=== PATIENT | male | born 1940 | race Caucasian/White ===

== ENCOUNTER 2016-10-19 11:19 | Emergency (ER) | payer MEDICARE ==
--- NOTE | 2016-10-19 12:42 | ED ---
General Adult HPI - General Chief complaint: ENT Stated complaint: NOSEBLEED X 1 DAY, ON BLOOD THINNERS Time Seen by Provider: 10/19/16 12:12 Source: patient, family, RN notes reviewed, old records reviewed Mode of arrival: wheelchair Limitations: no limitations - History of Present Illness Initial comments: This is a 76-year-old male here for evaluation today. Patient's a presents for evaluation of nosebleed. Patient currently on blood thinners and Plavix. Patient states he has a history of nosebleeds usually is a little bit of Afrin and pressure and it is able to resolve. Patient's having bleeding from both nares about a half hour and unable to give bleeding is stopped. No trauma, denies any complaints - Related Data Home Medications Medication Instructions Recorded Confirmed Allopurinol [Zyloprim] 100 mg PO BID 05/19/14 10/19/16 Metoprolol Succinate 25 mg PO QAM 05/19/14 10/19/16 Simvastatin [Zocor] 20 mg PO HS 05/19/14 10/19/16 Folic Acid 1 mg PO DAILY 11/07/14 10/19/16 Furosemide [Lasix] 20 mg PO DAILY 11/07/14 10/19/16 HYDROcodone/APAP 10-325MG [[place] 1 tab PO BID 11/07/14 10/19/16 10-325] Isosorbide Mononitrate ER [Imdur] 60 mg PO DAILY 11/07/14 10/19/16 Lisinopril [Prinivil] 20 mg PO BID 11/07/14 10/19/16 Manning-3 Fatty Acids/Fish Oil [Fish 1 cap PO TID 11/07/14 10/19/16 Oil 1,000 mg Softgel] Vit A/Vit C/Vit E/Zinc/Copper 2 cap PO BID 11/27/14 10/19/16 [ICAPS SOFTGEL] Sertraline [Zoloft] 100 mg PO HS 01/03/16 10/19/16 Psyllium Husk 100% [Metamucil 12 gm PO HS PRN 01/21/16 10/19/16 Packet] Tamsulosin HCl 0.8 mg PO HS 01/21/16 10/19/16 ALPRAZolam [Xanax] 0.5 mg PO TID PRN 03/02/16 10/19/16 Alfuzosin HCl [Uroxatral ER] 10 mg PO DAILY 10/19/16 10/19/16 Cranberry Extract [Cranberry] 500 mg PO DAILY 10/19/16 10/19/16 Dabigatran [Pradaxa] 75 mg PO BID 10/19/16 10/19/16 Fesoterodine Fumarate [Toviaz] 4 mg PO DAILY 10/19/16 10/19/16 Magnesium Oxide [Mag-Ox] 250 mg PO DAILY 10/19/16 10/19/16 Previous Rx's Medication Instructions Recorded Clopidogrel [Plavix] 75 mg PO DAILY #30 tab 02/21/16 Allergies Allergy/AdvReac Type Severity Reaction Status Date / Time No Known Allergies Allergy Verified 10/19/16 12:20 Review of Systems ROS Statement: Those systems with pertinent positive or pertinent negative responses have been documented in the HPI. ROS Other: All systems not noted in ROS Statement are negative. Past Medical History Past Medical History: Atrial Fibrillation, Coronary Artery Disease (CAD), Chest Pain / Angina, Heart Failure, Hearing Disorder / Deafness, Hyperlipidemia, Hypertension, Myocardial Infarction ([place]), Osteoarthritis (OA), Prostate Disorder , Pulmonary Embolus (PE) Additional Past Medical History / Comment(s): Frequent small epistaxis and a couple (3) large epistaxis episodes Gout, MAC DEGENERATION bilaterally-LEGALLY BLIND (BRIGHT LIGHTS BOTHER PT). CONSTIPATION, BPH, OA multiple joints, PE 23 yrs ago post op, stenosis cervical and lumbar Last Myocardial Infarction Date:: 01/2016 History of Any Multi-Drug Resistant Organisms: None Reported Past Surgical History: Coronary Bypass/CABG, Heart Catheterization With Stent, Orthopedic Surgery, Tonsillectomy Additional Past Surgical History / Comment(s): HAD A RECENT HEART CATH AND STENT AT [facility] EARLY JANUARY 2016 AND HAD AN EXTENSIVE NOSE BLEED AFTERWARDS HAD TO BE PACKED. PT STATED STILL EVERY AM HAS SOME NASAL BLEEDING- USES SALINE SOLUTION AND AFRIN. TOTAL RIGHT HIP REPLACEMENT Past Anesthesia/Blood Transfusion Reactions: No Reported Reaction Date of Last Stent Placement:: 01/2016 Past Psychological History: Anxiety, Depression Additional Psychological History / Comment(s): PT. STATES HE DOES SUFFER FROM ANXIETY AND DEPRESSION, PT. STATES DUE TO HIS FORMER JOB HE DOES SUFFER FROM DEPRESSION AND ANXIETY WHICH HE IS ON MEDS FOR and he states the meds work well for him, PT. Pt lives with his spouse. He uses a cane to ambulate moreso, due to blindness. Smoking Status: Former smoker Past Alcohol Use History: None Reported Additional Past Alcohol Use History / Comment(s): PT. STATES HE QUIT SMOKING 8 YEARS AGO AND SMOKED ON AND OFF FOR MANY YEARS Past Drug Use History: None Reported - Past Family History Mother Additional Family Medical History / Comment(s): MACULAR DEGENERATION, THYROID PROBLEMS. Mother at the age of 86 yrs. Father Family Medical History: Cancer Additional Family Medical History / Comment(s): Father from [place] at the age of 63 yrs. General Exam Limitations: no limitations General appearance: alert, in no apparent distress Head exam: Present: atraumatic, normocephalic, normal inspection Eye exam: Present: normal appearance, PERRL, EOMI. Absent: scleral icterus, conjunctival injection, periorbital swelling ENT exam: Present: normal exam, mucous membranes moist, other (Bilateral Logan bleeding anterior) Neck exam: Present: normal inspection. Absent: tenderness, meningismus, lymphadenopathy Respiratory exam: Present: normal lung sounds bilaterally. Absent: respiratory distress, wheezes, rales, rhonchi, stridor Cardiovascular Exam: Present: regular rate, normal rhythm, normal heart sounds. Absent: systolic murmur, diastolic murmur, rubs, gallop, clicks GI/Abdominal exam: Present: soft, normal bowel sounds. Absent: distended, tenderness, guarding, rebound, rigid Extremities exam: Present: normal inspection, full ROM, normal capillary refill. Absent: tenderness, pedal edema, joint swelling, calf tenderness Back exam: Present: normal inspection Neurological exam: Present: alert, oriented X3, CN II-XII intact Psychiatric exam: Present: normal affect, normal mood Skin exam: Present: warm, dry, intact, normal color. Absent: rash Course Vital Signs 10/19/16 10/19/16 12:03 13:32 Temperature 98.0 F 97.6 F Pulse Rate 52 L 56 L Respiratory 18 16 Rate Blood Pressure 122/70 156/73 O2 Sat by Pulse 98 97 Oximetry - Reevaluation(s) Reevaluation #1: 10/19/16 13:05 Bleeding is able to be stopped at this point. Patient be discharged home Procedures - Procedures Initial comment: Patient has double nasal packing placed, will discharge on antibiotics, bleeding has not stopped Medical Decision Making - Medical Decision Making 36 male the ER with bilateral Logan epistaxis, patient's bleeding is controlled at this time, patient will be discharged home Disposition Clinical Impression: Epistaxis, Anterior epistaxis Narrative: bilateral Epistaxis Disposition: HOME SELF-CARE Condition: Good Instructions: Nosebleed (ED) Referrals: Fuad Cornelius MD [Primary Care Provider] - 1-2 days
[2016-10-19] MEDS ORDERED: PENICILLIN V POTASSIUM 250 MG TAB PO STA (13:40)
[2016-10-19] MEDS ORDERED: PENICILLIN VK 500MG STARTER 4 TAB BTL PO STA (13:40)
[2016-10-19] MEDS ORDERED: SODIUM CHLORIDE 0.9% 1,000 ML IV STA (14:12)
[2016-10-19 14:54] LABS: Basophils % (A) 0 %; CH 27.8; CHCM 32.6; Eosinophils # (A) 0.3 k/uL (0-0.7); Eosinophils % (A) 4 %; HCT 36.7 % (39.0-53.0); HDW 2.55; HGB 11.8 gm/dL (13.0-17.5); Luc # (Auto) 0.23; Luc % (Auto) 3; Lymphocytes # (A) 1.3 k/uL (1.0-4.8); Lymphocytes % (A) 19 %; MCH 27.7 pg (25.0-35.0); MCHC 32.3 g/dL (31.0-37.0); MCV 85.9 fL (80.0-100.0); Mean Platelet Volume 8.7; Monocytes # (A) 0.5 k/uL (0-1.0); Monocytes % (A) 7 %; Neutrophils # (A) 4.5 k/uL (1.3-7.7); Neutrophils % (A) 66 %; RBC 4.27 m/uL (4.30-5.90); RDW 14.8 % (11.5-15.5); WBC 6.8 k/uL (3.8-10.6)
[2016-10-19 15:05] LABS: ALT 23 U/L (21-72); AST 18 U/L (17-59); Alkaline Phosphatase 75 U/L (38-126); Anion Gap 10 mmol/L; Blood Urea Nitrogen 19 mg/dL (9-20); Calcium 9.6 mg/dL (8.4-10.2); Carbon Dioxide 26 mmol/L (22-30); Chloride 104 mmol/L (98-107); Glucose 88 mg/dL (74-99); Magnesium 1.9 mg/dL (1.6-2.3); Non-African American GFR(MDRD) >60 (>60 ml/min/1.73 sqM); Phosphorous 2.6 mg/dL (2.5-4.5); Potassium 4.7 mmol/L (3.5-5.1); Sodium 140 mmol/L (137-145); Total Bilirubin 0.9 mg/dL (0.2-1.3); Total Protein 7.3 g/dL (6.3-8.2)
[2016-10-19 15:06] LABS: INR 1.2 (<1.1); Partial Thromboplastin Time 33.4 sec (22.0-30.0); Prothrombin Time 12.3 sec (9.0-12.0)
[2016-10-19] MEDS ORDERED: MORPHINE SULFATE 4 MG/ML SYRINGE IVP STA (15:17)
[2016-10-19] MEDS ORDERED: LORazepam 2 MG/ML SYRINGE IV STA (15:17)
[2016-10-19] MEDS: IDARUCIZUMAB 2.5 GM in EMPTY BAG 1 BAG IV SCH ×2 (15:26→15:38)
[2016-10-19 15:51] VITALS: RESP 18
[2016-10-19 17:58] VITALS: BP 149/81; PULSE 62; TEMP 97.8
== END 2016-10-19 17:59 | disposition home or self-care (01) ==
LOC: EC 11:19
DX: R04.0 Epistaxis (principal); I48.91 Unspecified atrial fibrillation; I25.10 Atherosclerotic heart disease of native coronary artery without angina pectoris; E78.5 Hyperlipidemia, unspecified; I11.0 Hypertensive heart disease with heart failure; I50.9 Heart failure, unspecified; I25.2 Old myocardial infarction; M10.9 Gout, unspecified; H54.0 Blindness, both eyes; F32.9 Major depressive disorder, single episode, unspecified; F41.9 Anxiety disorder, unspecified; N40.0 Benign prostatic hyperplasia without lower urinary tract symptoms; H91.90 Unspecified hearing loss, unspecified ear; M15.9 Polyosteoarthritis, unspecified; Z86.711 Personal history of pulmonary embolism; Z95.1 Presence of aortocoronary bypass graft; Z79.02 Long term (current) use of antithrombotics/antiplatelets; Z79.891 Long term (current) use of opiate analgesic; Z79.01 Long term (current) use of anticoagulants; Z79.899 Other long term (current) drug therapy; Z87.891 Personal history of nicotine dependence
CPT/HCPCS: 96361 ×5; 30901 ×2; 96374 ×2; 96375 ×2; 99284 ×2; 36415; 93005; 80053; 83735; 84100; 85025; 85610; 85730; J2060; J2270; C9399

== ENCOUNTER 2017-01-24 10:55 | Emergency (ER) | payer MEDICARE ==
[2017-01-24 12:25] LABS: INR 1.3 (<1.1); Partial Thromboplastin Time 26.6 sec (22.0-30.0); Prothrombin Time 13.1 sec (9.0-12.0)
--- NOTE | 2017-01-24 12:30 | CT ---
EXAMINATION TYPE: CT brain wo con DATE OF EXAM: 01/24/2017 COMPARISON: Previous study dated 08/20/2009 HISTORY: Patient fell today and hit forehead above right orbit, laceration at site. Patient has no c omplaints at time of study. Patient is currently taking blood thinners. CT DLP: 1034 mGycm Automated exposure control for dose reduction was used. FINDINGS: There are generalized changes of sulcal prominence and ventriculomegaly, compatible with atrophic rosalina nge. There is diffuse periventricular white matter lucency, compatible with chronic white matter isch emic change. There is no acute focal lesion, mass effect or midline shift identified. I do not see ev idence of intracranial blood. There is chronic ethmoidal sinus mucosal disease. The remainder the paranasal sinuses and mastoids ar e clear. No depressed skull fracture is seen. The zygomatic arches are intact. The pterygoid plates a re intact. IMPRESSION: 1. NO ACUTE INTRACRANIAL ABNORMALITY. 2. ATROPHIC CHANGE. 3. CHRONIC WHITE MATTER ISCHEMIC CHANGE. 4. CHRONIC ETHMOIDAL SINUS MUCOSAL DISEASE.
--- NOTE | 2017-01-24 12:55 | XR ---
EXAMINATION TYPE: XR knee complete RT DATE OF EXAM: 01/24/2017 CLINICAL HISTORY: pain TECHNIQUE: Three views of the right knee are obtained. COMPARISON: None. FINDINGS: There is no acute fracture/dislocation. The tri-compartment joint spaces appear at least moderately narrow. Spur formation is noted. Small suprapatellar joint effusion. The overlying soft ti ssue appears unremarkable. IMPRESSION: There is no acute fracture or dislocation. ICD 10 NO FRACTURE, INITIAL EVALUATION
--- NOTE | 2017-01-24 13:40 | ED ---
Fall HPI - General Chief Complaint: Fall Stated Complaint: fall (4 stairs) head laceration Time Seen by Provider: 01/24/17 11:30 Source: patient Mode of arrival: wheelchair - History of Present Illness Initial Comments: This 76-year-old white male presents with a complaint of a fall. This occurred last night. He states that he apparently fell down the last step and hit his head on the drywall. He did not lose any consciousness but did sustain an abrasion to his right scalp. He also complains of some slight pain to his right knee with an abrasion. He apparently has been doing well since the injury. There's been no nausea or vomiting. He has had normal mental status. He apparently does have problems with ambulation. He has macular degeneration and is legally blind. He relates that he just got out of the hospital yesterday at [facility]. He had a heart catheterization during the hospitalization due to an abnormal stress test. The heart catheterization. Apparently did not show any abnormalities. He denies any other complaints or modifying factors. He denies any neck or back pain. - Related Data Home Medications Medication Instructions Recorded Confirmed Allopurinol [Zyloprim] 100 mg PO BID 05/19/14 01/24/17 Metoprolol Succinate 25 mg PO QA 05/19/14 01/24/17 Simvastatin [Zocor] 20 mg PO 05/19/14 01/24/17 Folic Acid 1 mg PO DAILY 11/07/14 01/24/17 HYDROcodone/APAP 10-325MG [[place] 1 tab PO BID 11/07/14 01/24/17 10-325] Isosorbide Mononitrate ER [Imdur] 60 mg PO DAILY 11/07/14 01/24/17 Vit A/Vit C/Vit E/Zinc/Copper 2 cap PO BID 11/27/14 01/24/17 [ICAPS SOFTGEL] Sertraline [Zoloft] 100 mg PO BID 01/03/16 01/24/17 Tamsulosin HCl 0.4 mg PO HS 01/21/16 01/24/17 Cholecalciferol [Vitamin D3] 2,000 unit PO HS 01/24/17 01/24/17 Clopidogrel [Plavix] 75 mg PO HS 01/24/17 01/24/17 Ferrous Sulfate [Feosol] 325 mg PO BID 01/24/17 01/24/17 Finasteride [Proscar] 5 mg PO HS 01/24/17 01/24/17 Sacubitril/Valsartan [Entresto 24 1 tab PO DAILY 01/24/17 01/24/17 mg-26 mg Tablet] Warfarin [Coumadin] 5 mg PO DAILY 01/24/17 01/24/17 Allergies Allergy/AdvReac Type Severity Reaction Status Date / Time No Known Allergies Allergy Verified 01/24/17 11:39 Review of Systems ROS Statement: Those systems with pertinent positive or pertinent negative responses have been documented in the HPI. ROS Other: All systems not noted in ROS Statement are negative. Past Medical History Past Medical History: Atrial Fibrillation, Coronary Artery Disease (CAD), Chest Pain / Angina, Heart Failure, Hearing Disorder / Deafness, Hyperlipidemia, Hypertension, Myocardial Infarction ([place]), Osteoarthritis (OA), Prostate Disorder , Pulmonary Embolus ([place]) Additional Past Medical History / Comment(s): Frequent small epistaxis and a couple (3) large epistaxis episodes Gout, MAC DEGENERATION bilaterally-LEGALLY BLIND (BRIGHT LIGHTS BOTHER PT). CONSTIPATION, BPH, OA multiple joints, PE 23 yrs ago post op, stenosis cervical and lumbar Last Myocardial Infarction Date:: 01/2016 History of Any Multi-Drug Resistant Organisms: None Reported Past Surgical History: Coronary Bypass/CABG, Heart Catheterization With Stent, Orthopedic Surgery, Tonsillectomy Additional Past Surgical History / Comment(s): HAD A RECENT HEART CATH AND STENT AT [facility] EARLY JANUARY 2016 AND HAD AN EXTENSIVE NOSE BLEED AFTERWARDS HAD TO BE PACKED. PT STATED STILL EVERY AM HAS SOME NASAL BLEEDING- USES SALINE SOLUTION AND AFRIN. TOTAL RIGHT HIP REPLACEMENT Past Anesthesia/Blood Transfusion Reactions: No Reported Reaction Date of Last Stent Placement:: 01/2016 Past Psychological History: Anxiety, Depression Smoking Status: Former smoker Past Alcohol Use History: None Reported Past Drug Use History: None Reported - Past Family History Mother Additional Family Medical History / Comment(s): MACULAR DEGENERATION, THYROID PROBLEMS. Mother at the age of 86 yrs. Father Family Medical History: Cancer Additional Family Medical History / Comment(s): Father from [place] at the age of 63 yrs. General Exam - General Exam Comments Initial Comments: GENERAL: The patient is well nourished and well hydrated. VITAL SIGNS: Heart rate, blood pressure, respiratory rate reviewed as recorded in nurse's notes. EYES: Pupils are round and reactive. Extraocular movements are intact. No conjunctival / lid redness or swelling. ENT: There is an abrasion present to the right forehead/scalp. Airway is patent. Throat is clear. NECK: Nontender. No swelling or evidence of injury. No subcutaneous emphysema. Trachea is midline. No thyroid mass. HEART: Regular rate and rhythm. Good peripheral pulses. LUNGS/CHEST: Breath sounds clear and equal bilaterally. No rales, rhonchi, or wheezes. No ecchymosis, subcutaneous emphysema, or tenderness. ABDOMEN: Abdomen soft without tenderness. No palpable masses or organomegaly. No peritoneal signs. No abdominal wall swelling or ecchymosis. EXTREMITIES: There is mild tenderness over the right knee. Normal muscle tone and function. No thoracolumbar tenderness. NEUROLOGIC: Sensation is grossly intact. Cranial nerve exam reveals face is symmetrical, tongue is midline, speech is clear. SKIN: Abrasion is noted to the right scalp/forehead as well as the right knee. No induration or masses noted. PSYCHIATRIC: Alert and oriented. Appropriate behavior and judgment. Limitations: no limitations Course Vital Signs 01/24/17 11:01 Temperature 98.9 F Pulse Rate 53 L Respiratory 18 Rate Blood Pressure 136/69 O2 Sat by Pulse 96 Oximetry Medical Decision Making - Medical Decision Making The patient was seen and examined. The case was discussed with the surgeon, Dr. Arias, just after evaluating the patient as he apparently does qualify for a priority 2 trauma. The computed tomography scan of the brain does not show any acute process. The patient also had an x-ray of the right knee which does not show any acute process. He apparently was on Lovenox shots while in the hospital just started back on Coumadin yesterday. His INR is still slightly subtherapeutic at 1.3. Overall, he appears quite well clinically and it is felt as though he is stable for discharge. His diagnosis was discussed with him in detail. Falls in the elderly were discussed in detail. He leaves in no severe distress. - Lab Data Lab Results 01/24/17 Range/Units 11:55 PT 13.1 H (9.0-12.0) sec INR 1.3 (<1.1) APTT 26.6 (22.0-30.0) sec Disposition Clinical Impression: Fall, Head injury, Knee contusion, Abrasions of multiple sites Disposition: HOME SELF-CARE Condition: Good Instructions: Fall Prevention for Older Adults (ED), Head Injury (ED), Contusion in Adults (ED), Abrasion (ED) Referrals: Fuad Cornelius MD [Primary Care Provider] - 1-2 days Time of Disposition: 13:44
[2017-01-24 14:01] VITALS: BP 126/56; PULSE 45; RESP 14; TEMP 97.7
== END 2017-01-24 13:55 | disposition home or self-care (01) ==
LOC: EC 10:55
DX: S80.01XA Contusion of right knee, initial encounter (principal); S00.01XA Abrasion of scalp, initial encounter; R79.1 Abnormal coagulation profile; E78.5 Hyperlipidemia, unspecified; I11.0 Hypertensive heart disease with heart failure; I25.10 Atherosclerotic heart disease of native coronary artery without angina pectoris; N40.0 Benign prostatic hyperplasia without lower urinary tract symptoms; M10.9 Gout, unspecified; F32.9 Major depressive disorder, single episode, unspecified; F41.9 Anxiety disorder, unspecified; H35.30 Unspecified macular degeneration; H54.8 Legal blindness, as defined in USA; I25.2 Old myocardial infarction; Z87.891 Personal history of nicotine dependence; Z79.01 Long term (current) use of anticoagulants; Z79.02 Long term (current) use of antithrombotics/antiplatelets; Z79.899 Other long term (current) drug therapy; Z86.711 Personal history of pulmonary embolism; Z86.79 Personal history of other diseases of the circulatory system; Z95.5 Presence of coronary angioplasty implant and graft; W10.9XXA Fall (on) (from) unspecified stairs and steps, initial encounter; Y93.89 Activity, other specified
CPT/HCPCS: 36415; 70450; 85610; 85730; 99284

== ENCOUNTER 2017-04-04 16:47 | Emergency (ER) | payer MEDICARE ==
[2017-04-04 16:53] VITALS: TEMP 98.1
--- NOTE | 2017-04-04 17:18 | ED ---
General Adult HPI - General Chief complaint: ENT Stated complaint: Nose Bleed Time Seen by Provider: 04/04/17 16:49 Source: patient, family, EMS, RN notes reviewed, old records reviewed Mode of arrival: EMS - History of Present Illness Initial comments: Chief complaint history of present illness 76-year-old male here with his family. He states he started bleeding around 10 this morning from his left nares. He reports 3 times per year he has bad nosebleeds on of occasions more minor nosebleeds. The patient does have on-again off-again A. fib for which he takes Coumadin. His last INR was 2.3. The patient presents emergency room today with his left and right nares staffed with tissue. Reports he is not having posterior bleeding. A nasal clip was placed and he'll be observed for short while. - Related Data Home Medications Medication Instructions Recorded Confirmed Allopurinol [Zyloprim] 100 mg PO BID 05/19/14 04/04/17 Metoprolol Succinate 25 mg PO DAILY 05/19/14 04/04/17 Simvastatin [Zocor] 20 mg PO HS 05/19/14 04/04/17 Folic Acid 1 mg PO DAILY 11/07/14 04/04/17 HYDROcodone/APAP 10-325MG [[place] 1 tab PO BID 11/07/14 04/04/17 10-325] Isosorbide Mononitrate ER [Imdur] 60 mg PO DAILY 11/07/14 04/04/17 Vit A/Vit C/Vit E/Zinc/Copper 2 cap PO BID 11/27/14 04/04/17 [ICAPS SOFTGEL] Sertraline [Zoloft] 100 mg PO BID 01/03/16 04/04/17 Tamsulosin HCl 0.4 mg PO HS 01/21/16 04/04/17 Cholecalciferol [Vitamin D3] 2,000 unit PO HS 01/24/17 04/04/17 Ferrous Sulfate [Feosol] 325 mg PO BID 01/24/17 04/04/17 Finasteride [Proscar] 5 mg PO HS 01/24/17 04/04/17 Sacubitril/Valsartan [Entresto 24 1 tab PO DAILY 01/24/17 04/04/17 mg-26 mg Tablet] Warfarin [Coumadin] 5 mg PO DAILY 01/24/17 04/04/17 Allergies Allergy/AdvReac Type Severity Reaction Status Date / Time No Known Allergies Allergy Verified 04/04/17 17:21 Review of Systems ROS Statement: Those systems with pertinent positive or pertinent negative responses have been documented in the HPI. Review of systems no headache or visual acuity changes at this time denies any chest pain shortness breath GI/ problems. All systems reviewed. Past medical problems significant for A. fib, angina, [place], heart appearing, hyperlipidemia, hypertension, osteoarthritis, prostate disorder, previous pulmonary embolism and occasional episodes of epistaxis. Surgeries include coronary bypass, heart catheterization, tonsillectomy. Currently nonsmoker nondrinker ALLERGIES none. Family history noncontributory ROS Other: All systems not noted in ROS Statement are negative. Past Medical History Past Medical History: Atrial Fibrillation, Coronary Artery Disease (CAD), Chest Pain / Angina, Heart Failure, Hearing Disorder / Deafness, Hyperlipidemia, Hypertension, Myocardial Infarction ([place]), Osteoarthritis (OA), Prostate Disorder , Pulmonary Embolus ([place]) Additional Past Medical History / Comment(s): Frequent small epistaxis and a couple (3) large epistaxis episodes Gout, MAC DEGENERATION bilaterally-LEGALLY BLIND (BRIGHT LIGHTS BOTHER PT). CONSTIPATION, BPH, OA multiple joints, PE 23 yrs ago post op, stenosis cervical and lumbar Last Myocardial Infarction Date:: 01/2016 History of Any Multi-Drug Resistant Organisms: None Reported Past Surgical History: Coronary Bypass/CABG, Heart Catheterization With Stent, Orthopedic Surgery, Tonsillectomy Additional Past Surgical History / Comment(s): HAD A RECENT HEART CATH AND STENT AT [facility] EARLY JANUARY 2016 AND HAD AN EXTENSIVE NOSE BLEED AFTERWARDS HAD TO BE PACKED. PT STATED STILL EVERY AM HAS SOME NASAL BLEEDING- USES SALINE SOLUTION AND AFRIN. TOTAL RIGHT HIP REPLACEMENT Past Anesthesia/Blood Transfusion Reactions: No Reported Reaction Date of Last Stent Placement:: 01/2016 Past Psychological History: Anxiety, Depression Smoking Status: Former smoker Past Alcohol Use History: None Reported Past Drug Use History: None Reported - Past Family History Mother Additional Family Medical History / Comment(s): MACULAR DEGENERATION, THYROID PROBLEMS. Mother at the age of 86 yrs. Father Family Medical History: Cancer Additional Family Medical History / Comment(s): Father from [place] at the age of 63 yrs. General Exam - General Exam Comments Initial Comments: General: The patient is awake and alert, appears a history of epistaxis for several hours. Currently controlled because he stuffed both nares with paper. Patient states is not bleeding posteriorly. Vital signs temp 98.1 pulse 50 , respiratory rate 20 pulse, ox 96% room air blood pressure 170/70 Eye: Patient wears sunglasses inside because of photophobia. Macular degeneration. Ears, nose, mouth and throat: There are moist mucous membranes and no oral lesions. Currently no bleeding posteriorly. Neck: The neck is supple, Cardiovascular: A regular rate and rhythm Respiratory: No respiratory distress at this time. Gastrointestinal: Soft, non-distended, non-tender abdomen Back: There is no tenderness to palpation in the midline. T Musculoskeletal: Normal ROM, no tenderness, Neurological: CN II-XII intact, no neuro deficits Skin: Multiple areas of ecchymosis around the body. Course Vital Signs 04/04/17 16:49 Temperature 98.1 F Pulse Rate 50 L Respiratory 20 Rate Blood Pressure 170/70 O2 Sat by Pulse 96 Oximetry Medical Decision Making - Medical Decision Making Radical decision making; patient's white count 7.5 hemoglobin 11.7 hematocrit 35. INR 3.3. Rusher's applied to the nares. Hemostasis obtained. A small amount of blood noted on the left nares. A 2 inch Merocel curved and cut to fit coded with bacitracin and then saturated with Afrin was placed. This stayed without problems. No bleeding anteriorly or posteriorly. was told to apply several drops every several hours. In 2 days she was told to saturated well with the Afrin and then gently remove it if the nose starts to bleed again at any time that are repacked the nose return emergency room. Otherwise follow-up with family physician. - Lab Data Result diagrams: 04/04/17 17:32 Lab Results 04/04/17 04/04/17 Range/Units 17:32 17:32 WBC 7.0 (3.8-10.6) k/uL RBC 4.01 L (4.30-5.90) m/uL Hgb 11.7 L (13.0-17.5) gm/dL Hct 35.3 L (39.0-53.0) % MCV 88.1 (80.0-100.0) fL MCH 29.1 (25.0-35.0) pg MCHC 33.0 (31.0-37.0) g/dL RDW 15.1 (11.5-15.5) % Plt Count 188 (150-450) k/uL Neutrophils % 72 % Lymphocytes % 15 % Monocytes % 7 % Eosinophils % 5 % Basophils % 0 % Neutrophils # 5.0 (1.3-7.7) k/uL Lymphocytes # 1.1 (1.0-4.8) k/uL Monocytes # 0.5 (0-1.0) k/uL Eosinophils # 0.3 (0-0.7) k/uL Basophils # 0.0 (0-0.2) k/uL PT 31.7 H (9.0-12.0) sec INR 3.3 H (<1.2) Disposition Clinical Impression: Anterior epistaxis Disposition: HOME SELF-CARE Condition: Fair Instructions: Nosebleed (ED) Additional Instructions: Place several drops on the nasal sponge every 4-6 hours. In 2 days such rate the sponge with Afrin nasal spray provided. Then gently remove the sponge. If bleeding starts pack the nose and return to emergency room. Referrals: Fuad Cornelius MD [Primary Care Provider] - 1-2 days Time of Disposition: 19:06
[2017-04-04 17:41] LABS: Basophils % (A) 0 %; CH 28.9; CHCM 32.9; Eosinophils # (A) 0.3 k/uL (0-0.7); Eosinophils % (A) 5 %; HCT 35.3 % (39.0-53.0); HDW 2.39; HGB 11.7 gm/dL (13.0-17.5); Luc # (Auto) 0.14; Luc % (Auto) 2; Lymphocytes # (A) 1.1 k/uL (1.0-4.8); Lymphocytes % (A) 15 %; MCH 29.1 pg (25.0-35.0); MCV 88.1 fL (80.0-100.0); Mean Platelet Volume 8.3; Monocytes # (A) 0.5 k/uL (0-1.0); Monocytes % (A) 7 %; Neutrophils % (A) 72 %; RBC 4.01 m/uL (4.30-5.90); RDW 15.1 % (11.5-15.5); WBC (Perox) 7.04
[2017-04-04 17:52] LABS: INR 3.3 (<1.2); Prothrombin Time 31.7 sec (9.0-12.0)
[2017-04-04] MEDS ORDERED: OXYMETAZOLINE 0.05% NASL SPRAY 1 SPRAY BOTTLE NASAL STA (18:23)
[2017-04-04 19:32] VITALS: BP 184/83; PULSE 52; RESP 16
== END 2017-04-04 19:32 | disposition home or self-care (01) ==
LOC: EC 16:47
DX: R04.0 Epistaxis (principal); I48.91 Unspecified atrial fibrillation; I25.10 Atherosclerotic heart disease of native coronary artery without angina pectoris; I11.0 Hypertensive heart disease with heart failure; I50.9 Heart failure, unspecified; E78.5 Hyperlipidemia, unspecified; I25.2 Old myocardial infarction; N42.9 Disorder of prostate, unspecified; F41.9 Anxiety disorder, unspecified; F32.9 Major depressive disorder, single episode, unspecified; Z86.711 Personal history of pulmonary embolism; Z95.5 Presence of coronary angioplasty implant and graft; Z95.1 Presence of aortocoronary bypass graft; Z87.891 Personal history of nicotine dependence; Z79.01 Long term (current) use of anticoagulants; Z79.891 Long term (current) use of opiate analgesic; Z79.899 Other long term (current) drug therapy
CPT/HCPCS: 36415; 85025; 85610; 99284

== ENCOUNTER 2017-04-05 08:12 | Emergency (ER) | payer MEDICARE ==
[2017-04-05] MEDS ORDERED: HYDROcodone/APAP 5-325MG 1 EACH TAB PO STA (08:32)
--- NOTE | 2017-04-05 08:34 | ED ---
General Adult HPI - General Chief complaint: Fall Stated complaint: FALL, RT HAND, BACK INJURY Time Seen by Provider: 04/05/17 08:18 Source: patient, EMS, RN notes reviewed Mode of arrival: EMS - History of Present Illness Initial comments: Patient 76-year-old male who presents emergency room today by EMS, the chief complaint of a fall occurred last approximately 10 PM. He does admit that he tripped over a laundry basket in the bathroom. He states he fell backwards onto a right wrist and right hip and lower back area. He does admit to pain locally to these areas. He denies any specific head injury. He did not lose consciousness. Does admit that he is on a blood thinner. Patient was seen here yesterday for epistaxis. Does have nasal packing on the left side. Patient does admit that he did take his Coumadin last night. His INR was 3.3 here in the ER. Patient admits that pain is worse with certain movements of the right wrist. He admits to some [place] sensation down to the fingertips. He denies any other complaints or symptoms at this time. Patient denies any recent fever, chills, shortness of breath, chest pain, back pain, abdominal pain , nausea or vomiting, dysuria or hematuria, constipation or diarrhea, headaches or visual changes, or any other complaints. - Related Data Home Medications Medication Instructions Recorded Confirmed Allopurinol [Zyloprim] 100 mg PO BID 05/19/14 04/05/17 Metoprolol Succinate 25 mg PO DAILY 05/19/14 04/05/17 Simvastatin [Zocor] 20 mg PO HS 05/19/14 04/05/17 Folic Acid 1 mg PO DAILY 11/07/14 04/05/17 HYDROcodone/APAP 10-325MG [[place] 1 tab PO BID 11/07/14 04/05/17 10-325] Isosorbide Mononitrate ER [Imdur] 60 mg PO DAILY 11/07/14 04/05/17 Vit A/Vit C/Vit E/Zinc/Copper 2 cap PO BID 11/27/14 04/05/17 [ICAPS SOFTGEL] Sertraline [Zoloft] 100 mg PO BID 01/03/16 04/05/17 Tamsulosin HCl 0.4 mg PO HS 01/21/16 04/05/17 Cholecalciferol [Vitamin D3] 2,000 unit PO HS 01/24/17 04/05/17 Ferrous Sulfate [Feosol] 325 mg PO BID 01/24/17 04/05/17 Finasteride [Proscar] 5 mg PO HS 01/24/17 04/05/17 Sacubitril/Valsartan [Entresto 24 1 tab PO DAILY 01/24/17 04/05/17 mg-26 mg Tablet] Warfarin [Coumadin] 5 mg PO DAILY 01/24/17 04/05/17 Previous Rx's Medication Instructions Recorded Cephalexin [Keflex] 500 mg PO Q12HR 7 Days 04/05/17 Allergies Allergy/AdvReac Type Severity Reaction Status Date / Time No Known Allergies Allergy Verified 04/05/17 08:31 Review of Systems ROS Statement: Those systems with pertinent positive or pertinent negative responses have been documented in the HPI. ROS Other: All systems not noted in ROS Statement are negative. Past Medical History Past Medical History: Atrial Fibrillation, Coronary Artery Disease (CAD), Chest Pain / Angina, Heart Failure, Hearing Disorder / Deafness, Hyperlipidemia, Hypertension, Myocardial Infarction (ID), Osteoarthritis (OA), Prostate Disorder , Pulmonary Embolus (PE) Additional Past Medical History / Comment(s): Frequent small epistaxis and a couple (3) large epistaxis episodes Gout, MAC DEGENERATION bilaterally-LEGALLY BLIND (BRIGHT LIGHTS BOTHER PT). CONSTIPATION, BPH, OA multiple joints, PE 23 yrs ago post op, stenosis cervical and lumbar Last Myocardial Infarction Date:: 01/2016 History of Any Multi-Drug Resistant Organisms: None Reported Past Surgical History: Coronary Bypass/CABG, Heart Catheterization With Stent, Orthopedic Surgery, Tonsillectomy Additional Past Surgical History / Comment(s): HAD A RECENT HEART CATH AND STENT AT [facility]LY JANUARY 2016 AND HAD AN EXTENSIVE NOSE BLEED AFTERWARDS HAD TO BE PACKED. PT STATED STILL EVERY AM HAS SOME NASAL BLEEDING- USES SALINE SOLUTION AND AFRIN. TOTAL RIGHT HIP REPLACEMENT Past Anesthesia/Blood Transfusion Reactions: No Reported Reaction Date of Last Stent Placement:: 01/2016 Past Psychological History: Anxiety, Depression Smoking Status: Former smoker Past Alcohol Use History: None Reported Past Drug Use History: None Reported - Past Family History Mother Additional Family Medical History / Comment(s): MACULAR DEGENERATION, THYROID PROBLEMS. Mother at the age of 86 yrs. Father Family Medical History: Cancer Additional Family Medical History / Comment(s): Father from [place] at the age of 63 yrs. General Exam - General Exam Comments Initial Comments: General: The patient is awake and alert, in no distress, and does not appear acutely ill. Eye: Pupils are equal, round and reactive to light, extra-ocular movements are intact. No nystagmus. There is normal conjunctiva bilaterally. No signs of icterus. Ears, nose, mouth and throat: There are moist mucous membranes and no oral lesions. Left sided nasal packing. No bleeding. Posterior pharynx clear. Neck: The neck is supple, there is no tenderness or JVD. Cardiovascular: There is a regular rate and rhythm. No murmur, rub or gallop is appreciated. Respiratory: Lungs are clear to auscultation, respirations are non-labored, breath sounds are equal. No wheezes, stridor, rales, or rhonchi. Gastrointestinal: Soft, non-distended, non-tender abdomen without masses or organomegaly noted. There is no rebound or guarding present. No CVA tenderness. Bowel sounds are unremarkable. Musculoskeletal: Patient does have some swelling to the right wrist area. He is locally tender over the distal radius and ulna. No tenderness onto the digits. Sensation intact to light touch. Normal appearance the right hip no shortening or rotation. Mild tenderness laterally. Mild tightness to lower lumbar. No step-offs deformities appreciated in these areas. No tenderness to cervical or thoracic spine. Strength 5/5. Sensation intact. Pulses equal bilaterally 2+. Neurological: A&O x 3. CN II-XII intact, There are no obvious motor or sensory deficits. Coordination appears grossly intact. Speech is normal. Skin: Skin is warm and dry and no rashes or lesions are noted. Psychiatric: Cooperative, appropriate mood & affect, normal judgment. Course Vital Signs 04/05/17 08:15 Temperature 99.2 F Pulse Rate 66 Respiratory 18 Rate Blood Pressure 169/79 O2 Sat by Pulse 100 Oximetry Procedures - Procedures Initial comment: Patient has been splinted in a short arm OCL thumb spica splint. Neurovascular rechecked and intact. Medical Decision Making - Medical Decision Making Patient reexamined at this time shows no signs of distress. His CT of the right wrist does show possible ligamentous tear. No fracture dislocation. CT of the head is negative for any acute abnormality. Patient does have nasal packing on the left side. Patient will be placed on antibiotics cover for infection due to nasal packing. Advised to follow-up with the ENT doctor. Also advised follow-up with orthopedics for the right wrist. There is no some of that he spent [facility] in the past. He has been splinted in a thumb spica short arm splint here the emergency room. Patient's INR 3.7. Advised to hold Coumadin tonight and have INR rechecked tomorrow. Advised to return to emergency room for any other concerns. Case was discussed with attending physician Dr. Acosta. - Lab Data Result diagrams: 04/05/17 08:49 04/05/17 08:49 Lab Results 04/05/17 04/05/17 04/05/17 Range/Units 08:49 08:49 08:49 WBC 12.0 H (3.8-10.6) k/uL RBC 4.43 (4.30-5.90) m/uL Hgb 12.7 L (13.0-17.5) gm/dL Hct 38.9 L (39.0-53.0) % MCV 87.8 (80.0-100.0) fL MCH 28.7 (25.0-35.0) pg MCHC 32.7 (31.0-37.0) g/dL RDW 16.2 H (11.5-15.5) % Plt Count 179 (150-450) k/uL Neutrophils % 85 % Lymphocytes % 7 % Monocytes % 6 % Eosinophils % 1 % Basophils % 0 % Neutrophils # 10.2 H (1.3-7.7) k/uL Lymphocytes # 0.9 L (1.0-4.8) k/uL Monocytes # 0.7 (0-1.0) k/uL Eosinophils # 0.1 (0-0.7) k/uL Basophils # 0.0 (0-0.2) k/uL Anisocytosis Slight PT 35.9 H (9.0-12.0) sec INR 3.7 H (<1.2) Sodium 142 (137-145) mmol/L Potassium 5.2 H (3.5-5.1) mmol/L Chloride 103 (98-107) mmol/L Carbon Dioxide 28 (22-30) mmol/L Anion Gap 11 mmol/L BUN 25 H (9-20) mg/dL Creatinine 0.90 (0.66-1.25) mg/dL Est GFR (MDRD) Af Amer >60 (>60 ml/min/1.73 sqM) Est GFR (MDRD) Non-Af >60 (>60 ml/min/1.73 sqM) Glucose 95 (74-99) mg/dL Calcium 10.1 (8.4-10.2) mg/dL Disposition Clinical Impression: Fall, Disorder of ligament of wrist Disposition: HOME SELF-CARE Condition: Stable Instructions: Wrist Injury (ED) Additional Instructions: Please leave splinted in place until follow-up with orthopedics over the next 2 days. Please have nasal packing removed by the family doctor or ENT. If bleeding recurs please return here to the emergency room. Please continue to ice elevate the wrist as discussed. Please hold Coumadin dose tonight and have INR rechecked as discussed. Prescriptions: Cephalexin [Keflex] 500 mg PO Q12HR 7 Days Referrals: Fuad Cornelius MD [Primary Care Provider] - 1-2 days Tahir Barrera MD [STAFF PHYSICIAN] - 1-2 days Iam Guzman DO [Doctor of Osteopathic Medicine] - 1-2 days Time of Disposition: 11:33
[2017-04-05 09:11] LABS: Anisocytosis Slight; Basophils % (A) 0 %; CH 29.9; CHCM 34.2; Eosinophils # (A) 0.1 k/uL (0-0.7); Eosinophils % (A) 1 %; HCT 38.9 % (39.0-53.0); HDW 2.43; HGB 12.7 gm/dL (13.0-17.5); Luc # (Auto) 0.17; Luc % (Auto) 1; Lymphocytes # (A) 0.9 k/uL (1.0-4.8); Lymphocytes % (A) 7 %; MCH 28.7 pg (25.0-35.0); MCHC 32.7 g/dL (31.0-37.0); MCV 87.8 fL (80.0-100.0); Monocytes # (A) 0.7 k/uL (0-1.0); Monocytes % (A) 6 %; Neutrophils # (A) 10.2 k/uL (1.3-7.7); Neutrophils % (A) 85 %; RBC 4.43 m/uL (4.30-5.90); RDW 16.2 % (11.5-15.5); WBC (Perox) 13.02
[2017-04-05 09:25] LABS: Anion Gap 11 mmol/L; Blood Urea Nitrogen 25 mg/dL (9-20); Calcium 10.1 mg/dL (8.4-10.2); Carbon Dioxide 28 mmol/L (22-30); Chloride 103 mmol/L (98-107); Glucose 95 mg/dL (74-99); Non-African American GFR(MDRD) >60 (>60 ml/min/1.73 sqM); Potassium 5.2 mmol/L (3.5-5.1); Sodium 142 mmol/L (137-145)
[2017-04-05 09:28] LABS: INR 3.7 (<1.2); Prothrombin Time 35.9 sec (9.0-12.0)
--- NOTE | 2017-04-05 09:46 | XR ---
EXAMINATION TYPE: XR lumbar spine 2 or 3V DATE OF EXAM: 04/05/2017 COMPARISON: NONE HISTORY: Pain fall TECHNIQUE: Three-view lumbar spine FINDINGS: There 5 lumbar-type vertebral bodies. Pedicles are intact. There is loss of disc height L4- 5 L5-S1. Posterior disc space narrowing is present L2-3 L3-4. Spondylosis is present. IMPRESSION: 1. Degenerative disc changes mid to lower lumbar spine
--- NOTE | 2017-04-05 09:47 | XR ---
EXAMINATION TYPE: XR Hip RT and AP Pelvis DATE OF EXAM: 04/05/2017 COMPARISON: Pain HISTORY: Fall TECHNIQUE: AP pelvis and two-view right hip FINDINGS: There is a right hip prosthesis present. No acute fractures are evident. Normal bowel gas is present. Sacroiliac joints and symphysis pubis are within normal limits. Some deg enerative changes at the left hip. Cam deformity may be present. IMPRESSION: 1. No acute osseous abnormality.
--- NOTE | 2017-04-05 09:49 | XR ---
EXAMINATION TYPE: XR wrist complete RT DATE OF EXAM: 04/05/2017 COMPARISON: NONE HISTORY: Fall, pain TECHNIQUE: 4 view right wrist FINDINGS: There is mild prominence of the scapholunate space. Correlate for scapholunate disassociati on. Degenerative joint changes are present at the first carpal metacarpal junction. No displaced fractures are evident. Mild soft tissue swelling is over the wrist. IMPRESSION: 1. Mild soft tissue swelling diffusely at the right wrist. 2. Clinical consideration for scapholunate disassociation is recommended.
--- NOTE | 2017-04-05 09:52 | CT ---
EXAMINATION TYPE: CT brain wo con DATE OF EXAM: 04/05/2017 COMPARISON: 01/24/2017 INDICATION: fall today DLP: 1029.90 mGycm, Automated exposure control for dose reduction was used. CONTRAST: None CT of the brain is performed utilizing 3 mm thick sections through the posterior fossa and 3 mm thick sections through the remaining calvarium. Study is performed within 24 hours of arrival to the hosp [facility]. No abnormal hyperdensity is present to suggest an acute intracranial hemorrhage. No mass lesion is evident. No acute infarcts are evident. Ventricles and sulci are mildly prominent for the patient age. There is mucosal thickening within maxillary sinuses. Debris filling of the left nasal passage and po sterior nasopharynx is evident. There is left septal deviation. There is mucosal thickening within fr ontal sinuses. Displaced fracture is not identified. Mastoid air cells are clear. This exam is compared to 01/24/2017. Nasal passages changes are likely posttraumatic in nature. IMPRESSIONS: 1. Mild age-related atrophy. 2. Suspected posttraumatic filling of the nasal passage. Acute fractures are not identified. 3. Mild mucosal thickening within paranasal sinuses.
--- NOTE | 2017-04-05 11:17 | CT ---
EXAMINATION TYPE: CT wrist RT wo con DATE OF EXAM: 04/05/2017 COMPARISON: NONE HISTORY: Fall, Rt wrist pain CT DLP: 81 mGycm Automated exposure control for dose reduction was used. FINDINGS: Although the patient's hand is slightly flexed making measurement for dorsal intercalated segment ins tability there is a capitolunate angle of greater than 30 (38 degrees) that in combination with minim al widening of the scapholunate interval (4 mm) suggests scapholunate tear and dorsal intercalated se gment instability. No evidence of acute fracture is seen. Distal radius and ulnar styloid are intact without erosion of the ulnar styloid. Numerous osseous, likely degenerative, cysts are seen within th e carpal bones. Mild hypertrophic marginal osteophytes and joint space narrowing as well as sclerosis are seen at the first carpometacarpal joint. Metatarsal erosions as well as scaphoid erosion may rel ate to erosive osteoarthritis or degenerative change. Soft tissue swelling is seen of the wrist, obliterating dorsal and ventral fat planes. Evaluation of the flexor and extensor tendons is limited on CT. No radiopaque foreign body is present. IMPRESSION: 1. FINDINGS SUGGESTIVE OF SCAPHOLUNATE TEAR AND DORSAL INTERCALATED SEGMENT INSTABILITY. NO EVIDENCE OF ACUTE FRACTURE. FOR DEFINITIVE VISUALIZATION AND CLASSIFICATION OF THE TEAR MRI COULD BE PERFORMED . 2. MILD TO MODERATE ARTHROPATHY OF THE RIGHT WRIST.
[2017-04-05] MEDS ORDERED: MORPHINE SULFATE 4 MG/ML SYRINGE IV STA (11:40)
[2017-04-05 11:50] VITALS: BP 168/90; PULSE 89; RESP 20; TEMP 98.6
== END 2017-04-05 12:02 | disposition home or self-care (01) ==
LOC: EC 08:12
DX: M24.231 Disorder of ligament, right wrist (principal); M54.5 Low back pain; M25.551 Pain in right hip; I48.91 Unspecified atrial fibrillation; I25.10 Atherosclerotic heart disease of native coronary artery without angina pectoris; I11.0 Hypertensive heart disease with heart failure; I50.9 Heart failure, unspecified; E78.5 Hyperlipidemia, unspecified; I25.2 Old myocardial infarction; F32.9 Major depressive disorder, single episode, unspecified; F41.9 Anxiety disorder, unspecified; H54.8 Legal blindness, as defined in USA; Z86.711 Personal history of pulmonary embolism; Z95.1 Presence of aortocoronary bypass graft; Z87.891 Personal history of nicotine dependence; W01.0XXA Fall on same level from slipping, tripping and stumbling without subsequent striking against object, initial encounter; Y92.002 Bathroom of unspecified non-institutional (private) residence as the place of occurrence of the external cause
CPT/HCPCS: 99284; 29125; 96374; 36415; 80048; 85025; 85610; 72100; 73502; 73110; 73200; 70450; J2270

== ENCOUNTER 2017-04-06 09:13 | Emergency (ER) | payer MEDICARE ==
[2017-04-06 09:35] LABS: CH 28.7; HCT 31.2 % (39.0-53.0); HDW 2.39; HGB 10.7 gm/dL (13.0-17.5); MCH 29.8 pg (25.0-35.0); MCHC 34.2 g/dL (31.0-37.0); MCV 87.2 fL (80.0-100.0); Mean Platelet Volume 8.3; RBC 3.57 m/uL (4.30-5.90); RDW 15.3 % (11.5-15.5); WBC 13.4 k/uL (3.8-10.6)
[2017-04-06 09:40] LABS: INR 4.5 (<1.2); Partial Thromboplastin Time 42.1 sec (22.0-30.0); Prothrombin Time 44.4 sec (9.0-12.0)
[2017-04-06 09:54] LABS: ALT 25 U/L (21-72); AST 33 U/L (17-59); Alcohol <10 mg/dL; Alkaline Phosphatase 65 U/L (38-126); Amylase 81 U/L (30-110); Anion Gap 9 mmol/L; Blood Urea Nitrogen 29 mg/dL (9-20); Carbon Dioxide 26 mmol/L (22-30); Chloride 105 mmol/L (98-107); Creatine Kinase 369 U/L (55-170); Glucose 113 mg/dL (74-99); Non-African American GFR(MDRD) >60 (>60 ml/min/1.73 sqM); Potassium 4.3 mmol/L (3.5-5.1); Sodium 140 mmol/L (137-145); Total Bilirubin 1.1 mg/dL (0.2-1.3); Total Protein 6.8 g/dL (6.3-8.2)
[2017-04-06 10:06] LABS: Troponin I <0.012 ng/mL (0.000-0.034)
[2017-04-06 10:08] LABS: Creatine Kinase MB 4.2 ng/mL (0.0-2.4)
--- NOTE | 2017-04-06 10:43 | XR ---
EXAMINATION TYPE: XR pelvis AP view , ONE VIEW DATE OF EXAM ORDERED: 04/06/2017 HISTORY: Trauma. COMPARISON: None. FINDINGS: There is a right hip prosthesis in place. This is incompletely visualized. There is a nons pherical left femoral head with a "bump" on the femoral neck consistent with femoroacetabular impinge ment syndrome. Osseous structures about the pelvis are otherwise normal. There are phleboliths in the right hemipelvis. IMPRESSION: 1. NO ACUTE OSSEOUS LESION. 2. POSTSURGICAL CHANGE. 3. 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 PLEASE CO RRELATE CLINICALLY.
--- NOTE | 2017-04-06 11:04 | XR ---
EXAMINATION TYPE: XR chest 1V portable DATE OF EXAM: 04/06/2017 HISTORY: trauma. REFERENCE: Previous study dated 03/02/2016. FINDINGS: There has been a midline sternotomy. Lung volumes are prominent. Heart size is upper limits of normal. The lungs appear clear. There is bl unting of the left CP angle. IMPRESSION: 1. COPD. 2. BORDERLINE CARDIOMEGALY. 3. I CANNOT EXCLUDE A SMALL, LEFT PLEURAL EFFUSION.
--- NOTE | 2017-04-06 11:05 | XR ---
EXAMINATION TYPE: XR tibia fibula LT , 4 VIEWS DATE OF EXAM ORDERED: 04/06/2017 HISTORY: trauma. COMPARISON: None. FINDINGS: There has been previous vascular surgery. No fracture or dislocation is seen. There are changes of osteoarthritis in the left knee. IMPRESSION: 1. NO ACUTE OSSEOUS LESION. 2. DEGENERATIVE CHANGE, LEFT KNEE.
[2017-04-06 11:49] VITALS: BP 146/67; PULSE 62; RESP 22; TEMP 97
--- NOTE | 2017-04-06 11:51 | CT ---
EXAMINATION TYPE: CT brain sony lr con DATE OF EXAM: 04/06/2017 COMPARISON: Previous CT scan of the brain dated 04/05/2017. HISTORY: Trauma; fall [address] DLP: 1471.50 mGycm Automated exposure control for dose reduction was used. TECHNIQUE: CT scan of the head and cervical spine are performed without contrast. FINDINGS: BRAIN: There are generalized changes of sulcal prominence and ventriculomegaly compatible with atroph ic change. There is diffuse periventricular white matter lucency compatible with chronic white matter ischemic change. There is no acute focal lesion, mass effect or midline shift. I do not see evidence of intracranial blood. There is a huge bifrontal hematoma, greater on the left than the right. No displaced skull fracture i s seen. There is chronic mucoperiosteal thickening involving the ethmoid, maxillary and sphenoid sinu ses. The zygomatic arches are intact. The pterygoid plates are intact. The smith of the maxillary sinuses and orbits are intact. IMPRESSION: 1. NO ACUTE INTRACRANIAL ABNORMALITY. 2. ATROPHIC CHANGE. 3. CHRONIC WHITE MATTER ISCHEMIC CHANGE. 4. LARGE BIFRONTAL SCALP HEMATOMA. 5. CHRONIC SINUS MUCOSAL DISEASE. CERVICAL SPINE: There are mild emphysematous changes involving the visualized portions of the lungs. Prevertebral soft tissues are normal. There is straightening of the normal cervical lordosis. There is a fusion of C5-6 and C6-7. The remai maryana disc levels show degenerative change and hypertrophic spondylosis as well as facet arthropathy. There is a grade 1 degenerative listhesis of C4 on C5. Alignment is otherwise normal. Atlantoaxial re lationships are normal. There is facet arthropathy at C3-4 and 45. No definite discal protrusion is s een. No fracture is identified. IMPRESSION: 1. NO ACUTE OSSEOUS LESION. 2. SIGNIFICANT DEGENERATIVE CHANGE. 3. MILD EMPHYSEMATOUS CHANGE.
[2017-04-06 11:57] LABS: Appearance,Urine Clear (Clear); Bilirubin,Urine Negative (Negative); Glucose,Urine (UA) Negative (Negative); Ketones,Urine Negative (Negative); Leukocyte Esterase,Urine Negative (Negative); Mucus,Urine Rare /hpf; Nitrite,Urine Negative (Negative); PH, Urine 5.5 (5.0-8.0); Particle Count 2586; Protein,Urine 1+ (Negative); Specific Gravity,Urine 1.017 (1.001-1.035); Squamous Epithelial Cell,Urine <1 /hpf (0-4); UA Billing (MACRO vs. MICRO) MICRO; Urobilinogen,Urine <2.0 mg/dL (<2.0); WBC,Urine 1 /hpf (0-5)
--- NOTE | 2017-04-06 12:29 | ED ---
Trauma HPI - General Chief Complaint: Trauma Stated Complaint: Fall Time Seen by Provider: 04/06/17 09:13 Source: patient, EMS, RN notes reviewed Mode of arrival: EMS Limitations: no limitations - History of Present Illness Initial Comments: This is a 76-year-old male with a history of A. fib who is on Coumadin who is had multiple falls recently. He fell about 11:30 last evening was brought in today because of swelling to the left side of his forehead left orbit bruising to left shoulder and also some left ayala pain with some bleeding. He states he over the past 10 days has had decreased vision he does have macular degeneration. He was seen apparently yesterday in the emergency department and diagnosed with a right thumb tendon injury also 3 days earlier had a nasal bleed with packing still in place a. He denies any loss of consciousness any loss of function to his upper or lower extremities no overt neck pain no other complaints at this time. He was brought in priority 2. MD Complaint: fall, injury - Related Data Home Medications Medication Instructions Recorded Confirmed Allopurinol [Zyloprim] 100 mg PO BID 05/19/14 04/05/17 Metoprolol Succinate 25 mg PO DAILY 05/19/14 04/05/17 Simvastatin [Zocor] 20 mg PO HS 05/19/14 04/05/17 Folic Acid 1 mg PO DAILY 11/07/14 04/05/17 HYDROcodone/APAP 10-325MG [[place] 1 tab PO BID 11/07/14 04/05/17 10-325] Isosorbide Mononitrate ER [Imdur] 60 mg PO DAILY 11/07/14 04/05/17 Vit A/Vit C/Vit E/Zinc/Copper 2 cap PO BID 11/27/14 04/05/17 [ICAPS SOFTGEL] Sertraline [Zoloft] 100 mg PO BID 01/03/16 04/05/17 Tamsulosin HCl 0.4 mg PO HS 01/21/16 04/05/17 Cholecalciferol [Vitamin D3] 2,000 unit PO HS 01/24/17 04/05/17 Ferrous Sulfate [Feosol] 325 mg PO BID 01/24/17 04/05/17 Finasteride [Proscar] 5 mg PO HS 01/24/17 04/05/17 Sacubitril/Valsartan [[place] 24 1 tab PO DAILY 01/24/17 04/05/17 mg-26 mg Tablet] Warfarin [Coumadin] 5 mg PO DAILY 01/24/17 04/05/17 Previous Rx's Medication Instructions Recorded Cephalexin [Keflex] 500 mg PO Q12HR 7 Days 04/05/17 Allergies Allergy/AdvReac Type Severity Reaction Status Date / Time No Known Allergies Allergy Verified 04/06/17 09:23 Review of Systems ROS Statement: Those systems with pertinent positive or pertinent negative responses have been documented in the HPI. ROS Other: All systems not noted in ROS Statement are negative. Past Medical History Past Medical History: Atrial Fibrillation, Coronary Artery Disease (CAD), Chest Pain / Angina, Heart Failure, Hearing Disorder / Deafness, Hyperlipidemia, Hypertension, Myocardial Infarction ([place]), Osteoarthritis (OA), Prostate Disorder , Pulmonary Embolus (PE) Additional Past Medical History / Comment(s): Frequent small epistaxis and a couple (3) large epistaxis episodes Gout, MAC DEGENERATION bilaterally-LEGALLY BLIND (BRIGHT LIGHTS BOTHER PT). CONSTIPATION, BPH, OA multiple joints, PE 23 yrs ago post op, stenosis cervical and lumbar Last Myocardial Infarction Date:: 01/2016 History of Any Multi-Drug Resistant Organisms: None Reported Past Surgical History: Coronary Bypass/CABG, Heart Catheterization With Stent, Orthopedic Surgery, Tonsillectomy Additional Past Surgical History / Comment(s): HAD A RECENT HEART CATH AND STENT AT [facility] EARLY JANUARY 2016 AND HAD AN EXTENSIVE NOSE BLEED AFTERWARDS HAD TO BE PACKED. PT STATED STILL EVERY AM HAS SOME NASAL BLEEDING- USES SALINE SOLUTION AND AFRIN. TOTAL RIGHT HIP REPLACEMENT Past Anesthesia/Blood Transfusion Reactions: No Reported Reaction Date of Last Stent Placement:: 01/2016 Past Psychological History: Anxiety, Depression Smoking Status: Former smoker Past Alcohol Use History: None Reported Past Drug Use History: None Reported - Past Family History Mother Additional Family Medical History / Comment(s): MACULAR DEGENERATION, THYROID PROBLEMS. Mother at the age of 86 yrs. Father Family Medical History: Cancer Additional Family Medical History / Comment(s): Father from [place] at the age of 63 yrs. General Exam - General Exam Comments Initial Comments: This is a well-developed well-nourished awake alert oriented times female he does have a [place]fr[place] Coma Scale of 15 Limitations: no limitations General appearance: alert, anxious Head exam: Present: normocephalic, other (Hematoma seen over the left forehead extending to the left temporal scalp also left orbital hematoma and ecchymosis noted.) Eye exam: Present: PERRL, EOMI ENT exam: Present: mucous membranes dry, other (As above) Neck exam: Present: normal inspection. Absent: tenderness, meningismus, lymphadenopathy Respiratory exam: Present: normal lung sounds bilaterally. Absent: respiratory distress, wheezes, rales, rhonchi, stridor Cardiovascular Exam: Present: irregular rhythm. Absent: systolic murmur, diastolic murmur, rubs, gallop, clicks GI/Abdominal exam: Present: soft, normal bowel sounds. Absent: distended, tenderness, guarding, rebound, rigid Extremities exam: Present: full ROM, other (Ecchymosis seen over the left anterior shoulder approximately 3 cm old laceration seen over the anterior mid left leg. No active bleeding at this time.) Back exam: Present: normal inspection Neurological exam: Present: alert, oriented X3, CN II-XII intact Psychiatric exam: Present: normal affect, normal mood Skin exam: Present: warm, dry, other (Ecchymosis from old injury seen over the anterior right and left lower ribs additionally there is old hematoma seen over the left dorsal wrist additionally there is a thumb spica OCL on the right upper extremity and the.) Course Vital Signs 04/06/17 04/06/17 09:13 11:47 Temperature 97.9 F 97.0 F L Pulse Rate 65 62 Respiratory 18 22 Rate Blood Pressure 164/72 146/67 O2 Sat by Pulse 100 98 Oximetry - Reevaluation(s) Reevaluation #1: 04/06/17 12:[address] was finally completed I did clear the cervical spine and remove the c- collar. Reevaluation #2: 04/06/17 12:37 Patient was a alliance party to I did discuss the case with Dr. Zamora who did come to the emergency department. The patient remains awake and alert oriented 3. Reevaluation #3: 04/06/17 12:43 Laceration repair is indicated in the left lower extremity at this time the wound is from last evening. Medical Decision Making - Medical Decision Making I did discuss findings with patient and multiple family members or present. Patient remains awake alert oriented. He does require observation already a high Coumadin level of the head trauma. I did discuss case alert trauma surgery who did suggest transfer. [facility]. He will be transferred by ALS. - Lab Data Result diagrams: 04/06/17 09:16 04/06/17 09:16 Lab Results 04/06/17 04/06/17 04/06/17 Range/Units 09:16 09:16 09:16 WBC 13.4 H (3.8-10.6) k/uL RBC 3.57 L (4.30-5.90) m/uL Hgb 10.7 L (13.0-17.5) gm/dL Hct 31.2 L (39.0-53.0) % MCV 87.2 (80.0-100.0) fL MCH 29.8 (25.0-35.0) pg MCHC 34.2 (31.0-37.0) g/dL RDW 15.3 (11.5-15.5) % Plt Count 170 (150-450) k/uL PT (9.0-12.0) sec INR (<1.2) APTT (22.0-30.0) sec Sodium 140 (137-145) mmol/L Potassium 4.3 (3.5-5.1) mmol/L Chloride 105 (98-107) mmol/L Carbon Dioxide 26 (22-30) mmol/L Anion Gap 9 mmol/L BUN 29 H (9-20) mg/dL Creatinine 0.90 (0.66-1.25) mg/dL Est GFR (MDRD) Af Amer >60 (>60 ml/min/1.73 sqM) Est GFR (MDRD) Non-Af >60 (>60 ml/min/1.73 sqM) Glucose 113 H (74-99) mg/dL Calcium 9.0 (8.4-10.2) mg/dL Total Bilirubin 1.1 (0.2-1.3) mg/dL AST 33 (17-59) U/L ALT 25 (21-72) U/L Alkaline Phosphatase 65 (38-126) U/L Total Creatine Kinase 369 H (55-170) U/L CK-MB (CK-2) 4.2 H* (0.0-2.4) ng/mL CK-MB (CK-2) Rel Index 1.1 Troponin I <0.012 (0.000-0.034) ng/mL Total Protein 6.8 (6.3-8.2) g/dL Albumin 3.6 (3.5-5.0) g/dL Amylase 81 (30-110) U/L Lipase 55 (23-300) U/L Urine Color Urine Appearance (Clear) Urine pH (5.0-8.0) Ur Specific [place] (1.001-1.035) Urine Protein (Negative) Urine Glucose (UA) (Negative) Urine Ketones (Negative) Urine Blood (Negative) Urine Nitrite (Negative) Urine Bilirubin (Negative) Urine Urobilinogen (<2.0) mg/dL Ur Leukocyte Esterase (Negative) Urine WBC (0-5) /hpf Ur Squamous Epith Cells (0-4) /hpf Hyaline Casts (0-2) /lpf Urine Mucus (None) /hpf Urine Opiates Screen (NotDetected) Ur Oxycodone Screen (NotDetected) Urine Methadone Screen (NotDetected) Ur Propoxyphene Screen (NotDetected) Ur Barbiturates Screen (NotDetected) U Tricyclic Antidepress (NotDetected) Ur Phencyclidine Scrn (NotDetected) Ur Amphetamines Screen (NotDetected) U Methamphetamines Scrn (NotDetected) U Benzodiazepines Scrn (NotDetected) Urine Cocaine Screen (NotDetected) U Marijuana (THC) Screen (NotDetected) Serum Alcohol <10 mg/dL Blood Type Blood Type Recheck Antibody Screen Spec Expiration Date 04/06/17 04/06/17 04/06/17 Range/Units 09:16 09:21 11:45 WBC (3.8-10.6) k/uL RBC (4.30-5.90) m/uL Hgb (13.0-17.5) gm/dL Hct (39.0-53.0) % MCV (80.0-100.0) fL MCH (25.0-35.0) pg MCHC (31.0-37.0) g/dL RDW (11.5-15.5) % Plt Count (150-450) k/uL PT 44.4 H (9.0-12.0) sec INR 4.5 H (<1.2) APTT 42.1 H (22.0-30.0) sec Sodium (137-145) mmol/L Potassium (3.5-5.1) mmol/L Chloride (98-107) mmol/L Carbon Dioxide (22-30) mmol/L Anion Gap mmol/L BUN (9-20) mg/dL Creatinine (0.66-1.25) mg/dL Est GFR (MDRD) Af Amer (>60 ml/min/1.73 sqM) Est GFR (MDRD) Non-Af (>60 ml/min/1.73 sqM) Glucose (74-99) mg/dL Calcium (8.4-10.2) mg/dL Total Bilirubin (0.2-1.3) mg/dL AST (17-59) U/L ALT (21-72) U/L Alkaline Phosphatase (38-126) U/L Total Creatine Kinase (55-170) U/L CK-MB (CK-2) (0.0-2.4) ng/mL CK-MB (CK-2) Rel Index Troponin I (0.000-0.034) ng/mL Total Protein (6.3-8.2) g/dL Albumin (3.5-5.0) g/dL Amylase (30-110) U/L Lipase (23-300) U/L Urine Color Urine Appearance (Clear) Urine pH (5.0-8.0) Ur Specific [place] (1.001-1.035) Urine Protein (Negative) Urine Glucose (UA) (Negative) Urine Ketones (Negative) Urine Blood (Negative) Urine Nitrite (Negative) Urine Bilirubin (Negative) Urine Urobilinogen (<2.0) mg/dL Ur Leukocyte Esterase (Negative) Urine WBC (0-5) /hpf Ur Squamous Epith Cells (0-4) /hpf Hyaline Casts (0-2) /lpf Urine Mucus (None) /hpf Urine Opiates Screen Detected H (NotDetected) Ur Oxycodone Screen Not Detected (NotDetected) Urine Methadone Screen Not Detected (NotDetected) Ur Propoxyphene Screen Not Detected (NotDetected) Ur Barbiturates Screen Not Detected (NotDetected) U Tricyclic Antidepress Not Detected (NotDetected) Ur Phencyclidine Scrn Not Detected (NotDetected) Ur Amphetamines Screen Not Detected (NotDetected) U Methamphetamines Scrn Not Detected (NotDetected) U Benzodiazepines Scrn Not Detected (NotDetected) Urine Cocaine Screen Not Detected (NotDetected) U Marijuana (THC) Screen Not Detected (NotDetected) Serum Alcohol mg/dL Blood Type O Positive Blood Type Recheck No Antibody Screen NEGATIVE Spec Expiration Date 04/09/2017232004/06/17 Range/Units 11:45 WBC (3.8-10.6) k/uL RBC (4.30-5.90) m/uL Hgb (13.0-17.5) gm/dL Hct (39.0-53.0) % MCV (80.0-100.0) fL MCH (25.0-35.0) pg MCHC (31.0-37.0) g/dL RDW (11.5-15.5) % Plt Count (150-450) k/uL PT (9.0-12.0) sec INR (<1.2) APTT (22.0-30.0) sec Sodium (137-145) mmol/L Potassium (3.5-5.1) mmol/L Chloride (98-107) mmol/L Carbon Dioxide (22-30) mmol/L Anion Gap mmol/L BUN (9-20) mg/dL Creatinine (0.66-1.25) mg/dL Est GFR (MDRD) Af Amer (>60 ml/min/1.73 sqM) Est GFR (MDRD) Non-Af (>60 ml/min/1.73 sqM) Glucose (74-99) mg/dL Calcium (8.4-10.2) mg/dL Total Bilirubin (0.2-1.3) mg/dL AST (17-59) U/L ALT (21-72) U/L Alkaline Phosphatase (38-126) U/L Total Creatine Kinase (55-170) U/L CK-MB (CK-2) (0.0-2.4) ng/mL CK-MB (CK-2) Rel Index Troponin I (0.000-0.034) ng/mL Total Protein (6.3-8.2) g/dL Albumin (3.5-5.0) g/dL Amylase (30-110) U/L Lipase (23-300) U/L Urine Color Yellow Urine Appearance Clear (Clear) Urine pH 5.5 (5.0-8.0) Ur Specific [place] 1.017 (1.001-1.035) Urine Protein 1+ H (Negative) Urine Glucose (UA) Negative (Negative) Urine Ketones Negative (Negative) Urine Blood Negative (Negative) Urine Nitrite Negative (Negative) Urine Bilirubin Negative (Negative) Urine Urobilinogen <2.0 (<2.0) mg/dL Ur Leukocyte Esterase Negative (Negative) Urine WBC 1 (0-5) /hpf Ur Squamous Epith Cells <1 (0-4) /hpf Hyaline Casts 4 H (0-2) /lpf Urine Mucus Rare H (None) /hpf Urine Opiates Screen (NotDetected) Ur Oxycodone Screen (NotDetected) Urine Methadone Screen (NotDetected) Ur Propoxyphene Screen (NotDetected) Ur Barbiturates Screen (NotDetected) U Tricyclic Antidepress (NotDetected) Ur Phencyclidine Scrn (NotDetected) Ur Amphetamines Screen (NotDetected) U Methamphetamines Scrn (NotDetected) U Benzodiazepines Scrn (NotDetected) Urine Cocaine Screen (NotDetected) U Marijuana (THC) Screen (NotDetected) Serum Alcohol mg/dL Blood Type Blood Type Recheck Antibody Screen Spec Expiration Date - EKG Data -: EKG Interpreted by [place] EKG shows normal: sinus rhythm (Sinus rhythm rate 60. 172 QRS 104 daily since QTC of 422/448 right axis deviation) - Radiology Data Radiology results: report reviewed, image reviewed Critical Care Time Critical Care Time: Yes Critical Care Time: 37 minutes of critical care time which includes initial presentation with monitoring of the EMS call discussed with paramedics history physical labs x- rays reevaluation patient several occasions discussion with patient family members discussion with the receiving facility documentation of the above. Disposition Clinical Impression: Scalp hematoma, Multiple contusions, Coumadin toxicity, Frequent falls, Macular degeneration syndrome, Leg laceration Disposition: OTHER INSTITUTION NOT DEFINED Condition: Stable Referrals: Fuad Cornelius MD [Primary Care Provider] - 1-2 days Decision Time: 11:00 - Out of Hospital Transfer - Req. Specs Out of Hospital Transfer - Requested Specifics: Other Emergency Center
[2017-04-06] MEDS ORDERED: PHYTONADIONE ORAL 5 MG/5 ML ORAL.SYRG PO STA (12:42)
== END 2017-04-06 13:12 | disposition other institution (70) ==
LOC: EC 09:13
DX: S81.812A Laceration without foreign body, left lower leg, initial encounter (principal); S00.03XA Contusion of scalp, initial encounter; S05.12XA Contusion of eyeball and orbital tissues, left eye, initial encounter; S00.83XA Contusion of other part of head, initial encounter; S40.012A Contusion of left shoulder, initial encounter; S20.211A Contusion of right front wall of thorax, initial encounter; S20.212A Contusion of left front wall of thorax, initial encounter; T45.511A Poisoning by anticoagulants, accidental (unintentional), initial encounter; H35.30 Unspecified macular degeneration; R29.6 Repeated falls; R40.2412 Glasgow coma scale score 13-15, at arrival to emergency department; I48.91 Unspecified atrial fibrillation; I25.10 Atherosclerotic heart disease of native coronary artery without angina pectoris; I11.0 Hypertensive heart disease with heart failure; I50.9 Heart failure, unspecified; E78.5 Hyperlipidemia, unspecified; I25.2 Old myocardial infarction; M19.90 Unspecified osteoarthritis, unspecified site; M10.9 Gout, unspecified; H54.8 Legal blindness, as defined in USA; F41.9 Anxiety disorder, unspecified; F32.9 Major depressive disorder, single episode, unspecified; N40.0 Benign prostatic hyperplasia without lower urinary tract symptoms; Z86.711 Personal history of pulmonary embolism; Z95.1 Presence of aortocoronary bypass graft; Z79.01 Long term (current) use of anticoagulants; Z79.891 Long term (current) use of opiate analgesic; Z79.899 Other long term (current) drug therapy; Z87.891 Personal history of nicotine dependence; W19.XXXA Unspecified fall, initial encounter
CPT/HCPCS: 36415; 70450; 71010; 72125; 72170; 80053; 80306; 80320; 81001; 82150; 82550; 82553; 83690; 84484; 85027; 85610; 85730; 86850; 86900; 86901; 93005; 99291

== ENCOUNTER 2017-06-11 20:48 | Emergency (ER) | payer MEDICARE ==
[2017-06-11] MEDS ORDERED: OXYMETAZOLINE 0.05% NASL SPRAY 1 SPRAY BOTTLE NASAL STA (21:03)
[2017-06-11 21:55] LABS: Anisocytosis Slight; Basophils % (A) 0 %; CH 28.6; CHCM 31.5; Eosinophils # (A) 0.3 k/uL (0-0.7); Eosinophils % (A) 4 %; HCT 37.2 % (39.0-53.0); HDW 2.16; HGB 11.6 gm/dL (13.0-17.5); Luc # (Auto) 0.11; Luc % (Auto) 2; Lymphocytes # (A) 1.2 k/uL (1.0-4.8); Lymphocytes % (A) 16 %; MCH 28.5 pg (25.0-35.0); MCHC 31.2 g/dL (31.0-37.0); MCV 91.1 fL (80.0-100.0); Mean Platelet Volume 8.1; Monocytes # (A) 0.7 k/uL (0-1.0); Monocytes % (A) 9 %; Neutrophils # (A) 5.1 k/uL (1.3-7.7); Neutrophils % (A) 69 %; RBC 4.08 m/uL (4.30-5.90); RDW 16.3 % (11.5-15.5); WBC 7.4 k/uL (3.8-10.6); WBC (Perox) 7.51
[2017-06-11 22:00] LABS: INR 1.1 (<1.2); Partial Thromboplastin Time 26.5 sec (22.0-30.0)
--- NOTE | 2017-06-11 22:22 | ED ---
General Adult HPI - General Chief complaint: Recheck/Abnormal Lab/Rx Stated complaint: ENT Time Seen by Provider: 06/11/17 20:53 Source: patient Mode of arrival: EMS Limitations: no limitations - History of Present Illness Initial comments: 76-year-old male patient presents to the emergency department today for evaluation of epistaxis. Patient states that he has had a nosebleed for the last 4 hours. States that it seems to be coming more from the left side than the right. States that it does drain down the back of his throat. He denies any trauma or injury to the nose. Patient states that he does often get nosebleeds. He has seen an ears, nose, and throat specialist for this who stated that he does have dry nasal passages and instructed him to use nasal saline and humidifiers at home. Patient states that he did attempt to use Afrin and pressure at home to relieve symptoms however it did not work. Patient does report that he takes Xarelto and does have issues with bleeding related to this. He denies any weakness, dizziness, chest pain, shortness of breath, cough, congestion, fever, chills, sore throat, headache, nausea, vomiting, difficulties with urination, difficulties with bowel movements, hematochezia, melena, hematuria, dysuria, urinary frequency, urinary urgency or any other concerning symptoms. - Related Data Home Medications Medication Instructions Recorded Confirmed Allopurinol [Zyloprim] 100 mg PO BID 05/19/14 06/11/17 Metoprolol Succinate 25 mg PO DAILY 05/19/14 06/11/17 Simvastatin [Zocor] 20 mg PO HS 05/19/14 06/11/17 Folic Acid 1 mg PO DAILY 11/07/14 06/11/17 HYDROcodone/APAP 10-325MG [[place] 1 tab PO BID 11/07/14 06/11/17 10-325] Isosorbide Mononitrate ER [Imdur] 60 mg PO DAILY 11/07/14 06/11/17 Vit A/Vit C/Vit E/Zinc/Copper 2 cap PO BID 11/27/14 06/11/17 [ICAPS SOFTGEL] Sertraline [Zoloft] 100 mg PO BID 01/03/16 06/11/17 Tamsulosin HCl 0.4 mg PO HS 01/21/16 06/11/17 Cholecalciferol [Vitamin D3] 2,000 unit PO HS 01/24/17 06/11/17 Ferrous Sulfate [Feosol] 325 mg PO BID 01/24/17 06/11/17 Finasteride [Proscar] 5 mg PO HS 01/24/17 06/11/17 Aspirin [Adult Low Dose Aspirin EC] 81 mg PO HS 06/11/17 06/11/17 Rivaroxaban [Xarelto] 20 mg PO HS 06/11/17 06/11/17 Allergies Allergy/AdvReac Type Severity Reaction Status Date / Time No Known Allergies Allergy Verified 06/11/17 22:08 Review of Systems ROS Statement: Those systems with pertinent positive or pertinent negative responses have been documented in the HPI. ROS Other: All systems not noted in ROS Statement are negative. Past Medical History Past Medical History: Atrial Fibrillation, Coronary Artery Disease (CAD), Chest Pain / Angina, Heart Failure, Hearing Disorder / Deafness, Hyperlipidemia, Hypertension, Myocardial Infarction ([place]), Osteoarthritis (OA), Prostate Disorder , Pulmonary Embolus (PE) Additional Past Medical History / Comment(s): Frequent small epistaxis and a couple (3) large epistaxis episodes Gout, MAC DEGENERATION bilaterally-LEGALLY BLIND (BRIGHT LIGHTS BOTHER PT). CONSTIPATION, BPH, OA multiple joints, PE 23 yrs ago post op, stenosis cervical and lumbar Last Myocardial Infarction Date:: 01/2016 History of Any Multi-Drug Resistant Organisms: None Reported Past Surgical History: Coronary Bypass/CABG, Heart Catheterization With Stent, Orthopedic Surgery, Tonsillectomy Additional Past Surgical History / Comment(s): HAD A RECENT HEART CATH AND STENT AT [facility] EARLY JANUARY 2016 AND HAD AN EXTENSIVE NOSE BLEED AFTERWARDS HAD TO BE PACKED. PT STATED STILL EVERY AM HAS SOME NASAL BLEEDING- USES SALINE SOLUTION AND AFRIN. TOTAL RIGHT HIP REPLACEMENT Past Anesthesia/Blood Transfusion Reactions: No Reported Reaction Date of Last Stent Placement:: 01/2016 Past Psychological History: Anxiety, Depression Smoking Status: Former smoker Past Alcohol Use History: None Reported Past Drug Use History: None Reported - Past Family History Mother Additional Family Medical History / Comment(s): MACULAR DEGENERATION, THYROID PROBLEMS. Mother at the age of 86 yrs. Father Family Medical History: Cancer Additional Family Medical History / Comment(s): Father from [place] at the age of 63 yrs. General Exam Limitations: physical limitation (Hearing impaired, visually impaired) General appearance: alert, in no apparent distress, other (This is a well- developed, well-nourished adult male patient in no acute distress. Vital signs upon presentation are temperature 98.5F, pulse 63, respirations 18, blood pressure 175/79, pulse ox 98% on room air.) Head exam: Present: atraumatic, normocephalic, normal inspection Eye exam: Present: normal appearance, PERRL, EOMI. Absent: scleral icterus, conjunctival injection, periorbital swelling ENT exam: Present: normal exam, normal oropharynx, mucous membranes moist, TM's normal bilaterally, other (Patient does have a bloody drainage from bilateral nares, more on the left than the right, bloody drainage on the back of his throat. Large clots to bilateral nares. Once removed, did see small area of bleeding anteriorly on the left nasal septum.) Neck exam: Present: normal inspection. Absent: tenderness, meningismus, lymphadenopathy Respiratory exam: Present: normal lung sounds bilaterally. Absent: respiratory distress, wheezes, rales, rhonchi, stridor Cardiovascular Exam: Present: regular rate, normal rhythm, normal heart sounds. Absent: systolic murmur, diastolic murmur, rubs, gallop, clicks GI/Abdominal exam: Present: soft, normal bowel sounds. Absent: distended, tenderness, guarding, rebound, rigid Back exam: Present: normal inspection Neurological exam: Present: alert, oriented X3, CN II-XII intact Psychiatric exam: Present: normal affect, normal mood Skin exam: Present: warm, dry, intact, normal color. Absent: rash Course Vital Signs 06/11/17 06/11/17 20:58 22:55 Temperature 98.5 F 98.7 F Pulse Rate 63 89 Respiratory 18 20 Rate Blood Pressure 175/79 140/86 O2 Sat by Pulse 98 98 Oximetry Medical Decision Making - Medical Decision Making 76 year-old male patient presented to the emergency department today for evaluation of epistaxis. Physical examination did reveal bloody drainage from the bilateral nares, more from the left than the right. Labs were performed and were unremarkable. Patient does have mild anemia however his hemoglobin is improved from previous results. We were able to evacuate clots from both nares. I did see a source of anterior bleeding. We did instill Afrin nasal spray and hold pressure, and were able to get the bleeding under control. Patient was monitored for a period of approximately 30 minutes without any return of bleeding. Patient will be discharged home with instructions to use Afrin and hold pressure should the bleeding recur. He is instructed to perform this twice, and he is unable to get the bleeding under control he is instructed to return here immediately. Patient does feel comfortable being discharged home at this time. He is instructed to follow-up with his ears nose and throat specialist for further evaluation. He is instructed to follow up with his primary care physician for recheck. He is instructed to return here immediately for any new, worsening, or concerning symptoms. He verbalizes understanding and agrees with this plan. - Lab Data Result diagrams: 06/11/17 21:10 Lab Results 06/11/17 06/11/17 Range/Units 21:10 21:10 WBC 7.4 (3.8-10.6) k/uL RBC 4.08 L (4.30-5.90) m/uL Hgb 11.6 L (13.0-17.5) gm/dL Hct 37.2 L (39.0-53.0) % MCV 91.1 (80.0-100.0) fL MCH 28.5 (25.0-35.0) pg MCHC 31.2 (31.0-37.0) g/dL RDW 16.3 H (11.5-15.5) % Plt Count 230 (150-450) k/uL Neutrophils % 69 % Lymphocytes % 16 % Monocytes % 9 % Eosinophils % 4 % Basophils % 0 % Neutrophils # 5.1 (1.3-7.7) k/uL Lymphocytes # 1.2 (1.0-4.8) k/uL Monocytes # 0.7 (0-1.0) k/uL Eosinophils # 0.3 (0-0.7) k/uL Basophils # 0.0 (0-0.2) k/uL Anisocytosis Slight PT 11.0 (9.0-12.0) sec INR 1.1 (<1.2) APTT 26.5 (22.0-30.0) sec Disposition Clinical Impression: Epistaxis Disposition: HOME SELF-CARE Condition: Good Instructions: Nosebleed (ED) Additional Instructions: Do not blow nose or place anything in the nose. If bleeding recurs, blow nose, use Afrin, and hold firm pressure for 20 minutes minimum. Do this a total of twice. If bleeding continues return to emergency department for further evaluation. Follow-up with ears nose and throat specialist as soon as possible. Return here immediately for any new, worsening, or concerning symptoms. Referrals: Fuad Cornelius MD [Primary Care Provider] - 1-2 days Time of Disposition: 22:22
[2017-06-11 22:56] VITALS: BP 140/86; PULSE 89; RESP 20; TEMP 98.7
== END 2017-06-11 22:55 | disposition home or self-care (01) ==
LOC: EC 20:48
DX: R04.0 Epistaxis (principal); I48.91 Unspecified atrial fibrillation; I25.10 Atherosclerotic heart disease of native coronary artery without angina pectoris; I11.0 Hypertensive heart disease with heart failure; I50.9 Heart failure, unspecified; I25.2 Old myocardial infarction; E78.5 Hyperlipidemia, unspecified; M19.90 Unspecified osteoarthritis, unspecified site; Z86.711 Personal history of pulmonary embolism; Z87.438 Personal history of other diseases of male genital organs; Z95.5 Presence of coronary angioplasty implant and graft; Z95.1 Presence of aortocoronary bypass graft; F41.9 Anxiety disorder, unspecified; F32.9 Major depressive disorder, single episode, unspecified; Z87.891 Personal history of nicotine dependence; Z79.891 Long term (current) use of opiate analgesic; Z79.01 Long term (current) use of anticoagulants; Z79.82 Long term (current) use of aspirin; Z79.899 Other long term (current) drug therapy
CPT/HCPCS: 36415; 85025; 85610; 85730; 99283

== ENCOUNTER 2018-10-19 22:38 | Emergency (ER) | payer MEDICARE ==
--- NOTE | 2018-10-19 23:28 | ED ---
General Adult HPI - General Chief complaint: Fall Stated complaint: dementia Time Seen by Provider: 10/19/18 22:54 Source: patient, EMS Mode of arrival: EMS Limitations: altered mental status - History of Present Illness Initial comments: This patient is 78-year-old man brought by ambulance with to medical complaints. When the patient, he states that he is having some low and mid back pain related to a fall. The patient states that he had tripped over something and fallen backward at home, landing on his buttock and low back. He complains of pain in the low and mid back that is mild however if he attempts to get up and stand the pain becomes moderate area he describes it as an aching, constant pain. He has not noted any relieving factors other than lying down. He denies any weakness or numbness of the extremities. There is no radiation of the pain. The patient's family members then wanted to describe that over the past 2 weeks he is becoming more disoriented. The patient has been complaining of hearing people in the house when no one else is there. They're concerned the patient is developing some dementia but they deny history of this. Onset/Timin -: week(s) Location: back Radiation: non-radiation Severity scale (1-10): 3 Quality: aching Consistency: constant Improves with: immobilization Worsens with: movement Associated Symptoms: denies other symptoms Treatments Prior to Arrival: none - Related Data Home Medications Medication Instructions Recorded Confirmed Allopurinol [Zyloprim] 100 mg PO BID 05/19/14 10/19/18 Metoprolol Succinate 25 mg PO DAILY 05/19/14 10/19/18 Folic Acid 1 mg PO DAILY 11/07/14 10/19/18 HYDROcodone/APAP 10-325MG [[place] 1 tab PO BID 11/07/14 10/19/18 10-325] Isosorbide Mononitrate ER [Imdur] 60 mg PO DAILY 11/07/14 10/19/18 Vit A/Vit C/Vit E/Zinc/Copper 2 cap PO BID 11/27/14 10/19/18 [ICAPS SOFTGEL] Sertraline [Zoloft] 100 mg PO BID 01/03/16 10/19/18 Tamsulosin HCl 0.4 mg PO HS 01/21/16 10/19/18 Cholecalciferol [Vitamin D3] 2,000 unit PO HS 01/24/17 10/19/18 Ferrous Sulfate [Feosol] 325 mg PO BID 01/24/17 10/19/18 Finasteride [Proscar] 5 mg PO HS 01/24/17 10/19/18 Aspirin [Adult Low Dose Aspirin EC] 81 mg PO HS 06/11/17 10/19/18 Atorvastatin [Lipitor] 40 mg PO HS 10/19/18 10/19/18 Furosemide [Lasix] 20 mg PO DAILY 10/19/18 10/19/18 Lisinopril 20 mg PO DAILY 10/19/18 10/19/18 Rivaroxaban [Xarelto] 2.5 mg PO HS 10/19/18 10/19/18 Vyaylar 3mg 3 mg PO DAILY 10/19/18 10/19/18 Allergies Allergy/AdvReac Type Severity Reaction Status Date / Time No Known Allergies Allergy Verified 10/19/18 23:03 Review of Systems ROS Statement: Those systems with pertinent positive or pertinent negative responses have been documented in the HPI. ROS Other: All systems not noted in ROS Statement are negative. Constitutional: Denies: fever, chills Eyes: Reports: other (Patient is legally blind) ENT: Denies: ear pain, hearing loss, epistaxis Respiratory: Denies: cough, dyspnea Cardiovascular: Denies: chest pain, palpitations, syncope Gastrointestinal: Denies: abdominal pain, vomiting, diarrhea Musculoskeletal: Reports: as per HPI, back pain Skin: Denies: rash Neurological: Reports: confusion. Denies: headache, weakness, numbness, paresthesias Past Medical History Past Medical History: Atrial Fibrillation, Coronary Artery Disease (CAD), Chest Pain / Angina, Heart Failure, Hearing Disorder / Deafness, Hyperlipidemia, Hypertension, Myocardial Infarction (IA), Osteoarthritis (OA), Prostate Disorder, Pulmonary Embolus (PE) Additional Past Medical History / Comment(s): Frequent small epistaxis and a couple (3) large epistaxis episodes Gout, MAC DEGENERATION bilaterally-LEGALLY BLIND (BRIGHT LIGHTS BOTHER PT). CONSTIPATION, BPH, OA multiple joints, PE 23 yrs ago post op, stenosis cervical and lumbar Last Myocardial Infarction Date:: 01/2016 History of Any Multi-Drug Resistant Organisms: None Reported Past Surgical History: Coronary Bypass/CABG, Heart Catheterization With Stent, Orthopedic Surgery, Tonsillectomy Additional Past Surgical History / Comment(s): HAD A RECENT HEART CATH AND STENT AT [facility] E[facility] JANUARY 2016 AND HAD AN EXTENSIVE NOSE BLEED AFTERWARDS HAD TO BE PACKED. PT STATED STILL EVERY AM HAS SOME NASAL BLEEDING-USES SALINE SOLUTION AND AFRIN. TOTAL RIGHT HIP REPLACEMENT Past Anesthesia/Blood Transfusion Reactions: No Reported Reaction Date of Last Stent Placement:: 01/2016 Past Psychological History: Anxiety, Depression Smoking Status: Former smoker Past Alcohol Use History: None Reported Past Drug Use History: None Reported - Past Family History Mother Additional Family Medical History / Comment(s): MACULAR DEGENERATION, THYROID PROBLEMS. Mother at the age of 86 yrs. Father Family Medical History: Cancer Additional Family Medical History / Comment(s): Father from [place] at the age of 63 yrs. General Exam Limitations: altered mental status General appearance: alert, in no apparent distress Head exam: Present: atraumatic, normocephalic Eye exam: Absent: scleral icterus, conjunctival injection Neck exam: Present: normal inspection, full ROM. Absent: tenderness Respiratory exam: Present: normal lung sounds bilaterally. Absent: respiratory distress, wheezes, rales, rhonchi, stridor, chest wall tenderness Cardiovascular Exam: Present: regular rate, normal rhythm, normal heart sounds. Absent: systolic murmur, diastolic murmur, rubs, gallop GI/Abdominal exam: Present: soft. Absent: distended, tenderness, guarding, rebound, rigid, mass Extremities exam: Present: normal inspection, normal capillary refill. Absent: pedal edema, calf tenderness Back exam: Present: other (Contusion to the low thoracic back). Absent: CVA tenderness (R), CVA tenderness (L) Neurological exam: Present: alert, CN II-XII intact. Absent: motor sensory deficit Skin exam: Present: warm, dry, intact, normal color. Absent: rash Course Vital Signs 10/19/18 10/20/18 10/20/18 22:42 00:05 02:29 Temperature 98.6 F Pulse Rate 71 71 62 Respiratory 16 20 14 Rate Blood Pressure 129/74 128/82 O2 Sat by Pulse 96 96 96 Oximetry 10/20/18 10/20/18 05:08 06:01 Temperature 97.9 F Pulse Rate 62 85 Respiratory 18 18 Rate Blood Pressure 154/97 157/97 O2 Sat by Pulse 96 95 Oximetry - Reevaluation(s) Reevaluation #1: 10/20/18 03:04 The patient family at bedside very upset that patient not initially seen by psychiatry. I did attempt to explain the patient does require medical clearance for psychiatry will see the patient on however family does not seem receptive with this. Reevaluation #2: 10/20/18 04:51 Patient has been seen by EPS who feel that patient requires neurology consultation as this is more likely to be dementia than primary psychiatric issue. Case discussed with Dr. Paul at [facility] who will accept transfer for the patient to go there for neurology consultation. EKG Findings - EKG Comments: EKG Findings:: The rhythm appears to be sinus with some reentrant beats. Rate approximately 100 bpm there is a possible old septal infarct. - EKG Results: EKG: interpreted by MACK, sinus rhythm - Blocks, [place], Hypertrophy, ST Abn: QRS axis and voltage: right axis deviation (+90 to +180) Medical Decision Making - Medical Decision Making Further history reveals that patient does have many months history of police being called to the scene for similar episodes so they maintain that this is a long-standing process and that he requires psychiatric evaluation. - Lab Data Result diagrams: 10/19/18 23:50 10/19/18 23:50 Lab Results 10/19/18 10/19/18 10/19/18 Range/Units 23:50 23:50 23:50 WBC 9.5 (3.8-10.6) k/uL RBC 4.20 L (4.30-5.90) m/uL Hgb 12.2 L (13.0-17.5) gm/dL Hct 37.2 L (39.0-53.0) % MCV 88.6 (80.0-100.0) fL MCH 29.1 (25.0-35.0) pg MCHC 32.8 (31.0-37.0) g/dL RDW 14.1 (11.5-15.5) % Plt Count 171 (150-450) k/uL Neutrophils % 79 % Lymphocytes % 8 % Monocytes % 8 % Eosinophils % 4 % Basophils % 0 % Neutrophils # 7.5 (1.3-7.7) k/uL Lymphocytes # 0.7 L (1.0-4.8) k/uL Monocytes # 0.8 (0-1.0) k/uL Eosinophils # 0.3 (0-0.7) k/uL Basophils # 0.0 (0-0.2) k/uL Sodium 141 (137-145) mmol/L Potassium 4.7 (3.5-5.1) mmol/L Chloride 109 H (98-107) mmol/L Carbon Dioxide 27 (22-30) mmol/L Anion Gap 5 mmol/L BUN 31 H (9-20) mg/dL Creatinine 1.08 (0.66-1.25) mg/dL Est GFR (CKD-EPI)AfAm 76 (>60 ml/min/1.73 sqM) Est GFR (CKD-EPI)NonAf 65 (>60 ml/min/1.73 sqM) Glucose 102 H (74-99) mg/dL Plasma Lactic Acid David 0.9 (0.7-2.0) mmol/L Calcium 9.4 (8.4-10.2) mg/dL Total Bilirubin 0.4 (0.2-1.3) mg/dL AST 31 (17-59) U/L ALT 29 (21-72) U/L Alkaline Phosphatase 72 (38-126) U/L Ammonia 23 (<30) umol/L Total Protein 6.6 (6.3-8.2) g/dL Albumin 3.6 (3.5-5.0) g/dL Urine Color Urine Appearance (Clear) Urine pH (5.0-8.0) Ur Specific [place] (1.001-1.035) Urine Protein (Negative) Urine Glucose (UA) (Negative) Urine Ketones (Negative) Urine Blood (Negative) Urine Nitrite (Negative) Urine Bilirubin (Negative) Urine Urobilinogen (<2.0) mg/dL Ur Leukocyte Esterase (Negative) Urine Opiates Screen (NotDetected) Ur Oxycodone Screen (NotDetected) Urine Methadone Screen (NotDetected) Ur Propoxyphene Screen (NotDetected) Ur Barbiturates Screen (NotDetected) U Tricyclic Antidepress (NotDetected) Ur Phencyclidine Scrn (NotDetected) Ur Amphetamines Screen (NotDetected) U Methamphetamines Scrn (NotDetected) U Benzodiazepines Scrn (NotDetected) Urine Cocaine Screen (NotDetected) U Marijuana (THC) Screen (NotDetected) Serum Alcohol mg/dL 10/20/18 10/20/18 Range/Units 02:15 03:13 WBC (3.8-10.6) k/uL RBC (4.30-5.90) m/uL Hgb (13.0-17.5) gm/dL Hct (39.0-53.0) % MCV (80.0-100.0) fL MCH (25.0-35.0) pg MCHC (31.0-37.0) g/dL RDW (11.5-15.5) % Plt Count (150-450) k/uL Neutrophils % % Lymphocytes % % Monocytes % % Eosinophils % % Basophils % % Neutrophils # (1.3-7.7) k/uL Lymphocytes # (1.0-4.8) k/uL Monocytes # (0-1.0) k/uL Eosinophils # (0-0.7) k/uL Basophils # (0-0.2) k/uL Sodium (137-145) mmol/L Potassium (3.5-5.1) mmol/L Chloride (98-107) mmol/L Carbon Dioxide (22-30) mmol/L Anion Gap mmol/L BUN (9-20) mg/dL Creatinine (0.66-1.25) mg/dL Est GFR (CKD-EPI)AfAm (>60 ml/min/1.73 sqM) Est GFR (CKD-EPI)NonAf (>60 ml/min/1.73 sqM) Glucose (74-99) mg/dL Plasma Lactic Acid David (0.7-2.0) mmol/L Calcium (8.4-10.2) mg/dL Total Bilirubin (0.2-1.3) mg/dL AST (17-59) U/L ALT (21-72) U/L Alkaline Phosphatase (38-126) U/L Ammonia (<30) umol/L Total Protein (6.3-8.2) g/dL Albumin (3.5-5.0) g/dL Urine Color Yellow Urine Appearance Clear (Clear) Urine pH 6.5 (5.0-8.0) Ur Specific [place] 1.016 (1.001-1.035) Urine Protein Trace H (Negative) Urine Glucose (UA) Negative (Negative) Urine Ketones Negative (Negative) Urine Blood Negative (Negative) Urine Nitrite Negative (Negative) Urine Bilirubin Negative (Negative) Urine Urobilinogen <2.0 (<2.0) mg/dL Ur Leukocyte Esterase Negative (Negative) Urine Opiates Screen Detected H (NotDetected) Ur Oxycodone Screen Not Detected (NotDetected) Urine Methadone Screen Not Detected (NotDetected) Ur Propoxyphene Screen Not Detected (NotDetected) Ur Barbiturates Screen Not Detected (NotDetected) U Tricyclic Antidepress Not Detected (NotDetected) Ur Phencyclidine Scrn Not Detected (NotDetected) Ur Amphetamines Screen Not Detected (NotDetected) U Methamphetamines Scrn Not Detected (NotDetected) U Benzodiazepines Scrn Not Detected (NotDetected) Urine Cocaine Screen Not Detected (NotDetected) U Marijuana (THC) Screen Not Detected (NotDetected) Serum Alcohol <10 mg/dL Disposition Clinical Impression: Fall, Back contusion, Altered mental status, unspecified Disposition: HOME SELF-CARE Condition: Fair Instructions (If sedation given, give patient instructions): Fall Prevention for Older Adults (ED), Contusion in Adults (ED) Is patient prescribed a controlled substance at d/c from ED?: No Referrals: Fuad Cornelius MD [Primary Care Provider] - 1-2 days
[2018-10-20 00:02] LABS: Basophils % (A) 0 %; Eosinophils # (A) 0.3 k/uL (0-0.7); Eosinophils % (A) 4 %; HCT 37.2 % (39.0-53.0); HGB 12.2 gm/dL (13.0-17.5); Lymphocytes # (A) 0.7 k/uL (1.0-4.8); Lymphocytes % (A) 8 %; MCH 29.1 pg (25.0-35.0); MCHC 32.8 g/dL (31.0-37.0); MCV 88.6 fL (80.0-100.0); Mean Platelet Volume 8.7; Monocytes # (A) 0.8 k/uL (0-1.0); Monocytes % (A) 8 %; Neutrophils # (A) 7.5 k/uL (1.3-7.7); Neutrophils % (A) 79 %; Platelet Count 171 k/uL (150-450); RDW 14.1 % (11.5-15.5); WBC 9.5 k/uL (3.8-10.6)
[2018-10-20 00:11] LABS: Albumin 3.6 g/dL (3.5-5.0); Calcium 9.4 mg/dL (8.4-10.2); Potassium 4.7 mmol/L (3.5-5.1); Total Bilirubin 0.4 mg/dL (0.2-1.3); Total Protein 6.6 g/dL (6.3-8.2)
[2018-10-20 00:12] LABS: Lactic Acid, Venous 0.9 mmol/L (0.7-2.0)
--- NOTE | 2018-10-20 00:29 | XR ---
EXAM: XR Chest, 2 Views CLINICAL HISTORY: Pain TECHNIQUE: Frontal and lateral views of the chest. COMPARISON: No relevant prior studies available. FINDINGS: Lungs: Chronic interstitial changes bilaterally. Mild blunting of the left costophrenic angle which may be due to scarring Pleural space: Unremarkable. No pneumothorax. Heart: Unremarkable. No cardiomegaly. Mediastinum: Unremarkable. Bones/joints: Unremarkable. IMPRESSION: Chronic interstitial changes blunting of left costophrenic angle
--- NOTE | 2018-10-20 00:33 | XR ---
EXAM: XR Lumbar Spine, 2 or 3 Views CLINICAL HISTORY: : Pain TECHNIQUE: Frontal and lateral views of the lumbar spine. COMPARISON: No relevant prior studies available. FINDINGS: Vertebrae: Unremarkable. No acute fracture. Chronic Degenerative changes. Disc spaces: No acute findings. No significant narrowing. Soft tissues: Unremarkable. IMPRESSION: Chronic degenerative changes lumbar spine. No evidence for acute fracture
--- NOTE | 2018-10-20 00:36 | XR ---
EXAM: XR Thoracic Spine, 2 Views CLINICAL HISTORY: : Pain TECHNIQUE: Frontal and lateral views of the thoracic spine. COMPARISON: No relevant prior studies available. FINDINGS: Vertebrae: Unremarkable. No acute fracture. Chronic degenerative changes. Disc spaces: No acute findings. Chronic degenerative changes Soft tissues: Unremarkable. IMPRESSION: Chronic degenerative changes thoracic spine no evidence for acute fracture
--- NOTE | 2018-10-20 00:46 | CT ---
EXAM: CT Head Without Intravenous Contrast CLINICAL HISTORY: Pain TECHNIQUE: Axial computed tomography images of the head/brain without intravenous contrast. CTDI is 45.2 mGy and DLP is 1033 mGy-cm. This CT exam was performed using one or more of the following dose reduction techniques: automated exposure control, adjustment of the mA and/or kV according to patient size, and/or use of iterative reconstruction technique. COMPARISON: No relevant prior studies available. FINDINGS: Brain: Unremarkable. No hemorrhage. Diffuse volume loss. Ventricles: Unremarkable. No ventriculomegaly. Bones/joints: Unremarkable. No acute fracture. Soft tissues: Unremarkable. Sinuses: Air fluid level in the right maxillary sinus with complete opacification left maxillary sinus ethmoid air cells mucosal thickening in the frontal sinuses consistent with paranasal sinus inflammatory disease. Mastoid air cells: Unremarkable as visualized. No mastoid effusion. IMPRESSION: Normal head/brain CT. Paranasal sinus inflammatory disease EXAM: CT Cervical Spine Without Intravenous Contrast CLINICAL HISTORY: Pain TECHNIQUE: Axial computed tomography images of the cervical spine without intravenous contrast. CTDI is 10.56 mGy and DLP is 85.2 mGy-cm. This CT exam was performed using one or more of the following dose reduction techniques: automated exposure control, adjustment of the mA and/or kV according to patient size, and/or use of iterative reconstruction technique. Coronal and sagittal reformatted images were created and reviewed. COMPARISON: No relevant prior studies available. FINDINGS: No fracture or subluxations are noted. Chronic degenerative changes with disc space narrowing. Osteophyte formation. There is facet joint hypertrophy. Hypertrophy. No prevertebral soft tissue swelling. Note is made of multilevel cervical spondylosis with varying degrees of central canal and foramina stenoses. IMPRESSION: 1. No cervical fractures. 2. Cervical spondylosis with varying degrees of central canal and foramina stenoses.
[2018-10-20 02:37] LABS: Appearance,Urine Clear (Clear); Bilirubin,Urine Negative (Negative); Blood,Urine Negative (Negative); Color,Urine Yellow; Glucose,Urine (UA) Negative (Negative); Ketones,Urine Negative (Negative); Leukocyte Esterase,Urine Negative (Negative); Nitrite,Urine Negative (Negative); PH, Urine 6.5 (5.0-8.0); Protein,Urine Trace (Negative); Specific Gravity,Urine 1.016 (1.001-1.035); Urobilinogen,Urine <2.0 mg/dL (<2.0)
[2018-10-20 02:48] LABS: Amphetamine Screen,Urine Not Detected (NotDetected); Barbiturate Screen,Urine Not Detected (NotDetected); Benzodiazepines Screen,Urine Not Detected (NotDetected); Cocaine Screen,Urine Not Detected (NotDetected); Methadone Screen, Urine Not Detected (NotDetected); Opiate Screen,Urine Detected (NotDetected); Oxycodone Screen, Urine Not Detected (NotDetected); Phencyclidine Screen,Urine Not Detected (NotDetected); Tricyclic Antidepressant,Urine Not Detected (NotDetected); Urn Cannabinoid Scrn Not Detected (NotDetected)
[2018-10-20] MEDS ORDERED: Acetaminophen-Codeine 300-30mg TAB PO STA (04:48)
[2018-10-20 05:23] VITALS: RESP 18; TEMP 97.9
[2018-10-20 06:02] VITALS: BP 157/97; PULSE 85
== END 2018-10-20 06:25 | disposition home or self-care (01) ==
LOC: EC 22:38
DX: S20.229A Contusion of unspecified back wall of thorax, initial encounter (principal); R41.82 Altered mental status, unspecified; F03.90 Unspecified dementia, unspecified severity, without behavioral disturbance, psychotic disturbance, mood disturbance, and anxiety; R44.0 Auditory hallucinations; I48.91 Unspecified atrial fibrillation; I25.10 Atherosclerotic heart disease of native coronary artery without angina pectoris; I11.0 Hypertensive heart disease with heart failure; I50.9 Heart failure, unspecified; E78.5 Hyperlipidemia, unspecified; I25.2 Old myocardial infarction; M19.90 Unspecified osteoarthritis, unspecified site; M10.9 Gout, unspecified; N40.0 Benign prostatic hyperplasia without lower urinary tract symptoms; F41.9 Anxiety disorder, unspecified; F32.9 Major depressive disorder, single episode, unspecified; Z86.711 Personal history of pulmonary embolism; Z87.891 Personal history of nicotine dependence; Z87.39 Personal history of other diseases of the musculoskeletal system and connective tissue; Z95.1 Presence of aortocoronary bypass graft; Z95.5 Presence of coronary angioplasty implant and graft; Z96.641 Presence of right artificial hip joint; Z79.891 Long term (current) use of opiate analgesic; Z79.82 Long term (current) use of aspirin; Z79.01 Long term (current) use of anticoagulants; Z79.899 Other long term (current) drug therapy; W18.09XA Striking against other object with subsequent fall, initial encounter; Y92.009 Unspecified place in unspecified non-institutional (private) residence as the place of occurrence of the external cause
CPT/HCPCS: 36415 ×2; 93005; 80053; 82140; 83605; 85025; 81003; 80306; 72072; 72100; 71046; 72125; 70450; 99285; G0480; 80320

== ENCOUNTER 2018-10-26 15:55 | Emergency (ER) | payer MEDICARE ==
--- NOTE | 2018-10-26 16:23 | ED ---
General Adult HPI - General Chief complaint: Altered Mental Status Stated complaint: Dementia Time Seen by Provider: 10/26/18 15:59 - History of Present Illness Initial comments: Dictation was produced using [employer] dictation software. please excuse any grammatical, word or spelling errors. Chief Complaint: 73-year-old male past medical history of atrial fibrillation, chest pain, COPD, dyslipidemia presents with back pain. History of Present Illness: Patient is 73-year-old male. He presents today with back pain. Patient was seen here in emergency department approximately one week ago for the same complaint. Patient reports that he fell approximately one week ago. He was seen here in emergency department. He was seen and evaluated by emergency physician and had basic labs with imaging studies off on the be negative. According to documentation patient family was upset that he was not evaluated by psychiatry initially. He was finally evaluated by EPS who recommended the patient be evaluated by a neurologist given that there was more concerned that patient's symptoms were related to dementia. Patient was transferred to [facility] for neurology evaluation. Patient is a poor historian at this time. He reports that he is here for back pain. According to EMS he was transferred here for placement due to difficulties of providing care by family members. He does report that he was seen by his primary care physician yesterday and received a pain shot. Patient states that he has some numbness and tingling to his groin area. States that his pain is so bad that he is unable to have a bowel movement. His report this pain is worse with Valsalva. Increased difficult is with ambulation. Patient is a poor historian. No family at bedside currently for collateral information regarding his visit today. The ROS documented in this emergency department record has been reviewed and confirmed by me. Those systems with pertinent positive or negative responses have been documented in the HPI. All other systems are other negative and/or noncontributory. PHYSICAL EXAM: General Impression: Alert and oriented x3, not in acute distress HEENT: Normocephalic atraumatic, extra-ocular movements intact, pupils equal and reactive to light bilaterally, mucous membranes moist. Cardiovascular: Heart regular rate and rhythm, S1&S2 audible, no murmurs, rubs or gallops Chest: Lungs clear to auscultation bilaterally, no rhonchi, no wheeze, no rales Abdomen: Bowel sounds present, abdomen soft, non-tender, non-distended, no organomegaly Musculoskeletal: Pulses present and equal in all extremities, no peripheral edema, mild tenderness to the low back with straight leg testing the right leg. Tetanus palpation of the mid L-spine. Motor: no focal deficits noted Neurological: CN II-XII grossly intact, no focal motor or sensory deficits noted Skin: Intact with no visualized rashes Psych: Normal affect and mood ED course: 78 yo male presents with chief complaint of back pain. Vital signs upon arrival are within acceptable limits. Patient's well-appearing at rest. Does have some localizing symptoms to his lower back. Chart review shows that patient is history of dementia. According to the nurse who received report from EMS he was transferred here for placement concerns. Chart from last week was reviewed on he was seen in the emergency department. Given the patient continues to have persistent low back symptoms that he reports started after fall CT of the lumbar spine ordered. Patient denies any symptoms when at rest. He reports worsening symptoms such or when trying to sit up from a supine position. Laboratory evaluation obtained.CT of the L-spine was obtained showing severe degenerative disease. There is no findings of paraspinal masses. Patient given a [place] with improvement of symptoms. More history was obtained from family. They report that they feel he is not safe at home given that he has history of macular degeneration and difficulties with saying. Patient states he feels well to go home. Family was apprehensive however patient made his decision of being discharged. Patient ambulated with assistance. was concerned that she would have difficulty taking care of him at home given that she is only one there. Patient was adamant about being discharged. Recommended that he did stay for acute on chronic debility however he requested to be discharged. At this point clinical presentation is consistent with sciatica and acute on chronic back pain. Patient given follow-up with optical instrument specialist. - Related Data Home Medications Medication Instructions Recorded Confirmed Allopurinol [Zyloprim] 100 mg PO DAILY 05/19/14 10/26/18 Metoprolol Succinate 25 mg PO DAILY 05/19/14 10/26/18 Folic Acid 1 mg PO DAILY 11/07/14 10/26/18 HYDROcodone/APAP 10-325MG [[place] 1 tab PO DAILY 11/07/14 10/26/18 10-325] Isosorbide Mononitrate ER [Imdur] 60 mg PO DAILY@1700 11/07/14 10/26/18 Vit A/Vit C/Vit E/Zinc/Copper 2 cap PO BID 11/27/14 10/26/18 [ICAPS SOFTGEL] Sertraline [Zoloft] 100 mg PO BID 01/03/16 10/26/18 Tamsulosin HCl 0.4 mg PO HS 01/21/16 10/26/18 Cholecalciferol [Vitamin D3] 2,000 unit PO HS 01/24/17 10/26/18 Ferrous Sulfate [Feosol] 650 mg PO DAILY@1700 01/24/17 10/26/18 Finasteride [Proscar] 5 mg PO HS 01/24/17 10/26/18 Aspirin [Adult Low Dose Aspirin EC] 81 mg PO HS 06/11/17 10/26/18 Atorvastatin [Lipitor] 40 mg PO HS 10/19/18 10/26/18 Furosemide [Lasix] 20 mg PO DAILY 10/19/18 10/26/18 Lisinopril 20 mg PO DAILY@1700 10/19/18 10/26/18 Rivaroxaban [Xarelto] 2.5 mg PO DAILY@1700 10/19/18 10/26/18 Allergies Allergy/AdvReac Type Severity Reaction Status Date / Time No Known Allergies Allergy Verified 10/26/18 17:04 Review of Systems ROS Statement: Those systems with pertinent positive or pertinent negative responses have been documented in the HPI. ROS Other: All systems not noted in ROS Statement are negative. Past Medical History Past Medical History: Atrial Fibrillation, Coronary Artery Disease (CAD), Chest Pain / Angina, Heart Failure, Hearing Disorder / Deafness, Hyperlipidemia, Hypertension, Myocardial Infarction ([place]), Osteoarthritis (OA), Prostate Disorder, Pulmonary Embolus ([place]) Additional Past Medical History / Comment(s): Frequent small epistaxis and a couple (3) large epistaxis episodes Gout, MAC DEGENERATION bilaterally-LEGALLY BLIND (BRIGHT LIGHTS BOTHER PT). CONSTIPATION, BPH, OA multiple joints, PE 23 yrs ago post op, stenosis cervical and lumbar Last Myocardial Infarction Date:: 01/2016 History of Any Multi-Drug Resistant Organisms: None Reported Past Surgical History: Coronary Bypass/CABG, Heart Catheterization With Stent, Orthopedic Surgery, Tonsillectomy Additional Past Surgical History / Comment(s): HAD A RECENT HEART CATH AND STENT AT [facility] EARLY JANUARY 2016 AND HAD AN EXTENSIVE NOSE BLEED AFTERWARDS HAD TO BE PACKED. PT STATED STILL EVERY AM HAS SOME NASAL BLEEDING-USES SALINE SOLUTION AND AFRIN. TOTAL RIGHT HIP REPLACEMENT Past Anesthesia/Blood Transfusion Reactions: No Reported Reaction Date of Last Stent Placement:: 01/2016 Past Psychological History: Anxiety, Depression Smoking Status: Former smoker Past Alcohol Use History: None Reported Past Drug Use History: None Reported - Past Family History Mother Additional Family Medical History / Comment(s): MACULAR DEGENERATION, THYROID PROBLEMS. Mother at the age of 86 yrs. Father Family Medical History: Cancer Additional Family Medical History / Comment(s): Father from [place] at the age of 63 yrs. Course Vital Signs 10/26/18 16:24 Temperature 98.1 F Pulse Rate 64 Respiratory 16 Rate Blood Pressure 135/76 O2 Sat by Pulse 98 Oximetry Medical Decision Making - Lab Data Result diagrams: 10/26/18 16:40 10/26/18 16:40 Lab Results 10/26/18 10/26/18 10/26/18 Range/Units 16:40 16:40 16:40 WBC 9.2 (3.8-10.6) k/uL RBC 4.03 L (4.30-5.90) m/uL Hgb 11.5 L (13.0-17.5) gm/dL Hct 34.5 L (39.0-53.0) % MCV 85.5 (80.0-100.0) fL MCH 28.6 (25.0-35.0) pg MCHC 33.5 (31.0-37.0) g/dL RDW 16.2 H (11.5-15.5) % Plt Count 184 (150-450) k/uL Neutrophils % 79 % Lymphocytes % 8 % Monocytes % 8 % Eosinophils % 4 % Basophils % 0 % Neutrophils # 7.3 (1.3-7.7) k/uL Lymphocytes # 0.7 L (1.0-4.8) k/uL Monocytes # 0.7 (0-1.0) k/uL Eosinophils # 0.3 (0-0.7) k/uL Basophils # 0.0 (0-0.2) k/uL Anisocytosis Slight PT 11.2 (9.0-12.0) sec INR 1.1 (<1.2) Sodium 142 (137-145) mmol/L Potassium 4.5 (3.5-5.1) mmol/L Chloride 109 H (98-107) mmol/L Carbon Dioxide 26 (22-30) mmol/L Anion Gap 7 mmol/L BUN 32 H (9-20) mg/dL Creatinine 1.04 (0.66-1.25) mg/dL Est GFR (CKD-EPI)AfAm 80 (>60 ml/min/1.73 sqM) Est GFR (CKD-EPI)NonAf 69 (>60 ml/min/1.73 sqM) Glucose 104 H (74-99) mg/dL Calcium 9.2 (8.4-10.2) mg/dL Disposition Clinical Impression: Sciatica Disposition: HOME SELF-CARE Condition: Fair Instructions (If sedation given, give patient instructions): Acute Low Back Pain (ED) Is patient prescribed a controlled substance at d/c from ED?: No Referrals: Fuad Cornelius MD [Primary Care Provider] - 1-2 days Yamilet Avila DO [Doctor of Osteopathic Medicine] - 1-2 days Time of Disposition: 19:15
[2018-10-26 16:33] VITALS: RESP 16; TEMP 98.1
[2018-10-26 16:54] LABS: Anisocytosis Slight; Basophils % (A) 0 %; Eosinophils # (A) 0.3 k/uL (0-0.7); Eosinophils % (A) 4 %; HCT 34.5 % (39.0-53.0); HGB 11.5 gm/dL (13.0-17.5); Lymphocytes # (A) 0.7 k/uL (1.0-4.8); Lymphocytes % (A) 8 %; MCH 28.6 pg (25.0-35.0); MCHC 33.5 g/dL (31.0-37.0); MCV 85.5 fL (80.0-100.0); Monocytes # (A) 0.7 k/uL (0-1.0); Monocytes % (A) 8 %; Neutrophils # (A) 7.3 k/uL (1.3-7.7); Neutrophils % (A) 79 %; Platelet Count 184 k/uL (150-450); RBC 4.03 m/uL (4.30-5.90); RDW 16.2 % (11.5-15.5); WBC 9.2 k/uL (3.8-10.6)
[2018-10-26 17:01] LABS: INR 1.1 (<1.2); Prothrombin Time 11.2 sec (9.0-12.0)
[2018-10-26 17:03] LABS: Calcium 9.2 mg/dL (8.4-10.2); Potassium 4.5 mmol/L (3.5-5.1)
[2018-10-26] MEDS ORDERED: HYDROcodone/APAP 10-325MG 1 EACH TAB PO ONE (17:58)
--- NOTE | 2018-10-26 18:05 | CT ---
EXAMINATION TYPE: CT lumbar spine wo con DATE OF EXAM: 10/26/2018 COMPARISON: Plain film 10/20/2018 HISTORY: Low back pain. CT DLP: 884.3 mGycm Automated exposure control for dose reduction was used. An unenhanced CT of the lumbar spine was performed. Bone and soft tissue window settings are submitt ed as well as coronal and sagittal reconstructions. FINDINGS: There is multilevel spondylosis. Minimal anterolisthesis grade 1 L4-5 and L5-S1, there is associated loss of disc height at these levels with associated vacuum phenomenon. There is a cortical cyst assoc iated with the left kidney measuring approximately 4 cm which is incompletely evaluated on this nonco ntrast exam. Lumbar vertebral bodies are intact. L1-L2: Mild loss of disc height is present. Circumferential disc bulge extends posteriorly causes mil d anterior mass effect on the thecal sac. No significant central stenosis or foraminal encroachment. L2-L3: There is mild central stenosis. Hypertrophic facet arthropathy changes are present. Circumfere ntial extension of disc bulge encroaches somewhat on the neural foramina. L3-L4: Posterior broad-based disc bulge causes anterior mass effect on the thecal sac, there is moder ate to severe central stenosis, hypertrophic changes are present at the ligamentum flavum causing pos terior lateral mass effect on the thecal sac. Circumferential disc bulge extension causes some forami nal encroachment. L4-L5: There is a trefoil appearance to the thecal sac. Listhesis contributes to encroach on the neur al foramina greater on the right likely due to the scoliotic curvature. Hypertrophic changes of the f acets causes posterior lateral mass effect on the thecal sac, there is moderate central canal stenosi s. L5-S1: Posterior extension of endplate disc complex may contact the proximal S1 nerve roots. There is extensive facet arthropathy. Circumferential extension of endplate disc complex encroaches somewhat on the neural foramina. No significant central stenosis. IMPRESSION: No paraspinal masses are identified. Lumbar segments are intact. Degenerative disc disease, facet ar thropathy, spinal stenosis, foraminal encroachment, scoliosis. Additional findings above.
[2018-10-26 19:55] VITALS: BP 159/89; PULSE 59
== END 2018-10-26 19:55 | disposition home or self-care (01) ==
LOC: EC 15:55
DX: M54.31 Sciatica, right side (principal); M51.36 Other intervertebral disc degeneration, lumbar region; R41.82 Altered mental status, unspecified; G89.29 Other chronic pain; F03.90 Unspecified dementia, unspecified severity, without behavioral disturbance, psychotic disturbance, mood disturbance, and anxiety; I48.91 Unspecified atrial fibrillation; I25.10 Atherosclerotic heart disease of native coronary artery without angina pectoris; I11.0 Hypertensive heart disease with heart failure; I50.9 Heart failure, unspecified; E78.5 Hyperlipidemia, unspecified; I25.2 Old myocardial infarction; M19.90 Unspecified osteoarthritis, unspecified site; M10.9 Gout, unspecified; N40.0 Benign prostatic hyperplasia without lower urinary tract symptoms; F41.9 Anxiety disorder, unspecified; F32.9 Major depressive disorder, single episode, unspecified; Z86.711 Personal history of pulmonary embolism; Z95.1 Presence of aortocoronary bypass graft; Z95.5 Presence of coronary angioplasty implant and graft; Z96.641 Presence of right artificial hip joint; Z87.891 Personal history of nicotine dependence; Z87.39 Personal history of other diseases of the musculoskeletal system and connective tissue; Z79.891 Long term (current) use of opiate analgesic; Z79.82 Long term (current) use of aspirin; Z79.01 Long term (current) use of anticoagulants; Z79.899 Other long term (current) drug therapy
CPT/HCPCS: 36415; 72131; 80048; 85025; 85610; 99285

== ENCOUNTER 2018-10-30 11:30 | Inpatient (IN) | payer MEDICARE ==
[2018-10-30] MEDS ORDERED: MORPHINE SULFATE 4 MG/ML SYRINGE IV STA (11:44)
[2018-10-30] MEDS ORDERED: SODIUM CHLORIDE 0.9% 1,000 ML IV STA (11:44)
--- NOTE | 2018-10-30 12:23 | ED ---
Back Pain HPI - General Chief Complaint: Back Pain/Injury Stated Complaint: Back pain Time Seen by Provider: 10/30/18 11:34 Source: patient, EMS, RN notes reviewed, old records reviewed - History of Present Illness Initial Comments: This is a 70-year-old male the ER for evaluation, presenting today for e valuation of back pain. Patient when being asked was back pain and then continues to complain about every other organ system in his body. She states that he has chest pain, bilateral leg pain, difficulty with urination and burning with urination. Occasional headaches cough and congestion. Patient denies any fevers. He does admit that the back pain likely stem from fall he had about 6-7 days ago he was seen by his family doctor who did not give him anything for pain. Patient does have history of heart disease did take nitro with his chest pain without help. He thinks the urinary issues may be related to the fall as well. MD Complaint: back pain, fall -: days(s) (6) Place: home Radiation: none Severity: moderate Severity scale (1-10): 5 Quality: aching Consistency: constant Improves With: immobilization Worsens With: movement Context: fall Associated Symptoms: chest pain, difficulty walking, difficulty urinating - Related Data Home Medications Medication Instructions Recorded Confirmed Allopurinol [Zyloprim] 100 mg PO DAILY 05/19/14 10/30/18 Metoprolol Succinate 25 mg PO DAILY 05/19/14 10/30/18 Folic Acid 1 mg PO DAILY 11/07/14 10/30/18 HYDROcodone/APAP 10-325MG [[place] 1 tab PO DAILY 11/07/14 10/30/18 10-325] Isosorbide Mononitrate ER [Imdur] 60 mg PO DAILY@1700 11/07/14 10/30/18 Vit A/Vit C/Vit E/Zinc/Copper 2 cap PO BID 11/27/14 10/30/18 [ICAPS SOFTGEL] Sertraline [Zoloft] 100 mg PO BID 01/03/16 10/30/18 Tamsulosin HCl 0.4 mg PO HS 01/21/16 10/30/18 Cholecalciferol [Vitamin D3] 2,000 unit PO HS 01/24/17 10/30/18 Ferrous Sulfate [Feosol] 650 mg PO DAILY@1700 01/24/17 10/30/18 Finasteride [Proscar] 5 mg PO HS 01/24/17 10/30/18 Aspirin [Adult Low Dose Aspirin EC] 81 mg PO HS 06/11/17 10/30/18 Atorvastatin [Lipitor] 40 mg PO HS 10/19/18 10/30/18 Furosemide [Lasix] 20 mg PO DAILY 10/19/18 10/30/18 Lisinopril 20 mg PO DAILY@1700 10/19/18 10/30/18 Rivaroxaban [Xarelto] 2.5 mg PO DAILY@1700 10/19/18 10/30/18 Allergies Allergy/AdvReac Type Severity Reaction Status Date / Time No Known Allergies Allergy Verified 10/30/18 11:47 Review of Systems ROS Statement: Those systems with pertinent positive or pertinent negative responses have been documented in the HPI. ROS Other: All systems not noted in ROS Statement are negative. Past Medical History Past Medical History: Atrial Fibrillation, Coronary Artery Disease (CAD), Chest Pain / Angina, Heart Failure, Hearing Disorder / Deafness, Hyperlipidemia, Hypertension, Myocardial Infarction ([place]), Osteoarthritis (OA), Prostate Disorder, Pulmonary Embolus ([place]) Additional Past Medical History / Comment(s): Frequent small epistaxis and a couple (3) large epistaxis episodes Gout, MAC DEGENERATION bilaterally-LEGALLY BLIND (BRIGHT LIGHTS BOTHER PT). CONSTIPATION, BPH, OA multiple joints, PE 23 yrs ago post op, stenosis cervical and lumbar Last Myocardial Infarction Date:: 01/2016 History of Any Multi-Drug Resistant Organisms: None Reported Past Surgical History: Coronary Bypass/CABG, Heart Catheterization With Stent, Orthopedic Surgery, Tonsillectomy Additional Past Surgical History / Comment(s): HAD A RECENT HEART CATH AND STENT AT [facility] EARLY JANUARY 2016 AND HAD AN EXTENSIVE NOSE BLEED AFTERWARDS HAD TO BE PACKED. PT STATED STILL EVERY AM HAS SOME NASAL BLEEDING-USES SALINE SOLUTION AND AFRIN. TOTAL RIGHT HIP REPLACEMENT Past Anesthesia/Blood Transfusion Reactions: No Reported Reaction Date of Last Stent Placement:: 01/2016 Past Psychological History: Anxiety, Depression Smoking Status: Former smoker Past Alcohol Use History: None Reported Past Drug Use History: None Reported - Past Family History Mother Additional Family Medical History / Comment(s): MACULAR DEGENERATION, THYROID PROBLEMS. Mother at the age of 86 yrs. Father Family Medical History: Cancer Additional Family Medical History / Comment(s): Father from [place] at the age of 63 yrs. General Exam General appearance: alert, in no apparent distress Head exam: Present: atraumatic, normocephalic, normal inspection Eye exam: Present: normal appearance, PERRL, EOMI. Absent: scleral icterus, conjunctival injection, periorbital swelling ENT exam: Present: normal exam, mucous membranes moist Neck exam: Present: normal inspection. Absent: tenderness, meningismus, lymphadenopathy Respiratory exam: Present: normal lung sounds bilaterally. Absent: respiratory distress, wheezes, rales, rhonchi, stridor Cardiovascular Exam: Present: regular rate, normal rhythm, normal heart sounds. Absent: systolic murmur, diastolic murmur, rubs, gallop, clicks GI/Abdominal exam: Present: soft, normal bowel sounds. Absent: distended, tenderness, guarding, rebound, rigid Extremities exam: Present: normal inspection, full ROM, normal capillary refill. Absent: tenderness, pedal edema, joint swelling, calf tenderness Back exam: Present: normal inspection Neurological exam: Present: alert, oriented X3, CN II-XII intact Psychiatric exam: Present: normal affect, normal mood Skin exam: Present: warm, dry, intact, normal color. Absent: rash Course Vital Signs 10/30/18 10/30/18 11:33 14:44 Temperature 98.1 F Pulse Rate 58 L 62 Respiratory 20 18 Rate Blood Pressure 145/74 156/85 O2 Sat by Pulse 99 99 Oximetry - Reevaluation(s) Reevaluation #1: 10/30/18 15:47 Medical record reviewed Reevaluation #2: 10/30/18 15:47 Patient does continue to chest pain does continue to back pain on the pain is improved Reevaluation #3: 10/30/18 15:47 Spoke with patient's family states patient is no longer able to take care of himself at home, they did pull me aside and had this conversation with me Medical Decision Making - Medical Decision Making 70 male the ER with chest pain back pain. Patient be admitted for pain control monitoring of cardiac troponin. Patient will also be seen by PTOT - Lab Data Result diagrams: 10/30/18 11:59 10/30/18 11:59 Lab Results 04/11/19 04/11/19 04/11/19 Range/Units 11:59 11:59 11:59 WBC 8.9 (3.8-10.6) k/uL RBC 4.15 L (4.30-5.90) m/uL Hgb 11.8 L (13.0-17.5) gm/dL Hct 36.8 L (39.0-53.0) % MCV 88.7 (80.0-100.0) fL MCH 28.6 (25.0-35.0) pg MCHC 32.2 (31.0-37.0) g/dL RDW 14.0 (11.5-15.5) % Plt Count 248 (150-450) k/uL Neutrophils % 83 % Lymphocytes % 7 % Monocytes % 6 % Eosinophils % 1 % Basophils % 0 % Neutrophils # 7.4 (1.3-7.7) k/uL Lymphocytes # 0.6 L (1.0-4.8) k/uL Monocytes # 0.6 (0-1.0) k/uL Eosinophils # 0.1 (0-0.7) k/uL Basophils # 0.0 (0-0.2) k/uL PT (9.0-12.0) sec INR (<1.2) APTT (22.0-30.0) sec Sodium 141 (137-145) mmol/L Potassium 4.6 (3.5-5.1) mmol/L Chloride 108 H (98-107) mmol/L Carbon Dioxide 27 (22-30) mmol/L Anion Gap 6 mmol/L BUN 25 H (9-20) mg/dL Creatinine 0.98 (0.66-1.25) mg/dL Est GFR (CKD-EPI)AfAm 86 (>60 ml/min/1.73 sqM) Est GFR (CKD-EPI)NonAf 74 (>60 ml/min/1.73 sqM) Glucose 88 (74-99) mg/dL Plasma Lactic Acid David 1.3 (0.7-2.0) mmol/L Calcium 9.3 (8.4-10.2) mg/dL Phosphorus 2.8 (2.5-4.5) mg/dL Total Bilirubin 0.8 (0.2-1.3) mg/dL AST 28 (17-59) U/L ALT 31 (21-72) U/L Alkaline Phosphatase 93 (38-126) U/L Troponin I (0.000-0.034) ng/mL Total Protein 6.8 (6.3-8.2) g/dL Albumin 3.7 (3.5-5.0) g/dL TSH 3.100 (0.465-4.680) mIU/L Urine Color Urine Appearance (Clear) Urine pH (5.0-8.0) Ur Specific [place] (1.001-1.035) Urine Protein (Negative) Urine Glucose (UA) (Negative) Urine Ketones (Negative) Urine Blood (Negative) Urine Nitrite (Negative) Urine Bilirubin (Negative) Urine Urobilinogen (<2.0) mg/dL Ur Leukocyte Esterase (Negative) 10/30/18 10/30/18 10/30/18 Range/Units 11:59 11:59 14:40 WBC (3.8-10.6) k/uL RBC (4.30-5.90) m/uL Hgb (13.0-17.5) gm/dL Hct (39.0-53.0) % MCV (80.0-100.0) fL MCH (25.0-35.0) pg MCHC (31.0-37.0) g/dL RDW (11.5-15.5) % Plt Count (150-450) k/uL Neutrophils % % Lymphocytes % % Monocytes % % Eosinophils % % Basophils % % Neutrophils # (1.3-7.7) k/uL Lymphocytes # (1.0-4.8) k/uL Monocytes # (0-1.0) k/uL Eosinophils # (0-0.7) k/uL Basophils # (0-0.2) k/uL PT 11.3 (9.0-12.0) sec INR 1.1 (<1.2) APTT 25.4 (22.0-30.0) sec Sodium (137-145) mmol/L Potassium (3.5-5.1) mmol/L Chloride (98-107) mmol/L Carbon Dioxide (22-30) mmol/L Anion Gap mmol/L BUN (9-20) mg/dL Creatinine (0.66-1.25) mg/dL Est GFR (CKD-EPI)AfAm (>60 ml/min/1.73 sqM) Est GFR (CKD-EPI)NonAf (>60 ml/min/1.73 sqM) Glucose (74-99) mg/dL Plasma Lactic Acid David (0.7-2.0) mmol/L Calcium (8.4-10.2) mg/dL Phosphorus (2.5-4.5) mg/dL Total Bilirubin (0.2-1.3) mg/dL AST (17-59) U/L ALT (21-72) U/L Alkaline Phosphatase (38-126) U/L Troponin I <0.012 (0.000-0.034) ng/mL Total Protein (6.3-8.2) g/dL Albumin (3.5-5.0) g/dL TSH (0.465-4.680) mIU/L Urine Color Yellow Urine Appearance Clear (Clear) Urine pH 6.0 (5.0-8.0) Ur Specific [place] 1.015 (1.001-1.035) Urine Protein Trace H (Negative) Urine Glucose (UA) Negative (Negative) Urine Ketones Trace H (Negative) Urine Blood Negative (Negative) Urine Nitrite Negative (Negative) Urine Bilirubin Negative (Negative) Urine Urobilinogen <2.0 (<2.0) mg/dL Ur Leukocyte Esterase Negative (Negative) - EKG Data -: EKG Interpreted by Me (EKG shows sinus tach rate of 107, MO 2:30, QRS 88, QTc 437) - Radiology Data Radiology results: report reviewed (Chest x-rays negative for acute disease CT lumbar sacral spine negative for acute disease CT abdomen and pelvis negative for acute disease), image reviewed Disposition Clinical Impression: Back contusion, Sciatica, Fall, Chest pain, Back pain Disposition: ADMITTED IP TO THIS HOSP Condition: Fair Is patient prescribed a controlled substance at d/c from ED?: No Referrals: Fuad Cornelius MD [Primary Care Provider] - 1-2 days
[2018-10-30 12:27] LABS: Basophils % (A) 0 %; Eosinophils # (A) 0.1 k/uL (0-0.7); Eosinophils % (A) 1 %; HCT 36.8 % (39.0-53.0); HGB 11.8 gm/dL (13.0-17.5); Lymphocytes # (A) 0.6 k/uL (1.0-4.8); Lymphocytes % (A) 7 %; MCH 28.6 pg (25.0-35.0); MCHC 32.2 g/dL (31.0-37.0); MCV 88.7 fL (80.0-100.0); Mean Platelet Volume 8.2; Monocytes # (A) 0.6 k/uL (0-1.0); Monocytes % (A) 6 %; Neutrophils # (A) 7.4 k/uL (1.3-7.7); Neutrophils % (A) 83 %; Platelet Count 248 k/uL (150-450); RBC 4.15 m/uL (4.30-5.90); WBC 8.9 k/uL (3.8-10.6)
[2018-10-30 12:33] LABS: INR 1.1 (<1.2); Partial Thromboplastin Time 25.4 sec (22.0-30.0); Prothrombin Time 11.3 sec (9.0-12.0)
[2018-10-30 12:34] LABS: Albumin 3.7 g/dL (3.5-5.0); Calcium 9.3 mg/dL (8.4-10.2); Phosphorus 2.8 mg/dL (2.5-4.5); Potassium 4.6 mmol/L (3.5-5.1); Total Bilirubin 0.8 mg/dL (0.2-1.3); Total Protein 6.8 g/dL (6.3-8.2)
--- NOTE | 2018-10-30 12:59 | CT ---
EXAMINATION TYPE: CT abdomen pelvis wo con DATE OF EXAM: 10/30/2018 COMPARISON: None INDICATION: Back pain DLP: 690.9 mGycm, Automated exposure control for dose reduction was used. CONTRAST: 0 mL of Isovue 300. Study performed without Oral Contrast TECHNIQUE: Axial images were obtained from above the diaphragm to the pubic rami in the axial plane a t 5 mm thick sections. Reconstructed images are reviewed on the computer in the coronal plane. FINDINGS: Limited CT sections are obtained the lung bases. Very minimal compressive atelectasis is within the dependent portions of the lung bases. Coronary artery calcification is present.. CT ABDOMEN: Liver: Normal Spleen: Normal Pancreas: Normal Adrenal glands: The adrenal glands are normal. Gallbladder: Gallstone is present. Kidneys: No masses are evident. No hydronephrosis is present. There is a 3.7 cm cyst measuring 2 Ho unsfield units on the superior medial left mid kidney. Delayed images were obtained through the kidn eys, which remain unremarkable. Aorta: Vascular calcification is within the aorta. Inferior vena cava: Normal. CT PELVIS: Beam hardening artifact from right hip prosthesis causes some limitation. Loops of bowel within the abdomen and pelvis are normal. Study is performed without oral contrast limiting bowel evaluation. Fecal bolus at the level the rectum. Appendix: Not identified. No suspicious inflammatory changes or dilated tubular structures are eviden t. Urinary bladder: Normal as visualized. Genitourinary structures: Prostate is somewhat prominent. Osseous structures: No suspicious lytic or sclerotic lesions. Right hip prosthesis is present. Phlebo liths within the right pelvis. Degenerative disc changes and facet changes are present. IMPRESSIONS: 1. Simple appearing cyst left kidney. 2. Cholelithiasis. 3. Prominent prostate. 4. Coronary artery calcification
--- NOTE | 2018-10-30 13:35 | XR ---
EXAMINATION TYPE: XR chest 1V DATE OF EXAM: 10/30/2018 COMPARISON: 10/20/2018 HISTORY: Pain TECHNIQUE: Single frontal view of the chest is obtained. FINDINGS: The heart is prominent there subsegmental retrocardiac density in the left. Postsurgical c hanges. Arthropathy of the shoulders. No pneumothorax. No pleural effusion. Coronary stent not as wel l-seen on today's exam which likely is technical. IMPRESSION: Left basilar atelectasis favored over pneumonia correlate clinically.
[2018-10-30 15:05] LABS: Appearance,Urine Clear (Clear); Bilirubin,Urine Negative (Negative); Blood,Urine Negative (Negative); Color,Urine Yellow; Glucose,Urine (UA) Negative (Negative); Ketones,Urine Trace (Negative); Leukocyte Esterase,Urine Negative (Negative); Nitrite,Urine Negative (Negative); Protein,Urine Trace (Negative); Specific Gravity,Urine 1.015 (1.001-1.035); Urobilinogen,Urine <2.0 mg/dL (<2.0)
[2018-10-30] MEDS ORDERED: ASPIRIN 81 MG PO STA (15:43)
[2018-10-30] MEDS ORDERED: NITROGLYCERIN SL TABS 0.4 MG TAB SUBLINGUAL PRN (15:43)
[2018-10-31] MEDS: MORPHINE SULFATE 4 MG/ML SYRINGE IV PRN ×3 (00:26→11:21)
[2018-10-31 03:36] VITALS: RESP 18
[2018-10-31 03:45] LABS: Cholesterol 99 mg/dL (<200); HDL Cholesterol 46 mg/dL (40-60); LDL Cholesterol,Calculated 39 mg/dL (0-99); Triglycerides 69 mg/dL (<150)
[2018-10-31] MEDS: SODIUM CHLORIDE 0.9% 1,000 ML IV SCH ×3 (04:58→12:34)
[2018-10-31] MEDS ORDERED: ASPIRIN 325 MG TAB PO SCH (09:00)
[2018-10-31] MEDS ORDERED: HYDROcodone/APAP 10-325MG 1 EACH TAB PO PRN (10:55)
[2018-10-31] MEDS ORDERED: ALLOPURINOL 100 MG TAB PO SCH (11:00)
[2018-10-31] MEDS ORDERED: VIT A,C & E-LUTEIN-MINERALS 1 EACH TAB PO SCH (11:00)
[2018-10-31] MEDS ORDERED: FUROSEMIDE 20 MG TAB PO SCH (11:00)
[2018-10-31] MEDS ORDERED: METOPROLOL SUCCINATE (ER) 25 MG TAB.ER.24H PO SCH (11:00)
[2018-10-31] MEDS ORDERED: POLYETHYLENE GLYCOL 3350 17 GM POWD.PACK PO SCH (11:30)
[2018-10-31] MEDS ORDERED: FOLIC ACID 1 MG TAB PO SCH (12:00)
--- NOTE | 2018-10-31 12:19 | P.CRDCN ---
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 He follows in the office with Dr. Villa. We have been asked to see him in consultation secondary to chest pain. He states one day last week he was taking his dog out and he states he tripped and fell on his sidewalk on some rocks. He landed on his back. He denies having any symptoms of chest discomfort, shortness of breath, dizziness or palpitations prior to falling. He states he simply slipped and fell. There was no loss of consciousness. He has been at home and managing his back pain for the previous week however these symptoms seem to have increased. He is unable to tolerate the pain at home. His chief complaint upon arriving to the emergency department is lower back discomfort. He states at times when he is having significant spasms of his lower back he noticed a tightness in his chest and some shortness of breath. He states he was able to breathe through the discomfort in the back and once that subsided the discomfort in his chest also subsided. This occurred at rest and was not associated with exertion. He underwent a stress test in the office May 2018 with a Lexiscan stress test which evidence of a very small inferior apical possible reversibility that also could be related to soft tissue attenuation. Echocardiogram echocardiogram obtained in the office May 2018 reveals preserved left ventricular systolic function with ejection fraction 50%. EKG reveals sinus mechanism with first-degree AV block with short bursts of supraventricular tachycardia noted. Chest x-ray reveals left basilar atelectasis. CT of his abdomen pelvis performed reveals a left kidney cyst, cholelithiasis and a prominent prostate. Laboratory data reviewed, WBC 8.9, hemoglobin 11.8, platelets 248, sodium 141, potassium 4.6, creatinine 0.98, cardiac enzymes negative 3, TSH 3.1, LDL 39 and HDL 46. At the time of my exam: CONSTITUTIONAL: Denies fever. Denies chills. EYES: Denies blurred vision. Denies vision changes. Denies eye pain. EARS, NOSE, MOUTH & THROAT: Denies headache. Denies sore throat. Denies ear pain. CARDIOVASCULAR: Denies chest pain. Denies shortness of breath. Denies orthopnea. Denies PND. Denies palpitations. RESPIRATORY: Denies cough. GASTROINTESTINAL: Denies abdominal pain. Denies diarrhea. Denies constipation. Denies nausea. Denies vomiting. MUSCULOSKELETAL: Denies myalgias. INTEGUMENTARY: Denies pruitis. Denies rash. NEUROLOGIC: Denies numbness. Denies tingling. Denies weakness. PSYCHIATRIC: Denies anxiety. Denies depression. ENDOCRINE: Denies fatigue. Denies weight change. Denies polydipsia. Denies polyurina. GENITOURINARY: Denies burning, hematuria or urgency with micturation. HEMATOLOGIC: Denies history of anemia. Denies bleeding. Blood pressure 138/70 heart rate 47 afebrile maintaining oxygen saturation on room air GENERAL: This is a 78-year-old male in no apparent distress at the time of my examination. HEENT: Head is atraumatic, normocephalic. Eyes remain closed. Sclerae anicteric. Conjunctivae are clear. Mucous membranes of the mouth are moist. Neck is supple. There is no jugular venous distention. No carotid bruit is heard. LUNGS: Clear to auscultation no wheezes, rales or rhonchi. No chest wall tenderness is noted on palpation or with deep breathing. HEART: Irregular rate and rhythm without murmurs, rubs or gallops. S1 and S2 heard. ABDOMEN: Soft, nontender. Bowel sounds are heard. No organomegaly noted. EXTREMITIES: No evidence of peripheral edema and no calf tenderness noted. VASCULAR: Radial and dorsalis pedis pulses palpated, no evidence of clubbing. NEUROLOGIC: Patient is awake, alert and oriented x3. ASSESSMENT Mechanical fall with lower back pain Chest pain, atypical for angina. An acute coronary event has been ruled out. Recent stress test unremarkable. 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 Check magnesium level. Follow up with Dr. Villa upon discharge for outpatient event monitoring. Thank you kindly for this consultation. Nurse Practitioner note has been reviewed, I agree with a documented findings and plan of care. Patient was seen and examined. Past Medical History Past Medical History: Atrial Fibrillation, Coronary Artery Disease (CAD), Chest Pain / Angina, Heart Failure, Hearing Disorder / Deafness, Hyperlipidemia, Hypertension, Myocardial Infarction (IA), Osteoarthritis (OA), Prostate Disorder, Pulmonary Embolus (PE) Additional Past Medical History / Comment(s): Frequent small epistaxis and a couple (3) large epistaxis episodes Gout, MAC DEGENERATION bilaterally-LEGALLY BLIND (BRIGHT LIGHTS BOTHER PT). CONSTIPATION, BPH, OA multiple joints, PE 23 yrs ago post op, stenosis cervical and lumbar Last Myocardial Infarction Date:: 01/2016 History of Any Multi-Drug Resistant Organisms: None Reported Past Surgical History: Coronary Bypass/CABG, Heart Catheterization With Stent, Orthopedic Surgery, Tonsillectomy Additional Past Surgical History / Comment(s): HAD A RECENT HEART CATH AND STENT AT [facility] EARLY JANUARY 2016 AND HAD AN EXTENSIVE NOSE BLEED AFTERWARDS HAD TO BE PACKED. PT STATED STILL EVERY AM HAS SOME NASAL BLEEDING-USES SALINE SOLUTION AND AFRIN. TOTAL RIGHT HIP REPLACEMENT Past Anesthesia/Blood Transfusion Reactions: No Reported Reaction Date of Last Stent Placement:: 01/2016 Past Psychological History: Anxiety, Depression Additional Psychological History / Comment(s): PT. STATES HE DOES SUFFER FROM A NXIETY AND DEPRESSION, PT. STATES DUE TO HIS FORMER JOB HE DOES SUFFER FROM DEPRESSION AND ANXIETY WHICH HE IS ON MEDS FOR and he states the meds work well for him, PT. Pt lives with his spouse. He uses a cane to ambulate moreso, due to blindness. Smoking Status: Former smoker Past Alcohol Use History: None Reported Additional Past Alcohol Use History / Comment(s): PT. STATES HE QUIT SMOKING 8 YEARS AGO AND SMOKED ON AND OFF FOR MANY YEARS Past Drug Use History: None Reported - Past Family History Mother Additional Family Medical History / Comment(s): MACULAR DEGENERATION, THYROID PROBLEMS. Mother at the age of 86 yrs. Father Family Medical History: Cancer Additional Family Medical History / Comment(s): Father from [place] at the age of 63 yrs. Medications and Allergies Home Medications Medication Instructions Recorded Confirmed Type Allopurinol [Zyloprim] 100 mg PO DAILY 05/19/14 10/30/18 History Metoprolol Succinate 25 mg PO DAILY 05/19/14 10/30/18 History Folic Acid 1 mg PO DAILY 11/07/14 10/30/18 History HYDROcodone/APAP 10-325MG [[place] 1 tab PO DAILY 11/07/14 10/30/18 History 10-325] Isosorbide Mononitrate ER [Imdur] 60 mg PO DAILY@1700 11/07/14 10/30/18 History Vit A/Vit C/Vit E/Zinc/Copper 2 cap PO BID 11/27/14 10/30/18 History [ICAPS SOFTGEL] Sertraline [Zoloft] 100 mg PO BID 01/03/16 10/30/18 History Tamsulosin HCl 0.4 mg PO HS 01/21/16 10/30/18 History Cholecalciferol [Vitamin D3] 2,000 unit PO HS 01/24/17 10/30/18 History Ferrous Sulfate [Feosol] 650 mg PO DAILY@1700 01/24/17 10/30/18 History Finasteride [Proscar] 5 mg PO HS 01/24/17 10/30/18 History Aspirin [Adult Low Dose Aspirin EC] 81 mg PO HS 06/11/17 10/30/18 History Atorvastatin [Lipitor] 40 mg PO HS 10/19/18 10/30/18 History Furosemide [Lasix] 20 mg PO DAILY 10/19/18 10/30/18 History Lisinopril 20 mg PO DAILY@1700 10/19/18 10/30/18 History Rivaroxaban [Xarelto] 2.5 mg PO DAILY@1700 10/19/18 10/30/18 History Allergies Allergy/AdvReac Type Severity Reaction Status Date / Time No Known Allergies Allergy Verified 10/30/18 11:47 Physical Exam Vitals: Vital Signs Temp Pulse Pulse Resp BP BP BP 10/31/18 08:00 98.2 F 47 L 18 138/70 10/31/18 03:35 98.4 F 58 L 18 155/77 10/31/18 01:33 98.3 F 57 L 16 165/89 10/31/18 00:17 97.9 F 70 18 137/88 10/30/18 21:30 74 18 151/82 10/30/18 18:00 96 18 123/91 10/30/18 16:00 72 18 137/81 10/30/18 14:44 62 18 156/85 10/30/18 11:33 98.1 F 58 L 20 145/74 Pulse Ox 10/31/18 08:00 96 10/31/18 03:35 96 10/31/18 01:33 98 10/31/18 00:17 99 10/30/18 21:30 97 10/30/18 18:00 99 10/30/18 16:00 100 10/30/18 14:44 99 10/30/18 11:33 99 Intake and Output 10/30/18 10/31/18 10/31/18 22:59 06:59 14:59 Intake Total 350 Balance 350 Intake: Intake, IV Titration 300 Amount Sodium Chloride 0.9% 1, 300 000 ml @ 100 mls/hr IV . Q10H [facility] Rx#:[id number] Oral 50 Results 10/30/18 11:59 10/30/18 11:59 Cardiac Enzymes 10/30/18 10/30/18 10/30/18 Range/Units 11:59 11:59 18:31 AST 28 (17-59) U/L Troponin I <0.012 <0.012 (0.000-0.034) ng/mL 10/30/18 Range/Units 23:51 AST (17-59) U/L Troponin I 0.015 (0.000-0.034) ng/mL Coagulation 10/30/18 Range/Units 11:59 PT 11.3 (9.0-12.0) sec APTT 25.4 (22.0-30.0) sec Lipids 10/30/18 Range/Units 11:59 Triglycerides 69 (<150) mg/dL Cholesterol 99 (<200) mg/dL HDL Cholesterol 46 (40-60) mg/dL CBC 10/30/18 Range/Units 11:59 WBC 8.9 (3.8-10.6) k/uL RBC 4.15 L (4.30-5.90) m/uL Hgb 11.8 L (13.0-17.5) gm/dL Hct 36.8 L (39.0-53.0) % Plt Count 248 (150-450) k/uL Comprehensive Metabolic Panel 10/30/18 Range/Units 11:59 Sodium 141 (137-145) mmol/L Potassium 4.6 (3.5-5.1) mmol/L Chloride 108 H (98-107) mmol/L Carbon Dioxide 27 (22-30) mmol/L BUN 25 H (9-20) mg/dL Creatinine 0.98 (0.66-1.25) mg/dL Glucose 88 (74-99) mg/dL Calcium 9.3 (8.4-10.2) mg/dL AST 28 (17-59) U/L ALT 31 (21-72) U/L Alkaline Phosphatase 93 (38-126) U/L Total Protein 6.8 (6.3-8.2) g/dL Albumin 3.7 (3.5-5.0) g/dL Current Medications Generic Name Dose Route Start Last Admin Trade Name Freq PRN Reason Stop Dose Admin Aspirin 325 mg 10/31/18 09:00 Aspirin PO DAILY [facility] Sodium Chloride 1,000 mls @ 100 mls/hr 10/30/18 15:45 10/31/18 07:50 Saline 0.9% IV Not Given .Q10H [facility] Morphine Sulfate 4 mg 10/30/18 15:43 10/31/18 04:57 Morphine Sulfate (Inj) IV 4 mg Q4HR PRN Administration Chest Pain Nitroglycerin 0.4 mg 10/30/18 15:43 Nitrostat SUBLINGUAL Q5M PRN Chest Pain Intake and Output 10/30/18 10/31/18 10/31/18 22:59 06:59 14:59 Intake Total 350 Balance 350 Intake: Intake, IV Titration 300 Amount Sodium Chloride 0.9% 1, 300 000 ml @ 100 mls/hr IV . Q10H [facility] Rx#:[id number] Oral 50 10/30/18 11:59 10/30/18 11:59
[2018-10-31] MEDS: SERTRALINE 100 MG TAB PO SCH ×2 (12:34→20:46)
[2018-10-31] MEDS ORDERED: NAPROXEN 250 MG TAB PO STA (15:36)
[2018-10-31] MEDS: ACETAMINOPHEN TAB 325 MG TAB PO SCH ×2 (15:57→17:22)
[2018-10-31] MEDS: BACLOFEN 10 MG TAB PO SCH ×2 (15:57→16:00)
[2018-10-31 16:25] VITALS: BP 146/81; PULSE 85; TEMP 98.4
[2018-10-31] MEDS ORDERED: FERROUS SULFATE 325 MG TAB PO SCH (17:00)
[2018-10-31] MEDS ORDERED: ISOSORBIDE MONONITRATE ER 60 MG TAB.ER.24H PO SCH (17:00)
[2018-10-31] MEDS ORDERED: LISINOPRIL 20 MG TAB PO SCH (17:00)
[2018-10-31] MEDS ORDERED: RIVAROXABAN 2.5 MG TABLET PO SCH (17:00)
--- NOTE | 2018-10-31 18:25 | HP ---
HISTORY AND PHYSICAL DATE OF ADMISSION: 10/30/2018 DATE OF SERVICE: 10/30/2018 PRESENTING COMPLAINT: Back pain. HISTORY OF PRESENTING COMPLAINT: This is a very pleasant 78-year-old patient of Dr. Cornelius. Chronic stable medical conditions include coronary artery disease with a history of bypass and surgery, legally blind from macular degeneration, paroxysmal atrial fibrillation, hypertension, hyperlipidemia, osteoarthritis, BPH, depression, congestive heart failure. The patient fell backwards about a week ago and developed increasing pain around the tailbone area, though he was able to get around, though slowly. The pain has been worsening. Hence he decided to present to the ER. No trouble with his bowels or making urine. Like stated, the patient is able to get around. Initial CT scan did not report any fracture. Orthopedic Spine, Dr. Avila, was consulted. Malachi came down from his team and did see the CT scan earlier today. The nurse informed me there was no fracture, confirming the same. Pain is localized to the tailbone area. It does not radiate down the legs. It is worse with movement and better with resting. REVIEW OF SYSTEMS: CONSTITUTIONAL: None. HEENT: Decreased vision. Decreased hearing. RESPIRATORY: None. CARDIOVASCULAR: None. GASTROINTESTINAL: None. GENITOURINARY: None. MUSCULOSKELETAL: As above, and arthritic pain in joints. DERMATOLOGICAL: None. HEMATOLOGICAL: None. LYMPHATICS: None. PSYCHIATRY: None. NEUROLOGICAL: None. PAST MEDICAL HISTORY: 1. Coronary artery disease with bypass and stent. 2. Legally blind from macular degeneration. 3. Paroxysmal atrial fibrillation. 4. Hypertension. 5. Hyperlipidemia. 6. Osteoarthritis. 7. BPH. 8. Depression not otherwise specified. 9. Congestive heart failure; EF not known. 10.Pulmonary embolism over 23 years ago. 11.Prostate disorder with BPH. 12.Cervical and lumbar spine stenosis. 13.Epistaxis occasionally. PAST SURGICAL HISTORY: 1. Coronary artery bypass. 2. Cardiac cath with stent. PSYCH HISTORY: Anxiety and depression. SOCIAL HISTORY: . Does use a cane. Patient smoked close to 50 years; stopped about 8 years ago. Alcohol none. FAMILY HISTORY: Father of leukemia at age of 63. HOME MEDICATIONS: 1. I-Caps soft gel 2 capsules p.o. b.i.d. 2. Flomax 0.4 mg p.o. at bedtime. 3. Zoloft 100 mg p.o. b.i.d. 4. Xarelto 2.5 p.o. at 5 p.m. 5. Metoprolol 25 mg p.o. daily. 6. Lisinopril 20 mg p.o. daily. 7. Imdur 60 mg p.o. at 5 p.m. 8. [place] 10 one tablet p.o. daily. 9. Lasix 20 mg p.o. daily. 10.Folic acid 1 mg p.o. daily. 11.Proscar 5 mg p.o. at bedtime. 12.Iron 650 mg p.o. daily. 13.Vitamin D3 2000 units p.o. at bedtime. 14.Lipitor 40 mg at bedtime. 15.Aspirin 81 mg p.o. at bedtime. 16.Allopurinol 100 mg p.o. daily. ALLERGIES: NONE. PHYSICAL EXAMINATION: Temperature 97.9, pulse 78, respiration 18, blood pressure 137/78, pulse ox 99% on 2 L. GENERAL APPEARANCE: Average build. Lying in bed, awake. EYES: Pupils equal. Conjunctivae normal. Decreased vision. HEENT: External appearance of nose and ears normal. Oral cavity normal. NECK: JVD not raised. Mass not palpable. RESPIRATORY: Effort normal. LUNGS: Decreased breath sounds. CARDIOVASCULAR: First and second sounds normal. No edema. ABDOMEN: Soft, non-tender. Liver and spleen not palpable. LYMPHATIC: No lymph node palpable in neck or axillae. PSYCHIATRY: Alert and oriented x3. Mood and affect normal. NEUROLOGICAL: Pupils equal. Cranial nerves grossly intact. Power and sensation grossly intact. EXTREMITIES: Patient is able to lift both legs off the bed. Tenderness on the lower spine just above the sacrum area. INVESTIGATIONS: White count 8.9, hemoglobin 11.8, potassium 4.6, BUN 25, creatinine 0.98. Troponin x3 negative. TSH is normal. EKG tracing, personally reviewed by me, shows sinus tachycardia, some variable heart rate. Chest x-ray film, personally reviewed by me, shows some cardiomegaly. Some atelectasis reported on the x-ray. CT scan shows cholelithiasis, coronary artery calcification. ASSESSMENT: 1. Acute lower back pain secondary to fall a week ago. Patient has no involvement of the bladder or the bowel. Able to walk. 2. Coronary artery disease with prior history of bypass and stent. 3. Legally blind due to macular degeneration. 4. Paroxysmal atrial fibrillation, chronically on Xarelto. 5. Hyperlipidemia. 6. Essential hypertension. 7. Primary osteoarthritis. 8. Benign prostatic hypertrophy. 9. Depression not otherwise specified. 10.Chronic congestive heart failure; ejection fraction not known. 11.Acute low back pain secondary to fall a week ago. Patient is able to get around. There is no radiculopathy. No involvement of bladder or bowel. PLAN: Dr. Nicholas Avila from Orthopedics was consulted. The patient was seen by Malachi Eubanks, who did look at the CT scan and reported to the nurse that no fracture is present. At this point we will start the patient on NSAIDs, baclofen, Tylenol, and also get a K- pad. Malachi Eubanks did consult the pain management team, not available today. Patient's management will be conservative. We will see how the patient does with this and proceed from here. Patient is having significant low back pain, finding it difficult to get to get about. MMODL / IJN: [id number] /
[2018-10-31] MEDS ORDERED: NAPROXEN 250 MG TAB PO SCH (20:00)
[2018-10-31] MEDS ORDERED: ASPIRIN 81 MG PO SCH (21:00)
[2018-10-31] MEDS ORDERED: FINASTERIDE 5 MG TAB PO SCH (21:00)
[2018-10-31] MEDS ORDERED: TAMSULOSIN 0.4 MG CAP.ER.24H PO SCH (21:00)
[2018-10-31] MEDS ORDERED: ATORVASTATIN 40 MG TAB PO SCH (21:00)
[2018-10-31] MEDS ORDERED: FAMOTIDINE 20 MG TAB PO SCH (21:00)
[2018-10-31] MEDS ORDERED: CHOLECALCIFEROL 1,000 UNIT TAB PO SCH (21:00)
--- NOTE | 2018-11-02 23:03 | DS ---
DISCHARGE SUMMARY DATE OF ADMISSION: 10/31/2018 DATE OF DISCHARGE: 10/31/2018. FINAL DIAGNOSES: 1. Acute low back pain with blunt injury secondary to fall. 2. Coronary artery disease prior history of coronary bypass and stent. 3. Legally blind due to macular degeneration. 4. Paroxysmal atrial fibrillation chronically on Xarelto. 5. Hyperlipidemia. 6. Essential hypertension. 7. Primary osteoarthritis. 8. Benign prostatic hypertrophy. 9. Depression not otherwise specified. 10.Chronic congestive heart failure, ejection fraction not known. HOSPITAL COURSE: This patient fell backwards about a week ago, was having increasing pain just above the tailbone. There was no bladder or bowel involvement. Pain was rather significant. Dr. Avila of orthopedics was consulted. Seen by SHREYAS Vines. There was no fracture on the CT scan. I did recommended a pain management consultation, but they were not available. I did adjust patient's pain medications. Was doing better. The patient is able to get out of bed. He will follow up with Dr. Avila as an outpatient. PHYSICAL EXAMINATION: Temperature 98.4, pulse 85, respiration 18, blood pressure 146/81. LUNGS: Fair air entry. CARDIOVASCULAR: 1st and 2nd sounds normal. LABORATORY DATA: White count 8.9, potassium 4.6, BUN and creatinine is normal. DISCHARGE MEDICATIONS: 1. Allopurinol 100 mg p.o. daily. 2. Metoprolol 25 mg p.o. daily. 3. Folic acid 1 mg p.o. daily. 4. [place] 10 1 tablet p.o. daily. 5. Imdur ER 60 mg p.o. daily. 6. I caps soft gel 2 capsules p.o. b.i.d. 7. Zoloft 100 mg p.o. b.i.d. 8. Flomax 0.4 mg p.o. q.h.s. 9. Vitamin D3 2000 units p.o. q.h.s. 10.Elemental iron 650 mg p.o. daily at 5:00 pm. 11.Proscar 5 mg p.o. q.h.s. 12.Aspirin 81 mg p.o. at bedtime. 13.Lipitor 40 mg at bedtime. 14.Lasix 20 mg p.o. daily. 15.Lisinopril 20 mg p.o. daily. 16.Xarelto 2.5 p.o. daily at 5:00 pm. 17.Tylenol 650 mg q.6. 18.Baclofen 5 mg p.o. t.i.d. 19.Pepcid 20 mg p.o. b.i.d. 20.Naproxen 250 mg t.i.d. 15 tablets. FOLLOWUP: Follow up with Malachi Vines in 1 week. Follow up with Dr. Denis Cornelius in [place] in 2 days, follow up with Dr. Gonzalez Villa in [address] Cornelius, [place]. MMODL / CYNDYN: [id number] /
== END 2018-10-31 22:04 | disposition home or self-care (01) | DRG 552 ==
LOC: EC 11:30 → 1SOBS 15:43 → OBSVTOIN 10-31 14:28
PROVIDERS: ADMIT Hospitalist; ATTEND Hospitalist
DX: M54.5 Low back pain (principal); I47.1 Supraventricular tachycardia; J98.11 Atelectasis; I11.0 Hypertensive heart disease with heart failure; I48.0 Paroxysmal atrial fibrillation; I50.9 Heart failure, unspecified; N28.1 Cyst of kidney, acquired; M48.02 Spinal stenosis, cervical region; E78.5 Hyperlipidemia, unspecified; M54.30 Sciatica, unspecified side; F32.9 Major depressive disorder, single episode, unspecified; H35.30 Unspecified macular degeneration; H54.8 Legal blindness, as defined in USA; H91.90 Unspecified hearing loss, unspecified ear; I25.10 Atherosclerotic heart disease of native coronary artery without angina pectoris; I25.2 Old myocardial infarction; I44.0 Atrioventricular block, first degree; K80.20 Calculus of gallbladder without cholecystitis without obstruction; M15.9 Polyosteoarthritis, unspecified; N40.0 Benign prostatic hyperplasia without lower urinary tract symptoms; F41.9 Anxiety disorder, unspecified; M10.9 Gout, unspecified; M48.061 Spinal stenosis, lumbar region without neurogenic claudication; R07.89 Other chest pain; Z79.01 Long term (current) use of anticoagulants; Z79.82 Long term (current) use of aspirin; Z79.899 Other long term (current) drug therapy; Z96.641 Presence of right artificial hip joint; Z95.1 Presence of aortocoronary bypass graft; Z87.891 Personal history of nicotine dependence; Z86.711 Personal history of pulmonary embolism; Z95.5 Presence of coronary angioplasty implant and graft; Z80.6 Family history of leukemia; Z83.49 Family history of other endocrine, nutritional and metabolic diseases; W01.0XXA Fall on same level from slipping, tripping and stumbling without subsequent striking against object, initial encounter
CPT/HCPCS: 36415; 71045; 74176; 80053; 80061; 81003; 83605; 83735; 84100; 84443; 84484; 85025; 85610; 85730; 87086; 93005; 96361; 96374; 96376; 99285

== ENCOUNTER 2018-11-09 11:36 | Observation (INO) | payer MEDICARE ==
[2018-11-09] MEDS ORDERED: HYDROcodone/APAP 10-325MG 1 EACH TAB PO ONE (11:51)
--- NOTE | 2018-11-09 12:25 | ED ---
Upper Extremity HPI - General Source: patient, EMS, RN notes reviewed Mode of arrival: EMS Limitations: no limitations <Iam Loo - Last Filed: 11/09/18 14:36> <Yong Carpenter - Last Filed: 11/09/18 14:42> - General Chief Complaint: Extremity Injury, Upper Stated Complaint: fall/arm & leg pain Time Seen by Provider: 11/09/18 11:39 - History of Present Illness Initial Comments: 78-year-old male presents to the emergency Department with chief complaint of trip and fall. Patient states he fell 2 days ago and landing on his left shoulder, left side of his ribs. Patient states he is pain from the fall and states that the pain is progressed. He denies any shortness of breath denies any head injury no loss conscious. Patient's primary complaint is left shoulder pain states he is unable to move it secondary to pain. Patient denies any blood thinners. Patient denies abdominal pain, hip pain. Patient has no difficulty walking. (Iam Loo) - Related Data Home Medications Medication Instructions Recorded Confirmed Allopurinol [Zyloprim] 100 mg PO DAILY 05/19/14 10/30/18 Metoprolol Succinate 25 mg PO DAILY 05/19/14 10/30/18 Folic Acid 1 mg PO DAILY 11/07/14 10/30/18 HYDROcodone/APAP 10-325MG [[place] 1 tab PO DAILY 11/07/14 10/30/18 10-325] Isosorbide Mononitrate ER [Imdur] 60 mg PO DAILY@1700 11/07/14 10/30/18 Vit A/Vit C/Vit E/Zinc/Copper 2 cap PO BID 11/27/14 10/30/18 [ICAPS SOFTGEL] Sertraline [Zoloft] 100 mg PO BID 01/03/16 10/30/18 Tamsulosin HCl 0.4 mg PO HS 01/21/16 10/30/18 Cholecalciferol [Vitamin D3] 2,000 unit PO HS 01/24/17 10/30/18 Ferrous Sulfate [Iron (65 MG 650 mg PO DAILY@1700 01/24/17 10/30/18 Elemental)] Finasteride [Proscar] 5 mg PO HS 01/24/17 10/30/18 Aspirin [Adult Low Dose Aspirin EC] 81 mg PO HS 06/11/17 10/30/18 Atorvastatin [Lipitor] 40 mg PO HS 10/19/18 10/30/18 Furosemide [Lasix] 20 mg PO DAILY 10/19/18 10/30/18 Lisinopril 20 mg PO DAILY@1700 10/19/18 10/30/18 Rivaroxaban [Xarelto] 2.5 mg PO DAILY@1700 10/19/18 10/30/18 Previous Rx's Medication Instructions Recorded Acetaminophen Tab [Tylenol] 650 mg PO Q6HR tab 10/31/18 Baclofen [Lioresal] 5 mg PO TID #15 tab 10/31/18 Famotidine [Pepcid] 20 mg PO BID #30 tab 10/31/18 Naproxen [Naprosyn] 250 mg PO TID-W/MEALS #15 tab 10/31/18 Allergies Allergy/AdvReac Type Severity Reaction Status Date / Time No Known Allergies Allergy Verified 11/09/18 11:41 Review of Systems ROS Other: All systems not noted in ROS Statement are negative. <Iam Loo - Last Filed: 11/09/18 14:36> ROS Other: All systems not noted in ROS Statement are negative. <Yong Carpenter - Last Filed: 11/09/18 14:42> ROS Statement: Those systems with pertinent positive or pertinent negative responses have been documented in the HPI. Past Medical History Past Medical History: Atrial Fibrillation, Coronary Artery Disease (CAD), Chest Pain / Angina, Heart Failure, Hearing Disorder / Deafness, Hyperlipidemia, Hypertension, Myocardial Infarction ([place]), Osteoarthritis (OA), Prostate Disorde r, Pulmonary Embolus (PE) Additional Past Medical History / Comment(s): Frequent small epistaxis and a couple (3) large epistaxis episodes Gout, MAC DEGENERATION bilaterally-LEGALLY BLIND (BRIGHT LIGHTS BOTHER PT). CONSTIPATION, BPH, OA multiple joints, PE 23 yrs ago post op, stenosis cervical and lumbar Last Myocardial Infarction Date:: 01/2016 History of Any Multi-Drug Resistant Organisms: None Reported Past Surgical History: Coronary Bypass/CABG, Heart Catheterization With Stent, Orthopedic Surgery, Tonsillectomy Additional Past Surgical History / Comment(s): HAD A RECENT HEART CATH AND STENT AT [facility] EARLY JANUARY 2016 AND HAD AN EXTENSIVE NOSE BLEED AFTERWARDS HAD TO BE PACKED. PT STATED STILL EVERY AM HAS SOME NASAL BLEEDING-USES SALINE SOLUTION AND AFRIN. TOTAL RIGHT HIP REPLACEMENT Past Anesthesia/Blood Transfusion Reactions: No Reported Reaction Date of Last Stent Placement:: 01/2016 Past Psychological History: Anxiety, Depression Smoking Status: Former smoker Past Alcohol Use History: None Reported Past Drug Use History: None Reported - Past Family History Mother Additional Family Medical History / Comment(s): MACULAR DEGENERATION, THYROID PROBLEMS. Mother at the age of 86 yrs. Father Family Medical History: Cancer Additional Family Medical History / Comment(s): Father from [place] at the age of 63 yrs. <Iam Loo - Last Filed: 11/09/18 14:36> General Exam Limitations: no limitations General appearance: alert, in no apparent distress Head exam: Present: atraumatic, normocephalic, normal inspection Eye exam: Present: normal appearance, PERRL, EOMI. Absent: scleral icterus, conjunctival injection, periorbital swelling ENT exam: Present: normal exam, normal oropharynx, mucous membranes moist Neck exam: Present: normal inspection, full ROM. Absent: tenderness, meni ngismus, lymphadenopathy Respiratory exam: Present: normal lung sounds bilaterally, chest wall tenderness (Left anterior lateral). Absent: respiratory distress, wheezes, rales, rhonchi, stridor Cardiovascular Exam: Present: regular rate, normal rhythm, normal heart sounds. Absent: systolic murmur, diastolic murmur, rubs, gallop, clicks GI/Abdominal exam: Present: soft, normal bowel sounds. Absent: distended, tenderness, guarding, rebound, rigid Extremities exam: Present: other (Tenderness to left proximal humerus, limited range of motion neurovascular intact radial pulses equal bilateral upper extremity, lower extremity exam within normal limits) Back exam: Present: full ROM. Absent: tenderness, paraspinal tenderness, vertebral tenderness <Iam Loo - Last Filed: 11/09/18 14:36> Course <Yong Carpenter - Last Filed: 11/09/18 14:42> Vital Signs 11/09/18 11/09/18 11/09/18 11:41 11:50 12:30 Temperature 98.5 F Pulse Rate 61 60 Respiratory 19 18 Rate Blood Pressure 144/82 144/82 130/77 O2 Sat by Pulse 99 Oximetry 11/09/18 11/09/18 13:00 13:30 Temperature Pulse Rate 65 55 L Respiratory 18 18 Rate Blood Pressure 137/70 120/70 O2 Sat by Pulse 97 Oximetry - Reevaluation(s) Reevaluation #1: 11/09/18 14:41 PA supervision: I personally evaluate this case included review of the imaging and report there is evidence of a glenoid fracture on the left. Patient was discharged with orthopedic follow-up with a sling. No other injuries. I do agree with the assessment and plan. (Yong Carpenter) Medical Decision Making <Iam Loo - Last Filed: 11/09/18 14:36> - Medical Decision Making 70-year-old male presented for a fall. Patient has possible glenoid humeral fracture. Patient was placed in a sling. Upon discharge and patient family had concerns and which she will not present on initial evaluation about placement for the patient. Patient is legally blind, has an underlying dementia, A. fib, failure to thrive and difficult and waiting. They're requesting inpatient stay for placement in a facility. I did discuss case with Dr. Finley recommended to discuss with manager social work and which I did contact Alfreda. She reviewed the case and states there does not appear to be any factors that would inhibit him from being placed in a facility. (Iam Loo) Disposition <Iam Loo - Last Filed: 11/09/18 14:36> <Yong Carpenter - Last Filed: 11/09/18 14:42> Clinical Impression: Frequent falls, Failure to thrive in adult, Glenoid fracture of shoulder, A- fib, Weakness Disposition: ADMITTED IP TO THIS HOSP Condition: Fair Referrals: Fuad Cornelius MD [Primary Care Provider] - 1-2 days
--- NOTE | 2018-11-09 12:30 | XR ---
EXAMINATION TYPE: PA chest and left rib series, XR shoulder complete 3 views LT DATE OF EXAM: 11/09/2018 Comparison: Chest 10/30/2018 Clinical History: 78-year-old male Pain after fall Findings: CHEST: Median sternotomy wires with post-CABG changes. Heart remains borderline enlarged with diffuse inters titial prominence which is unchanged. Old healed right-sided rib fracture deformities. Metallic wire along the left mid clavicular shaft is unchanged. No consolidation or pleural effusion. Left RIBS: No displaced left rib fracture is seen. Left shoulder: Bony irregularity at the greater tuberosity. Mild to moderate degenerative joint space narrowing at t he AC joint with marginal spurring and capsular hypertrophy. There is some bony irregularity and subt le lucency along the inferior glenoid on both the AP and Grashey views. Impression: 1. Chest: Borderline heart size and chronic changes. No acute process seen. 2. Left ribs: No displaced left rib fracture identified. 3. Left shoulder: Bony irregularity and some lucency along the inferior aspect of the glenoid. While findings may be on a degenerative basis, a subtle nondisplaced inferior glenoid fracture not excluded . Otherwise, there are changes of chronic rotator cuff tendinopathy and mild AC joint OA.
[2018-11-09] MEDS ORDERED: ACETAMINOPHEN TAB 325 MG TAB PO PRN ×2 (14:38→21:30)
[2018-11-09] MEDS ORDERED: NALOXONE 0.4 MG/ML 1 ML VIAL IV PRN (14:38)
[2018-11-09] MEDS: SODIUM CHLORIDE 0.9% 1,000 ML IV SCH (15:01)
[2018-11-09 15:08] LABS: Basophils % (A) 0 %; Eosinophils # (A) 0.1 k/uL (0-0.7); Eosinophils % (A) 2 %; HCT 39.4 % (39.0-53.0); HGB 12.8 gm/dL (13.0-17.5); Lymphocytes # (A) 1.1 k/uL (1.0-4.8); Lymphocytes % (A) 12 %; MCH 28.5 pg (25.0-35.0); MCHC 32.5 g/dL (31.0-37.0); MCV 87.8 fL (80.0-100.0); Mean Platelet Volume 8.1; Monocytes # (A) 0.5 k/uL (0-1.0); Monocytes % (A) 6 %; Neutrophils # (A) 6.9 k/uL (1.3-7.7); Neutrophils % (A) 78 %; Platelet Count 310 k/uL (150-450); RBC 4.49 m/uL (4.30-5.90); RDW 14.3 % (11.5-15.5); WBC 8.8 k/uL (3.8-10.6)
[2018-11-09 15:15] LABS: Prothrombin Time 10.9 sec (9.0-12.0)
[2018-11-09 15:16] LABS: Partial Thromboplastin Time 25.6 sec (22.0-30.0)
[2018-11-09 15:23] LABS: Albumin 3.7 g/dL (3.5-5.0); Appearance,Urine Clear (Clear); Bilirubin,Urine Negative (Negative); Blood,Urine Negative (Negative); Calcium 9.6 mg/dL (8.4-10.2); Color,Urine Yellow; Glucose,Urine (UA) Negative (Negative); Ketones,Urine Negative (Negative); Leukocyte Esterase,Urine Negative (Negative); Magnesium 2.1 mg/dL (1.6-2.3); Nitrite,Urine Negative (Negative); PH, Urine 5.5 (5.0-8.0); Potassium 4.5 mmol/L (3.5-5.1); Protein,Urine Negative (Negative); Specific Gravity,Urine 1.016 (1.001-1.035); Total Bilirubin 0.6 mg/dL (0.2-1.3); Total Protein 6.9 g/dL (6.3-8.2); Urobilinogen,Urine <2.0 mg/dL (<2.0)
[2018-11-09 16:25] VITALS: BMI 25.9
[2018-11-09] MEDS: BACLOFEN 10 MG TAB PO SCH ×2 (17:37→21:53)
[2018-11-09] MEDS: RIVAROXABAN 2.5 MG TABLET PO SCH (17:38)
[2018-11-09] MEDS: ISOSORBIDE MONONITRATE ER 60 MG TAB.ER.24H PO SCH (17:38)
[2018-11-09] MEDS: LISINOPRIL 20 MG TAB PO SCH (17:38)
[2018-11-09] MEDS: FERROUS SULFATE 325 MG TAB PO SCH (17:38)
[2018-11-09] MEDS: CHOLECALCIFEROL 1,000 UNIT TAB PO SCH (21:52)
[2018-11-09] MEDS: FINASTERIDE 5 MG TAB PO SCH (21:53)
[2018-11-09] MEDS: ATORVASTATIN 40 MG TAB PO SCH (21:53)
[2018-11-09] MEDS: TAMSULOSIN 0.4 MG CAP.ER.24H PO SCH (21:53)
[2018-11-09] MEDS: FAMOTIDINE 20 MG TAB PO SCH (21:53)
[2018-11-09] MEDS: ASPIRIN 81 MG PO SCH (21:53)
[2018-11-09] MEDS: SERTRALINE 100 MG TAB PO SCH (21:53)
[2018-11-10] MEDS: HYDROcodone/APAP 10-325MG 1 EACH TAB PO SCH (07:33)
[2018-11-10] MEDS: BACLOFEN 10 MG TAB PO SCH ×3 (07:33→20:18)
[2018-11-10] MEDS: ALLOPURINOL 100 MG TAB PO SCH (07:33)
[2018-11-10] MEDS: FUROSEMIDE 20 MG TAB PO SCH (07:33)
[2018-11-10] MEDS: FAMOTIDINE 20 MG TAB PO SCH ×2 (07:33→20:17)
[2018-11-10] MEDS: SERTRALINE 100 MG TAB PO SCH ×2 (07:34→20:17)
[2018-11-10] MEDS: METOPROLOL SUCCINATE (ER) 25 MG TAB.ER.24H PO SCH (07:34)
[2018-11-10] MEDS: FOLIC ACID 1 MG TAB PO SCH (07:34)
[2018-11-10] MEDS: VIT A,C & E-LUTEIN-MINERALS 1 EACH TAB PO SCH ×2 (07:34→21:10)
--- NOTE | 2018-11-10 08:58 | P.CNOR ---
History of Present Illness - [facility] Consult date: 11/10/18 Requesting physician: Iam Loo Consult reason: fracture (Left nondisplaced inferior glenoid fracture), other ( Status post fall) History of present illness: Patient is a very pleasant 78-year-old male who is seen and examined at the bedside after consultation was placed in regards to his left shoulder. He sustained a fall approximately 3 days ago in his home when he states he tripped over a small table in his living room falling to his left side. He has experienced significant left shoulder pain and some left-sided rib pain since that time. He presented to the emergency department for further evaluation. X- rays showed evidence of possible nondisplaced inferior glenoid fracture. He was placed in the left upper extremity sling. He states left-sided rib pain has improved but he continues to have significant pain at the left shoulder. Left shoulder pain is exacerbated with any movement of left shoulder. He denies any pain or difficulty with the left elbow, left wrist, or fingers the left hand. The sling continues to be intact over the left upper extremity. Patient was originally planned to be discharged home to the emergency department. After further discussion with the family, the patient has been admitted for further evaluation and for placement into a rehabilitation facility. Patient is known to be legallyblind and have significant difficulty with vision and states he has approximately 10% of his vision left. He also has other medical conditions including dementia, atrial fibrillation, and failure to thrive. He continues be seen and examined by medicine. Past Medical History Past Medical History: Atrial Fibrillation, Coronary Artery Disease (CAD), Chest Pain / Angina, Heart Failure, Hearing Disorder / Deafness, Hyperlipidemia, Hypertension, Myocardial Infarction ([place]), Osteoarthritis (OA), Prostate Disorder, Pulmonary Embolus (PE) Additional Past Medical History / Comment(s): Frequent small epistaxis and a couple (3) large epistaxis episodes Gout, MAC DEGENERATION bilaterally-LEGALLY BLIND (BRIGHT LIGHTS BOTHER PT). CONSTIPATION, BPH, OA multiple joints, PE 23 yrs ago post op, stenosis cervical and lumbar Last Myocardial Infarction Date:: 01/2016 History of Any Multi-Drug Resistant Organisms: None Reported Past Surgical History: Coronary Bypass/CABG, Heart Catheterization With Stent, Orthopedic Surgery, Tonsillectomy Additional Past Surgical History / Comment(s): HAD A RECENT HEART CATH AND STENT AT [facility] EARLY JANUARY 2016 AND HAD AN EXTENSIVE NOSE BLEED AFTERWARDS HAD TO BE PACKED. PT STATED STILL EVERY AM HAS SOME NASAL BLEEDING-USES SALINE SOLUTION AND AFRIN. TOTAL RIGHT HIP REPLACEMENT Past Anesthesia/Blood Transfusion Reactions: No Reported Reaction Date of Last Stent Placement:: 01/2016 Past Psychological History: Anxiety, Depression Additional Psychological History / Comment(s): PT. STATES HE DOES SUFFER FROM ANXIETY AND DEPRESSION, PT. STATES DUE TO HIS FORMER JOB HE DOES SUFFER FROM DEPRESSION AND ANXIETY WHICH HE IS ON MEDS FOR and he states the meds work well for him, PT. Pt lives with his spouse. He uses a cane to ambulate moreso, due to blindness. Smoking Status: Never smoker Past Alcohol Use History: None Reported Additional Past Alcohol Use History / Comment(s): PT. STATES HE QUIT SMOKING 8 YEARS AGO AND SMOKED ON AND OFF FOR MANY YEARS Past Drug Use History: None Reported - Past Family History Mother Additional Family Medical History / Comment(s): MACULAR DEGENERATION, THYROID PROBLEMS. Mother at the age of 86 yrs. Father Family Medical History: Cancer Additional Family Medical History / Comment(s): Father from [place] at the age of 63 yrs. Medications and Allergies Home Medications Medication Instructions Recorded Confirmed Type Allopurinol [Zyloprim] 100 mg PO DAILY 05/19/14 11/09/18 History Metoprolol Succinate 25 mg PO DAILY 05/19/14 11/09/18 History Folic Acid 1 mg PO DAILY 11/07/14 11/09/18 History HYDROcodone/APAP 10-325MG [[place] 1 tab PO DAILY 11/07/14 11/09/18 History 10-325] Isosorbide Mononitrate ER [Imdur] 60 mg PO DAILY@1700 11/07/14 11/09/18 History Vit A/Vit C/Vit E/Zinc/Copper 2 cap PO BID 11/27/14 11/09/18 History [ICAPS SOFTGEL] Sertraline [Zoloft] 100 mg PO BID 01/03/16 11/09/18 History Tamsulosin HCl 0.4 mg PO HS 01/21/16 11/09/18 History Cholecalciferol [Vitamin D3] 2,000 unit PO HS 01/24/17 11/09/18 History Ferrous Sulfate [Iron (65 MG 650 mg PO DAILY@1700 01/24/17 11/09/18 History Elemental)] Finasteride [Proscar] 5 mg PO HS 01/24/17 11/09/18 History Aspirin [Adult Low Dose Aspirin EC] 81 mg PO HS 06/11/17 11/09/18 History Atorvastatin [Lipitor] 40 mg PO HS 10/19/18 11/09/18 History Furosemide [Lasix] 20 mg PO DAILY 10/19/18 11/09/18 History Lisinopril 20 mg PO DAILY@1700 10/19/18 11/09/18 History Rivaroxaban [Xarelto] 2.5 mg PO DAILY@1700 10/19/18 11/09/18 History Baclofen [Lioresal] 5 mg PO TID #15 tab 10/31/18 11/09/18 Rx Famotidine [Pepcid] 20 mg PO BID #30 tab 10/31/18 11/09/18 Rx Naproxen [Naprosyn] 250 mg PO TID-W/MEALS #15 tab 10/31/18 11/09/18 Rx Acetaminophen Tab [Tylenol] 650 mg PO Q6HR PRN 11/09/18 11/09/18 History Allergies Allergy/AdvReac Type Severity Reaction Status Date / Time No Known Allergies Allergy Verified 11/09/18 15:56 Physical Examination Physical Exam: Patient is awake, alert, and oriented 3 Vital signs stable Good chest excursion with deep inspiration and expiration Pain with palpation over the left anterior and lateral left shoulder Increased pain at the left shoulder with any active or passive range of motion Active and passive range of motion of the left elbow without significant difficulty Active range of motion all fingers of left hand without difficulty Left upper extremity sling intact No evidence of significant erythema, bruising, or obvious sign of infection over the left shoulder Results Pertinent studies: X-rays of the left shoulder taken on 11/09/2018: Bony irregularity and some lucency along the inferior aspect of the glenoid which could represent a nondisplaced inferior glenoid fracture; chronic rotator cuff tendinopathy with mild acromioclavicular joint osteoarthritis - Labs Labs: Abnormal Lab Results - Last 24 Hours (Table) 11/09/18 11/09/18 Range/Units 14:55 15:08 Hgb 12.8 L (13.0-17.5) gm/dL BUN 27 H (9-20) mg/dL Alkaline Phosphatase 175 H (38-126) U/L H & H 11/09/18 Range/Units 14:55 Hgb 12.8 L (13.0-17.5) gm/dL Hct 39.4 (39.0-53.0) % Coagulation 11/09/18 Range/Units 15:08 INR 1.0 (<1.2) Result Diagrams: 11/09/18 14:55 11/09/18 15:08 Assessment and Plan Assessment: Assessment: Left shoulder pain Status post fall Left shoulder nondisplaced inferior glenoid fracture History of multiple falls Medical history of dementia, atrial fibrillation, legally blind, and failure to thrive (1) Status post fall Current Visit: Yes Status: Acute Code(s): Z91.81 - HISTORY OF FALLING SNOMED Code(s): 726330762 (2) Left shoulder pain Current Visit: Yes Status: Acute Code(s): M25.512 - PAIN IN LEFT SHOULDER SNOMED Code(s): 26813840 (3) History of dementia Current Visit: Yes Status: Acute Code(s): Z86.59 - PERSONAL HISTORY OF OTHER MENTAL AND BEHAVIORAL DISORDERS SNOMED Code(s): 739265585 (4) Legally blind Current Visit: Yes Status: Acute Code(s): H54.8 - LEGAL BLINDNESS, DEFINED IN [place] SNOMED Code(s): 45734356 (5) A-fib Current Visit: Yes Status: Acute Code(s): I48.91 - UNSPECIFIED ATRIAL FIBRILLATION SNOMED Code(s): 22204813 (6) Failure to thrive in adult Current Visit: Yes Status: Acute Code(s): R62.7 - ADULT FAILURE TO THRIVE SNOMED Code(s): 283401311 (7) Frequent falls Current Visit: Yes Status: Acute Code(s): R29.6 - REPEATED FALLS SNOMED Code(s): 220646277 (8) Glenoid fracture of shoulder Current Visit: Yes Status: Acute Code(s): S42.143A - DISP FX OF GLENOID CAVITY OF SCAPULA, UNSP SHOULDER, INIT; S42.153A - DISP FX OF NECK OF SCAPULA, UNSP SHOULDER, INIT FOR CLOS FX SNOMED Code(s): 71659815 Plan: Plan: 1. After reviewing of imaging, physical examination, and further discussion with the patient, we will currently planning continue with conservative treatment at this time in regards to his left shoulder inferior nondisplaced glenoid fracture. Patient does have some pain with palpation over the left anterior and lateral shoulder. He has increased pain with any range of motion of the left shoulder including active or passive. His pain is controlled while at rest. His sling is currently in place over the left upper extremity. His pain has been better controlled with a sling intact. We discussed he should continue to keep the sling intact at all times. He may remove his elbow to work on active range of motion of the left elbow. We discussed he should avoid weightbearing and other activities with the left upper extremity. He may perform light activities with the left hand. He does not have any significant pain with movement of the left elbow, left wrist, or fingers the left hand. We will plan to continue to treat the patient from a nonoperative standpoint. At this time, patient will be cleared for discharge from an orthopedic standpoint. We'll plan have him follow-up in the office in approximately 1-2 weeks for further evaluation. Prior to his appointment, he should remain nonweightbearing with the left upper extremity and should keep his sling intact at all times except while bathing. 2. Patient will continue be seen and examined by medicine for his other medical diagnoses 3. Patient will remain in the hospital for least 3 nights with anticipation of discharge to a rehabilitation facility Time with Patient: Greater than 30 (Including obtaining history, physical examination, reviewing of imaging, and dictation.)
[2018-11-10] MEDS: SODIUM CHLORIDE 0.9% 1,000 ML IV SCH (11:11)
[2018-11-10] MEDS: ISOSORBIDE MONONITRATE ER 60 MG TAB.ER.24H PO SCH (15:05)
[2018-11-10] MEDS: FERROUS SULFATE 325 MG TAB PO SCH (15:05)
[2018-11-10] MEDS: LISINOPRIL 20 MG TAB PO SCH (15:05)
[2018-11-10] MEDS: RIVAROXABAN 2.5 MG TABLET PO SCH (15:05)
--- NOTE | 2018-11-10 15:58 | HP ---
HISTORY AND PHYSICAL DATE OF ADMISSION: 11/09/2018 DATE OF SERVICE: 11/10/2018 PRESENTING COMPLAINT: Back pain, shoulder pain. HISTORY OF PRESENTING COMPLAINT: This is a pleasant 78-year-old patient who was here in the hospital on 10/30/2018. He follows with Dr. Cornelius. Chronic stable medical conditions include coronary artery disease, history of bypass, legally blind from macular degeneration, paroxysmal atrial fibrillation, hypertension, hyperlipidemia, osteoarthritis, BPH, depression, congestive heart failure. Prior to the last admission a week ago, patient had fallen on his back and was having increasing pain around his tailbone. Patient was seen by Malachi Eubanks and the patient's pain medications were adjusted. The patient was doing well and was discharged home. The patient states that he has at home been able to get to the bathroom and get about, but sitting up in a certain position he has increasing pain in the lower back. The patient also has pain in the left shoulder. He was found to have a fracture of the same, for which conservative management is advised by Orthopedics, including a sling. Family is looking at patient going to inpatient rehab, as the patient is finding it difficult to manage by himself. The patient has no trouble with bowel or urine. When he is resting, lying back, he says he is rather comfortable otherwise. REVIEW OF SYSTEMS: CONSTITUTIONAL: None. HEENT: Decreased vision. Decreased hearing. RESPIRATORY: None. CARDIOVASCULAR: None. GASTROINTESTINAL: None. GENITOURINARY: None. MUSCULOSKELETAL: Pain in the joints, lower back, shoulder. DERMATOLOGICAL: None. HEMATOLOGICAL: None. LYMPHATICS: None. PSYCHIATRY: None. NEUROLOGICAL: Poor vision. PAST MEDICAL HISTORY: 1. Coronary artery disease with stent and bypass. 2. Legally blind from macular degeneration. 3. Paroxysmal atrial fibrillation. 4. Hypertension. 5. Hyperlipidemia. 6. Osteoarthritis. 7. BPH. 8. Depression. 9. Congestive heart failure, EF not known. 10.Pulmonary embolism over 23 years ago. 11.Cervical and lumbar spine stenosis. 12.Epistaxis occasionally. PAST SURGICAL HISTORY: 1. Coronary artery bypass. 2. Cardiac cath with stent. PSYCH HISTORY: Anxiety, depression. SOCIAL HISTORY: Does use a cane. . The patient smoked for about 50 years, stopped about 8 years ago. Alcohol none. FAMILY HISTORY: Father of leukemia at age of 63. HOME MEDICATIONS: 1. I-Caps soft gel 2 capsules p.o. b.i.d. 2. Flomax 0.4 mg at bedtime. 3. Zoloft 100 mg b.i.d. 4. Xarelto 2.5 p.o. at bedtime. 5. Naproxen 250 mg p.o. t.i.d. 6. Metoprolol 25 mg p.o. daily. 7. Lisinopril 20 mg p.o. daily. 8. Imdur ER 60 mg p.o. daily. 9. [place] 10 one tablet p.o. daily. 10.Lasix 20 mg p.o. daily. 11.Folic acid 1 mg p.o. daily. 12.Proscar 5 mg at bedtime. 13.Iron 650 mg p.o. daily. 14.Pepcid 20 mg b.i.d. 15.Vitamin D3 2000 units p.o. at bedtime. 16.Baclofen 5 mg p.o. t.i.d. 17.Lipitor 40 mg at bedtime. 18.Aspirin 81 mg at bedtime. 19.Allopurinol 100 mg p.o. daily. 20.Tylenol 650 mg q.6 p.r.n. ALLERGIES: NONE. PHYSICAL EXAMINATION: Temperature 98.4, pulse 85, respirations 16, blood pressure 137/83, pulse ox 96% on room air. GENERAL APPEARANCE: Lying in bed. Awake. EYES: Pupils equal. Conjunctivae normal. Decreased vision. HEENT: External appearance of nose and ears normal. Oral cavity normal. NECK: JVD not raised. Mass not palpable. RESPIRATORY: Effort normal. LUNGS: Diminished breath sounds. CARDIOVASCULAR: First and second sounds normal. No edema. ABDOMEN: Soft, non-tender. Liver and spleen not palpable. LYMPHATIC: No lymph node palpable in neck or axillae. PSYCHIATRY: Alert and oriented x3. Mood and affect normal. NEUROLOGICAL: Poor vision. EXTREMITIES: Limited range of motion of the left shoulder. Able to lift his legs off the bed. INVESTIGATIONS: White count 8.8, hemoglobin 12.8, platelets 310, potassium 4.5, BUN 27, creatinine 1.04. UA negative. Shoulder x-ray shows possibly glenoid fracture and chronic rotator cuff tendinopathy. ASSESSMENT: Acute low back pain secondary to a fall a week ago, currently rather well controlled with current medications. It is worse in certain positions. Audible dictation ends. MMODL / IJN: [id number] /
--- NOTE | 2018-11-10 16:40 | DS ---
DISCHARGE SUMMARY HISTORY AND PHYSICAL AND DISCHARGE SUMMARY: DATE OF ADMISSION: 11/09/2018 DATE OF DISCHARGE: 11/10/2018 DATE OF SERVICE: 11/10/2018 PRESENTING COMPLAINT: Back pain. HISTORY OF PRESENTING COMPLAINT: I tried dictating history and physical earlier today. The phone system went down. I did call Carlo Arriaga in charge of hospital IT. Look in the same, hence this dictation could not be done earlier. The patient was here in the hospital on October 31, 2018 when patient had fallen on his back about a week before landing on his tailbone. The patient was seen by Malachi Bourgeois who did look at the CT scan, no fracture was reported. The patient's pain medications were adjusted and patient was doing well and he was discharged home. At home, patient is able to get to the bathroom and back. No trouble with his bowel or bladder, but when sitting up in some position patient gets significant lower back pain. The patient also had a fall with pain in the left shoulder. In the EC patient was found to have a left subglenoid fracture for which patient left arm is in a sling. 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 REVIEW OF SYSTEMS: CONSTITUTIONAL: None. HEENT: Decreased vision, decreased hearing. RESPIRATORY: None. GASTROINTESTINAL: None. GENITOURINARY: None. MUSCULOSKELETAL: Pain in multiple joints as above. DERMATOLOGICAL, HEMATOLOGIC, LYMPHATIC: None. PSYCHIATRY: None. NEUROLOGICAL: Poor vision. PAST MEDICAL HISTORY: 1. Coronary artery disease with bypass and stent. 2. Legally blind from macular degeneration. 3. Paroxysmal atrial fibrillation. 4. Hypertension. 5. Hyperlipidemia. 6. Primary osteoarthritis. 7. Benign prostatic hypertrophy. 8. Depression. 9. Congestive heart failure EF not known. 10.Pulmonary embolism 23 years ago. 11.Benign prostatic hypertrophy. 12.Cervical and lumbar spine stenosis. 13.Epistaxis occasionally. PAST SURGICAL HISTORY: Coronary artery bypass, cardiac cath with stent. PSYCH HISTORY: Anxiety and depression. SOCIAL HISTORY: does use a cane. The patient has smoked for close to 50 years. Stopped about 8 years ago. Alcohol none. FAMILY HISTORY: Father of leukemia at age of 63. HOME MEDICATIONS: 1. I caps 2 capsules p.o. b.i.d. 2. Flomax 0.4 mg at bedtime. 3. Zoloft 100 mg b.i.d. 4. Xarelto 2.5 mg p.o. daily 5:00 pm. 5. Naproxen 250 mg p.o. t.i.d. 6. Metoprolol 25 mg daily. 7. Lisinopril 20 mg p.o. daily. 8. Imdur ER 60 mg p.o. daily. 9. Lasix 20 mg p.o. daily. 10.Folic acid 1 mg p.o. daily. 11.Proscar 5 mg q.h.s. 12.Iron 650 mg p.o. daily. 13.Pepcid 20 mg b.i.d. 14.Vitamin D3 2000 units p.o. q.h.s. 15.Baclofen 5 mg t.i.d. 16.Lipitor 20 mg q.h.s. 17.Aspirin 81 mg at bedtime. 18.Allopurinol 100 mg p.o. daily. 19.Hanson 10 1 tablet p.o. daily. 20.Tylenol 650 mg q.6h p.r.n. ALLERGIES: None. PHYSICAL EXAMINATION: VITAL SIGNS: Temperature 98.4, pulse 85, respirations 16, blood pressure 130/83, pulse ox 96% on room air. GENERAL APPEARANCE: Average build, lying in bed, awake. EYES: Conjunctivae normal. Decreased vision. HEENT: External appearance of nose and ears normal. Oral cavity normal. NECK: JVD not raised. Mass not palpable. RESPIRATORY: Effort normal. LUNGS: Decreased breath sounds. CARDIOVASCULAR: S1, S2 sounds normal. No edema. ABDOMEN: Soft, nontender. Liver and spleen not palpable. LYMPHATICS: No lymph nodes palpable in the neck and axilla. PSYCHIATRY: Alert and oriented times three. Mood and affect normal. NEUROLOGICAL: Poor vision. EXTREMITIES: Patient is able to lift both the legs off the bed. Left arm in a sling. Limited range of motion. INVESTIGATIONS: White count 8.8, hemoglobin 12.8, platelets 310, potassium 4.5, BUN 27, creatinine 1.04. EKG tracing personally reviewed by me shows some sinus arrhythmia. Shoulder x- ray bony irregularity and some lucency along the inferior aspect of the glenoid. Chest x-ray film, personally reviewed by me shows some cardiomegaly, no infiltrates. The report was also reviewed. Denies any fracture. ASSESSMENT: 1. Acute low back pain, blunt injury secondary to fall with no evidence of fracture with some evidence of maybe radiculopathy in a particular positional. 2. Left shoulder subglenoid fracture for conservative management. Left arm in a sling. 3. Chronic congestive heart failure EF not known. 4. Depression, not otherwise specified. 5. Benign prostatic hypertrophy. 6. Primary osteoarthritis multiple joints. 7. Essential hypertension. 8. Hyperlipidemia. 9. Paroxysmal atrial fibrillation chronically on anticoagulation. 10.Legally blind due to macular degeneration. 11.Coronary artery disease, prior history of bypass and stent. PLAN: Patient is seen by seen by Dr. Bangura's team. The patient is not for any intervention, making go to the [facility]. I spoke to the social insurance specialist. The patient should be able to go to the ECF. Home medications to be continued. Left arm in a sling. DISPOSITION: [facility]. FOLLOWUP: Follow up with Dr. Velasquez there. Follow up with Dr. Cornelius from [place] after discharge from [facility]. Follow up with Malachi Bourgeois in 2 weeks. This is both a history, physical and discharge summary on this patient. Copy to Dr. Cornelius. MMPHYLLISL / IJN: [id number] /
[2018-11-10] MEDS: FINASTERIDE 5 MG TAB PO SCH (20:17)
[2018-11-10] MEDS: TAMSULOSIN 0.4 MG CAP.ER.24H PO SCH (20:17)
[2018-11-10] MEDS: CHOLECALCIFEROL 1,000 UNIT TAB PO SCH (20:17)
[2018-11-10] MEDS: ATORVASTATIN 40 MG TAB PO SCH (20:17)
[2018-11-10] MEDS: ASPIRIN 81 MG PO SCH (20:18)
[2018-11-10 22:43] VITALS: PULSE 59; RESP 16
[2018-11-11 06:02] VITALS: BP 130/69; TEMP 98.4
[2018-11-11] MEDS: FAMOTIDINE 20 MG TAB PO SCH (07:38)
[2018-11-11] MEDS: BACLOFEN 10 MG TAB PO SCH (07:38)
[2018-11-11] MEDS: HYDROcodone/APAP 10-325MG 1 EACH TAB PO SCH (07:38)
[2018-11-11] MEDS: FUROSEMIDE 20 MG TAB PO SCH (07:39)
[2018-11-11] MEDS: FOLIC ACID 1 MG TAB PO SCH (07:39)
[2018-11-11] MEDS: VIT A,C & E-LUTEIN-MINERALS 1 EACH TAB PO SCH (07:39)
[2018-11-11] MEDS: SERTRALINE 100 MG TAB PO SCH (07:39)
[2018-11-11] MEDS: METOPROLOL SUCCINATE (ER) 25 MG TAB.ER.24H PO SCH (07:39)
[2018-11-11] MEDS: ALLOPURINOL 100 MG TAB PO SCH (07:39)
== END 2018-11-11 11:48 ==
LOC: EC 11:36 → 4SSUR 14:44 → 4MS4W 11-10 17:19
PROVIDERS: ADMIT Hospitalist; ATTEND Hospitalist
DX: S42.142A Displaced fracture of glenoid cavity of scapula, left shoulder, initial encounter for closed fracture (principal); E78.5 Hyperlipidemia, unspecified; H54.8 Legal blindness, as defined in USA; I48.0 Paroxysmal atrial fibrillation; F03.90 Unspecified dementia, unspecified severity, without behavioral disturbance, psychotic disturbance, mood disturbance, and anxiety; I48.91 Unspecified atrial fibrillation; N40.0 Benign prostatic hyperplasia without lower urinary tract symptoms; K59.00 Constipation, unspecified; M10.9 Gout, unspecified; M15.9 Polyosteoarthritis, unspecified; I25.10 Atherosclerotic heart disease of native coronary artery without angina pectoris; R62.7 Adult failure to thrive; H35.30 Unspecified macular degeneration; I11.0 Hypertensive heart disease with heart failure; I50.9 Heart failure, unspecified; R29.6 Repeated falls; Z86.711 Personal history of pulmonary embolism; H91.90 Unspecified hearing loss, unspecified ear; Z95.5 Presence of coronary angioplasty implant and graft; W01.0XXA Fall on same level from slipping, tripping and stumbling without subsequent striking against object, initial encounter; Z91.81 History of falling; Z95.1 Presence of aortocoronary bypass graft; F32.9 Major depressive disorder, single episode, unspecified; F41.9 Anxiety disorder, unspecified; Z96.641 Presence of right artificial hip joint; Z87.891 Personal history of nicotine dependence; Y92.018 Other place in single-family (private) house as the place of occurrence of the external cause; Z79.82 Long term (current) use of aspirin; Z79.899 Other long term (current) drug therapy; Z79.01 Long term (current) use of anticoagulants; I25.2 Old myocardial infarction; Z80.6 Family history of leukemia; Z83.49 Family history of other endocrine, nutritional and metabolic diseases; Z84.89 Family history of other specified conditions
CPT/HCPCS: 96361 ×2; 96360; 99284; 93005; 97116; 97162; 97535; 97167; 80053; 83735; 84484; 85025; 85610; 85730; 81003; 71101; 73030; G0378 ×3; S0138 ×2

== ENCOUNTER 2019-02-06 16:35 | Inpatient (IN) | payer MEDICARE ==
[2019-02-06 22:01] LABS: Basophils % (A) 0 %; Eosinophils # (A) 0.5 k/uL (0-0.7); Eosinophils % (A) 7 %; HGB 11.3 gm/dL (13.0-17.5); Lymphocytes % (A) 14 %; MCH 27.1 pg (25.0-35.0); MCHC 31.5 g/dL (31.0-37.0); MCV 86.1 fL (80.0-100.0); Monocytes # (A) 0.6 k/uL (0-1.0); Monocytes % (A) 9 %; Neutrophils # (A) 4.5 k/uL (1.3-7.7); Neutrophils % (A) 67 %; Platelet Count 235 k/uL (150-450); RBC 4.19 m/uL (4.30-5.90); RDW 14.9 % (11.5-15.5); WBC 6.7 k/uL (3.8-10.6)
[2019-02-06 22:03] LABS: Appearance,Urine Clear (Clear); Bilirubin,Urine Negative (Negative); Blood,Urine Negative (Negative); Color,Urine Yellow; Glucose,Urine (UA) Negative (Negative); Hyaline Casts,Urine 4 /lpf (0-2); Ketones,Urine Negative (Negative); Leukocyte Esterase,Urine Trace (Negative); Mucus,Urine Rare /hpf; Nitrite,Urine Negative (Negative); Protein,Urine Trace (Negative); RBC,Urine <1 /hpf (0-5); Specific Gravity,Urine 1.016 (1.001-1.035); Urobilinogen,Urine <2.0 mg/dL (<2.0); WBC,Urine 5 /hpf (0-5)
[2019-02-06 22:10] LABS: Albumin 3.6 g/dL (3.5-5.0); Calcium 9.4 mg/dL (8.4-10.2); Potassium 4.2 mmol/L (3.5-5.1); Total Bilirubin 0.5 mg/dL (0.2-1.3); Total Protein 6.9 g/dL (6.3-8.2)
[2019-02-06 22:22] LABS: Partial Thromboplastin Time 26.4 sec (22.0-30.0); Prothrombin Time 10.8 sec (9.0-12.0)
--- NOTE | 2019-02-06 22:24 | CT ---
EXAM: CT Head Without Intravenous Contrast CLINICAL HISTORY: ITS.REASON CT Reason: weakness TECHNIQUE: Axial computed tomography images of the head/brain without intravenous contrast. CTDI is 49.1 mGy and DLP is 1083 mGy-cm. This CT exam was performed using one or more of the following dose reduction techniques: automated exposure control, adjustment of the mA and/or kV according to patient size, and/or use of iterative reconstruction technique. COMPARISON: CT head 10/19/2018. FINDINGS: Brain: Global parenchymal volume loss with chronic microvascular ischemic changes. No hemorrhage. Ventricles: Unremarkable. No ventriculomegaly. Bones/joints: Unremarkable. No acute fracture. Soft tissues: Unremarkable. Sinuses: Moderate mucosal thickening is seen throughout the paranasal sinuses. Mastoid air cells: Unremarkable as visualized. No mastoid effusion. Orbits: Right lens replacement. IMPRESSION: 1. No intracranial hemorrhage or other acute intracranial abnormality. 2. Global parenchymal volume loss with chronic microvascular ischemic changes.
--- NOTE | 2019-02-06 22:26 | XR ---
EXAM: XR Chest, 2 Views CLINICAL HISTORY: ITS.REASON XR Reason: Weakness TECHNIQUE: Frontal and lateral views of the chest. COMPARISON: None. FINDINGS: Lungs: Hazy opacities in the bases may represent atelectasis. Pleural space: Unremarkable. No pneumothorax. Heart: Questionable pericardial calcification. Mediastinum: Postsurgical change of the mediastinum. Bones/joints: Degenerative change in the acromioclavicular and glenohumeral joints. Degenerative change throughout the thoracic spine. Old left mid clavicle fracture. Vasculature: Atherosclerotic calcification thoracic aorta. IMPRESSION: Hazy opacities in the bases may represent atelectasis. Aspiration or infection are not excluded.
--- NOTE | 2019-02-06 22:28 | XR ---
EXAM: XR Pelvis, 1 or 2 Views CLINICAL HISTORY: ITS.REASON XR Reason: Pain TECHNIQUE: Frontal view of the pelvis. COMPARISON: Pelvis radiographs 04/06/2017. FINDINGS: Bones/joints: Right hip arthroplasty. Moderate arthrosis in the left femoral acetabular joint. Degenerative changes seen in the lower lumbar spine and sacroiliac joints. No acute fracture. No dislocation. Soft tissues: Unremarkable. IMPRESSION: No acute osseous abnormality.
[2019-02-06] MEDS ORDERED: NALOXONE 0.4 MG/ML 1 ML VIAL IV PRN (22:52)
--- NOTE | 2019-02-06 22:52 | ED ---
General Adult HPI - General Chief complaint: Recheck/Abnormal Lab/Rx Stated complaint: EPS eval Time Seen by Provider: 02/06/19 20:07 Source: patient Mode of arrival: wheelchair Limitations: physical limitation - History of Present Illness Initial comments: The patient is a 78-year-old male with past medical history of macular degeneration and A. fib who presents to the emergency department with reported fall history. The patient's son is at bedside and helps provide the history. The patient was residing with his up until yesterday when she abruptly left. The patient has been relying on her for medication administration as he is legally blind. She also has a history of dementia with . Son states that he has been having multiple falls, several of which she has hit his head. The patient did sustain a fall yesterday however denies any blunt head trauma. He landed on an outstretched left hand however denies any pain. He did suffer a small abrasion. The patient is on Xarelto for a.fib. The patient's son was concerned patient's safety and therefore brought him to the emergency room in for evaluation. Son states that he has gotten protective services involved. He is interested in finding placement for his father as he can no longer care for himself. Patient is denying any additional injuries from the fall. Denies any neck pain, headaches, unilateral numbness or weakness. He is denying any back pain, chest pain or shortness of breath. He denies any pelvic pain or pain in his lower extremities. He has been able to ambulate after his fall. No other alleviating, precipitating or modifying factors - Related Data Home Medications Medication Instructions Recorded Confirmed Allopurinol [Zyloprim] 100 mg PO DAILY 05/19/14 02/06/19 Metoprolol Succinate 25 mg PO DAILY 05/19/14 02/06/19 Folic Acid 1 mg PO DAILY 11/07/14 02/06/19 Isosorbide Mononitrate ER [Imdur] 60 mg PO DAILY@1700 11/07/14 02/06/19 Vit A/Vit C/Vit E/Zinc/Copper 2 cap PO BID 11/27/14 02/06/19 [ICAPS SOFTGEL] Tamsulosin HCl 0.4 mg PO HS 01/21/16 02/06/19 Cholecalciferol [Vitamin D3 (25 2,000 unit PO HS 01/24/17 02/06/19 Mcg = 1000 Iu)] Ferrous Sulfate [Iron (65 MG 650 mg PO DAILY@1700 01/24/17 02/06/19 Elemental)] Finasteride [Proscar] 5 mg PO HS 01/24/17 02/06/19 Aspirin [Adult Low Dose Aspirin EC] 81 mg PO HS 06/11/17 02/06/19 Atorvastatin [Lipitor] 40 mg PO HS 10/19/18 02/06/19 Furosemide [Lasix] 20 mg PO DAILY 10/19/18 02/06/19 Lisinopril 20 mg PO DAILY@1700 10/19/18 02/06/19 Rivaroxaban [Xarelto] 2.5 mg PO DAILY@1700 10/19/18 02/06/19 Polyethylene Glycol 3350 [Miralax] 1 packet PO DAILY 02/07/19 02/07/19 Previous Rx's Medication Instructions Recorded HYDROcodone/APAP 10-325MG [[place] 1 tab PO DAILY #3 tab 02/17/19 10-325] QUEtiapine [SEROquel] 100 mg PO 1900 #30 tab 02/17/19 Sertraline [Zoloft] 100 mg PO HS #0 02/17/19 Allergies Allergy/AdvReac Type Severity Reaction Status Date / Time No Known Allergies Allergy Verified 02/06/19 22:33 Review of Systems ROS Statement: Those systems with pertinent positive or pertinent negative responses have been documented in the HPI. ROS Other: All systems not noted in ROS Statement are negative. Past Medical History Past Medical History: Atrial Fibrillation, Coronary Artery Disease (CAD), Chest Pain / Angina, Heart Failure, Hearing Disorder / Deafness, Hyperlipidemia, Hypertension, Myocardial Infarction ([place]), Osteoarthritis (OA), Prostate Disorder, Pulmonary Embolus (PE) Additional Past Medical History / Comment(s): Frequent small epistaxis and a couple (3) large epistaxis episodes Gout, MAC DEGENERATION bilaterally-LEGALLY BLIND (BRIGHT LIGHTS BOTHER PT). CONSTIPATION, BPH, OA multiple joints, PE 23 yrs ago post op, stenosis cervical and lumbar Last Myocardial Infarction Date:: 01/2016 History of Any Multi-Drug Resistant Organisms: None Reported Past Surgical History: Coronary Bypass/CABG, Heart Catheterization With Stent, Orthopedic Surgery, Tonsillectomy Additional Past Surgical History / Comment(s): HAD A RECENT HEART CATH AND STENT AT [facility] EARLY JANUARY 2016 AND HAD AN EXTENSIVE NOSE BLEED AFTERWARDS HAD TO BE PACKED. PT STATED STILL EVERY AM HAS SOME NASAL BLEEDING-USES SALINE SOLUTION AND AFRIN. TOTAL RIGHT HIP REPLACEMENT Past Anesthesia/Blood Transfusion Reactions: No Reported Reaction Date of Last Stent Placement:: 01/2016 Past Psychological History: Anxiety, Depression Smoking Status: Never smoker Past Alcohol Use History: Occasional Past Drug Use History: None Reported - Past Family History Mother Additional Family Medical History / Comment(s): MACULAR DEGENERATION, THYROID PROBLEMS. Mother at the age of 86 yrs. Father Family Medical History: Cancer Additional Family Medical History / Comment(s): Father from [place] at the age of 63 yrs. General Exam Limitations: physical limitation General appearance: alert, in no apparent distress Head exam: Present: atraumatic, normocephalic, normal inspection Eye exam: Present: other (the patient remains with his eyes closed in the exam room). Absent: scleral icterus, conjunctival injection, periorbital swelling ENT exam: Present: normal exam, mucous membranes moist Neck exam: Present: normal inspection. Absent: tenderness, meningismus, lymphadenopathy Respiratory exam: Present: normal lung sounds bilaterally. Absent: respiratory distress, wheezes, rales, rhonchi, stridor Cardiovascular Exam: Present: regular rate, normal rhythm, normal heart sounds. Absent: systolic murmur, diastolic murmur, rubs, gallop, clicks GI/Abdominal exam: Present: soft, normal bowel sounds. Absent: distended, tenderness, guarding, rebound, rigid Extremities exam: Present: normal inspection, full ROM, normal capillary refill. Absent: tenderness, pedal edema, joint swelling, calf tenderness Back exam: Present: normal inspection Neurological exam: Present: alert, oriented X3, CN II-XII intact Psychiatric exam: Present: normal affect, normal mood Skin exam: Present: warm, dry, intact, normal color, abrasion, other (small abrasion left hand). Absent: rash Course Vital Signs 02/06/19 02/06/19 02/06/19 16:51 21:30 23:00 Temperature 98.5 F Pulse Rate 64 55 L 51 L Respiratory 18 16 18 Rate Blood Pressure 137/73 117/61 113/79 O2 Sat by Pulse 98 97 96 Oximetry EKG Findings - EKG Comments: EKG Findings:: EKG demonstrates a sinus bradycardia with PACs. Rate of 57. SD interval 188. QRS E4. QTC 399. There is an inverted T-wave in lead 3. No acute ST segment elevations concerning for ischemic changes. Medical Decision Making - Medical Decision Making Upon arrival the patient is placed into room 20. He is hooked up to continuous pulse ox and cardiac monitoring. Because the patient's generalized weakness with multiple falls, I did recommend laboratory studies and urinalysis. I did recommend a chest and pelvic x-ray as well as a CT of the patient's brain. The patient did agree to this. Upon return, the results are discussed with the patient. I did discuss diagnosis, differential and treatment options. As the patient is a fall risk and is on Xarelto for his A. fib I do feel that he does not have the ability to care for himself. I did recommend hospital admission for which the patient did agree. I did call discuss the case with Dr. Smith who did accept admission of the patient. Bridging orders are placed. All the patient's home medications are ordered. He did remain in stable condition and was transported to the floor - Differential Diagnosis multiple falls, blunt head trauma, dementia, afib, xarelto coagulopathy - Lab Data Result diagrams: 02/06/19 21:30 02/06/19 21:30 Lab Results 02/06/19 02/06/19 02/06/19 Range/Units 21:30 21:30 21:30 WBC 6.7 (3.8-10.6) k/uL RBC 4.19 L (4.30-5.90) m/uL Hgb 11.3 L (13.0-17.5) gm/dL Hct 36.0 L (39.0-53.0) % MCV 86.1 (80.0-100.0) fL MCH 27.1 (25.0-35.0) pg MCHC 31.5 (31.0-37.0) g/dL RDW 14.9 (11.5-15.5) % Plt Count 235 (150-450) k/uL Neutrophils % 67 % Lymphocytes % 14 % Monocytes % 9 % Eosinophils % 7 % Basophils % 0 % Neutrophils # 4.5 (1.3-7.7) k/uL Lymphocytes # 1.0 (1.0-4.8) k/uL Monocytes # 0.6 (0-1.0) k/uL Eosinophils # 0.5 (0-0.7) k/uL Basophils # 0.0 (0-0.2) k/uL PT (9.0-12.0) sec INR (<1.2) APTT (22.0-30.0) sec Sodium 143 (137-145) mmol/L Potassium 4.2 (3.5-5.1) mmol/L Chloride 108 H (98-107) mmol/L Carbon Dioxide 27 (22-30) mmol/L Anion Gap 8 mmol/L BUN 28 H (9-20) mg/dL Creatinine 0.95 (0.66-1.25) mg/dL Est GFR (CKD-EPI)AfAm 89 (>60 ml/min/1.73 sqM) Est GFR (CKD-EPI)NonAf 77 (>60 ml/min/1.73 sqM) Glucose 96 (74-99) mg/dL Plasma Lactic Acid David 0.9 (0.7-2.0) mmol/L Calcium 9.4 (8.4-10.2) mg/dL Total Bilirubin 0.5 (0.2-1.3) mg/dL AST 23 (17-59) U/L ALT 11 L (21-72) U/L Alkaline Phosphatase 87 (38-126) U/L Total Protein 6.9 (6.3-8.2) g/dL Albumin 3.6 (3.5-5.0) g/dL TSH 2.600 (0.465-4.680) mIU/L Urine Color Urine Appearance (Clear) Urine pH (5.0-8.0) Ur Specific Tensed (1.001-1.035) Urine Protein (Negative) Urine Glucose (UA) (Negative) Urine Ketones (Negative) Urine Blood (Negative) Urine Nitrite (Negative) Urine Bilirubin (Negative) Urine Urobilinogen (<2.0) mg/dL Ur Leukocyte Esterase (Negative) Urine RBC (0-5) /hpf Urine WBC (0-5) /hpf Hyaline Casts (0-2) /lpf Urine Mucus (None) /hpf 02/06/19 02/06/19 Range/Units 21:30 21:30 WBC (3.8-10.6) k/uL RBC (4.30-5.90) m/uL Hgb (13.0-17.5) gm/dL Hct (39.0-53.0) % MCV (80.0-100.0) fL MCH (25.0-35.0) pg MCHC (31.0-37.0) g/dL RDW (11.5-15.5) % Plt Count (150-450) k/uL Neutrophils % % Lymphocytes % % Monocytes % % Eosinophils % % Basophils % % Neutrophils # (1.3-7.7) k/uL Lymphocytes # (1.0-4.8) k/uL Monocytes # (0-1.0) k/uL Eosinophils # (0-0.7) k/uL Basophils # (0-0.2) k/uL PT 10.8 (9.0-12.0) sec INR 1.0 (<1.2) APTT 26.4 (22.0-30.0) sec Sodium (137-145) mmol/L Potassium (3.5-5.1) mmol/L Chloride (98-107) mmol/L Carbon Dioxide (22-30) mmol/L Anion Gap mmol/L BUN (9-20) mg/dL Creatinine (0.66-1.25) mg/dL Est GFR (CKD-EPI)AfAm (>60 ml/min/1.73 sqM) Est GFR (CKD-EPI)NonAf (>60 ml/min/1.73 sqM) Glucose (74-99) mg/dL Plasma Lactic Acid David (0.7-2.0) mmol/L Calcium (8.4-10.2) mg/dL Total Bilirubin (0.2-1.3) mg/dL AST (17-59) U/L ALT (21-72) U/L Alkaline Phosphatase (38-126) U/L Total Protein (6.3-8.2) g/dL Albumin (3.5-5.0) g/dL TSH (0.465-4.680) mIU/L Urine Color Yellow Urine Appearance Clear (Clear) Urine pH 5.0 (5.0-8.0) Ur Specific Tensed 1.016 (1.001-1.035) Urine Protein Trace H (Negative) Urine Glucose (UA) Negative (Negative) Urine Ketones Negative (Negative) Urine Blood Negative (Negative) Urine Nitrite Negative (Negative) Urine Bilirubin Negative (Negative) Urine Urobilinogen <2.0 (<2.0) mg/dL Ur Leukocyte Esterase Trace H (Negative) Urine RBC <1 (0-5) /hpf Urine WBC 5 (0-5) /hpf Hyaline Casts 4 H (0-2) /lpf Urine Mucus Rare H (None) /hpf Disposition Clinical Impression: Status post fall, History of dementia, Frequent falls, A-fib, Blunt head trauma, Legally blind Disposition: ADMITTED IP TO THIS [facility] Condition: Stable Is patient prescribed a controlled substance at d/c from ED?: No Decision to Admit Reason: Admit from EC Decision Date: 02/06/19 Decision Time: 22:52
[2019-02-06] MEDS ORDERED: ASPIRIN 81 MG PO SCH (23:00)
[2019-02-07] MEDS: Cariprazine Hcl [Vraylar] 1.5 MG PO SCH ×3 (01:10→20:43)
[2019-02-07] MEDS: ATORVASTATIN 40 MG TAB PO SCH ×2 (01:10→20:38)
[2019-02-07] MEDS: FINASTERIDE 5 MG TAB PO SCH ×2 (01:11→20:38)
[2019-02-07] MEDS: TAMSULOSIN 0.4 MG CAP.ER.24H PO SCH ×2 (01:11→20:38)
[2019-02-07] MEDS: FUROSEMIDE 20 MG TAB PO SCH (08:51)
[2019-02-07] MEDS: SERTRALINE 100 MG TAB PO SCH ×2 (08:51→20:38)
[2019-02-07] MEDS: METOPROLOL SUCCINATE (ER) 25 MG TAB.ER.24H PO SCH (08:51)
[2019-02-07] MEDS: ALLOPURINOL 100 MG TAB PO SCH (08:51)
[2019-02-07] MEDS: HYDROcodone/APAP 10-325MG 1 EACH TAB PO SCH (08:52)
--- NOTE | 2019-02-07 13:24 | P.HPIM ---
History of Present Illness H&P Date: 02/07/19 Chief Complaint: falls history of presenting complaint: This is a pleasant 72 patient who follows with Dr. mejia from [place]. 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 Patient is also got pain in several joints. Patient has been following because of being blind. And also trouble walking sometimes. Patient's , became too much for her to take care of [facility]. Patient couple of times fell down onthe stairs. Patient lives on the second floor [facility]. Patient's balance sometimes is not good. Also because of poor equilibrium, made worse by sport eyesight. Patient is not able to take care of himself. His appetite is otherwise okay. Bowels are okay. Does hurt in different joints. No chest pain. 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 but the no lives with her son. Patient smoked for 50 years stopped about 8 years ago. Alcohol none. Family history: Father of leukemia age of 63 Physical examination: VITAL SIGNS: [98.5, 64, 18, 137/73, 98% room air] GENERAL: [BMI 25, sitting up in bed, a bit uncomfortable]. EYES: [Pupils equal. Conjunctiva gio]l. HEENT: [External appearance of nose and ears normal, oral cavity grossly normal]. NECK: [JVD not raised; masses not palpable]. HEART: [First and second heart sounds are normal; no edema]. LUNGS:[ Respiratory rate normal; decreased breath sounds]. ABDOMEN: [Soft, nontender, liver spleen not palpable, no masses palpable]. PSYCH: [Alert and oriented x3; mood and affect gio]l. NEUROLOGICAL: [Cranial nerves grossly intact; no facial asymmetry, power and sensation grossly intact, patient reports poor balance]. LYMPHATICS: [No lymph nodes palpable in the axilla and neck] MUSCULOSKELETAL: Evidence of OA especially in the hands and knees, patient does use a cane to get about INVESTIGATIONS, reviewed in the clinical context: white count 6.7 hemoglobin 11.3 potassium 4.2 creatinine 0.95 EKG tracing personally reviewed by me shows normal sinus rhythm, poor R-wave progression X-ray of the pelvis shows arthritis no fracture Computed tomography scan of the brain-parenchymal volume loss, no acute event reported Chest x-ray film personally reviewed by me, suggest some chronic changes including some pericardial calcification Assessment: -Frequent falls that are multifactorial including poor equilibrium mult ifactorial from arthritis and could be neuropathy. Patient is also legally blind. All these at up to patient having frequent falls and being unsteady. -coronary artery disease with a history of stent and bypass -Legally blind from macular degeneration advanced -Paroxysmal atrial fibrillation currently in sinus rhythm -Essential hypertension -Hyperlipidemia -Primary osteoarthritis of multiple joint -BPH -chronic congestive heart failure, EF not known -Chronic osteoarthritis and spinal stenosis in multiple joints including cervical and lumbar -Chronic gait dysfunction does use a cane Plan: Patient is a very high risk to live by himself. Especially given his gait dysfunction legal blindness and living up on the second floor. Patient will need of to be central in a more supervised setting. spoke to the welfare case worker. laundromat worker will be involved. Also discussed this with the patient. Home medications are reviewed. Fall precautions in place.Lovenox for DVT prophylaxis. Past Medical History Past Medical History: Atrial Fibrillation, Coronary Artery Disease (CAD), Chest Pain / Angina, Heart Failure, Hearing Disorder / Deafness, Hyperlipidemia, Hypertension, Myocardial Infarction (HI), Osteoarthritis (OA), Prostate Disorder, Pulmonary Embolus (PE) Additional Past Medical History / Comment(s): Frequent small epistaxis and a couple (3) large epistaxis episodes Gout, MAC DEGENERATION bilaterally-LEGALLY BLIND (BRIGHT LIGHTS BOTHER PT). CONSTIPATION, BPH, OA multiple joints, PE 23 yrs ago post op, stenosis cervical and lumbar Last Myocardial Infarction Date:: 01/2016 History of Any Multi-Drug Resistant Organisms: None Reported Past Surgical History: Coronary Bypass/CABG, Heart Catheterization With Stent, Orthopedic Surgery, Tonsillectomy Additional Past Surgical History / Comment(s): HAD A RECENT HEART CATH AND STENT AT [facility] EARLY JANUARY 2016 AND HAD AN EXTENSIVE NOSE BLEED AFTERWARDS HAD TO BE PACKED. PT STATED STILL EVERY AM HAS SOME NASAL BLEEDING-USES SALINE SOLUTION AND AFRIN. TOTAL RIGHT HIP REPLACEMENT Past Anesthesia/Blood Transfusion Reactions: No Reported Reaction Date of Last Stent Placement:: 01/2016 Past Psychological History: Anxiety, Depression Smoking Status: Never smoker Past Alcohol Use History: Occasional Past Drug Use History: None Reported - Past Family History Mother Additional Family Medical History / Comment(s): MACULAR DEGENERATION, THYROID PROBLEMS. Mother at the age of 86 yrs. Father Family Medical History: Cancer Additional Family Medical History / Comment(s): Father from [place]EM[place] at the age of 63 yrs. Medications and Allergies Home Medications Medication Instructions Recorded Confirmed Type Allopurinol [Zyloprim] 100 mg PO DAILY 05/19/14 02/06/19 History Metoprolol Succinate 25 mg PO DAILY 05/19/14 02/06/19 History Folic Acid 1 mg PO DAILY 11/07/14 02/06/19 History Isosorbide Mononitrate ER [Imdur] 60 mg PO DAILY@1700 11/07/14 02/06/19 History Vit A/Vit C/Vit E/Zinc/Copper 2 cap PO BID 11/27/14 02/06/19 History [ICAPS SOFTGEL] Sertraline [Zoloft] 100 mg PO BID 01/03/16 02/06/19 History Tamsulosin HCl 0.4 mg PO HS 01/21/16 02/06/19 History Cholecalciferol [Vitamin D3 (25 2,000 unit PO HS 01/24/17 02/06/19 History Mcg = 1000 Iu)] Ferrous Sulfate [Iron (65 MG 650 mg PO DAILY@1700 01/24/17 02/06/19 History Elemental)] Finasteride [Proscar] 5 mg PO HS 01/24/17 02/06/19 History Aspirin [Adult Low Dose Aspirin EC] 81 mg PO HS 06/11/17 02/06/19 History Atorvastatin [Lipitor] 40 mg PO HS 10/19/18 02/06/19 History Furosemide [Lasix] 20 mg PO DAILY 10/19/18 02/06/19 History Lisinopril 20 mg PO DAILY@1700 10/19/18 02/06/19 History Rivaroxaban [Xarelto] 2.5 mg PO DAILY@1700 10/19/18 02/06/19 History HYDROcodone/APAP 10-325MG [[place] 1 tab PO DAILY #3 tab 11/10/18 02/06/19 Rx 10-325] Cariprazine HCl [Vraylar] 1.5 mg PO BID 02/06/19 02/06/19 History Polyethylene Glycol 3350 [Miralax] 1 packet PO DAILY 02/07/19 02/07/19 History Allergies Allergy/AdvReac Type Severity Reaction Status Date / Time No Known Allergies Allergy Verified 02/06/19 22:33 Physical Exam Vitals: Vital Signs Temp Pulse Pulse Resp BP BP Pulse Ox 02/07/19 11:54 97.4 F L 68 15 145/69 95 02/07/19 05:11 97.7 F 51 L 16 136/71 98 02/07/19 00:57 96.0 F L 55 L 16 140/67 96 02/06/19 23:00 51 L 18 113/79 96 02/06/19 21:30 55 L 16 117/61 97 02/06/19 16:51 98.5 F 64 18 137/73 98 Intake and Output 02/06/19 02/07/19 02/07/19 22:59 06:59 14:59 Intake Total 590 Output Total 600 Balance -10 Intake: Oral 590 Output: Urine 600 Other: Voiding Method Urinal Weight 81.193 kg Results CBC & Chem 7: 02/06/19 21:30 02/06/19 21:30 Labs: Abnormal Lab Results - Last 24 Hours (Table) 02/06/19 02/06/19 02/06/19 Range/Units 21:30 21:30 21:30 RBC 4.19 L (4.30-5.90) m/uL Hgb 11.3 L (13.0-17.5) gm/dL Hct 36.0 L (39.0-53.0) % Chloride 108 H (98-107) mmol/L BUN 28 H (9-20) mg/dL ALT 11 L (21-72) U/L Urine Protein Trace H (Negative) Ur Leukocyte Esterase Trace H (Negative) Hyaline Casts 4 H (0-2) /lpf Urine Mucus Rare H (None) /hpf Thrombosis Risk Factor Assmnt - Choose All That Apply Any of the Below Risk Factors Present?: No Other Risk Factors: Yes Each Risk Factor Represents 3 Points: Age 75 years or older, History of DVT/PE Other congenital or acquired thrombophilia - If yes, enter type in comment: No Thrombosis Risk Factor Assessment Total Risk Factor Score: 6 Thrombosis Risk Factor Assessment Level: High Risk
[2019-02-07] MEDS ORDERED: RIVAROXABAN 2.5 MG TABLET PO SCH (17:00)
[2019-02-07] MEDS: ISOSORBIDE MONONITRATE ER 60 MG TAB.ER.24H PO SCH (17:53)
[2019-02-07] MEDS: LISINOPRIL 20 MG TAB PO SCH (17:53)
[2019-02-08] MEDS: ALLOPURINOL 100 MG TAB PO SCH (08:27)
[2019-02-08] MEDS: HYDROcodone/APAP 10-325MG 1 EACH TAB PO SCH (08:27)
[2019-02-08] MEDS: METOPROLOL SUCCINATE (ER) 25 MG TAB.ER.24H PO SCH (08:27)
[2019-02-08] MEDS: FUROSEMIDE 20 MG TAB PO SCH (08:27)
[2019-02-08] MEDS: SERTRALINE 100 MG TAB PO SCH ×2 (08:29→21:03)
[2019-02-08] MEDS: Cariprazine Hcl [Vraylar] 1.5 MG PO SCH ×2 (10:32→21:02)
--- NOTE | 2019-02-08 14:34 | P.PN ---
Progress Note - Text Progress Note Date: 02/08/19 Chief Complaint: falls Interval history: This is a pleasant 72 patient who follows with Dr[address] mejia from [place]. 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 Patient is also got pain in several joints. Patient has been falling because of being blind. And also trouble walking sometimes. Patient's , became too much for her to take care of him decided to leave him and live a son. Patient couple of times fell down onthe stairs. Patient lives [facility] the [facility]. Patient's balance sometimes is not good. Also because of poor equilibrium, made worse by his eyesight. Patient is not able to take care of himself. His appetite is otherwise okay. Bowels are okay. Does hurt in different joints. No chest pain. Today-sitting up in a chair. Did tolerate her diet. No new issues. Review of systems: Was done for constitutional, cardiovascular, GI, pulmonary. relevant finding as above Active Medications Hydrocodone Bitart/Acetaminophen ([place] 10) 1 each PO DAILY [facility] Last Admin: 02/08/19 08:27 Dose: 1 each Documented by: Allopurinol (Zyloprim) 100 mg PO DAILY [facility] Last Admin: 02/08/19 08:27 Dose: 100 mg Documented by: Atorvastatin Calcium (Lipitor) [address] [facility] Last Admin: 02/07/19 20:38 Dose: 40 mg Documented by: Finasteride (Proscar) [address] [facility] Last Admin: 02/07/19 20:38 Dose: 5 mg Documented by: Furosemide (Lasix) 20 mg PO DAILY [facility] Last Admin: 02/08/19 08:27 Dose: 20 mg Documented by: Isosorbide Mononitrate (Imdur) 60 mg PO DAILY@1700 [facility] Last Admin: 02/07/19 17:53 Dose: 60 mg Documented by: Lisinopril (Zestril) 20 mg PO DAILY@1700 [facility] Last Admin: 02/07/19 17:53 Dose: 20 mg Documented by: Metoprolol Succinate (Toprol Xl) 25 mg PO DAILY [facility] Last Admin: 02/08/19 08:27 Dose: 25 mg Documented by: Naloxone HCl (Narcan) 0.2 mg IV Q2M PRN PRN Reason: Opioid Reversal Cariprazine Hcl [ (Vraylar] 1.5 Mg) 1.5 mg PO BID [facility] Last Admin: 02/08/19 10:32 Dose: Not Given Documented by: Sertraline HCl (Zoloft) 100 mg PO BID [facility] Last Admin: 02/08/19 08:29 Dose: 100 mg Documented by: Tamsulosin HCl (Flomax) 0.4 mg PO HS [facility] Last Admin: 02/07/19 20:38 Dose: 0.4 mg Documented by: Physical examination: VITAL SIGNS: [98.2, 54, 16, 128/68, 96% room air] GENERAL: [Sitting upon a chair, comfortable]. EYES: [Pupils equal. Conjunctiva gio]l. HEENT: [External appearance of nose and ears normal, oral cavity grossly normal]. NECK: [JVD not raised; masses not palpable]. HEART: [First and second heart sounds are normal; no edema]. LUNGS:[ Respiratory rate normal; decreased breath sounds]. ABDOMEN: [Soft, nontender, liver spleen not palpable, no masses palpable]. PSYCH: [Alert and oriented x3; mood and affect gio]l. NEUROLOGICAL: [Cranial nerves grossly intact; no facial asymmetry, power and sensation grossly intact, patient reports poor balance, poor vision]. INVESTIGATIONS, reviewed in the clinical context: No labs from today Previous: white count 6.7 hemoglobin 11.3 potassium 4.2 creatinine 0.95 EKG tracing personally reviewed by me shows normal sinus rhythm, poor R-wave progression X-ray of the pelvis shows arthritis no fracture Computed tomography scan of the brain-parenchymal volume loss, no acute event reported Chest x-ray film personally reviewed by me, suggest some chronic changes including some pericardial calcification Assessment: -Frequent falls that are multifactorial including poor equilibrium m ultifactorial from arthritis and could be neuropathy. Patient is also legally blind. All these at up to patient having frequent falls and being unsteady. -coronary artery disease with a history of stent and bypass -Legally blind from macular degeneration advanced -Paroxysmal atrial fibrillation currently in sinus rhythm -Essential hypertension -Hyperlipidemia -Primary osteoarthritis of multiple joint -BPH -chronic congestive heart failure, EF not known -Chronic osteoarthritis and spinal stenosis in multiple joints including cervical and lumbar -Chronic gait dysfunction does use a cane Plan: Continue current medication treatment plan. ticket manager and social service technician involved in his placement.
[2019-02-08] MEDS: LISINOPRIL 20 MG TAB PO SCH (16:13)
[2019-02-08] MEDS: ISOSORBIDE MONONITRATE ER 60 MG TAB.ER.24H PO SCH (16:13)
[2019-02-08] MEDS: TAMSULOSIN 0.4 MG CAP.ER.24H PO SCH (21:03)
[2019-02-08] MEDS: ATORVASTATIN 40 MG TAB PO SCH (21:03)
[2019-02-08] MEDS: FINASTERIDE 5 MG TAB PO SCH (21:03)
[2019-02-09] MEDS: SERTRALINE 100 MG TAB PO SCH ×2 (08:16→20:22)
[2019-02-09] MEDS: METOPROLOL SUCCINATE (ER) 25 MG TAB.ER.24H PO SCH (08:16)
[2019-02-09] MEDS: FUROSEMIDE 20 MG TAB PO SCH (08:17)
[2019-02-09] MEDS: HYDROcodone/APAP 10-325MG 1 EACH TAB PO SCH (08:17)
[2019-02-09] MEDS: ALLOPURINOL 100 MG TAB PO SCH (08:17)
[2019-02-09] MEDS: Cariprazine Hcl [Vraylar] 1.5 MG PO SCH ×2 (08:18→19:47)
[2019-02-09] MEDS: LISINOPRIL 20 MG TAB PO SCH (16:28)
[2019-02-09] MEDS: ISOSORBIDE MONONITRATE ER 60 MG TAB.ER.24H PO SCH (16:28)
[2019-02-09] MEDS: ATORVASTATIN 40 MG TAB PO SCH (20:21)
[2019-02-09] MEDS: FINASTERIDE 5 MG TAB PO SCH (20:22)
[2019-02-09] MEDS: TAMSULOSIN 0.4 MG CAP.ER.24H PO SCH (20:22)
--- NOTE | 2019-02-09 21:58 | P.PN ---
Subjective Progress Note Date: 02/09/19 Principal diagnosis: Recurrent falls This is a pleasant 72 patient who follows with Dr[address] mejia from [place]. 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 Patient is also got pain in several joints. Patient has been falling because of being blind. And also trouble walking sometimes. Patient's , became too much for her to take care of him decided to leave him and live a son. Patient couple of times fell down onthe stairs. Patient lives on the second floor [facility]. Patient's balance sometimes is not good. Also because of poor equilibrium, made worse by his eyesight. Patient is not able to take care of himself. His appetite is otherwise okay. Bowels are okay. Does hurt in different joints. No chest pain. Today-sitting up in a chair. Did tolerate her diet. No new issues. Patient's xarelto on aspirin has been held as he is a pending outpatient surgery on Saturday Review of systems: Was done for constitutional, cardiovascular, GI, pulmonary. relevant finding as above Objective - Vital Signs Vital signs: Vital Signs Temp 97.5 F L 02/09/19 13:14 Pulse 69 02/09/19 13:14 Resp 18 02/09/19 13:14 BP 129/75 02/09/19 13:14 Pulse Ox 99 02/09/19 13:14 Intake & Output 02/09/19 02/09/19 02/10/19 06:59 18:59 06:59 Intake Total 300 240 Output Total 38 Balance 300 202 Intake: Oral 300 240 Output: Post Void Residual 38 Other: Voiding Method Toilet Toilet Urinal # Voids 2 3 # Bowel Movements 1 - Exam GENERAL: [Sitting upon a chair, comfortable]. EYES: [Pupils equal. Conjunctiva gio]l. HEENT: [External appearance of nose and ears normal, oral cavity grossly n ormal]. NECK: [JVD not raised; masses not palpable]. HEART: [First and second heart sounds are normal; no edema]. LUNGS:[ Respiratory rate normal; decreased breath sounds]. ABDOMEN: [Soft, nontender, liver spleen not palpable, no masses palpable]. PSYCH: [Alert and oriented x3; mood and affect gio]l. NEUROLOGICAL: [Cranial nerves grossly intact; no facial asymmetry, power and sensation grossly intact, patient reports poor balance, poor vision]. - Labs CBC & Chem 7: 02/06/19 21:30 02/06/19 21:30 Assessment and Plan Assessment: Assessment: -Frequent falls that are multifactorial including poor equilibrium multifactorial from arthritis and could be neuropathy. Patient is also legally blind. All these at up to patient having frequent falls and being unsteady. -coronary artery disease with a history of stent and bypass -Legally blind from macular degeneration advanced -Paroxysmal atrial fibrillation currently in sinus rhythm -Essential hypertension -Hyperlipidemia -Primary osteoarthritis of multiple joint -BPH -chronic congestive heart failure, EF not known -Chronic osteoarthritis and spinal stenosis in multiple joints including cervical and lumbar -Chronic gait dysfunction does use a cane Plan: Continue current medication treatment plan. executive meeting manager and director social service involved in his placement. Time with Patient: Greater than 30
[2019-02-10] MEDS: Cariprazine Hcl [Vraylar] 1.5 MG PO SCH ×2 (09:32→20:39)
[2019-02-10] MEDS: ALLOPURINOL 100 MG TAB PO SCH (09:38)
[2019-02-10] MEDS: HYDROcodone/APAP 10-325MG 1 EACH TAB PO SCH (09:38)
[2019-02-10] MEDS: SERTRALINE 100 MG TAB PO SCH ×2 (09:38→20:39)
[2019-02-10] MEDS: METOPROLOL SUCCINATE (ER) 25 MG TAB.ER.24H PO SCH (09:38)
[2019-02-10] MEDS: FUROSEMIDE 20 MG TAB PO SCH (09:38)
[2019-02-10] MEDS: ISOSORBIDE MONONITRATE ER 60 MG TAB.ER.24H PO SCH (16:40)
[2019-02-10] MEDS: LISINOPRIL 20 MG TAB PO SCH (16:40)
[2019-02-10] MEDS: ATORVASTATIN 40 MG TAB PO SCH (20:39)
[2019-02-10] MEDS: TAMSULOSIN 0.4 MG CAP.ER.24H PO SCH (20:39)
[2019-02-10] MEDS: FINASTERIDE 5 MG TAB PO SCH (20:39)
[2019-02-10] MEDS: POLYETHYLENE GLYCOL 3350 17 GM POWD.PACK PO SCH (20:39)
[2019-02-11] MEDS: Cariprazine Hcl [Vraylar] 1.5 MG PO SCH (08:08)
[2019-02-11] MEDS: ALLOPURINOL 100 MG TAB PO SCH (08:09)
[2019-02-11] MEDS: METOPROLOL SUCCINATE (ER) 25 MG TAB.ER.24H PO SCH (08:09)
[2019-02-11] MEDS: SERTRALINE 100 MG TAB PO SCH ×2 (08:09→21:18)
[2019-02-11] MEDS: HYDROcodone/APAP 10-325MG 1 EACH TAB PO SCH (08:09)
[2019-02-11] MEDS: FUROSEMIDE 20 MG TAB PO SCH (08:09)
[2019-02-11] MEDS: LISINOPRIL 20 MG TAB PO SCH (15:34)
[2019-02-11] MEDS: ISOSORBIDE MONONITRATE ER 60 MG TAB.ER.24H PO SCH (15:34)
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
[2019-02-11] MEDS: QUEtiapine 50 MG TAB PO SCH (21:18)
[2019-02-11] MEDS: TAMSULOSIN 0.4 MG CAP.ER.24H PO SCH (21:18)
[2019-02-11] MEDS: FINASTERIDE 5 MG TAB PO SCH (21:18)
[2019-02-11] MEDS: ATORVASTATIN 40 MG TAB PO SCH (21:18)
[2019-02-11] MEDS: POLYETHYLENE GLYCOL 3350 17 GM POWD.PACK PO SCH (21:19)
--- NOTE | 2019-02-12 00:23 | P.PN ---
Subjective Progress Note Date: 02/10/19 Principal diagnosis: Recurrent falls This is a pleasant 72 patient who follows with Dr. mejia from [place]. 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 Patient is also got pain in several joints. Patient has been falling because of being blind. And also trouble walking sometimes. Patient's , became too much for her to take care of him decided to leave him and live a son. Patient couple of times fell down onthe stairs. Patient lives on the second floor [facility]. Patient's balance sometimes is not good. Also because of poor equilibrium, made worse by his eyesight. Patient is not able to take care of himself. His appetite is otherwise okay. Bowels are okay. Does hurt in different joints. No chest pain. Today-sitting up in a chair. Did tolerate her diet. No new issues. Patient's xarelto on aspirin has been held as he is a pending outpatient surgery on Saturday02/10/2018 Patient denied any new complaints today. Awake alert and oriented. Urological procedure has been postponed. Awaiting placement currently. Review of systems: Was done for constitutional, cardiovascular, GI, pulmonary. relevant finding as above Objective - Vital Signs Vital signs: Vital Signs Temp 98.2 F 02/10/19 13:00 Pulse 67 02/10/19 13:00 Resp 16 02/10/19 13:00 BP 128/79 02/10/19 13:00 Pulse Ox 96 02/10/19 13:00 Intake & Output 02/10/19 02/10/19 02/11/19 06:59 18:59 06:59 Intake Total 450 1080 Balance 450 1080 Intake: Oral 450 1080 Other: # Voids 3 6 # Bowel Movements 1 - Exam GENERAL: [Sitting upon a chair, comfortable]. EYES: [Pupils equal. Conjunctiva gio]l. HEENT: [External appearance of nose and ears normal, oral cavity grossly normal]. NECK: [JVD not raised; masses not palpable]. HEART: [First and second heart sounds are normal; no edema]. LUNGS:[ Respiratory rate normal; decreased breath sounds]. ABDOMEN: [Soft, nontender, liver spleen not palpable, no masses palpable]. PSYCH: [Alert and oriented x3; mood and affect gio]l. NEUROLOGICAL: [Cranial nerves grossly intact; no facial asymmetry, power and sensation grossly intact, patient reports poor balance, poor vision]. - Labs CBC & Chem 7: 02/06/19 21:30 02/06/19 21:30 Assessment and Plan Assessment: Assessment: -Frequent falls that are multifactorial including poor equilibrium multifactorial from arthritis and could be neuropathy. Patient is also legally blind. All these at up to patient having frequent falls and being unsteady. -coronary artery disease with a history of stent and bypass -Legally blind from macular degeneration advanced -Paroxysmal atrial fibrillation currently in sinus rhythm -Essential hypertension -Hyperlipidemia -Primary osteoarthritis of multiple joint -BPH -chronic congestive heart failure, EF not known -Chronic osteoarthritis and spinal stenosis in multiple joints including cervi bindu and lumbar -Chronic gait dysfunction does use a cane Plan: Continue current medication treatment plan. microfabrication engineer manager and high school social studies teacher involved in his placement.
--- NOTE | 2019-02-12 00:25 | P.PN ---
Subjective Progress Note Date: 02/11/19 Principal diagnosis: Recurrent falls This is a pleasant 72 patient who follows with Dr[address] mejia from [place]. 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 Patient is also got pain in several joints. Patient has been falling because of being blind. And also trouble walking sometimes. Patient's , became too much for her to take care of him decided to leave him and live a son. Patient couple of times fell down onthe stairs. Patient lives on the second floor [facility]. Patient's balance sometimes is not good. Also because of poor equilibrium, made worse by his eyesight. Patient is not able to take care of himself. His appetite is otherwise okay. Bowels are okay. Does hurt in different joints. No chest pain. Today-sitting up in a chair. Did tolerate her diet. No new issues. Patient's xarelto on aspirin has been held as he is a pending outpatient surgery on Saturday02/10/2018 Patient denied any new complaints today. Awake alert and oriented. Urological procedure has been postponed. Awaiting placement currently. 02 11 2019 Patient does have some delusional behavior on and off. Patient was seen by psychiatric and medication for a distended. Denied any complains of chest pain or shortness of breath. No nausea vomiting or abdominal pain. No other acute overnight issues otherwise. Review of systems: Was done for constitutional, cardiovascular, GI, pulmonary. relevant finding as above Objective - Vital Signs Vital signs: Vital Signs Temp 98.5 F 02/11/19 21:15 Pulse 54 L 02/11/19 21:15 Resp 20 02/11/19 21:15 BP 99/52 02/11/19 21:15 Pulse Ox 97 02/11/19 21:15 Intake & Output 02/11/19 02/11/19 02/12/19 06:59 18:59 06:59 Intake Total 300 200 Balance 300 200 Intake: Oral 300 200 Other: Voiding Method Incontinent Incontinent Toilet Incontinent # Voids 2 0 # Bowel Movements 1 - Exam GENERAL: [Sitting upon a chair, comfortable]. EYES: [Pupils equal. Conjunctiva gio]l. HEENT: [External appearance of nose and ears normal, oral cavity grossly normal]. NECK: [JVD not raised; masses not palpable]. HEART: [First and second heart sounds are normal; no edema]. LUNGS:[ Respiratory rate normal; decreased breath sounds]. ABDOMEN: [Soft, nontender, liver spleen not palpable, no masses palpable]. PSYCH: [Alert and oriented x3; mood and affect gio]l. NEUROLOGICAL: [Cranial nerves grossly intact; no facial asymmetry, power and sensation grossly intact, patient reports poor balance, poor vision]. - Labs CBC & Chem 7: 02/06/19 21:30 02/06/19 21:30 Assessment and Plan Assessment: Assessment: -Frequent falls that are multifactorial including poor equilibrium multifactorial from arthritis and could be neuropathy. Patient is also legally blind. All these at up to patient having frequent falls and being unsteady. - Delusional disorder with paranoid ideation. -coronary artery disease with a history of stent and bypass -Legally blind from macular degeneration advanced -Paroxysmal atrial fibrillation currently in sinus rhythm -Essential hypertension -Hyperlipidemia -Primary osteoarthritis of multiple joint -BPH -chronic congestive heart failure, EF not known -Chronic osteoarthritis and spinal stenosis in multiple joints including cervical and lumbar -Chronic gait dysfunction does use a cane Plan: Continue current medication treatment plan. Patient was seen by psychiatric. Currently on Zoloft and Seroquel. Dose adjusted. heavy equipment sales manager and rn social services involved in his placement. Time with Patient: Greater than 30
[2019-02-12] MEDS: FUROSEMIDE 20 MG TAB PO SCH (09:39)
[2019-02-12] MEDS: METOPROLOL SUCCINATE (ER) 25 MG TAB.ER.24H PO SCH (09:39)
[2019-02-12] MEDS: ALLOPURINOL 100 MG TAB PO SCH (09:39)
[2019-02-12] MEDS: HYDROcodone/APAP 10-325MG 1 EACH TAB PO SCH (09:39)
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
[2019-02-12] MEDS: ISOSORBIDE MONONITRATE ER 60 MG TAB.ER.24H PO SCH (17:30)
[2019-02-12] MEDS: LISINOPRIL 20 MG TAB PO SCH (17:30)
[2019-02-12] MEDS: ATORVASTATIN 40 MG TAB PO SCH (21:08)
[2019-02-12] MEDS: QUEtiapine 50 MG TAB PO SCH (21:08)
[2019-02-12] MEDS: FINASTERIDE 5 MG TAB PO SCH (21:08)
[2019-02-12] MEDS: TAMSULOSIN 0.4 MG CAP.ER.24H PO SCH (21:08)
[2019-02-12] MEDS: SERTRALINE 100 MG TAB PO SCH (21:08)
[2019-02-12] MEDS: POLYETHYLENE GLYCOL 3350 17 GM POWD.PACK PO SCH (21:08)
--- NOTE | 2019-02-13 | P.PN ---
Subjective Progress Note Date: 02/12/19 Principal diagnosis: Recurrent falls This is a pleasant 72 patient who follows with Dr. mejia from [place]. 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 Patient is also got pain in several joints. Patient has been falling because of being blind. And also trouble walking sometimes. Patient's , became too much for her to take care of him decided to leave him and live a son. Patient couple of times fell down onthe stairs. Patient lives on the second floor [facility]. Patient's balance sometimes is not good. Also because of poor equilibrium, made worse by his eyesight. Patient is not able to take care of himself. His appetite is otherwise okay. Bowels are okay. Does hurt in different joints. No chest pain. Today-sitting up in a chair. Did tolerate her diet. No new issues. Patient's xarelto on aspirin has been held as he is a pending outpatient surgery on Saturday02/10/2018 Patient denied any new complaints today. Awake alert and oriented. Urological procedure has been postponed. Awaiting placement currently. 02 11 2019 Patient does have some delusional behavior on and off. Patient was seen by psychiatric and medication for a distended. Denied any complains of chest pain or shortness of breath. No nausea vomiting or abdominal pain. No other acute overnight issues otherwise. 02/12/2019 Patient does not have any new complaints today. No complaints of chest pain or shortness of breath. No other acute overnight issues. Awaiting for placement. Review of systems: Was done for constitutional, cardiovascular, GI, pulmonary. relevant finding as above Objective - Vital Signs Vital signs: Vital Signs Temp 98.0 F 02/12/19 13:00 Pulse 65 02/12/19 13:00 Resp 17 02/12/19 13:00 BP 112/73 02/12/19 13:00 Pulse Ox 97 02/12/19 13:00 Intake & Output 02/11/19 02/12/19 02/12/19 18:59 06:59 18:59 Intake Total 500 Balance 500 Intake: Oral 500 Other: Voiding Method Incontinent Toilet Toilet Incontinent Incontinent # Voids 0 1 4 # Bowel Movements 1 0 - Exam GENERAL: [Sitting upon a chair, comfortable]. EYES: [Pupils equal. Conjunctiva gio]l. HEENT: [External appearance of nose and ears normal, oral cavity grossly normal]. NECK: [JVD not raised; masses not palpable]. HEART: [First and second heart sounds are normal; no edema]. LUNGS:[ Respiratory rate normal; decreased breath sounds]. ABDOMEN: [Soft, nontender, liver spleen not palpable, no masses palpable]. PSYCH: [Alert and oriented x3; mood and affect gio]l. NEUROLOGICAL: [Cranial nerves grossly intact; no facial asymmetry, power and sensation grossly intact, patient reports poor balance, poor vision]. - Labs CBC & Chem 7: 02/06/19 21:30 02/06/19 21:30 Assessment and Plan Assessment: Assessment: -Frequent falls that are multifactorial including poor equilibrium multifactorial from arthritis and could be neuropathy. Patient is also legally blind. All these at up to patient having frequent falls and being unsteady. - Delusional disorder with paranoid ideation. -coronary artery disease with a history of stent and bypass -Legally blind from macular degeneration advanced -Paroxysmal atrial fibrillation currently in sinus rhythm -Essential hypertension -Hyperlipidemia -Primary osteoarthritis of multiple joint -BPH -chronic congestive heart failure, EF not known -Chronic osteoarthritis and spinal stenosis in multiple joints including cervical and lumbar -Chronic gait dysfunction does use a cane Plan: Continue current medication treatment plan. Patient was seen by psychiatric. Currently on Zoloft and Seroquel. Dose adjusted. compensation manager and manager social work involved in his placement. Time with Patient: Greater than 30
[2019-02-13] MEDS: HYDROcodone/APAP 10-325MG 1 EACH TAB PO SCH (08:01)
[2019-02-13] MEDS: FUROSEMIDE 20 MG TAB PO SCH (08:01)
[2019-02-13] MEDS: METOPROLOL SUCCINATE (ER) 25 MG TAB.ER.24H PO SCH (08:01)
[2019-02-13] MEDS: ALLOPURINOL 100 MG TAB PO SCH (08:02)
[2019-02-13] MEDS: LISINOPRIL 20 MG TAB PO SCH (15:58)
[2019-02-13] MEDS: ISOSORBIDE MONONITRATE ER 60 MG TAB.ER.24H PO SCH (15:58)
--- NOTE | 2019-02-13 16:06 | P.PN ---
Progress Note - Text Progress Note Date: 02/13/19 Interval History: Patient is a 78-year-old male who was seen today in follow-up to a consultation. Patient states that he is not seeing things, and when we discussed the planes that he had been talking about with me previously and they're doing surveillance he said that some of that was happening but he doesn't think that's going on anymore. He states that he doesn't think there are any further break-ins at his home as a gentleman of bro in the other night is now in [facility]. Patient only discussed these issues because I brought them up he did not spontaneously bring these concerns up. Patient stated that he slept much better last night felt the medication had been helpful and that he wasn't up and down all night long. Mental Status: Appearance/Attitude: Patient is lying in a hospital bed, he is legally blind due to macular degeneration and he was cooperative. Behavior: Patient does not exhibit any psychomotor agitation or retardation Speech/Language: Patient's speech is spontaneous of normal volume and rhythm and he is coherent Thought Process: Patient is goal-directed he is not showing any evidence of loose association or flight of ideas Thought Content: Patient denies any auditory or visual hallucinations and he states that the plane surveillance is not continuing to go on, states that there've been no further break-ins at his house and he has a gentleman is now in snf. Patient did not express any other delusional ideation and this was only discussed as I questioned the patient about it. Patient states that he slept much better last night and was not up and down all night long. Suicidal/Homicidal Ideation: Patient denies any current suicidal or homicidal ideation Sensorium/Cognition: Patient is alert, he was oriented to person, place, situation and date Mood/Affect: Patient's mood was pleasant and his affect was appropriate Insight/Judgment: Patient's insight and judgment are limited. Assessment: Patient reports that the increase in the medication was beneficial as his sleep was better last night. Per staff there is no reported agitation during the evening. Patient continues to feel the planes were doing surveillance and that someone had broken into his house but there were no other paranoid ideation expressed today and these were only expressed when I asked. Patient states that he is not seeing any visual hallucinations like wine bottles or glasses as he had been when he was at home. Patient can still not tell me where his is currently living or whether she is returning to their home or not. Plan: Patient will continue on Seroquel 100 mg at 7 PM Zoloft 100 mg at bedtime. I spoke with social work and Adult Protective Services plans on petitioning for a guardian. Patient obviously cannot live on his own at home due to his medical problems, especially his being legally blind. I will continue to follow the patient while he is in the hospital for adjustment medication as needed.
[2019-02-13] MEDS: TAMSULOSIN 0.4 MG CAP.ER.24H PO SCH (20:40)
[2019-02-13] MEDS: FINASTERIDE 5 MG TAB PO SCH (20:40)
[2019-02-13] MEDS: ATORVASTATIN 40 MG TAB PO SCH (20:40)
[2019-02-13] MEDS: QUEtiapine 50 MG TAB PO SCH (20:40)
[2019-02-13] MEDS: SERTRALINE 100 MG TAB PO SCH (20:40)
[2019-02-13] MEDS: POLYETHYLENE GLYCOL 3350 17 GM POWD.PACK PO SCH (20:41)
[2019-02-14] MEDS: METOPROLOL SUCCINATE (ER) 25 MG TAB.ER.24H PO SCH (07:27)
[2019-02-14] MEDS: FUROSEMIDE 20 MG TAB PO SCH (07:27)
[2019-02-14] MEDS: ALLOPURINOL 100 MG TAB PO SCH (07:28)
[2019-02-14] MEDS: HYDROcodone/APAP 10-325MG 1 EACH TAB PO SCH (07:28)
--- NOTE | 2019-02-14 13:25 | P.PN ---
Subjective Progress Note Date: 02/13/19 Principal diagnosis: Recurrent falls This is a pleasant 72 patient who follows with Dr. mejia from [place]. 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 Patient is also got pain in several joints. Patient has been falling because of being blind. And also trouble walking sometimes. Patient's , became too much for her to take care of him decided to leave him and live a son. Patient couple of times fell down onthe stairs. Patient lives on the second floor [facility]. Patient's balance sometimes is not good. Also because of poor equilibrium, made worse by his eyesight. Patient is not able to take care of himself. His appetite is otherwise okay. Bowels are okay. Does hurt in different joints. No chest pain. Today-sitting up in a chair. Did tolerate her diet. No new issues. Patient's xarelto on aspirin has been held as he is a pending outpatient surgery on Saturday02/10/2018 Patient denied any new complaints today. Awake alert and oriented. Urological procedure has been postponed. Awaiting placement currently. 02 11 2019 Patient does have some delusional behavior on and off. Patient was seen by psychiatric and medication for a distended. Denied any complains of chest pain or shortness of breath. No nausea vomiting or abdominal pain. No other acute overnight issues otherwise. 02/12/2019 Patient does not have any new complaints today. No complaints of chest pain or shortness of breath. No other acute overnight issues. Awaiting for placement. 02/13/2018 Patient is still delirious and visual hallucinations. No complaints of chest pain or shortness of. No other acute overnight issues. Psychiatric is following. Otherwise requesting to rehab. Continued on Zoloft and Seroquel. Review of systems: Was done for constitutional, cardiovascular, GI, pulmonary. relevant finding as above Objective - Vital Signs Vital signs: Vital Signs Temp 97.9 F 02/13/19 13:00 Pulse 58 L 02/13/19 13:00 Resp 16 02/13/19 15:11 BP 112/62 02/13/19 13:00 Pulse Ox 99 02/13/19 13:00 Intake & Output 02/12/19 02/13/19 02/13/19 18:59 06:59 18:59 Other: Voiding Method Toilet Toilet Toilet Incontinent Incontinent Incontinent # Voids 4 2 2 # Bowel Movements 0 - Exam GENERAL: [Sitting upon a chair, comfortable]. EYES: [Pupils equal. Conjunctiva gio]l. HEENT: [External appearance of nose and ears normal, oral cavity grossly normal]. NECK: [JVD not raised; masses not palpable]. HEART: [First and second heart sounds are normal; no edema]. LUNGS:[ Respiratory rate normal; decreased breath sounds]. ABDOMEN: [Soft, nontender, liver spleen not palpable, no masses palpable]. PSYCH: [Alert and oriented x3; mood and affect goi]l. NEUROLOGICAL: [Cranial nerves grossly intact; no facial asymmetry, power and sensation grossly intact, patient reports poor balance, poor vision]. - Labs CBC & Chem 7: 02/06/19 21:30 02/06/19 21:30 Assessment and Plan Assessment: Assessment: -Frequent falls that are multifactorial including poor equilibrium multifactorial from arthritis and could be neuropathy. Patient is also legally blind. All these at up to patient having frequent falls and being unsteady. - Delusional disorder with paranoid ideation. -coronary artery disease with a history of stent and bypass -Legally blind from macular degeneration advanced -Paroxysmal atrial fibrillation currently in sinus rhythm -Essential hypertension -Hyperlipidemia -Primary osteoarthritis of multiple joint -BPH -chronic congestive heart failure, EF not known -Chronic osteoarthritis and spinal stenosis in multiple joints including cervical and lumbar -Chronic gait dysfunction does use a cane Plan: Continue current medication treatment plan. Patient was seen by psychiatric. Currently on Zoloft and Seroquel. Dose adjusted. funeral location manager and sexual assault social worker involved in his placement. Time with Patient: Greater than 30
[2019-02-14] MEDS: ISOSORBIDE MONONITRATE ER 60 MG TAB.ER.24H PO SCH (15:11)
[2019-02-14] MEDS: LISINOPRIL 20 MG TAB PO SCH (15:12)
[2019-02-14] MEDS: TAMSULOSIN 0.4 MG CAP.ER.24H PO SCH (20:13)
[2019-02-14] MEDS: FINASTERIDE 5 MG TAB PO SCH (20:13)
[2019-02-14] MEDS: ATORVASTATIN 40 MG TAB PO SCH (20:13)
[2019-02-14] MEDS: POLYETHYLENE GLYCOL 3350 17 GM POWD.PACK PO SCH (20:13)
[2019-02-14] MEDS: QUEtiapine 50 MG TAB PO SCH (20:13)
[2019-02-14] MEDS: SERTRALINE 100 MG TAB PO SCH (20:13)
[2019-02-15] MEDS: METOPROLOL SUCCINATE (ER) 25 MG TAB.ER.24H PO SCH (07:05)
[2019-02-15] MEDS: ALLOPURINOL 100 MG TAB PO SCH (07:06)
[2019-02-15] MEDS: FUROSEMIDE 20 MG TAB PO SCH (07:06)
[2019-02-15] MEDS: HYDROcodone/APAP 10-325MG 1 EACH TAB PO SCH (07:06)
--- NOTE | 2019-02-15 12:49 | P.PN ---
Progress Note - Text Progress Note Date: 02/15/19 Interval History: Patient is a 78-year-old male who was seeing in follow-up to a consultation, my walked in the room the patient was talking to someone that he thought was sitting in the recliner chair next to his bed there is no one there. Patient states that he was talking to someone about the incident that occurred at his house the other night and he again began discussing when young man stopped the gentleman from leaving his house in reentering it that he thought was going into the house to have an affair with his . Patient states that he slept fairly well last night. Mental Status: Appearance/Attitude: Patient is lying in his hospital bed, patient is legally blind, he was cooperative Behavior: Patient does not exhibit any psychomotor agitation or retardation Speech/Language: Patient's speech is spontaneous of normal volume and rhythm and he is coherent Thought Process: Patient is goal-directed there is no evidence of loose association or flight of ideas Thought Content: Patient denies any auditory hallucinations, patient was observed talking to an empty chair when I walked in stating that there was a young man sitting there and he went on again to discuss that the other night a man was caught trying to get back into his home, this is a man he saw a running out of his house that it entered the house to have an affair with his . Patient states his sleep was not as restful last evening and his appetite is good Suicidal/Homicidal Ideation: Patient denies any current suicidal or homicidal ideation Sensorium/Cognition: Patient is alert and oriented to person, situation, place and time Mood/Affect: Patient's mood is pleasant and his affect is appropriate Insight/Judgment: Patient's insight and judgment are limited Assessment: Patient continues to have visual hallucinations and today was seen talking to an empty chair stating that there was a young man sitting there. Patient continues to express the paranoid thoughts that he had about a man sneaking into the house to have an affair with his . Patient states that his sleep was not as restful last evening. patient does not appear to be oversedated today. Patient has been eating well. Plan: We'll increase Seroquel to 100 mg at bedtime, it is unclear if the visual hallucinations are part of his visual problems, patient is expressing paranoid ideation and so we will increase the Seroquel to 100 at bedtime. Patient continues on Zoloft 100 mg at bedtime as well. We'll continue to follow the patient and evaluate the response to the increase in the Seroquel.
[2019-02-15] MEDS: LISINOPRIL 20 MG TAB PO SCH (16:28)
[2019-02-15] MEDS: ISOSORBIDE MONONITRATE ER 60 MG TAB.ER.24H PO SCH (16:28)
[2019-02-15] MEDS: SERTRALINE 100 MG TAB PO SCH (20:02)
[2019-02-15] MEDS: POLYETHYLENE GLYCOL 3350 17 GM POWD.PACK PO SCH (20:02)
[2019-02-15] MEDS: QUEtiapine 50 MG TAB PO SCH (20:02)
[2019-02-15] MEDS: ATORVASTATIN 40 MG TAB PO SCH (20:02)
[2019-02-15] MEDS: TAMSULOSIN 0.4 MG CAP.ER.24H PO SCH (20:02)
[2019-02-15] MEDS: FINASTERIDE 5 MG TAB PO SCH (20:02)
--- NOTE | 2019-02-15 23:18 | P.PN ---
Subjective Progress Note Date: 02/14/19 Principal diagnosis: Recurrent falls This is a pleasant 72 patient who follows with Dr. mejia from [place]. 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 Patient is also got pain in several joints. Patient has been falling because of being blind. And also trouble walking sometimes. Patient's , became too much for her to take care of him decided to leave him and live a son. Patient couple of times fell down onthe stairs. Patient lives on the second floor [facility]. Patient's balance sometimes is not good. Also because of poor equilibrium, made worse by his eyesight. Patient is not able to take care of himself. His appetite is otherwise okay. Bowels are okay. Does hurt in different joints. No chest pain. Today-sitting up in a chair. Did tolerate her diet. No new issues. Patient's xarelto on aspirin has been held as he is a pending outpatient surgery on Saturday02/10/2018 Patient denied any new complaints today. Awake alert and oriented. Urological procedure has been postponed. Awaiting placement currently. 02 11 2019 Patient does have some delusional behavior on and off. Patient was seen by psychiatric and medication for a distended. Denied any complains of chest pain or shortness of breath. No nausea vomiting or abdominal pain. No other acute overnight issues otherwise. 02/12/2019 Patient does not have any new complaints today. No complaints of chest pain or shortness of breath. No other acute overnight issues. Awaiting for placement. 02/13/2018 Patient is still delirious and visual hallucinations. No complaints of chest pain or shortness of. No other acute overnight issues. Psychiatric is following. Otherwise requesting to rehab. Continued on Zoloft and Seroquel. 02/14/2019 Patient is having visual hallucinations. Otherwise denies any complaints of chest pain or shortness of breath. No other acute overnight issues. Psychiatric service is following. No fever no chills. Review of systems: Was done for constitutional, cardiovascular, GI, pulmonary. relevant finding as above Objective - Vital Signs Vital signs: Vital Signs Temp 97.8 F 02/14/19 12:35 Pulse 66 02/14/19 12:35 Resp 16 02/14/19 12:35 BP 120/74 02/14/19 12:35 Pulse Ox 97 02/14/19 12:35 Intake & Output 02/13/19 02/14/19 02/14/19 18:59 06:59 18:59 Other: Voiding Method Toilet Toilet Toilet Incontinent Incontinent Incontinent # Voids 2 1 2 # Bowel Movements 1 - Exam GENERAL: [Sitting upon a chair, comfortable]. EYES: [Pupils equal. Conjunctiva gio]l. HEENT: [External appearance of nose and ears normal, oral cavity grossly normal]. NECK: [JVD not raised; masses not palpable]. HEART: [First and second heart sounds are normal; no edema]. LUNGS:[ Respiratory rate normal; decreased breath sounds]. ABDOMEN: [Soft, nontender, liver spleen not palpable, no masses palpable]. PSYCH: [Alert and oriented.Visual hallucinations ]l. NEUROLOGICAL: [Cranial nerves grossly intact; no facial asymmetry, power and sensation grossly intact, patient reports poor balance, poor vision]. - Labs CBC & Chem 7: 02/06/19 21:30 02/06/19 21:30 Assessment and Plan Assessment: Assessment: -Frequent falls that are multifactorial including poor equilibrium multifactorial from arthritis and could be neuropathy. Patient is also legally blind. All these at up to patient having frequent falls and being unsteady. - Delusional disorder with paranoid ideation. -coronary artery disease with a history of stent and bypass -Legally blind from macular degeneration advanced -Paroxysmal atrial fibrillation currently in sinus rhythm -Essential hypertension -Hyperlipidemia -Primary osteoarthritis of multiple joint -BPH -chronic congestive heart failure, EF not known -Chronic osteoarthritis and spinal stenosis in multiple joints including cervical and lumbar -Chronic gait dysfunction does use a cane Plan: Continue current medication treatment plan. Patient was seen by psychiatric. Currently on Zoloft and Seroquel. Dose adjusted. purchasing manager/sales and psychologist social involved in his placement. Time with Patient: Greater than 30
--- NOTE | 2019-02-15 23:21 | P.PN ---
Subjective Progress Note Date: 02/15/19 Principal diagnosis: Recurrent falls This is a pleasant 72 patient who follows with Dr. mejia from [place]. 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 Patient is also got pain in several joints. Patient has been falling because of being blind. And also trouble walking sometimes. Patient's , became too much for her to take care of him decided to leave him and live a son. Patient couple of times fell down onthe stairs. Patient lives on the second floor [facility]. Patient's balance sometimes is not good. Also because of poor equilibrium, made worse by his eyesight. Patient is not able to take care of himself. His appetite is otherwise okay. Bowels are okay. Does hurt in different joints. No chest pain. Today-sitting up in a chair. Did tolerate her diet. No new issues. Patient's xarelto on aspirin has been held as he is a pending outpatient surgery on Saturday02/10/2018 Patient denied any new complaints today. Awake alert and oriented. Urological procedure has been postponed. Awaiting placement currently. 02 11 2019 Patient does have some delusional behavior on and off. Patient was seen by psychiatric and medication for a distended. Denied any complains of chest pain or shortness of breath. No nausea vomiting or abdominal pain. No other acute overnight issues otherwise. 02/12/2019 Patient does not have any new complaints today. No complaints of chest pain or shortness of breath. No other acute overnight issues. Awaiting for placement. 02/13/2018 Patient is still delirious and visual hallucinations. No complaints of chest pain or shortness of. No other acute overnight issues. Psychiatric is following. Otherwise requesting to rehab. Continued on Zoloft and Seroquel. 02/14/2019 Patient is having visual hallucinations. Otherwise denies any complaints of chest pain or shortness of breath. No other acute overnight issues. Psychiatric service is following. No fever no chills. 02/15/2019 Patient is still having paranoid ideation and hallucinations. Seroquel dose was increased 200 mg at bedtime as per psychiatry recommendations. Patient will be continued on Zoloft. Otherwise no other complaints of chest pain or shortness of breath. Case management is following for possible placement likely on Saturday . Review of systems: Was done for constitutional, cardiovascular, GI, pulmonary. relevant finding as above Objective - Vital Signs Vital signs: Vital Signs Temp 98.2 F 02/15/19 13:00 Pulse 65 02/15/19 13:00 Resp 16 02/15/19 13:00 BP 122/66 02/15/19 13:00 Pulse Ox 99 02/15/19 13:00 Intake & Output 02/14/19 02/15/19 02/15/19 18:59 06:59 18:59 Intake Total 1080 650 Balance 1080 650 Intake: Oral 1080 650 Other: Voiding Method Toilet Toilet Toilet Incontinent Incontinent Incontinent # Voids 1 3 1 # Bowel Movements 1 1 - Exam GENERAL: [Sitting upon a chair, comfortable]. EYES: [Pupils equal. Conjunctiva gio]l. HEENT: [External appearance of nose and ears normal, oral cavity grossly normal]. NECK: [JVD not raised; masses not palpable]. HEART: [First and second heart sounds are normal; no edema]. LUNGS:[ Respiratory rate normal; decreased breath sounds]. ABDOMEN: [Soft, nontender, liver spleen not palpable, no masses palpable]. PSYCH: [Alert and oriented.Visual hallucinations ]l. NEUROLOGICAL: [Cranial nerves grossly intact; no facial asymmetry, power and sensation grossly intact, patient reports poor balance, poor vision]. - Labs CBC & Chem 7: 02/06/19 21:30 02/06/19 21:30 Assessment and Plan Assessment: Assessment: -Frequent falls that are multifactorial including poor equilibrium multifact orial from arthritis and could be neuropathy. Patient is also legally blind. All these at up to patient having frequent falls and being unsteady. - Delusional disorder with paranoid ideation. -coronary artery disease with a history of stent and bypass -Legally blind from macular degeneration advanced -Paroxysmal atrial fibrillation currently in sinus rhythm -Essential hypertension -Hyperlipidemia -Primary osteoarthritis of multiple joint -BPH -chronic congestive heart failure, EF not known -Chronic osteoarthritis and spinal stenosis in multiple joints including cervical and lumbar -Chronic gait dysfunction does use a cane Plan: Continue current medication treatment plan. Patient was seen by psychiatric. Currently on Zoloft and Seroquel. Dose adjusted. transport company manager and social work nurse involved in his placement. Time with Patient: Greater than 30
[2019-02-16] MEDS: HYDROcodone/APAP 10-325MG 1 EACH TAB PO SCH (08:23)
[2019-02-16] MEDS: METOPROLOL SUCCINATE (ER) 25 MG TAB.ER.24H PO SCH (08:24)
[2019-02-16] MEDS: FUROSEMIDE 20 MG TAB PO SCH (08:24)
[2019-02-16] MEDS: ALLOPURINOL 100 MG TAB PO SCH (08:24)
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
[2019-02-16] MEDS: LISINOPRIL 20 MG TAB PO SCH (17:14)
[2019-02-16] MEDS: ISOSORBIDE MONONITRATE ER 60 MG TAB.ER.24H PO SCH (17:14)
[2019-02-16] MEDS: QUEtiapine 100 MG TAB PO SCH (20:40)
[2019-02-16] MEDS: ATORVASTATIN 40 MG TAB PO SCH (20:40)
[2019-02-16] MEDS: TAMSULOSIN 0.4 MG CAP.ER.24H PO SCH (20:40)
[2019-02-16] MEDS: FINASTERIDE 5 MG TAB PO SCH (20:40)
[2019-02-16] MEDS: POLYETHYLENE GLYCOL 3350 17 GM POWD.PACK PO SCH (20:41)
[2019-02-16] MEDS: SERTRALINE 100 MG TAB PO SCH (20:43)
--- NOTE | 2019-02-17 00:20 | P.PN ---
Progress Note - Text Progress Note Date: 02/16/19 Interval history: Patient admitted with frequent falls felt to be multifactorial. Also being tr eated for delusional disorder from paranoid ideation. Patient is legally blind. Today-sitting up in bed in bed. Did tolerate his breakfast. Able to answer questions appropriately. Doesn't seem to be hallucinating. Or having any psychotic features. Medications were adjusted by psychiatrist yesterday. This seems to be one episode yesterday evening. None since then. Review of systems: Was done for constitutional, cardiovascular, GI, pulmonary. Psychiatry relevant finding as above Active Medications Hydrocodone Bitart/Acetaminophen ([place] 10) 1 each PO DAILY [facility] Last Admin: 02/16/19 08:23 Dose: 1 each Documented by: Allopurinol (Zyloprim) 100 mg PO DAILY [facility] Last Admin: 02/16/19 08:24 Dose: 100 mg Documented by: Atorvastatin Calcium (Lipitor) 40 mg PO [facility] Last Admin: 02/16/19 20:40 Dose: 40 mg Documented by: Finasteride (Proscar) 5 mg PO [facility] Last Admin: 02/16/19 20:40 Dose: 5 mg Documented by: Furosemide (Lasix) 20 mg PO DAILY [facility] Last Admin: 02/16/19 08:24 Dose: 20 mg Documented by: Isosorbide Mononitrate (Imdur) 60 mg PO DAILY@1700 [facility] Last Admin: 02/16/19 17:14 Dose: 60 mg Documented by: Lisinopril (Zestril) 20 mg PO DAILY@1700 [facility] Last Admin: 02/16/19 17:14 Dose: 20 mg Documented by: Metoprolol Succinate (Toprol Xl) 25 mg PO DAILY [facility] Last Admin: 02/16/19 08:24 Dose: 25 mg Documented by: Naloxone HCl (Narcan) 0.2 mg IV Q2M PRN PRN Reason: Opioid Reversal Polyethylene Glycol (Miralax) 17 gm PO [facility] Last Admin: 02/16/19 20:41 Dose: 17 gm Documented by: Quetiapine Fumarate (Seroquel) 100 mg PO 1900 [facility] Last Admin: 02/16/19 20:40 Dose: 100 mg Documented by: Sertraline HCl (Zoloft) 100 mg PO [facility] Last Admin: 02/16/19 20:43 Dose: 100 mg Documented by: Tamsulosin HCl (Flomax) 0.4 mg PO HS [facility] Last Admin: 02/16/19 20:40 Dose: 0.4 mg Documented by: On examination: VITAL SIGNS: 98, 69, 18, 130/66, 95% room air GENERAL APPEARANCE: Average build. Propped up in bed comfortable HEENT: Normal external appearance of nose and ear. Oral cavity normal EYES: Poor vision. NECK: JVD not raised. Mass not palpable. RESPIRATORY: Respiratory effort normal. Lungs clear to auscultation. CARDIOVASCULAR: First and second sounds normal. No edema. ABDOMEN: Soft. Liver and spleen not palpable. No tenderness. No mass palpable. PSYCHIATRY: Alert and oriented x3. Mood and affect normal. Investigations EKG tracing personally reviewed by me shows normal sinus rhythm, poor R-wave progression X-ray of the pelvis shows arthritis no fracture Computed tomography scan of the brain-parenchymal volume loss, no acute event reported Chest x-ray film personally reviewed by me, suggest some chronic changes including some pericardial calcification Assessment: -Frequent falls that are multifactorial including poor equilibrium multifactorial from arthritis and could be neuropathy. Patient is also legally blind. All these at up to patient having frequent falls and being unsteady. 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 We'll watch for at least another 24 hours. He'll remain steady. Hopefully can be discharged. 2 ECF.
[2019-02-17] MEDS: METOPROLOL SUCCINATE (ER) 25 MG TAB.ER.24H PO SCH (08:20)
[2019-02-17] MEDS: HYDROcodone/APAP 10-325MG 1 EACH TAB PO SCH (08:21)
[2019-02-17] MEDS: FUROSEMIDE 20 MG TAB PO SCH (08:21)
[2019-02-17] MEDS: ALLOPURINOL 100 MG TAB PO SCH (08:23)
[2019-02-17] MEDS: LISINOPRIL 20 MG TAB PO SCH (16:40)
[2019-02-17] MEDS: ISOSORBIDE MONONITRATE ER 60 MG TAB.ER.24H PO SCH (16:40)
[2019-02-17] MEDS ORDERED: HALOPERIDOL LACTATE 5 MG/ML 1 ML VIAL IM ONE (19:36)
[2019-02-17] MEDS ORDERED: LORazepam 2 MG/ML INJ IM STA (19:37)
[2019-02-17] MEDS: ATORVASTATIN 40 MG TAB PO SCH (19:37)
[2019-02-17] MEDS: QUEtiapine 100 MG TAB PO SCH (19:37)
[2019-02-17] MEDS: TAMSULOSIN 0.4 MG CAP.ER.24H PO SCH (19:38)
[2019-02-17] MEDS: POLYETHYLENE GLYCOL 3350 17 GM POWD.PACK PO SCH (19:38)
[2019-02-17] MEDS: SERTRALINE 100 MG TAB PO SCH (19:38)
[2019-02-17] MEDS: FINASTERIDE 5 MG TAB PO SCH (19:38)
--- NOTE | 2019-02-17 20:02 | P.PN ---
Progress Note - Text Progress Note Date: 02/17/19 Interval history: Patient admitted with frequent falls felt to be multifactorial. Also being tr eated for delusional disorder from paranoid ideation. Patient is legally blind. Today-saw him this morning. Sitting up. Comfortable. Did tolerate his diet. Answering questions appropriately. No new issues. Review of systems: Was done for constitutional, cardiovascular, GI, pulmonary. Psychiatry relevant finding as above Active Medications Hydrocodone Bitart/Acetaminophen ([place] 10) 1 each PO DAILY [facility] Last Admin: 02/17/19 08:21 Dose: 1 each Documented by: Allopurinol (Zyloprim) 100 mg PO DAILY [facility] Last Admin: 02/17/19 08:23 Dose: 100 mg Documented by: Atorvastatin Calcium (Lipitor) 40 mg PO [facility] Last Admin: 02/17/19 19:37 Dose: Not Given Documented by: Finasteride (Proscar) 5 mg PO [facility] Last Admin: 02/17/19 19:38 Dose: Not Given Documented by: Furosemide (Lasix) 20 mg PO DAILY [facility] Last Admin: 02/17/19 08:21 Dose: 20 mg Documented by: Isosorbide Mononitrate (Imdur) 60 mg PO DAILY@1700 [facility] Last Admin: 02/17/19 16:40 Dose: 60 mg Documented by: Lisinopril (Zestril) 20 mg PO DAILY@1700 [facility] Last Admin: 02/17/19 16:40 Dose: 20 mg Documented by: Metoprolol Succinate (Toprol Xl) 25 mg PO DAILY [facility] Last Admin: 02/17/19 08:20 Dose: 25 mg Documented by: Naloxone HCl (Narcan) 0.2 mg IV Q2M PRN PRN Reason: Opioid Reversal Polyethylene Glycol (Miralax) 17 gm PO [facility] Last Admin: 02/17/19 19:38 Dose: Not Given Documented by: Quetiapine Fumarate (Seroquel) 100 mg PO 1900 [facility] Last Admin: 02/17/19 19:37 Dose: Not Given Documented by: Sertraline HCl (Zoloft) 100 mg PO [facility] Last Admin: 02/17/19 19:38 Dose: Not Given Documented by: Tamsulosin HCl (Flomax) 0.4 mg PO [facility] Last Admin: 02/17/19 19:38 Dose: Not Given Documented by: On examination: VITAL SIGNS: 97.6, 51, 16, 107/64, 98% room air GENERAL APPEARANCE: Sitting up in bed, comfortable HEENT: Normal external appearance of nose and ear. Oral cavity normal EYES: Poor vision. NECK: JVD not raised. Mass not palpable. RESPIRATORY: Respiratory effort normal. Lungs clear to auscultation. CARDIOVASCULAR: First and second sounds normal. No edema. ABDOMEN: Soft. Liver and spleen not palpable. No tenderness. No mass palpable. PSYCHIATRY: Answering questions appropriately. New that he was in the hospital at [facility]. New the season. The month.. Investigations EKG tracing personally reviewed by me shows normal sinus rhythm, poor R-wave progression X-ray of the pelvis shows arthritis no fracture Computed tomography scan of the brain-parenchymal volume loss, no acute event reported Chest x-ray film personally reviewed by me, suggest some chronic changes including some pericardial calcification Assessment: -Frequent falls that are multifactorial including poor equilibrium multifactorial from arthritis and could be neuropathy. Patient is also legally blind. All these at up to patient having frequent falls and being unsteady. 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 They'll be going to court tomorrow to get legal guardianship's. Subsequently looking for a place for the patient ago. Continue current medication treatment plan.
[2019-02-18] MEDS: FUROSEMIDE 20 MG TAB PO SCH (07:57)
[2019-02-18] MEDS: ALLOPURINOL 100 MG TAB PO SCH (07:57)
[2019-02-18] MEDS: METOPROLOL SUCCINATE (ER) 25 MG TAB.ER.24H PO SCH (07:57)
[2019-02-18] MEDS: HYDROcodone/APAP 10-325MG 1 EACH TAB PO SCH (07:57)
[2019-02-18] MEDS ORDERED: risperiDONE ORAL SOLN 5 MG/5 ML CUP PO STA (13:20)
--- NOTE | 2019-02-18 14:14 | P.PN ---
Progress Note - Text Progress Note Date: 02/18/19 Interval History: Patient is a 78-year-old male who was seen today in follow-up to a consultation. Patient became agitated last night, was yelling and screaming and I was contacted patient was given Haldol 1 mg and Ativan 0.5 mg IM with good results. 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 Patient then told me that he saw men standing at the edge of his bed, reported that his linens were dirty. Mental Status: Appearance/Attitude: Patient is lying in a hospital bed, patient is legally blind and also hard of hearing, he was cooperative with me Behavior: Patient did not display any psychomotor retardation but was agitated last evening and shortly before I arrived this afternoon, responding to visual hallucinations and was paranoid Speech/Language: Patient's speech is spontaneous of normal volume and rhythm and he is coherent Thought Process: Patient is goal-directed Thought Content: Patient does not of any auditory hallucinations but is responding to visual hallucinations of seeing people in the room who he views his threatening, patient also reports to me that 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 Patient states that he was also left outside last night around a swimming pool with his food and that's why he became agitated yesterday evening. Patient states that he did sleep last evening and continued to report visual hallucinations while I was in the room of a group of men standing at the end of his bed. Suicidal/Homicidal Ideation: Patient does not have any current suicidal or homicidal ideation Sensorium/Cognition: Patient is alert and oriented to person, situation, place and date Mood/Affect: Patient's mood was cooperative while I was with him earlier this afternoon he was agitated, argumentative with staff and last evening was yelling and screaming Insight/Judgment: Patient's insight and judgment are limited Assessment: Patient's paranoia and visual hallucinations are increasing the longer he is in the hospital, I we'll change his antipsychotic from Seroquel to Risperdal which will be more effective in controlling his paranoid ideation. Patient is seeing people in the room, thinks he is in another location in the hospital and is responding to this becoming increasingly agitated. Guardianship has been applied for for the patient and we are awaiting the hearing tomorrow. Plan: We will discontinue the patient's Seroquel and decrease the Zoloft to 50 mg daily, we will begin Risperdal 1 mg oral solution in the morning and 2 mg oral solution at 6 PM at night, patient was given Risperdal 2 mg oral solution when I saw him due to his agitation, paranoia and visual hallucinations. It is unclear to me whether his visual hallucinations are causing him to be paranoid secondary to his macular degeneration and lack of vision, there is a history of a dementia is unclear to me which type of dementia, Lewy body dementia does cause visual hallucinations. is unclear if this gentleman has that diagnosis or not. More than likely his visual hallucinations are secondary to his macular degeneration, and this and his decreased hearing have caused him to become paranoid. I will decrease the Zoloft as I do not see any evidence of depression in this patient. I will continue to follow the patient and adjust his medications as needed.
[2019-02-18] MEDS: ISOSORBIDE MONONITRATE ER 60 MG TAB.ER.24H PO SCH (15:42)
[2019-02-18] MEDS: LISINOPRIL 20 MG TAB PO SCH (15:42)
--- NOTE | 2019-02-18 17:25 | P.PN ---
Progress Note - Text Progress Note Date: 02/18/19 Interval history: Patient admitted with frequent falls felt to be multifactorial. Also being tr eated for delusional disorder from paranoid ideation. Patient is legally blind. Today-had an episode of agitation yesterday evening. Slept well through the night. Stable this morning. Case management is going down to the courthouse to get legal guardianship. No other new issues Review of systems: Was done for constitutional, cardiovascular, GI, pulmonary. Psychiatry relevant finding as above Active Medications Hydrocodone Bitart/Acetaminophen ([place] 10) 1 each PO DAILY [facility] Last Admin: 02/18/19 07:57 Dose: 1 each Documented by: Allopurinol (Zyloprim) 100 mg PO DAILY [facility] Last Admin: 02/18/19 07:57 Dose: 100 mg Documented by: Atorvastatin Calcium (Lipitor) 40 mg PO [facility] Last Admin: 02/17/19 19:37 Dose: Not Given Documented by: Finasteride (Proscar) 5 mg PO [facility] Last Admin: 02/17/19 19:38 Dose: Not Given Documented by: Furosemide (Lasix) 20 mg PO DAILY [facility] Last Admin: 02/18/19 07:57 Dose: 20 mg Documented by: Isosorbide Mononitrate (Imdur) 60 mg PO DAILY@1700 [facility] Last Admin: 02/18/19 15:42 Dose: 60 mg Documented by: Lisinopril (Zestril) 20 mg PO DAILY@1700 [facility] Last Admin: 02/18/19 15:42 Dose: 20 mg Documented by: Metoprolol Succinate (Toprol Xl) 25 mg PO DAILY [facility] Last Admin: 02/18/19 07:57 Dose: 25 mg Documented by: Naloxone HCl (Narcan) 0.2 mg IV Q2M PRN PRN Reason: Opioid Reversal Polyethylene Glycol (Miralax) 17 gm PO [facility] Last Admin: 02/17/19 19:38 Dose: Not Given Documented by: Risperidone (Risperdal Oral Soln) 1 mg PO DAILY [facility] Risperidone (Risperdal Oral Soln) 2 mg PO 1800 [facility] Sertraline HCl (Zoloft) 50 mg PO HS [facility] Tamsulosin HCl (Flomax) 0.4 mg PO [facility] Last Admin: 02/17/19 19:38 Dose: Not Given Documented by: On examination: VITAL SIGNS: 98.4, 74, 16, 111/64, 95% room air GENERAL APPEARANCE: Laying in bed, comfortable HEENT: Normal external appearance of nose and ear. Oral cavity normal EYES: Poor vision. NECK: JVD not raised. Mass not palpable. RESPIRATORY: Respiratory effort normal. Lungs clear to auscultation. CARDIOVASCULAR: First and second sounds normal. No edema. ABDOMEN: Soft. Liver and spleen not palpable. No tenderness. No mass palpable. PSYCHIATRY: Answering questions appropriately. Investigations EKG tracing personally reviewed by me shows normal sinus rhythm, poor R-wave progression X-ray of the pelvis shows arthritis no fracture Computed tomography scan of the brain-parenchymal volume loss, no acute event reported Chest x-ray film personally reviewed by me, suggest some chronic changes including some pericardial calcification Assessment: -Frequent falls that are multifactorial including poor equilibrium multifactorial from arthritis and could be neuropathy. Patient is also legally blind. All these at up to patient having frequent falls and being unsteady. 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 Continue current medication treatment plan. Patient was switched from Seroquel to Risperdal by psychiatry. Follow along
[2019-02-18] MEDS ORDERED: risperiDONE ORAL SOLN 5 MG/5 ML CUP PO SCH (18:00)
[2019-02-18] MEDS: POLYETHYLENE GLYCOL 3350 17 GM POWD.PACK PO SCH (20:15)
[2019-02-18] MEDS: ATORVASTATIN 40 MG TAB PO SCH (20:16)
[2019-02-18] MEDS: TAMSULOSIN 0.4 MG CAP.ER.24H PO SCH (20:16)
[2019-02-18] MEDS: SERTRALINE 50 MG TAB PO SCH (20:16)
[2019-02-18] MEDS: FINASTERIDE 5 MG TAB PO SCH (20:16)
[2019-02-19] MEDS: ALLOPURINOL 100 MG TAB PO SCH (08:32)
[2019-02-19] MEDS: METOPROLOL SUCCINATE (ER) 25 MG TAB.ER.24H PO SCH (08:32)
[2019-02-19] MEDS: HYDROcodone/APAP 10-325MG 1 EACH TAB PO SCH (08:32)
[2019-02-19] MEDS: FUROSEMIDE 20 MG TAB PO SCH (08:32)
[2019-02-19] MEDS ORDERED: risperiDONE ORAL SOLN 5 MG/5 ML CUP PO SCH (09:00)
--- NOTE | 2019-02-19 15:35 | P.PN ---
Progress Note - Text Progress Note Date: 02/19/19 Interval History: Patient is a 78-year-old male who was seen today, I had spoken with nursing staff earlier today about whether the patient needed to be continued on pain medication and this is been discontinued. Patient stated he was doing much better stated that he was no longer seeing things and no longer had thoughts that people were trying to hurt him or that the room was dirty, that he needed to take a bath and he states that he felt much better and slept much better last night than he did prior to this. Patient reported no complaints at this time and had no side effects from the medication. Mental Status: Appearance/Attitude: Patient is lying in a hospital bed, he is legally blind and also somewhat hard of hearing, he was cooperative Behavior: Patient did not display any psychomotor agitation or retardation Speech/Language: Patient's speech was spontaneous of normal volume and rhythm and he was coherent Thought Process: Patient was goal-directed there is no evidence of loose association or flight of ideas Thought Content: And denied any auditory or visual hallucinations he did not verbalize any paranoid ideation and none was elicited. Patient stated that he is not seeing things in the room anymore and also states that he doesn't think the room is dirty or that he is being held against his will. Patient was oriented to where we were at this time. Patient states that he slept well last night and feels much better today. Patient states that he is eating well Suicidal/Homicidal Ideation: Patient denied any current suicidal or homicidal ideation Sensorium/Cognition: Patient was alert and oriented to person, location, situation, and time Mood/Affect: Patient's mood was less irritable and his affect is appropriate to his mood Insight/Judgment: Patient's insight and judgment are limited Assessment: Speaking with nursing staff they report no incidents last evening and at the patient has been sleeping and the patient was sleeping this morning but was not overly sedated. Patient reports that he is no longer having visual hallucinations he is no longer as suspicious or guarded and there've been no episodes of agitation. Patient states that he doesn't think he is in a dirty room or being held somewhere against his will. Patient reports that he slept w ell and feels rested today. Patient did have a guardian appointed today as well. Plan: Patient's pain medications have been discontinued I had decreased his Zoloft to 50 mg a day and I will continue that as patient was started on this to target his PTSD symptoms in the past. Patient will continue on Risperdal but I will change it from the oral solution to pill form as 1 mg in the morning and 2 mg at 6 PM. I will follow the patient and evaluate his response to the current dose of Risperdal.
--- NOTE | 2019-02-19 16:25 | P.PN ---
Progress Note - Text Progress Note Date: 02/19/19 Interval history: Patient admitted with frequent falls felt to be multifactorial. Also being tr eated for delusional disorder from paranoid ideation. Patient is legally blind. Today-did well overnight.; Seroquel Was discontinued. Started on Risperdal. Had his breakfast this morning. community mental health social worker went to the Court and a court appointed guardian was done. Did tolerate his meals. Review of systems: Was done for constitutional, cardiovascular, GI, pulmonary. Psychiatry relevant finding as above Active Medications Allopurinol (Zyloprim) 100 mg PO DAILY [facility] Last Admin: 02/19/19 08:32 Dose: 100 mg Documented by: Atorvastatin Calcium (Lipitor) 40 mg PO [facility] Last Admin: 02/18/19 20:16 Dose: 40 mg Documented by: Finasteride (Proscar) 5 mg PO [facility] Last Admin: 02/18/19 20:16 Dose: 5 mg Documented by: Furosemide (Lasix) 20 mg PO DAILY [facility] Last Admin: 02/19/19 08:32 Dose: 20 mg Documented by: Isosorbide Mononitrate (Imdur) 60 mg PO DAILY@1700 [facility] Last Admin: 02/18/19 15:42 Dose: 60 mg Documented by: Lisinopril (Zestril) 20 mg PO DAILY@1700 [facility] Last Admin: 02/18/19 15:42 Dose: 20 mg Documented by: Metoprolol Succinate (Toprol Xl) 25 mg PO DAILY [facility] Last Admin: 02/19/19 08:32 Dose: 25 mg Documented by: Naloxone HCl (Narcan) 0.2 mg IV Q2M PRN PRN Reason: Opioid Reversal Polyethylene Glycol (Miralax) 17 gm PO [facility] Last Admin: 02/18/19 20:15 Dose: 17 gm Documented by: Risperidone (Risperdal) 1 mg PO DAILY [facility] Risperidone (Risperdal) 2 mg PO 1800 [facility] Sertraline HCl (Zoloft) 50 mg PO [facility] Last Admin: 02/18/19 20:16 Dose: 50 mg Documented by: Tamsulosin HCl (Flomax) 0.4 mg PO [facility] Last Admin: 02/18/19 20:16 Dose: 0.4 mg Documented by: On examination: VITAL SIGNS: r 97.5, 55, 14, 180/61, 98% room air GENERAL APPEARANCE: Laying in bed, comfortable HEENT: Normal external appearance of nose and ear. Oral cavity normal EYES: Poor vision. NECK: JVD not raised. Mass not palpable. RESPIRATORY: Respiratory effort normal. Lungs clear to auscultation. CARDIOVASCULAR: First and second sounds normal. No edema. ABDOMEN: Soft. Liver and spleen not palpable. No tenderness. No mass palpable. PSYCHIATRY: Answering questions appropriately. No hallucinations reported overnight or agitation Previous Investigations EKG tracing personally reviewed by me shows normal sinus rhythm, poor R-wave progression X-ray of the pelvis shows arthritis no fracture Computed tomography scan of the brain-parenchymal volume loss, no acute event reported Chest x-ray film personally reviewed by me, suggest some chronic changes including some pericardial calcification Assessment: -Frequent falls that are multifactorial including poor equilibrium multifactorial from arthritis and could be neuropathy. Patient is also legally blind. All these at up to patient having frequent falls and being unsteady. 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 Seen by Dr. Bear from psychiatry. Doing better with Jackidaaren lWhit Spoke to social social and political studies professor. Awaiting placement to [facility] place.
[2019-02-19] MEDS: LISINOPRIL 20 MG TAB PO SCH (16:42)
[2019-02-19] MEDS: ISOSORBIDE MONONITRATE ER 60 MG TAB.ER.24H PO SCH (16:42)
[2019-02-19] MEDS: risperiDONE 2 MG TAB PO SCH (17:51)
[2019-02-19] MEDS: TAMSULOSIN 0.4 MG CAP.ER.24H PO SCH (20:32)
[2019-02-19] MEDS: SERTRALINE 50 MG TAB PO SCH (20:32)
[2019-02-19] MEDS: FINASTERIDE 5 MG TAB PO SCH (20:32)
[2019-02-19] MEDS: ATORVASTATIN 40 MG TAB PO SCH (20:32)
[2019-02-19] MEDS: POLYETHYLENE GLYCOL 3350 17 GM POWD.PACK PO SCH (20:33)
[2019-02-20] MEDS: ALLOPURINOL 100 MG TAB PO SCH (08:22)
[2019-02-20] MEDS: FUROSEMIDE 20 MG TAB PO SCH (08:22)
[2019-02-20] MEDS: risperiDONE 1 MG TAB PO SCH (08:22)
[2019-02-20] MEDS: METOPROLOL SUCCINATE (ER) 25 MG TAB.ER.24H PO SCH (08:23)
--- NOTE | 2019-02-20 13:38 | P.PN ---
Progress Note - Text Progress Note Date: 02/20/19 Interval History: Patient is a 78-year-old male who was seen today in follow-up to a consultation. Patient states that he is doing well, he states he saw 2 men in his room yesterday but knew that it was a visual hallucination because he didn't answer when he tried to speak to them. He states that he sleeping well, and hasn't had any further visual hallucinations. Patient is not reporting any paranoid ideation and stated that he hasn't had any of the thoughts that he had been expressing to me earlier. Patient has had no episodes of agitation at night and has been compliant with his medication. Mental Status: Appearance/Attitude: Patient is sitting in bed eating, he has difficulty hearing, is legally blind and is cooperative Behavior: Patient does not display any psychomotor agitation or retardation Speech/Language: Patient's speech is spontaneous of normal volume and rhythm and he is coherent Thought Process: Patient is goal-directed there is no evidence of loose associations or flight of ideas Thought Content: Patient denies any auditory hallucinations and states he is not having any current visual hallucinations only had one episode of it yesterday afternoon shortly after I saw him. He is not expressing any paranoid or other delusional ideation. Patient states that he is feeling much more comfortable, sleeping well and his appetite is good. Suicidal/Homicidal Ideation: Patient denies any current suicidal or homicidal ideation Sensorium/Cognition: Patient is alert and oriented to person, place and time Mood/Affect: Patient's mood is pleasant and his affect is appropriate Insight/Judgment: Patient's insight and judgment are limited Assessment: Patient has not had any further episodes of agitation, he has not reported any visual hallucinations recently other than he states shortly after he saw me yesterday but he was able to see that they were hallucinations and not real. He is not expressing any paranoid ideation, is not complaining that the room was dirty that he is dirty or the people are trying to hurt him. Patient is sleeping well his appetite is good and he has no side effects from the medication noted on exam. Patient has been compliant with nursing staff and his medications. Plan: Would continue the patient on his Risperdal 1 mg in the morning and 2 mg at bedtime and should be continued once he is discharged as well. I will sign off the case if there are any further questions or concerns please contact psychiatry.
[2019-02-20] MEDS: ISOSORBIDE MONONITRATE ER 60 MG TAB.ER.24H PO SCH (17:23)
[2019-02-20] MEDS: LISINOPRIL 20 MG TAB PO SCH (17:23)
[2019-02-20] MEDS: risperiDONE 2 MG TAB PO SCH (19:20)
[2019-02-20] MEDS: SERTRALINE 50 MG TAB PO SCH (21:19)
[2019-02-20] MEDS: ATORVASTATIN 40 MG TAB PO SCH (21:19)
[2019-02-20] MEDS: TAMSULOSIN 0.4 MG CAP.ER.24H PO SCH (21:19)
[2019-02-20] MEDS: FINASTERIDE 5 MG TAB PO SCH (21:20)
[2019-02-20] MEDS: POLYETHYLENE GLYCOL 3350 17 GM POWD.PACK PO SCH (21:20)
--- NOTE | 2019-02-20 23:15 | P.PN ---
Progress Note - Text Progress Note Date: 02/20/19 Interval history: Patient admitted with frequent falls felt to be multifactorial. Also being tr eated for delusional disorder from paranoid ideation. Patient is legally blind. Today-remains stable. No further episodes of delusion. Tolerating a diet. Comfortable Review of systems: Was done for constitutional, cardiovascular, GI, pulmonary. Psychiatry relevant finding as above Active Medications Allopurinol (Zyloprim) 100 mg PO DAILY [facility] Last Admin: 02/20/19 08:22 Dose: 100 mg Documented by: Atorvastatin Calcium (Lipitor) 40 mg PO [facility] Last Admin: 02/20/19 21:19 Dose: 40 mg Documented by: Finasteride (Proscar) 5 mg PO [facility] Last Admin: 02/20/19 21:20 Dose: 5 mg Documented by: Furosemide (Lasix) 20 mg PO DAILY [facility] Last Admin: 02/20/19 08:22 Dose: 20 mg Documented by: Isosorbide Mononitrate (Imdur) 60 mg PO DAILY@1700 [facility] Last Admin: 02/20/19 17:23 Dose: 60 mg Documented by: Lisinopril (Zestril) 20 mg PO DAILY@1700 [facility] Last Admin: 02/20/19 17:23 Dose: 20 mg Documented by: Metoprolol Succinate (Toprol Xl) 25 mg PO DAILY [facility] Last Admin: 02/20/19 08:23 Dose: 25 mg Documented by: Naloxone HCl (Narcan) 0.2 mg IV Q2M PRN PRN Reason: Opioid Reversal Polyethylene Glycol (Miralax) 17 gm PO [facility] Last Admin: 02/20/19 21:20 Dose: 17 gm Documented by: Risperidone (Risperdal) 1 mg PO DAILY [facility] Last Admin: 02/20/19 08:22 Dose: 1 mg Documented by: Risperidone (Risperdal) 2 mg PO 1800 [facility] Last Admin: 02/20/19 19:20 Dose: 2 mg Documented by: Sertraline HCl (Zoloft) 50 mg PO [facility] Last Admin: 02/20/19 21:19 Dose: 50 mg Documented by: Tamsulosin HCl (Flomax) 0.4 mg PO [facility] Last Admin: 02/20/19 21:19 Dose: 0.4 mg Documented by: On examination: VITAL SIGNS: 98.3, 60, 16, 1 33 x 76, 99% GENERAL APPEARANCE: Laying in bed, comfortable HEENT: Normal external appearance of nose and ear. Oral cavity normal EYES: Poor vision. NECK: JVD not raised. Mass not palpable. RESPIRATORY: Respiratory effort normal. Lungs clear to auscultation. CARDIOVASCULAR: First and second sounds normal. No edema. ABDOMEN: Soft. Liver and spleen not palpable. No tenderness. No mass palpable. PSYCHIATRY: Answering questions appropriately. No hallucinations reported overnight or agitation Previous Investigations EKG tracing personally reviewed by me shows normal sinus rhythm, poor R-wave progression X-ray of the pelvis shows arthritis no fracture Computed tomography scan of the brain-parenchymal volume loss, no acute event reported Chest x-ray film personally reviewed by me, suggest some chronic changes including some pericardial calcification Assessment: -Frequent falls that are multifactorial including poor equilibrium multifactorial from arthritis and could be neuropathy. Patient is also legally blind. All these at up to patient having frequent falls and being unsteady. 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 Patient also has a son who is helping ordered with discharge process Plan: Continue current medications for plan. Awaiting placement.
[2019-02-21] MEDS: FUROSEMIDE 20 MG TAB PO SCH (08:58)
[2019-02-21] MEDS: METOPROLOL SUCCINATE (ER) 25 MG TAB.ER.24H PO SCH (08:58)
[2019-02-21] MEDS: ALLOPURINOL 100 MG TAB PO SCH (08:58)
[2019-02-21] MEDS: risperiDONE 1 MG TAB PO SCH (09:00)
--- NOTE | 2019-02-21 14:55 | P.PN ---
Progress Note - Text Progress Note Date: 02/21/19 Interval history: Patient admitted with frequent falls felt to be multifactorial. Also being tr eated for delusional disorder from paranoid ideation. Patient is legally blind. Resting. Tolerating a diet. No further delusions. Comfortable. Review of systems: Was done for constitutional, cardiovascular, GI, pulmonary. Psychiatry relevant finding as above Active Medications Allopurinol (Zyloprim) 100 mg PO DAILY [facility] Last Admin: 02/21/19 08:58 Dose: 100 mg Documented by: Atorvastatin Calcium (Lipitor) 40 mg PO [facility] Last Admin: 02/20/19 21:19 Dose: 40 mg Documented by: Finasteride (Proscar) 5 mg PO [facility] Last Admin: 02/20/19 21:20 Dose: 5 mg Documented by: Furosemide (Lasix) 20 mg PO DAILY [facility] Last Admin: 02/21/19 08:58 Dose: 20 mg Documented by: Isosorbide Mononitrate (Imdur) 60 mg PO DAILY@1700 [facility] Last Admin: 02/20/19 17:23 Dose: 60 mg Documented by: Lisinopril (Zestril) 20 mg PO DAILY@1700 [facility] Last Admin: 02/20/19 17:23 Dose: 20 mg Documented by: Metoprolol Succinate (Toprol Xl) 25 mg PO DAILY [facility] Last Admin: 02/21/19 08:58 Dose: 25 mg Documented by: Naloxone HCl (Narcan) 0.2 mg IV Q2M PRN PRN Reason: Opioid Reversal Polyethylene Glycol (Miralax) 17 gm PO [facility] Last Admin: 02/20/19 21:20 Dose: 17 gm Documented by: Risperidone (Risperdal) 1 mg PO DAILY [facility] Last Admin: 02/21/19 09:00 Dose: 1 mg Documented by: Risperidone (Risperdal) 2 mg PO 1800 [facility] Last Admin: 02/20/19 19:20 Dose: 2 mg Documented by: Sertraline HCl (Zoloft) 50 mg PO [facility] Last Admin: 02/20/19 21:19 Dose: 50 mg Documented by: Tamsulosin HCl (Flomax) 0.4 mg PO [facility] Last Admin: 02/20/19 21:19 Dose: 0.4 mg Documented by: On examination: VITAL SIGNS: 97.8, 58, 16, 150/63, 97% room air GENERAL APPEARANCE: Laying in bed, comfortable HEENT: Normal external appearance of nose and ear. Oral cavity normal EYES: Poor vision. NECK: JVD not raised. Mass not palpable. RESPIRATORY: Respiratory effort normal. Lungs clear to auscultation. CARDIOVASCULAR: First and second sounds normal. No edema. ABDOMEN: Soft. Liver and spleen not palpable. No tenderness. No mass palpable. PSYCHIATRY: Answering questions appropriately. No hallucinations reported Previous Investigations EKG tracing personally reviewed by me shows normal sinus rhythm, poor R-wave progression X-ray of the pelvis shows arthritis no fracture Computed tomography scan of the brain-parenchymal volume loss, no acute event reported Chest x-ray film personally reviewed by me, suggest some chronic changes including some pericardial calcification Assessment: -Frequent falls that are multifactorial including poor equilibrium multifacto rial from arthritis and could be neuropathy. Patient is also legally blind. All these at up to patient having frequent falls and being unsteady. 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 Patient also has a son who is helping ordered with discharge process Plan: Stable. Continue current meds. Pending placement
[2019-02-21] MEDS: ISOSORBIDE MONONITRATE ER 60 MG TAB.ER.24H PO SCH (17:07)
[2019-02-21] MEDS: LISINOPRIL 20 MG TAB PO SCH (17:07)
[2019-02-21] MEDS: risperiDONE 2 MG TAB PO SCH (17:07)
[2019-02-21] MEDS: POLYETHYLENE GLYCOL 3350 17 GM POWD.PACK PO SCH (21:55)
[2019-02-21] MEDS: SERTRALINE 50 MG TAB PO SCH (21:55)
[2019-02-21] MEDS: TAMSULOSIN 0.4 MG CAP.ER.24H PO SCH (21:55)
[2019-02-21] MEDS: FINASTERIDE 5 MG TAB PO SCH (21:55)
[2019-02-21] MEDS: ATORVASTATIN 40 MG TAB PO SCH (21:55)
[2019-02-22] MEDS: ALLOPURINOL 100 MG TAB PO SCH (08:53)
[2019-02-22] MEDS: METOPROLOL SUCCINATE (ER) 25 MG TAB.ER.24H PO SCH (08:53)
[2019-02-22] MEDS: risperiDONE 1 MG TAB PO SCH (08:54)
[2019-02-22] MEDS: FUROSEMIDE 20 MG TAB PO SCH (08:54)
--- NOTE | 2019-02-22 14:23 | P.PN ---
Progress Note - Text Progress Note Date: 02/22/19 Interval history: Patient admitted with frequent falls felt to be multifactorial. Also being tr eated for delusional disorder from paranoid ideation. Patient is legally blind. Today-laying in bed. Comfortable. Tolerating diet. No delusions. Review of systems: Was done for constitutional, cardiovascular, GI, pulmonary. Psychiatry relevant finding as above Active Medications Allopurinol (Zyloprim) 100 mg PO DAILY [facility] Last Admin: 02/22/19 08:53 Dose: 100 mg Documented by: Atorvastatin Calcium (Lipitor) 40 mg PO [facility] Last Admin: 02/21/19 21:55 Dose: 40 mg Documented by: Finasteride (Proscar) 5 mg PO [facility] Last Admin: 02/21/19 21:55 Dose: 5 mg Documented by: Furosemide (Lasix) 20 mg PO DAILY [facility] Last Admin: 02/22/19 08:54 Dose: 20 mg Documented by: Isosorbide Mononitrate (Imdur) 60 mg PO DAILY@1700 [facility] Last Admin: 02/21/19 17:07 Dose: 60 mg Documented by: Lisinopril (Zestril) 20 mg PO DAILY@1700 [facility] Last Admin: 02/21/19 17:07 Dose: 20 mg Documented by: Metoprolol Succinate (Toprol Xl) 25 mg PO DAILY [facility] Last Admin: 02/22/19 08:53 Dose: 25 mg Documented by: Naloxone HCl (Narcan) 0.2 mg IV Q2M PRN PRN Reason: Opioid Reversal Polyethylene Glycol (Miralax) 17 gm PO [facility] Last Admin: 02/21/19 21:55 Dose: 17 gm Documented by: Risperidone (Risperdal) 1 mg PO DAILY [facility] Last Admin: 02/22/19 08:54 Dose: 1 mg Documented by: Risperidone (Risperdal) 2 mg PO 1800 [facility] Last Admin: 02/21/19 17:07 Dose: 2 mg Documented by: Sertraline HCl (Zoloft) 50 mg PO [facility] Last Admin: 02/21/19 21:55 Dose: 50 mg Documented by: Tamsulosin HCl (Flomax) 0.4 mg PO [facility] Last Admin: 02/21/19 21:55 Dose: 0.4 mg Documented by: On examination: VITAL SIGNS: 97.5, 68, 16, 126.73, 95% room air GENERAL APPEARANCE: Laying in bed, comfortable HEENT: Normal external appearance of nose and ear. Oral cavity normal EYES: Poor vision. NECK: JVD not raised. Mass not palpable. RESPIRATORY: Respiratory effort normal. Lungs clear to auscultation. CARDIOVASCULAR: First and second sounds normal. No edema. ABDOMEN: Soft. Liver and spleen not palpable. No tenderness. No mass palpable. PSYCHIATRY: Answering questions appropriately. No hallucinations reported Previous Investigations EKG tracing personally reviewed by me shows normal sinus rhythm, poor R-wave progression X-ray of the pelvis shows arthritis no fracture Computed tomography scan of the brain-parenchymal volume loss, no acute event reported Chest x-ray film personally reviewed by me, suggest some chronic changes including some pericardial calcification Assessment: -Frequent falls that are multifactorial including poor equilibrium multif actorial from arthritis and could be neuropathy. Patient is also legally blind. All these at up to patient having frequent falls and being unsteady. 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 Patient also has a son who is helping ordered with discharge process Plan: Pending placement. Continue current medications.
[2019-02-22] MEDS: ISOSORBIDE MONONITRATE ER 60 MG TAB.ER.24H PO SCH (17:52)
[2019-02-22] MEDS: risperiDONE 2 MG TAB PO SCH (17:52)
[2019-02-22] MEDS: LISINOPRIL 20 MG TAB PO SCH (17:52)
[2019-02-22] MEDS: ATORVASTATIN 40 MG TAB PO SCH (20:38)
[2019-02-22] MEDS: TAMSULOSIN 0.4 MG CAP.ER.24H PO SCH (20:38)
[2019-02-22] MEDS: FINASTERIDE 5 MG TAB PO SCH (20:38)
[2019-02-22] MEDS: SERTRALINE 50 MG TAB PO SCH (20:38)
[2019-02-22] MEDS: POLYETHYLENE GLYCOL 3350 17 GM POWD.PACK PO SCH (20:39)
[2019-02-23] MEDS: ALLOPURINOL 100 MG TAB PO SCH (07:38)
[2019-02-23] MEDS: METOPROLOL SUCCINATE (ER) 25 MG TAB.ER.24H PO SCH (07:38)
[2019-02-23] MEDS: risperiDONE 1 MG TAB PO SCH (07:38)
[2019-02-23] MEDS: FUROSEMIDE 20 MG TAB PO SCH (07:38)
[2019-02-23] MEDS: ISOSORBIDE MONONITRATE ER 60 MG TAB.ER.24H PO SCH (17:29)
[2019-02-23] MEDS: risperiDONE 2 MG TAB PO SCH (17:29)
[2019-02-23] MEDS: LISINOPRIL 20 MG TAB PO SCH (17:29)
[2019-02-23] MEDS: TAMSULOSIN 0.4 MG CAP.ER.24H PO SCH (20:11)
[2019-02-23] MEDS: FINASTERIDE 5 MG TAB PO SCH (20:11)
[2019-02-23] MEDS: SERTRALINE 50 MG TAB PO SCH (20:11)
[2019-02-23] MEDS: POLYETHYLENE GLYCOL 3350 17 GM POWD.PACK PO SCH (20:11)
[2019-02-23] MEDS: ATORVASTATIN 40 MG TAB PO SCH (20:11)
--- NOTE | 2019-02-23 23:22 | P.PN ---
Progress Note - Text Progress Note Date: 02/23/19 Interval history: Patient admitted with frequent falls felt to be multifactorial. Also being tr eated for delusional disorder from paranoid ideation. Patient is legally blind. No new issues. Tolerating a diet. Comfortable.. Review of systems: Was done for constitutional, cardiovascular, GI, pulmonary. Psychiatry relevant finding as above Active Medications Allopurinol (Zyloprim) 100 mg PO DAILY [facility] Last Admin: 02/23/19 07:38 Dose: 100 mg Documented by: Atorvastatin Calcium (Lipitor) 40 mg PO [facility] Last Admin: 02/23/19 20:11 Dose: 40 mg Documented by: Finasteride (Proscar) 5 mg PO [facility] Last Admin: 02/23/19 20:11 Dose: 5 mg Documented by: Furosemide (Lasix) 20 mg PO DAILY [facility] Last Admin: 02/23/19 07:38 Dose: 20 mg Documented by: Isosorbide Mononitrate (Imdur) 60 mg PO DAILY@1700 [facility] Last Admin: 02/23/19 17:29 Dose: 60 mg Documented by: Lisinopril (Zestril) 20 mg PO DAILY@1700 [facility] Last Admin: 02/23/19 17:29 Dose: 20 mg Documented by: Metoprolol Succinate (Toprol Xl) 25 mg PO DAILY [facility] Last Admin: 02/23/19 07:38 Dose: 25 mg Documented by: Naloxone HCl (Narcan) 0.2 mg IV Q2M PRN PRN Reason: Opioid Reversal Polyethylene Glycol (Miralax) 17 gm PO [facility] Last Admin: 02/23/19 20:11 Dose: 17 gm Documented by: Risperidone (Risperdal) 1 mg PO DAILY [facility] Last Admin: 02/23/19 07:38 Dose: 1 mg Documented by: Risperidone (Risperdal) 2 mg PO 1800 [facility] Last Admin: 02/23/19 17:29 Dose: 2 mg Documented by: Sertraline HCl (Zoloft) 50 mg PO [facility] Last Admin: 02/23/19 20:11 Dose: 50 mg Documented by: Tamsulosin HCl (Flomax) 0.4 mg PO [facility] Last Admin: 02/23/19 20:11 Dose: 0.4 mg Documented by: On examination: VITAL SIGNS: 97.9, 74, 16, 126 [place] 7, 98% room air GENERAL APPEARANCE: Laying in bed, comfortable HEENT: Normal external appearance of nose and ear. Oral cavity normal EYES: Poor vision. NECK: JVD not raised. Mass not palpable. RESPIRATORY: Respiratory effort normal. Lungs clear to auscultation. CARDIOVASCULAR: First and second sounds normal. No edema. ABDOMEN: Soft. Liver and spleen not palpable. No tenderness. No mass palpable. PSYCHIATRY: Answering questions appropriately. No hallucinations reported Previous Investigations EKG tracing personally reviewed by me shows normal sinus rhythm, poor R-wave progression X-ray of the pelvis shows arthritis no fracture Computed tomography scan of the brain-parenchymal volume loss, no acute event reported Chest x-ray film personally reviewed by me, suggest some chronic changes including some pericardial calcification Assessment: -Frequent falls that are multifactorial including poor equilibrium multifactorial from arthritis and could be neuropathy. Patient is also legally blind. All these at up to patient having frequent falls and being unsteady. 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 Patient also has a son who is helping ordered with discharge process Plan: Stable. Awaiting placement. Medications to continue.
[2019-02-24] MEDS: METOPROLOL SUCCINATE (ER) 25 MG TAB.ER.24H PO SCH (08:28)
[2019-02-24] MEDS: risperiDONE 1 MG TAB PO SCH (08:28)
[2019-02-24] MEDS: ALLOPURINOL 100 MG TAB PO SCH (08:29)
[2019-02-24] MEDS: FUROSEMIDE 20 MG TAB PO SCH (08:29)
[2019-02-24] MEDS: ISOSORBIDE MONONITRATE ER 60 MG TAB.ER.24H PO SCH (17:18)
[2019-02-24] MEDS: risperiDONE 2 MG TAB PO SCH (17:18)
[2019-02-24] MEDS: LISINOPRIL 20 MG TAB PO SCH (17:18)
[2019-02-24] MEDS: ATORVASTATIN 40 MG TAB PO SCH (20:18)
[2019-02-24] MEDS: SERTRALINE 50 MG TAB PO SCH (20:18)
[2019-02-24] MEDS: TAMSULOSIN 0.4 MG CAP.ER.24H PO SCH (20:18)
[2019-02-24] MEDS: POLYETHYLENE GLYCOL 3350 17 GM POWD.PACK PO SCH (20:18)
[2019-02-24] MEDS: FINASTERIDE 5 MG TAB PO SCH (20:18)
--- NOTE | 2019-02-24 23:36 | P.PN ---
Progress Note - Text Progress Note Date: 02/24/19 Interval history: Patient admitted with frequent falls felt to be multifactorial. Also being tr eated for delusional disorder from paranoid ideation. Patient is legally blind. Today-no delusions. Comfortable. Tolerating a diet. Awaiting placement... Review of systems: Was done for constitutional, cardiovascular, GI, pulmonary. Psychiatry relevant finding as above Active Medications Allopurinol (Zyloprim) 100 mg PO DAILY [facility] Last Admin: 02/24/19 08:29 Dose: 100 mg Documented by: Atorvastatin Calcium (Lipitor) [address] [facility] Last Admin: 02/24/19 20:18 Dose: 40 mg Documented by: Finasteride (Proscar) [address] [facility] Last Admin: 02/24/19 20:18 Dose: 5 mg Documented by: Furosemide (Lasix) 20 mg PO DAILY [facility] Last Admin: 02/24/19 08:29 Dose: 20 mg Documented by: Isosorbide Mononitrate (Imdur) 60 mg PO DAILY@1700 [facility] Last Admin: 02/24/19 17:18 Dose: 60 mg Documented by: Lisinopril (Zestril) 20 mg PO DAILY@1700 [facility] Last Admin: 02/24/19 17:18 Dose: 20 mg Documented by: Metoprolol Succinate (Toprol Xl) 25 mg PO DAILY [facility] Last Admin: 02/24/19 08:28 Dose: 25 mg Documented by: Naloxone HCl (Narcan) 0.2 mg IV Q2M PRN PRN Reason: Opioid Reversal Polyethylene Glycol (Miralax) [address] [facility] Last Admin: 02/24/19 20:18 Dose: 17 gm Documented by: Risperidone (Risperdal) 1 mg PO DAILY [facility] Last Admin: 02/24/19 08:28 Dose: 1 mg Documented by: Risperidone (Risperdal) 2 mg PO 1800 [facility] Last Admin: 02/24/19 17:18 Dose: 2 mg Documented by: Sertraline HCl (Zoloft) [address] [facility] Last Admin: 02/24/19 20:18 Dose: 50 mg Documented by: Tamsulosin HCl (Flomax) 0.[address] [facility] Last Admin: 02/24/19 20:18 Dose: 0.4 mg Documented by: On examination: VITAL SIGNS: 97.8, 81, 15, 99/61, 98% room air GENERAL APPEARANCE: Sitting up, comfortable HEENT: Normal external appearance of nose and ear. Oral cavity normal EYES: Poor vision. NECK: JVD not raised. Mass not palpable. RESPIRATORY: Respiratory effort normal. Lungs clear to auscultation. CARDIOVASCULAR: First and second sounds normal. No edema. ABDOMEN: Soft. Liver and spleen not palpable. No tenderness. No mass palpable. PSYCHIATRY: Answering questions appropriately. No hallucinations Previous Investigations EKG tracing personally reviewed by me shows normal sinus rhythm, poor R-wave progression X-ray of the pelvis shows arthritis no fracture Computed tomography scan of the brain-parenchymal volume loss, no acute event reported Chest x-ray film personally reviewed by me, suggest some chronic changes including some pericardial calcification Assessment: -Frequent falls that are multifactorial including poor equilibrium multifa ctorial from arthritis and could be neuropathy. Patient is also legally blind. All these at up to patient having frequent falls and being unsteady. 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 Pending placement. Court-appointed guardian and is looking for the place.
[2019-02-25] MEDS: FUROSEMIDE 20 MG TAB PO SCH (08:43)
[2019-02-25] MEDS: METOPROLOL SUCCINATE (ER) 25 MG TAB.ER.24H PO SCH (08:43)
[2019-02-25] MEDS: ALLOPURINOL 100 MG TAB PO SCH (08:44)
[2019-02-25] MEDS: risperiDONE 1 MG TAB PO SCH (08:44)
[2019-02-25] MEDS: ACETAMINOPHEN TAB 325 MG TAB PO PRN (15:54)
[2019-02-25] MEDS: ISOSORBIDE MONONITRATE ER 60 MG TAB.ER.24H PO SCH (18:09)
[2019-02-25] MEDS: LISINOPRIL 20 MG TAB PO SCH (18:09)
[2019-02-25] MEDS: risperiDONE 2 MG TAB PO SCH (18:10)
[2019-02-25] MEDS: ATORVASTATIN 40 MG TAB PO SCH (20:05)
[2019-02-25] MEDS: POLYETHYLENE GLYCOL 3350 17 GM POWD.PACK PO SCH (20:05)
[2019-02-25] MEDS: FINASTERIDE 5 MG TAB PO SCH (20:05)
[2019-02-25] MEDS: SERTRALINE 50 MG TAB PO SCH (20:05)
[2019-02-25] MEDS: TAMSULOSIN 0.4 MG CAP.ER.24H PO SCH (20:05)
--- NOTE | 2019-02-25 23:39 | P.PN ---
Progress Note - Text Progress Note Date: 02/25/19 Interval history: Patient admitted with frequent falls felt to be multifactorial. Also being tr eated for delusional disorder from paranoid ideation. Patient is legally blind. Today-comfortable. No delusions. Tolerating his diet. No new issues. Review of systems: Was done for constitutional, cardiovascular, GI, pulmonary. Psychiatry relevant finding as above Active Medications Acetaminophen (Tylenol Tab) 650 mg PO Q6HR PRN PRN Reason: Fever and/ or Pain Last Admin: 02/25/19 15:54 Dose: 650 mg Documented by: Allopurinol (Zyloprim) 100 mg PO DAILY [facility] Last Admin: 02/25/19 08:44 Dose: 100 mg Documented by: Atorvastatin Calcium (Lipitor) 40 mg PO [facility] Last Admin: 02/25/19 20:05 Dose: 40 mg Documented by: Finasteride (Proscar) 5 mg PO [facility] Last Admin: 02/25/19 20:05 Dose: 5 mg Documented by: Furosemide (Lasix) 20 mg PO DAILY [facility] Last Admin: 02/25/19 08:43 Dose: 20 mg Documented by: Isosorbide Mononitrate (Imdur) 60 mg PO DAILY@1700 [facility] Last Admin: 02/25/19 18:09 Dose: 60 mg Documented by: Lisinopril (Zestril) 20 mg PO DAILY@1700 [facility] Last Admin: 02/25/19 18:09 Dose: 20 mg Documented by: Metoprolol Succinate (Toprol Xl) 25 mg PO DAILY [facility] Last Admin: 02/25/19 08:43 Dose: 25 mg Documented by: Naloxone HCl (Narcan) 0.2 mg IV Q2M PRN PRN Reason: Opioid Reversal Polyethylene Glycol (Miralax) 17 gm PO [facility] Last Admin: 02/25/19 20:05 Dose: 17 gm Documented by: Risperidone (Risperdal) 1 mg PO DAILY [facility] Last Admin: 02/25/19 08:44 Dose: 1 mg Documented by: Risperidone (Risperdal) 2 mg PO 1800 [facility] Last Admin: 02/25/19 18:10 Dose: 2 mg Documented by: Sertraline HCl (Zoloft) 50 mg PO [facility] Last Admin: 02/25/19 20:05 Dose: 50 mg Documented by: Tamsulosin HCl (Flomax) 0.4 mg PO [facility] Last Admin: 02/25/19 20:05 Dose: 0.4 mg Documented by: On examination: VITAL SIGNS: 97.7, 72, 16, 159/86, 92% room air GENERAL APPEARANCE: Laying in bed HEENT: Normal external appearance of nose and ear. Oral cavity normal EYES: Poor vision. NECK: JVD not raised. Mass not palpable. RESPIRATORY: Respiratory effort normal. Lungs clear to auscultation. CARDIOVASCULAR: First and second sounds normal. No edema. ABDOMEN: Soft. Liver and spleen not palpable. No tenderness. No mass palpable. PSYCHIATRY: Answering questions appropriately. No hallucinations Previous Investigations EKG tracing personally reviewed by me shows normal sinus rhythm, poor R-wave progression X-ray of the pelvis shows arthritis no fracture Computed tomography scan of the brain-parenchymal volume loss, no acute event reported Chest x-ray film personally reviewed by me, suggest some chronic changes i ncluding some pericardial calcification Assessment: -Frequent falls that are multifactorial including poor equilibrium multifactorial from arthritis and could be neuropathy. Patient is also legally blind. All these at up to patient having frequent falls and being unsteady. 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 Patient also has a son who is helping ordered with discharge process Plan: Continue current medication. Pending placement.
[2019-02-26] MEDS: risperiDONE 1 MG TAB PO SCH (08:36)
[2019-02-26] MEDS: METOPROLOL SUCCINATE (ER) 25 MG TAB.ER.24H PO SCH (08:36)
[2019-02-26] MEDS: FUROSEMIDE 20 MG TAB PO SCH (08:36)
[2019-02-26] MEDS: ALLOPURINOL 100 MG TAB PO SCH (08:36)
[2019-02-26] MEDS: risperiDONE 2 MG TAB PO SCH (18:26)
[2019-02-26] MEDS: ISOSORBIDE MONONITRATE ER 60 MG TAB.ER.24H PO SCH (18:27)
[2019-02-26] MEDS: LISINOPRIL 20 MG TAB PO SCH (18:27)
[2019-02-26] MEDS: ATORVASTATIN 40 MG TAB PO SCH (20:59)
[2019-02-26] MEDS: SERTRALINE 50 MG TAB PO SCH (20:59)
[2019-02-26] MEDS: TAMSULOSIN 0.4 MG CAP.ER.24H PO SCH (20:59)
[2019-02-26] MEDS: POLYETHYLENE GLYCOL 3350 17 GM POWD.PACK PO SCH (20:59)
[2019-02-26] MEDS: FINASTERIDE 5 MG TAB PO SCH (20:59)
--- NOTE | 2019-02-26 21:19 | P.PN ---
Progress Note - Text Progress Note Date: 02/26/19 Interval history: Patient admitted with frequent falls felt to be multifactorial. Also being tr eated for delusional disorder from paranoid ideation. Patient is legally blind. Sitting up. No new issues. Tolerating a diet. No delusions today- Review of systems: Was done for constitutional, cardiovascular, GI, pulmonary. Psychiatry relevant finding as above Active Medications Acetaminophen (Tylenol Tab) 650 mg PO Q6HR PRN PRN Reason: Fever and/ or Pain Last Admin: 02/25/19 15:54 Dose: 650 mg Documented by: Allopurinol (Zyloprim) 100 mg PO DAILY [facility] Last Admin: 02/26/19 08:36 Dose: 100 mg Documented by: Atorvastatin Calcium (Lipitor) 40 mg PO [facility] Last Admin: 02/26/19 20:59 Dose: 40 mg Documented by: Finasteride (Proscar) 5 mg PO [facility] Last Admin: 02/26/19 20:59 Dose: 5 mg Documented by: Furosemide (Lasix) 20 mg PO DAILY [facility] Last Admin: 02/26/19 08:36 Dose: 20 mg Documented by: Isosorbide Mononitrate (Imdur) 60 mg PO DAILY@1700 [facility] Last Admin: 02/26/19 18:27 Dose: 60 mg Documented by: Lisinopril (Zestril) 20 mg PO DAILY@1700 [facility] Last Admin: 02/26/19 18:27 Dose: 20 mg Documented by: Metoprolol Succinate (Toprol Xl) 25 mg PO DAILY [facility] Last Admin: 02/26/19 08:36 Dose: 25 mg Documented by: Naloxone HCl (Narcan) 0.2 mg IV Q2M PRN PRN Reason: Opioid Reversal Polyethylene Glycol (Miralax) 17 gm PO [facility] Last Admin: 02/26/19 20:59 Dose: 17 gm Documented by: Risperidone (Risperdal) 1 mg PO DAILY [facility] Last Admin: 02/26/19 08:36 Dose: 1 mg Documented by: Risperidone (Risperdal) 2 mg PO 1800 [facility] Last Admin: 02/26/19 18:26 Dose: 2 mg Documented by: Sertraline HCl (Zoloft) 50 mg PO [facility] Last Admin: 02/26/19 20:59 Dose: 50 mg Documented by: Tamsulosin HCl (Flomax) 0.4 mg PO [facility] Last Admin: 02/26/19 20:59 Dose: 0.4 mg Documented by: On examination: VITAL SIGNS: 97.8, 57, 12, 129/95, 98% room air GENERAL APPEARANCE: Sitting up, comfortable HEENT: Normal external appearance of nose and ear. Oral cavity normal EYES: Poor vision. NECK: JVD not raised. Mass not palpable. RESPIRATORY: Respiratory effort normal. Lungs clear to auscultation. CARDIOVASCULAR: First and second sounds normal. No edema. ABDOMEN: Soft. Liver and spleen not palpable. No tenderness. No mass palpable. PSYCHIATRY: Answering questions appropriately. No hallucinations Previous Investigations EKG tracing personally reviewed by me shows normal sinus rhythm, poor R-wave progression X-ray of the pelvis shows arthritis no fracture Computed tomography scan of the brain-parenchymal volume loss, no acute event reported Chest x-ray film personally reviewed by me, suggest some chronic changes including some pericardial calcification Assessment: -Frequent falls that are multifactorial including poor equilibrium multifactorial from arthritis and could be neuropathy. Patient is also legally blind. All these at up to patient having frequent falls and being unsteady. 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 Patient also has a son who is helping ordered with discharge process Plan: Spoke to social media editor. Pending placement. They did reach out to the public guardian. Medications to continue.
[2019-02-26] MEDS: ACETAMINOPHEN TAB 325 MG TAB PO PRN (23:53)
[2019-02-27] MEDS: METOPROLOL SUCCINATE (ER) 25 MG TAB.ER.24H PO SCH ×2 (09:03→09:04)
[2019-02-27] MEDS: FUROSEMIDE 20 MG TAB PO SCH (09:03)
[2019-02-27] MEDS: ALLOPURINOL 100 MG TAB PO SCH (09:04)
[2019-02-27] MEDS: risperiDONE 1 MG TAB PO SCH (09:08)
[2019-02-27] MEDS: LISINOPRIL 20 MG TAB PO SCH (16:32)
[2019-02-27] MEDS: risperiDONE 2 MG TAB PO SCH (17:06)
[2019-02-27] MEDS: ISOSORBIDE MONONITRATE ER 60 MG TAB.ER.24H PO SCH (17:06)
--- NOTE | 2019-02-27 20:02 | P.PN ---
Progress Note - Text Progress Note Date: 02/27/19 Interval history: Patient admitted with frequent falls felt to be multifactorial. Also being tr eated for delusional disorder from paranoid ideation. Patient is legally blind. Today-comfortable. No delusions. Was visited by Brittany from legal guardian's office. The looking into the social aspect to get him discharged. Otherwise patient stable. Talking relevantly Review of systems: Was done for constitutional, cardiovascular, GI, pulmonary. Psychiatry relevant finding as above Active Medications Acetaminophen (Tylenol Tab) 650 mg PO Q6HR PRN PRN Reason: Fever and/ or Pain Last Admin: 02/26/19 23:53 Dose: 650 mg Documented by: Allopurinol (Zyloprim) 100 mg PO DAILY [facility] Last Admin: 02/27/19 09:04 Dose: 100 mg Documented by: Atorvastatin Calcium (Lipitor) 40 mg PO [facility] Last Admin: 02/26/19 20:59 Dose: 40 mg Documented by: Finasteride (Proscar) 5 mg PO [facility] Last Admin: 02/26/19 20:59 Dose: 5 mg Documented by: Furosemide (Lasix) 20 mg PO DAILY [facility] Last Admin: 02/27/19 09:03 Dose: 20 mg Documented by: Isosorbide Mononitrate (Imdur) 60 mg PO DAILY@1700 [facility] Last Admin: 02/27/19 17:06 Dose: 60 mg Documented by: Lisinopril (Zestril) 20 mg PO DAILY@1700 [facility] Last Admin: 02/27/19 16:32 Dose: Not Given Documented by: Metoprolol Succinate (Toprol Xl) 25 mg PO DAILY [facility] Last Admin: 02/27/19 09:04 Dose: 25 mg Documented by: Naloxone HCl (Narcan) 0.2 mg IV Q2M PRN PRN Reason: Opioid Reversal Polyethylene Glycol (Miralax) 17 gm PO [facility] Last Admin: 02/26/19 20:59 Dose: 17 gm Documented by: Risperidone (Risperdal) 1 mg PO DAILY [facility] Last Admin: 02/27/19 09:08 Dose: 1 mg Documented by: Risperidone (Risperdal) 2 mg PO 1800 [facility] Last Admin: 02/27/19 17:06 Dose: 2 mg Documented by: Sertraline HCl (Zoloft) 50 mg PO [facility] Last Admin: 02/26/19 20:59 Dose: 50 mg Documented by: Tamsulosin HCl (Flomax) 0.4 mg PO [facility] Last Admin: 02/26/19 20:59 Dose: 0.4 mg Documented by: On examination: VITAL SIGNS: 97.7, 74, 18, 102/64, 97% on room air GENERAL APPEARANCE: Sitting up, comfortable HEENT: Normal external appearance of nose and ear. Oral cavity normal EYES: Poor vision. NECK: JVD not raised. Mass not palpable. RESPIRATORY: Respiratory effort normal. Lungs clear to auscultation. CARDIOVASCULAR: First and second sounds normal. No edema. ABDOMEN: Soft. Liver and spleen not palpable. No tenderness. No mass palpable. PSYCHIATRY: Answering questions appropriately. No hallucinations Previous Investigations EKG tracing personally reviewed by me shows normal sinus rhythm, poor R-wave progression X-ray of the pelvis shows arthritis no fracture Computed tomography scan of the brain-parenchymal volume loss, no acute event reported Chest x-ray film personally reviewed by me, suggest some chronic changes including some pericardial calcification Assessment: -Frequent falls that are multifactorial including poor equilibrium multifactorial from arthritis and could be neuropathy. Patient is also legally blind. All these at up to patient having frequent falls and being unsteady. 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 Plan: Spoke to Brittany sue associate from the Court. That is the legal guardian's office discussed the social aspect of patient's discharge planning. Medically patient is doing well. This point we decided to go ahead with outpatient physical therapy and possibly patient returning home with his was rather able bodied. She is able to call The drive a car able to get around. It is believed she should built to take care for the patient in addition to the ph ysical therapy. Looking for discharge planning on Saturday.
[2019-02-27] MEDS: ATORVASTATIN 40 MG TAB PO SCH (21:06)
[2019-02-27] MEDS: TAMSULOSIN 0.4 MG CAP.ER.24H PO SCH (21:06)
[2019-02-27] MEDS: SERTRALINE 50 MG TAB PO SCH (21:06)
[2019-02-27] MEDS: POLYETHYLENE GLYCOL 3350 17 GM POWD.PACK PO SCH (21:06)
[2019-02-27] MEDS: FINASTERIDE 5 MG TAB PO SCH (21:06)
[2019-02-28] MEDS: ALLOPURINOL 100 MG TAB PO SCH (07:55)
[2019-02-28] MEDS: FUROSEMIDE 20 MG TAB PO SCH (07:55)
[2019-02-28] MEDS: risperiDONE 1 MG TAB PO SCH (07:55)
[2019-02-28] MEDS: ACETAMINOPHEN TAB 325 MG TAB PO PRN (10:28)
--- NOTE | 2019-02-28 16:47 | P.PN ---
Progress Note - Text Progress Note Date: 02/28/19 Interval history: Patient admitted with frequent falls felt to be multifactorial. Also being tr eated for delusional disorder from paranoid ideation. Patient is legally blind. Today-starting a diet. No new psych issues. Comfortable Review of systems: Was done for constitutional, cardiovascular, GI, pulmonary. Psychiatry relevant finding as above Active Medications Acetaminophen (Tylenol Tab) 650 mg PO Q6HR PRN PRN Reason: Fever and/ or Pain Last Admin: 02/28/19 10:28 Dose: 650 mg Documented by: Allopurinol (Zyloprim) 100 mg PO DAILY [facility] Last Admin: 02/28/19 07:55 Dose: 100 mg Documented by: Atorvastatin Calcium (Lipitor) 40 mg PO [facility] Last Admin: 02/27/19 21:06 Dose: 40 mg Documented by: Finasteride (Proscar) 5 mg PO [facility] Last Admin: 02/27/19 21:06 Dose: 5 mg Documented by: Furosemide (Lasix) 20 mg PO DAILY [facility] Last Admin: 02/28/19 07:55 Dose: 20 mg Documented by: Isosorbide Mononitrate (Imdur) 60 mg PO DAILY@1700 [facility] Last Admin: 02/27/19 17:06 Dose: 60 mg Documented by: Lisinopril (Zestril) 20 mg PO DAILY@1700 [facility] Last Admin: 02/27/19 16:32 Dose: Not Given Documented by: Metoprolol Succinate (Toprol Xl) 25 mg PO DAILY [facility] Last Admin: 02/27/19 09:04 Dose: 25 mg Documented by: Naloxone HCl (Narcan) 0.2 mg IV Q2M PRN PRN Reason: Opioid Reversal Polyethylene Glycol (Miralax) 17 gm PO [facility] Last Admin: 02/27/19 21:06 Dose: 17 gm Documented by: Risperidone (Risperdal) 1 mg PO DAILY [facility] Last Admin: 02/28/19 07:55 Dose: 1 mg Documented by: Risperidone (Risperdal) 2 mg PO 1800 [facility] Last Admin: 02/27/19 17:06 Dose: 2 mg Documented by: Sertraline HCl (Zoloft) 50 mg PO [facility] Last Admin: 02/27/19 21:06 Dose: 50 mg Documented by: Tamsulosin HCl (Flomax) 0.4 mg PO [facility] Last Admin: 02/27/19 21:06 Dose: 0.4 mg Documented by: On examination: VITAL SIGNS: 97.8, 82, 16, 109/68, 95% room air GENERAL APPEARANCE: Sitting up, comfortable HEENT: Normal external appearance of nose and ear. Oral cavity normal EYES: Poor vision. NECK: JVD not raised. Mass not palpable. RESPIRATORY: Respiratory effort normal. Lungs clear to auscultation. CARDIOVASCULAR: First and second sounds normal. No edema. ABDOMEN: Soft. Liver and spleen not palpable. No tenderness. No mass palpable. PSYCHIATRY: Answering questions appropriately. No hallucinations Previous Investigations EKG tracing personally reviewed by me shows normal sinus rhythm, poor R-wave progression X-ray of the pelvis shows arthritis no fracture Computed tomography scan of the brain-parenchymal volume loss, no acute event reported Chest x-ray film personally reviewed by me, suggest some chronic changes incl uding some pericardial calcification Assessment: -Frequent falls that are multifactorial including poor equilibrium multifactorial from arthritis and could be neuropathy. Patient is also legally blind. All these at up to patient having frequent falls and being unsteady. 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 Plan: Patient to go back home to his on Saturday after getting an acute from his legal guardian from Court. Outpatient physical therapy will be done.
[2019-02-28] MEDS: NAPROXEN 250 MG TAB PO PRN (18:05)
[2019-02-28] MEDS: ISOSORBIDE MONONITRATE ER 60 MG TAB.ER.24H PO SCH (18:06)
[2019-02-28] MEDS: LISINOPRIL 20 MG TAB PO SCH (18:06)
[2019-02-28] MEDS: risperiDONE 2 MG TAB PO SCH (18:06)
[2019-02-28] MEDS: POLYETHYLENE GLYCOL 3350 17 GM POWD.PACK PO SCH (20:01)
[2019-02-28] MEDS: TAMSULOSIN 0.4 MG CAP.ER.24H PO SCH (20:01)
[2019-02-28] MEDS: SERTRALINE 50 MG TAB PO SCH (20:01)
[2019-02-28] MEDS: FINASTERIDE 5 MG TAB PO SCH (20:01)
[2019-02-28] MEDS: ATORVASTATIN 40 MG TAB PO SCH (20:01)
[2019-03-01] MEDS: risperiDONE 1 MG TAB PO SCH (08:52)
[2019-03-01] MEDS: METOPROLOL SUCCINATE (ER) 25 MG TAB.ER.24H PO SCH (08:52)
[2019-03-01] MEDS: ALLOPURINOL 100 MG TAB PO SCH (08:52)
[2019-03-01] MEDS: FUROSEMIDE 20 MG TAB PO SCH (08:53)
[2019-03-01] MEDS: NAPROXEN 250 MG TAB PO PRN ×2 (13:36→21:12)
--- NOTE | 2019-03-01 16:42 | P.PN ---
Progress Note - Text Progress Note Date: 03/01/19 Interval history: Patient admitted with frequent falls felt to be multifactorial. Also being treated for delusional disorder from paranoid ideation. Patient is legally blind. Patient [place] were discontinued Today-resting bed,. Comfortable. No delusions. Has been doing well. Tolerating tolerating a diet Review of systems: Was done for constitutional, cardiovascular, GI, pulmonary. Psychiatry relevant finding as above Active Medications Acetaminophen (Tylenol Tab) 650 mg PO Q6HR PRN PRN Reason: Fever and/ or Pain Last Admin: 02/28/19 10:28 Dose: 650 mg Documented by: Allopurinol (Zyloprim) 100 mg PO DAILY [facility] Last Admin: 03/01/19 08:52 Dose: 100 mg Documented by: Atorvastatin Calcium (Lipitor) 40 mg PO HS [facility] Last Admin: 02/28/19 20:01 Dose: 40 mg Documented by: Finasteride (Proscar) 5 mg PO HS [facility] Last Admin: 02/28/19 20:01 Dose: 5 mg Documented by: Furosemide (Lasix) 20 mg PO DAILY [facility] Last Admin: 03/01/19 08:53 Dose: 20 mg Documented by: Isosorbide Mononitrate (Imdur) 60 mg PO DAILY@1700 [facility] Last Admin: 02/28/19 18:06 Dose: 60 mg Documented by: Lisinopril (Zestril) 20 mg PO DAILY@1700 [facility] Last Admin: 02/28/19 18:06 Dose: 20 mg Documented by: Metoprolol Succinate (Toprol Xl) 25 mg PO DAILY [facility] Last Admin: 03/01/19 08:52 Dose: 25 mg Documented by: Naloxone HCl (Narcan) 0.2 mg IV Q2M PRN PRN Reason: Opioid Reversal Naproxen (Naprosyn) 250 mg PO TID PRN PRN Reason: Breakthrough Pain Last Admin: 03/01/19 13:36 Dose: 250 mg Documented by: Polyethylene Glycol (Miralax) 17 gm PO HS [facility] Last Admin: 02/28/19 20:01 Dose: 17 gm Documented by: Risperidone (Risperdal) 1 mg PO DAILY [facility] Last Admin: 03/01/19 08:52 Dose: 1 mg Documented by: Risperidone (Risperdal) 2 mg PO 1800 [facility] Last Admin: 08/10/19 18:06 Dose: 2 mg Documented by: Sertraline HCl (Zoloft) 50 mg PO [facility] Last Admin: 02/28/19 20:01 Dose: 50 mg Documented by: Tamsulosin HCl (Flomax) 0.4 mg PO [facility] Last Admin: 02/28/19 20:01 Dose: 0.4 mg Documented by: On examination: VITAL SIGNS: 97.6, 70, 15, 105/61, 95% room air GENERAL APPEARANCE: Laying in bed, comfortable HEENT: Normal external appearance of nose and ear. Oral cavity normal EYES: Poor vision. Patient can see figures outline NECK: JVD not raised. Mass not palpable. RESPIRATORY: Respiratory effort normal. Lungs clear to auscultation. CARDIOVASCULAR: First and second sounds normal. No edema. ABDOMEN: Soft. Liver and spleen not palpable. No tenderness. No mass palpable. PSYCHIATRY: Answering questions appropriately. No hallucinations Previous Investigations EKG tracing personally reviewed by me shows normal sinus rhythm, poor R-wave progression X-ray of the pelvis shows arthritis no fracture Computed tomography scan of the brain-parenchymal volume loss, no acute event reported Chest x-ray film personally reviewed by me, suggest some chronic changes including some pericardial calcification Assessment: -Frequent falls that are multifactorial including poor equilibrium multifactorial from arthritis and could be neuropathy. Patient is also legally blind. All these at up to patient having frequent falls and being unsteady. 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 Plan: Stable. Should be discharged home on Saturday. Outpatient physical therapy. Court-appointed guardian will confirm the same on Saturday.
[2019-03-01] MEDS: risperiDONE 2 MG TAB PO SCH (17:27)
[2019-03-01] MEDS: ISOSORBIDE MONONITRATE ER 60 MG TAB.ER.24H PO SCH (17:27)
[2019-03-01] MEDS: LISINOPRIL 20 MG TAB PO SCH (17:27)
[2019-03-01] MEDS: TAMSULOSIN 0.4 MG CAP.ER.24H PO SCH (21:12)
[2019-03-01] MEDS: POLYETHYLENE GLYCOL 3350 17 GM POWD.PACK PO SCH (21:12)
[2019-03-01] MEDS: ATORVASTATIN 40 MG TAB PO SCH (21:12)
[2019-03-01] MEDS: SERTRALINE 50 MG TAB PO SCH (21:12)
[2019-03-01] MEDS: FINASTERIDE 5 MG TAB PO SCH (21:12)
[2019-03-02] MEDS: METOPROLOL SUCCINATE (ER) 25 MG TAB.ER.24H PO SCH (08:38)
[2019-03-02] MEDS: FUROSEMIDE 20 MG TAB PO SCH (08:39)
[2019-03-02] MEDS: risperiDONE 1 MG TAB PO SCH (08:39)
[2019-03-02] MEDS: ALLOPURINOL 100 MG TAB PO SCH (08:39)
[2019-03-02] MEDS: ISOSORBIDE MONONITRATE ER 60 MG TAB.ER.24H PO SCH (17:27)
[2019-03-02] MEDS: LISINOPRIL 20 MG TAB PO SCH (17:27)
[2019-03-02] MEDS: risperiDONE 2 MG TAB PO SCH (17:27)
--- NOTE | 2019-03-02 19:58 | PN ---
PROGRESS NOTE DATE OF SERVICE: 03/02/2019 This 78-year-old gentleman admitted with frequent falls and weakness is being closely monitored at this time. Apparently the patient was slated to go home with [facility] care, but currently the discussion was held with legal guardian and currently the plan is to send the patient to assisted living facility. Please note, the patient is day 20 in the hospital. The patient is blind, unable to see and according to the staff, the patient needed significant help for activities of daily living. No chest pain. No palpitations. No fever. The patient also had delusional disorder. PAST MEDICAL HISTORY: Reviewed. REVIEW OF SYSTEM: CARDIOVASCULAR: No angina or palpitations. RESPIRATIONS: As mentioned earlier. GASTROINTESTINAL: As mentioned earlier. no dysuria. CENTRAL NERVOUS SYSTEM: As mentioned earlier. CURRENT MEDICATIONS: Reviewed and include: 1. Tylenol 650 q.6 p.r.n. 2. Zyloprim 100 mg p.o. daily. 3. Lipitor 40 mg q.h.s. 4. Proscar 5 mg q.h.s. 5. Lasix 20 mg b.i.d. 6. Imdur 60 mg daily. 8. Toprol-XL 25 mg p.o. daily. 9. Narcan 0.2 q.2 p.r.n. 10.Naprosyn 250 mg t.i.d. 11.MiraLAX 17 g daily. 12.Risperdal 2 mg p.o. q.i.d. 13.Zoloft. 14.Flomax 0.4 daily. PHYSICAL EXAM: Patient is alert, oriented x3. Pulse 62, blood pressure 151/79, respirations 16, temperature 98 degrees, pulse ox 98% on room air. HEENT is conjunctivae normal. Oral mucosa moist. NECK is no jugular venous distention. No carotid bruit. No lymph node enlargement. CARDIOVASCULAR: S1, S2 muffled. No S3, no S4. RESPIRATORY: Breath sounds diminished in the bases. A few scattered rhonchi. No crackles. ABDOMEN: Soft, nontender. LEGS: No edema. No swelling. CENTRAL NERVOUS SYSTEM: Diffusely weak. LAB: Investigations at this time shows WBC 6.2, hemoglobin 11.3. ASSESSMENT: 1. Frequent falls multifactorial with gait dysfunction, equilibrium dysfunction with degenerative joint disease and peripheral neuropathy. 2. Legal blindness. 3. Unsteadiness and gait dysfunction. 4. Delusional disorder, some paranoid ideation. 5. Coronary artery disease with history of coronary artery bypass grafting and stent. 6. Paroxysmal atrial fibrillation. 7. Hypertension. 8. Hyperlipidemia. 9. Degenerative joint disease. 10.Benign prostatic hypertrophy. 11.Congestive heart failure with chronic congestive heart failure ejection fraction unknown. 12.History of degenerative joint disease, spinal stenosis. 13.Court-appointed guardianship. 14.Anemia multifactorial possibly. 15.FULL CODE. RECOMMENDATIONS AND DISCUSSION: In this 72-year-old gentleman as mentioned, has multiple medical issues. The patient is extremely unsteady and high risk of falls. At this time, I recommend to continue the current medications and plan either ECF for assisted living way with some supervision and monitoring. We will continue to monitor. Continue the rest of medications. Overall prognosis extremely guarded. Please refer to the employment evaluator/case manager and social work case manager notes for further details. Further recommendations to follow. MMPHYLLISL / IJN: [id number] / MTDD
[2019-03-02] MEDS: SERTRALINE 50 MG TAB PO SCH (20:37)
[2019-03-02] MEDS: TAMSULOSIN 0.4 MG CAP.ER.24H PO SCH (20:37)
[2019-03-02] MEDS: ATORVASTATIN 40 MG TAB PO SCH (20:37)
[2019-03-02] MEDS: FINASTERIDE 5 MG TAB PO SCH (20:37)
[2019-03-02] MEDS: POLYETHYLENE GLYCOL 3350 17 GM POWD.PACK PO SCH (20:38)
[2019-03-03] MEDS: FUROSEMIDE 20 MG TAB PO SCH (09:57)
[2019-03-03] MEDS: risperiDONE 1 MG TAB PO SCH (09:57)
[2019-03-03] MEDS: METOPROLOL SUCCINATE (ER) 25 MG TAB.ER.24H PO SCH (09:57)
[2019-03-03] MEDS: ALLOPURINOL 100 MG TAB PO SCH (09:57)
--- NOTE | 2019-03-03 11:53 | PN ---
PROGRESS NOTE DATE OF SERVICE: 03/03/2019 This is a 78-year-old gentleman admitted with frequent falls and multiple multifactorial and gait dysfunction, is being closely monitored. Patient is blind. The patient is probably not very safe to return home. The caser shoe parts, perinatal social worker, and the family are working towards for possible placement and discharge planning. No chest pain or palpitation. EXAM: Alert and oriented x3. Pulse 64, blood pressure 120/71, respiration 16, temperature 97.7, pulse ox 97% on room: HEENT: Conjunctivae normal. NECK: No jugular venous distention. CARDIOVASCULAR: S1, S2, muffled. RESPIRATORY: Breath sounds diminished at the bases, a few scattered rhonchi and crackles. ABDOMEN: Soft, nontender. LEGS: No edema. No swelling. NERVOUS SYSTEM: No focal deficits. LABS: WBC is 6.7, hemoglobin is 11.3. ASSESSMENT: 1. Frequent falls multifactorial gait dysfunction and equivalent dysfunction with degenerative joint disease and peripheral neuropathy. 2. Legal blindness. 3. Unsteadiness and gait dysfunction. 4. Delusional disorder, some paranoid ideation. 5. Coronary artery disease, coronary artery bypass grafting, stent. 6. Paroxysmal atrial fibrillation. 7. Hypertension. 8. Hyperlipidemia. 9. History of degenerative joint disease. 10.History of benign prostatic hypertrophy. 11.Congestive heart failure with chronic congestive heart failure with ejection fraction unknown. 12.History of degenerative joint disease, spinal stenosis. 13.Court-appointed legal guardianship. 14.Anemia, multifactorial possibly. 15.FULL CODE. RECOMMENDATION: Recommend to continue with the current medications, continue with the monitoring and symptomatic treatment. Otherwise, at this time, I recommend to continue to follow closely with Case Management and perinatal social worker and patient will be discharged once a discharge location is identified. Further recommendations to follow. MMODL / IJN: [id number] /
[2019-03-03] MEDS: risperiDONE 2 MG TAB PO SCH (17:02)
[2019-03-03] MEDS: ISOSORBIDE MONONITRATE ER 60 MG TAB.ER.24H PO SCH (17:02)
[2019-03-03] MEDS: LISINOPRIL 20 MG TAB PO SCH (17:02)
[2019-03-03] MEDS: SERTRALINE 50 MG TAB PO SCH (20:24)
[2019-03-03] MEDS: FINASTERIDE 5 MG TAB PO SCH (20:24)
[2019-03-03] MEDS: TAMSULOSIN 0.4 MG CAP.ER.24H PO SCH (20:24)
[2019-03-03] MEDS: POLYETHYLENE GLYCOL 3350 17 GM POWD.PACK PO SCH (20:24)
[2019-03-03] MEDS: ATORVASTATIN 40 MG TAB PO SCH (20:24)
[2019-03-04] MEDS: FUROSEMIDE 20 MG TAB PO SCH (10:06)
[2019-03-04] MEDS: risperiDONE 1 MG TAB PO SCH (10:06)
[2019-03-04] MEDS: METOPROLOL SUCCINATE (ER) 25 MG TAB.ER.24H PO SCH (10:07)
[2019-03-04] MEDS: ALLOPURINOL 100 MG TAB PO SCH (10:07)
[2019-03-04] MEDS: LISINOPRIL 20 MG TAB PO SCH (17:58)
[2019-03-04] MEDS: ISOSORBIDE MONONITRATE ER 60 MG TAB.ER.24H PO SCH (17:58)
[2019-03-04] MEDS: risperiDONE 2 MG TAB PO SCH (17:58)
[2019-03-04] MEDS: SERTRALINE 50 MG TAB PO SCH (20:47)
[2019-03-04] MEDS: TAMSULOSIN 0.4 MG CAP.ER.24H PO SCH (20:47)
[2019-03-04] MEDS: POLYETHYLENE GLYCOL 3350 17 GM POWD.PACK PO SCH (20:47)
[2019-03-04] MEDS: FINASTERIDE 5 MG TAB PO SCH (20:47)
[2019-03-04] MEDS: ATORVASTATIN 40 MG TAB PO SCH (20:47)
[2019-03-05] MEDS: FUROSEMIDE 20 MG TAB PO SCH (08:40)
[2019-03-05] MEDS: ALLOPURINOL 100 MG TAB PO SCH (08:40)
[2019-03-05] MEDS: METOPROLOL SUCCINATE (ER) 25 MG TAB.ER.24H PO SCH (08:40)
[2019-03-05] MEDS: risperiDONE 1 MG TAB PO SCH (08:40)
--- NOTE | 2019-03-05 12:16 | P.PN ---
Subjective This is a pleasant 78 years old male with past medical history of coronary artery disease, congestive heart failure, atrial fibrillation, deafness, legally blind, hyperlipidemia, hypertension, osteoarthritis, pulmonary embolism, frequent epistaxis, falls. He presents because of falls which is thought is multifactorial, his doctor was stopped. He's been treated for delusional disorders from paranoid ideation which is looks calm now with no current symptoms. The suspicion is also legally blind. Patient has public guardian. Patient is medically stable for discharge pending placement. rider ticket worker is on the case. Objective - Vital Signs Vital signs: Vital Signs Temp 98.0 F 03/04/19 19:13 Pulse 66 03/04/19 19:13 Resp 18 03/04/19 19:13 BP 124/67 03/04/19 19:13 Pulse Ox 97 03/04/19 19:13 Intake & Output 03/04/19 03/04/19 03/05/19 06:59 18:59 06:59 Output Total 300 500 350 Balance -300 -500 -350 Weight 79 kg Output: Urine 300 350 Post Void Residual 500 Other: Voiding Method Urinal Urinal # Voids 1 1 # Bowel Movements 1 - Exam GENERAL: The patient is alert and oriented x3, not in any acute distress. Well developed, well nourished. -HEENT: Pupils are round and equally reacting to light. EOMI. No scleral icterus. No conjunctival pallor. Normocephalic, atraumatic. No pharyngeal erythema. No thyromegaly. Patient is legally blind CARDIOVASCULAR: S1 and S2 present. No murmurs, rubs, or gallops. PULMONARY: Chest is clear to auscultation, no wheezing or crackles. ABDOMEN: Soft, nontender, nondistended, normoactive bowel sounds. No palpable organomegaly. MUSCULOSKELETAL: No joint swelling or deformity. EXTREMITIES: No cyanosis, clubbing, or pedal edema. NEUROLOGICAL: Gross neurological examination did not reveal any focal deficits. SKIN: No rashes. - Labs CBC & Chem 7: 02/06/19 21:30 02/06/19 21:30 Assessment and Plan Assessment: -Frequent falls that are multifactorial including poor equilibrium multifactorial from arthritis and could be neuropathy. Patient is also legally blind. All these at up to patient having frequent falls and being unsteady. 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 Plan: Patient is medically stable for discharge, spending placement
--- NOTE | 2019-03-05 12:17 | P.PN ---
Subjective This is a pleasant 78 years old male with past medical history of coronary artery disease, congestive heart failure, atrial fibrillation, deafness, legally blind, hyperlipidemia, hypertension, osteoarthritis, pulmonary embolism, frequent epistaxis, falls. He presents because of falls which is thought is multifactorial, his doctor was stopped. He's been treated for delusional disorders from paranoid ideation which is looks calm now with no current symptoms. The suspicion is also legally blind. Patient has public guardian. Patient is medically stable for discharge pending placement. signal worker helper is on the case. 03/05/2019 Patient remains awake and calm. No new complaints. No chest pain or abdominal pain. Patient still pending placement Objective - Vital Signs Vital signs: Vital Signs Temp 97.7 F 03/05/19 07:00 Pulse 62 03/05/19 08:00 Resp 12 03/05/19 08:00 BP 114/53 03/05/19 07:00 Pulse Ox 97 03/05/19 07:00 Intake & Output 03/04/19 03/05/19 03/05/19 18:59 06:59 18:59 Output Total 500 350 Balance -500 -350 Output: Urine 350 Post Void Residual 500 Other: Voiding Method Urinal Urinal # Voids 1 - Exam GENERAL: The patient is alert and oriented x3, not in any acute distress. Well developed, well nourished. -HEENT: Pupils are round and equally reacting to light. EOMI. No scleral icterus. No conjunctival pallor. Normocephalic, atraumatic. No pharyngeal erythema. No thyromegaly. Patient is legally blind CARDIOVASCULAR: S1 and S2 present. No murmurs, rubs, or gallops. PULMONARY: Chest is clear to auscultation, no wheezing or crackles. ABDOMEN: Soft, nontender, nondistended, normoactive bowel sounds. No palpable organomegaly. MUSCULOSKELETAL: No joint swelling or deformity. EXTREMITIES: No cyanosis, clubbing, or pedal edema. NEUROLOGICAL: Gross neurological examination did not reveal any focal deficits. SKIN: No rashes. - Labs CBC & Chem 7: 02/06/19 21:30 02/06/19 21:30 Assessment and Plan Assessment: -Frequent falls that are multifactorial including poor equilibrium multifactorial from arthritis and could be neuropathy. Patient is also legally blind. All these at up to patient having frequent falls and being unsteady. 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 Plan: Patient is medically stable for discharge, spending placement
[2019-03-05] MEDS: risperiDONE 2 MG TAB PO SCH (17:43)
[2019-03-05] MEDS: ISOSORBIDE MONONITRATE ER 60 MG TAB.ER.24H PO SCH (17:43)
[2019-03-05] MEDS: LISINOPRIL 20 MG TAB PO SCH (17:44)
[2019-03-05] MEDS: TAMSULOSIN 0.4 MG CAP.ER.24H PO SCH (20:05)
[2019-03-05] MEDS: POLYETHYLENE GLYCOL 3350 17 GM POWD.PACK PO SCH (20:05)
[2019-03-05] MEDS: ATORVASTATIN 40 MG TAB PO SCH (20:05)
[2019-03-05] MEDS: SERTRALINE 50 MG TAB PO SCH (20:05)
[2019-03-05] MEDS: FINASTERIDE 5 MG TAB PO SCH (20:05)
[2019-03-06] MEDS: METOPROLOL SUCCINATE (ER) 25 MG TAB.ER.24H PO SCH (08:46)
[2019-03-06] MEDS: ACETAMINOPHEN TAB 325 MG TAB PO PRN (08:46)
[2019-03-06] MEDS: FUROSEMIDE 20 MG TAB PO SCH (08:46)
[2019-03-06] MEDS: ALLOPURINOL 100 MG TAB PO SCH (08:46)
[2019-03-06] MEDS: risperiDONE 1 MG TAB PO SCH (08:47)
[2019-03-06] MEDS: LISINOPRIL 20 MG TAB PO SCH (17:20)
[2019-03-06] MEDS: risperiDONE 2 MG TAB PO SCH (17:20)
[2019-03-06] MEDS: ISOSORBIDE MONONITRATE ER 60 MG TAB.ER.24H PO SCH (17:20)
[2019-03-06] MEDS: FINASTERIDE 5 MG TAB PO SCH (20:41)
[2019-03-06] MEDS: ATORVASTATIN 40 MG TAB PO SCH (20:41)
[2019-03-06] MEDS: TAMSULOSIN 0.4 MG CAP.ER.24H PO SCH (20:41)
[2019-03-06] MEDS: POLYETHYLENE GLYCOL 3350 17 GM POWD.PACK PO SCH (20:41)
[2019-03-06] MEDS: SERTRALINE 50 MG TAB PO SCH (20:41)
[2019-03-07] MEDS: risperiDONE 1 MG TAB PO SCH (08:30)
[2019-03-07] MEDS: ALLOPURINOL 100 MG TAB PO SCH (08:30)
[2019-03-07] MEDS: FUROSEMIDE 20 MG TAB PO SCH (10:37)
[2019-03-07] MEDS: METOPROLOL SUCCINATE (ER) 25 MG TAB.ER.24H PO SCH (10:37)
[2019-03-07 12:34] LABS: Basophils % (A) 0 %; Eosinophils # (A) 0.4 k/uL (0-0.7); Eosinophils % (A) 4 %; HCT 35.7 % (39.0-53.0); HGB 11.5 gm/dL (13.0-17.5); Lymphocytes # (A) 0.9 k/uL (1.0-4.8); Lymphocytes % (A) 8 %; MCH 28.5 pg (25.0-35.0); MCHC 32.3 g/dL (31.0-37.0); MCV 88.3 fL (80.0-100.0); Mean Platelet Volume 7.6; Monocytes # (A) 0.6 k/uL (0-1.0); Monocytes % (A) 5 %; Neutrophils # (A) 8.6 k/uL (1.3-7.7); Neutrophils % (A) 81 %; Platelet Count 253 k/uL (150-450); RBC 4.04 m/uL (4.30-5.90); RDW 15.9 % (11.5-15.5); WBC 10.6 k/uL (3.8-10.6)
[2019-03-07 12:45] LABS: Calcium 9.5 mg/dL (8.4-10.2); Potassium 5.2 mmol/L (3.5-5.1)
--- NOTE | 2019-03-07 13:52 | P.PN ---
Subjective This is a pleasant 78 years old male with past medical history of coronary artery disease, congestive heart failure, atrial fibrillation, deafness, legally blind, hyperlipidemia, hypertension, osteoarthritis, pulmonary embolism, frequent epistaxis, falls. He presents because of falls which is thought is multifactorial, his doctor was stopped. He's been treated for delusional disorders from paranoid ideation which is looks calm now with no current symptoms. The suspicion is also legally blind. Patient has public guardian. Patient is medically stable for discharge pending placement. petroleum refinery worker is on the case. 03/05/2019 Patient remains awake and calm. No new complaints. No chest pain or abdominal pain. Patient still pending placement 03/07/2019 Patient is with no new complaint. He is fully awake. No chest pain or dyspnea. No dizziness. No abdominal pain. No nausea vomiting. No change in urine or bowel habits. His blood pressure was on the low side this morning at 96/53, his blood pressure medication of Lasix and lisinopril were held. Repeat labs show an unremarkable CBC with hemoglobin of 11.5, WBC 10.6. BMP shows slight worsening of creatinine up to 1.2, we'll keep holding lisinopril and now takes and keep monitoring creatinine. He was on lisinopril 20 mg daily and Lasix 20 mg daily. Keep monitoring BMP Objective - Vital Signs Vital signs: Vital Signs Temp 97.9 F 03/07/19 06:56 Pulse 72 03/07/19 09:59 Resp 16 03/07/19 06:56 BP 100/55 03/07/19 09:59 Pulse Ox 94 L 03/07/19 06:56 Intake & Output 03/06/19 03/07/19 03/07/19 18:59 06:59 18:59 Intake Total 890 240 180 Output Total 1060 650 Balance -170 -410 180 Weight 80.3 kg 85 kg Intake: Oral 890 240 180 Output: Urine 1060 650 Other: Voiding Method Toilet Toilet Urinal Urinal # Voids 1 - Exam GENERAL: The patient is alert and oriented x3, not in any acute distress. Well developed, well nourished. -HEENT: Pupils are round and equally reacting to light. EOMI. No scleral icterus. No conjunctival pallor. Normocephalic, atraumatic. No pharyngeal erythema. No thyromegaly. Patient is legally blind CARDIOVASCULAR: S1 and S2 present. No murmurs, rubs, or gallops. PULMONARY: Chest is clear to auscultation, no wheezing or crackles. ABDOMEN: Soft, nontender, nondistended, normoactive bowel sounds. No palpable organomegaly. MUSCULOSKELETAL: No joint swelling or deformity. EXTREMITIES: No cyanosis, clubbing, or pedal edema. NEUROLOGICAL: Gross neurological examination did not reveal any focal deficits. SKIN: No rashes. - Labs CBC & Chem 7: 03/07/19 11:53 03/07/19 11:53 Labs: Abnormal Lab Results - Last 24 Hours (Table) 03/07/19 03/07/19 Range/Units 11:53 11:53 RBC 4.04 L (4.30-5.90) m/uL Hgb 11.5 L (13.0-17.5) gm/dL Hct 35.7 L (39.0-53.0) % RDW 15.9 H (11.5-15.5) % Neutrophils # 8.6 H (1.3-7.7) k/uL Lymphocytes # 0.9 L (1.0-4.8) k/uL Potassium 5.2 H (3.5-5.1) mmol/L BUN 59 H (9-20) mg/dL Creatinine 1.27 H (0.66-1.25) mg/dL Assessment and Plan Assessment: -Frequent falls that are multifactorial including poor equilibrium multifactorial from arthritis and could be neuropathy. Patient is also legally blind. All these at up to patient having frequent falls and being unsteady. 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 Plan: Patient is medically stable for discharge, spending placement. Hold Lasix and lisinopril for acute kidney injury.Keep monitoring BMP DVT and GI prophylaxis. Continue with same symptomatic treatment and monitor labs and vitals.
[2019-03-07] MEDS: risperiDONE 2 MG TAB PO SCH (17:43)
[2019-03-07] MEDS: ISOSORBIDE MONONITRATE ER 60 MG TAB.ER.24H PO SCH (17:43)
[2019-03-07] MEDS: ATORVASTATIN 40 MG TAB PO SCH (20:17)
[2019-03-07] MEDS: POLYETHYLENE GLYCOL 3350 17 GM POWD.PACK PO SCH (20:17)
[2019-03-07] MEDS: SERTRALINE 50 MG TAB PO SCH (20:17)
[2019-03-07] MEDS: FINASTERIDE 5 MG TAB PO SCH (20:17)
[2019-03-07] MEDS: TAMSULOSIN 0.4 MG CAP.ER.24H PO SCH (20:17)
[2019-03-08 07:28] LABS: Calcium 9.6 mg/dL (8.4-10.2); Potassium 4.9 mmol/L (3.5-5.1)
[2019-03-08] MEDS: risperiDONE 1 MG TAB PO SCH (08:10)
[2019-03-08] MEDS: ALLOPURINOL 100 MG TAB PO SCH (08:10)
[2019-03-08] MEDS: METOPROLOL SUCCINATE (ER) 25 MG TAB.ER.24H PO SCH (12:09)
--- NOTE | 2019-03-08 13:35 | P.PN ---
Subjective This is a pleasant 78 years old male with past medical history of coronary artery disease, congestive heart failure, atrial fibrillation, deafness, legally blind, hyperlipidemia, hypertension, osteoarthritis, pulmonary embolism, frequent epistaxis, falls. He presents because of falls which is thought is multifactorial, his doctor was stopped. He's been treated for delusional disorders from paranoid ideation which is looks calm now with no current symptoms. The suspicion is also legally blind. Patient has public guardian. Patient is medically stable for discharge pending placement. networker is on the case. 03/05/2019 Patient remains awake and calm. No new complaints. No chest pain or abdominal pain. Patient still pending placement 03/07/2019 Patient is with no new complaint. He is fully awake. No chest pain or dyspnea. No dizziness. No abdominal pain. No nausea vomiting. No change in urine or bowel habits. His blood pressure was on the low side this morning at 96/53, his blood pressure medication of Lasix and lisinopril were held. Repeat labs show an unremarkable CBC with hemoglobin of 11.5, WBC 10.6. BMP shows slight worsening of creatinine up to 1.2, we'll keep holding lisinopril and now takes and keep monitoring creatinine. He was on lisinopril 20 mg daily and Lasix 20 mg daily. Keep monitoring BMP 03/08/2019 Patient is awake, he is alert. No chest pain or dyspnea. No new complaints. His blood pressure this morning was on the low side at 100/55 and the nurse held his metoprolol which looks appropriate. Current blood pressure 109/62, heart rate 72. 123/70. His WBC is chronically elevated. His elevated creatinine is back to normal today at 0.8. Patient creatinine improved from 1.2 down to 1.0 after holding lisinopril 20 mg and hydrochlorothiazide. Patient with no chest pain or dyspnea. Patient pending placement. Dr. Espinosa will resume the care of the patient tomorrow Objective - Vital Signs Vital signs: Vital Signs Temp 97.7 F 03/08/19 07:40 Pulse 62 03/08/19 07:40 Resp 15 03/08/19 07:40 BP 109/62 03/08/19 07:40 Pulse Ox 94 L 03/08/19 07:40 Intake & Output 03/07/19 03/08/19 03/08/19 18:59 06:59 18:59 Intake Total 660 Output Total 200 875 Balance 460 -875 Weight 82.4 kg Intake: Oral 660 Output: Urine 200 875 Other: # Voids 1 - Exam GENERAL: The patient is alert and oriented x3, not in any acute distress. Well developed, well nourished. -HEENT: Pupils are round and equally reacting to light. EOMI. No scleral icterus. No conjunctival pallor. Normocephalic, atraumatic. No pharyngeal eryt quyen. No thyromegaly. Patient is legally blind CARDIOVASCULAR: S1 and S2 present. No murmurs, rubs, or gallops. PULMONARY: Chest is clear to auscultation, no wheezing or crackles. ABDOMEN: Soft, nontender, nondistended, normoactive bowel sounds. No palpable organomegaly. MUSCULOSKELETAL: No joint swelling or deformity. EXTREMITIES: No cyanosis, clubbing, or pedal edema. NEUROLOGICAL: Gross neurological examination did not reveal any focal deficits. SKIN: No rashes. - Labs CBC & Chem 7: 03/07/19 11:53 03/08/19 06:31 Labs: Abnormal Lab Results - Last 24 Hours (Table) 03/08/19 Range/Units 06:31 BUN 52 H (9-20) mg/dL Assessment and Plan Assessment: -Frequent falls that are multifactorial including poor equilibrium multifactorial from arthritis and could be neuropathy. Patient is also legally blind. All these at up to patient having frequent falls and being unsteady. 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 Plan: Patient is medically stable for discharge, spending placement. Hold Lasix and lisinopril for acute kidney injury.Keep monitoring BMP DVT and GI prophylaxis. Continue with same symptomatic treatment and monitor labs and vitals. Dr. Espinosa will resume the care of the patient tomorrow
[2019-03-08] MEDS: risperiDONE 2 MG TAB PO SCH (17:39)
[2019-03-08] MEDS: ISOSORBIDE MONONITRATE ER 60 MG TAB.ER.24H PO SCH (17:39)
[2019-03-08] MEDS: TAMSULOSIN 0.4 MG CAP.ER.24H PO SCH (20:08)
[2019-03-08] MEDS: ATORVASTATIN 40 MG TAB PO SCH (20:08)
[2019-03-08] MEDS: POLYETHYLENE GLYCOL 3350 17 GM POWD.PACK PO SCH (20:08)
[2019-03-08] MEDS: FINASTERIDE 5 MG TAB PO SCH (20:08)
[2019-03-08] MEDS: SERTRALINE 50 MG TAB PO SCH (20:08)
--- NOTE | 2019-03-09 01:25 | P.PN ---
Subjective This is a pleasant 78 years old male with past medical history of coronary artery disease, congestive heart failure, atrial fibrillation, deafness, legally blind, hyperlipidemia, hypertension, osteoarthritis, pulmonary embolism, frequent epistaxis, falls. He presents because of falls which is thought is multifactorial, his doctor was stopped. He's been treated for delusional disorders from paranoid ideation which is looks calm now with no current symptoms. The suspicion is also legally blind. Patient has public guardian. Patient is medically stable for discharge pending placement. sheet ironworker is on the case. 03/05/2019 Patient remains awake and calm. No new complaints. No chest pain or abdominal pain. Patient still pending placement 03/06/2019 pt is clinically the same with no new symptoms , vitals stable Objective - Vital Signs Vital signs: Vital Signs Temp 98.2 F 03/06/19 14:35 Pulse 62 03/06/19 14:35 Resp 16 03/06/19 14:35 BP 147/72 03/06/19 14:35 Pulse Ox 95 03/06/19 14:35 Intake & Output 03/06/19 03/06/19 03/07/19 06:59 18:59 06:59 Intake Total 890 Output Total 700 1060 Balance -700 -170 Weight 80.3 kg 80.3 kg Intake: Oral 890 Output: Urine 700 1060 Other: Voiding Method Toilet Toilet Urinal Urinal # Voids 1 1 - Exam GENERAL: The patient is alert and oriented x3, not in any acute distress. Well developed, well nourished. -HEENT: Pupils are round and equally reacting to light. EOMI. No scleral icterus. No conjunctival pallor. Normocephalic, atraumatic. No pharyngeal erythema. No thyromegaly. Patient is legally blind CARDIOVASCULAR: S1 and S2 present. No murmurs, rubs, or gallops. PULMONARY: Chest is clear to auscultation, no wheezing or crackles. ABDOMEN: Soft, nontender, nondistended, normoactive bowel sounds. No palpable organomegaly. MUSCULOSKELETAL: No joint swelling or deformity. EXTREMITIES: No cyanosis, clubbing, or pedal edema. NEUROLOGICAL: Gross neurological examination did not reveal any focal deficits. SKIN: No rashes. - Labs CBC & Chem 7: 03/07/19 11:53 03/08/19 06:31 Assessment and Plan Assessment: -Frequent falls that are multifactorial including poor equilibrium multifactorial from arthritis and could be neuropathy. Patient is also legally blind. All these at up to patient having frequent falls and being unsteady. 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 Plan: Patient is medically stable for discharge, spending placement. Hold Lasix and lisinopril for acute kidney injury.Keep monitoring BMP DVT and GI prophylaxis. Continue with same symptomatic treatment and monitor labs and vitals. Dr. Espinosa will resume the care of the patient tomorrow
[2019-03-09] MEDS: risperiDONE 1 MG TAB PO SCH (07:28)
[2019-03-09] MEDS: METOPROLOL SUCCINATE (ER) 25 MG TAB.ER.24H PO SCH (07:28)
[2019-03-09] MEDS: ALLOPURINOL 100 MG TAB PO SCH (07:29)
[2019-03-09 08:39] LABS: Calcium 9.7 mg/dL (8.4-10.2); Potassium 5.5 mmol/L (3.5-5.1)
[2019-03-09] MEDS: CEPHALEXIN 500 MG CAP PO SCH ×3 (10:29→19:57)
--- NOTE | 2019-03-09 13:48 | P.PN ---
Subjective This is a pleasant 78 years old male with past medical history of coronary artery disease, congestive heart failure, atrial fibrillation, deafness, legally blind, hyperlipidemia, hypertension, osteoarthritis, pulmonary embolism, frequent epistaxis, falls. He presents because of falls which is thought is multifactorial, his doctor was stopped. He's been treated for delusional disorders from paranoid ideation which is looks calm now with no current symptoms. The suspicion is also legally blind. Patient has public guardian. Patient is medically stable for discharge pending placement. match up worker is on the case. 03/05/2019 Patient remains awake and calm. No new complaints. No chest pain or abdominal pain. Patient still pending placement 03/06/2019 pt is clinically the same with no new symptoms , vitals stable . Blood pressures today is improved to 153/76, white count restart his metoprolol and start his lisinopril at 10 mg daily and he said of 20 and keep monitoring. Keep holding hydrochlorothiazide. Objective - Vital Signs Vital signs: Vital Signs Temp 97.9 F 03/09/19 07:00 Pulse 69 03/09/19 08:00 Resp 16 03/09/19 08:00 BP 153/76 03/09/19 07:00 Pulse Ox 97 03/09/19 07:00 Intake & Output 03/08/19 03/09/19 03/09/19 18:59 06:59 18:59 Intake Total 320 Output Total 400 Balance -80 Weight 81.23 kg Intake: Oral 320 Output: Urine 400 Other: Voiding Method Urinal Toilet Urinal # Voids 3 - Exam GENERAL: The patient is alert and oriented x3, not in any acute distress. Well developed, well nourished. -HEENT: Pupils are round and equally reacting to light. EOMI. No scleral icterus. No conjunctival pallor. Normocephalic, atraumatic. No pharyngeal erythema. No thyromegaly. Patient is legally blind CARDIOVASCULAR: S1 and S2 present. No murmurs, rubs, or gallops. PULMONARY: Chest is clear to auscultation, no wheezing or crackles. ABDOMEN: Soft, nontender, nondistended, normoactive bowel sounds. No palpable organomegaly. MUSCULOSKELETAL: No joint swelling or deformity. EXTREMITIES: No cyanosis, clubbing, or pedal edema. NEUROLOGICAL: Gross neurological examination did not reveal any focal deficits. SKIN: No rashes. - Labs CBC & Chem 7: 03/07/19 11:53 03/09/19 07:53 Labs: Abnormal Lab Results - Last 24 Hours (Table) 03/09/19 Range/Units 07:53 Potassium 5.5 H (3.5-5.1) mmol/L BUN 43 H (9-20) mg/dL Assessment and Plan Assessment: -Frequent falls that are multifactorial including poor equilibrium multifactorial from arthritis and could be neuropathy. Patient is also legally blind. All these at up to patient having frequent falls and being unsteady. 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 Plan: Patient is medically stable for discharge, spending placement. Hold Lasix and lisinopril for acute kidney injury.Keep monitoring BMP DVT and GI prophylaxis. Continue with same symptomatic treatment and monitor labs and vitals. Dr. Espinosa will resume the care of the patient tomorrow
--- NOTE | 2019-03-09 16:38 | P.PN ---
Progress Note - Text Progress Note Date: 03/09/19 I was informed yesterday by the nursing staff that Mr. Hooks has malodorous scrotal drainage. Mr. Hooks reports right scrotal pain for the past 2 weeks. He states that the drainage began a couple of days ago, and that his pain has resolved. On examination, a small opening is noted at the right posterior scrotum. There is virtually no drainage. There is no fluctuance or erythema. This appears to be a small scrotal abscess which has drained spontaneously. I have prescribed Keflex, which he should go home on, and he will follow up with me in 1 week. Please notify me if I can be of any further assistance.
[2019-03-09] MEDS: ISOSORBIDE MONONITRATE ER 60 MG TAB.ER.24H PO SCH (17:27)
[2019-03-09] MEDS: LISINOPRIL 10 MG TAB PO SCH (17:27)
[2019-03-09] MEDS: risperiDONE 2 MG TAB PO SCH (17:27)
[2019-03-09] MEDS: FINASTERIDE 5 MG TAB PO SCH (19:57)
[2019-03-09] MEDS: ATORVASTATIN 40 MG TAB PO SCH (19:57)
[2019-03-09] MEDS: POLYETHYLENE GLYCOL 3350 17 GM POWD.PACK PO SCH (19:57)
[2019-03-09] MEDS: TAMSULOSIN 0.4 MG CAP.ER.24H PO SCH (19:57)
[2019-03-09] MEDS: SERTRALINE 50 MG TAB PO SCH (19:57)
[2019-03-10 07:50] LABS: Calcium 9.6 mg/dL (8.4-10.2)
[2019-03-10] MEDS: METOPROLOL SUCCINATE (ER) 25 MG TAB.ER.24H PO SCH (08:15)
[2019-03-10] MEDS: LISINOPRIL 10 MG TAB PO SCH (08:15)
[2019-03-10] MEDS: risperiDONE 1 MG TAB PO SCH (08:15)
[2019-03-10] MEDS: CEPHALEXIN 500 MG CAP PO SCH ×3 (08:15→22:29)
[2019-03-10] MEDS: ALLOPURINOL 100 MG TAB PO SCH (08:15)
--- NOTE | 2019-03-10 13:28 | P.PN ---
Subjective This is a pleasant 78 years old male with past medical history of coronary artery disease, congestive heart failure, atrial fibrillation, deafness, legally blind, hyperlipidemia, hypertension, osteoarthritis, pulmonary embolism, frequent epistaxis, falls. He presents because of falls which is thought is multifactorial, his doctor was stopped. He's been treated for delusional disorders from paranoid ideation which is looks calm now with no current symptoms. The suspicion is also legally blind. Patient has public guardian. Patient is medically stable for discharge pending placement. rack production worker is on the case. 03/10/2019 Patient clinically the same with no complaint of chest pain or dyspnea. Yesterday has some scrotal abscess that spontaneously drained, start him on Keflex. Vitals were stable and his blood pressure 129/66 however this morning was 106/50, currently skipped on metoprolol 25 mg plus lisinopril 10 mg daily. His creatinine is stable, potassium was 5.0. Case was discussed with the rn social services for placement issue Objective - Vital Signs Vital signs: Vital Signs Temp 98.6 F 03/10/19 07:00 Pulse 56 L 03/10/19 08:00 Resp 16 03/10/19 08:00 BP 129/66 03/10/19 07:00 Pulse Ox 96 03/10/19 07:00 Intake & Output 03/09/19 03/10/19 03/10/19 18:59 06:59 18:59 Intake Total 390 480 Output Total 300 Balance 390 -300 480 Weight 80.5 kg Intake: Oral 390 480 Output: Urine 300 Other: Voiding Method Toilet Urinal Urinal Urinal # Voids 2 1 - Exam GENERAL: The patient is alert and oriented x3, not in any acute distress. Well developed, well nourished. -HEENT: Pupils are round and equally reacting to light. EOMI. No scleral icterus. No conjunctival pallor. Normocephalic, atraumatic. No pharyngeal erythema. No thyromegaly. Patient is legally blind CARDIOVASCULAR: S1 and S2 present. No murmurs, rubs, or gallops. PULMONARY: Chest is clear to auscultation, no wheezing or crackles. ABDOMEN: Soft, nontender, nondistended, normoactive bowel sounds. No palpable organomegaly. MUSCULOSKELETAL: No joint swelling or deformity. EXTREMITIES: No cyanosis, clubbing, or pedal edema. NEUROLOGICAL: Gross neurological examination did not reveal any focal deficits. SKIN: No rashes. - Labs CBC & Chem 7: 03/07/19 11:53 03/10/19 07:15 Labs: Abnormal Lab Results - Last 24 Hours (Table) 03/10/19 Range/Units 07:15 BUN 40 H (9-20) mg/dL Assessment and Plan Assessment: -Frequent falls that are multifactorial including poor equilibrium multifactorial from arthritis and could be neuropathy. Patient is also legally blind. All these at up to patient having frequent falls and being unsteady. 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 Plan: Patient is medically stable for discharge, spending placement. Hold Lasix and lisinopril for acute kidney injury.Keep monitoring BMP DVT and GI prophylaxis. Continue with same symptomatic treatment and monitor labs and vitals. Dr. Espinosa will resume the care of the patient tomorrow
[2019-03-10] MEDS: risperiDONE 2 MG TAB PO SCH (17:18)
[2019-03-10] MEDS: ISOSORBIDE MONONITRATE ER 60 MG TAB.ER.24H PO SCH (17:18)
[2019-03-10] MEDS: FINASTERIDE 5 MG TAB PO SCH (21:30)
[2019-03-10] MEDS: ACETAMINOPHEN TAB 325 MG TAB PO PRN (21:30)
[2019-03-10] MEDS: TAMSULOSIN 0.4 MG CAP.ER.24H PO SCH (21:30)
[2019-03-10] MEDS: ATORVASTATIN 40 MG TAB PO SCH (21:31)
[2019-03-10] MEDS: SERTRALINE 50 MG TAB PO SCH (21:31)
[2019-03-10] MEDS: POLYETHYLENE GLYCOL 3350 17 GM POWD.PACK PO SCH (21:32)
[2019-03-11] MEDS: CEPHALEXIN 500 MG CAP PO SCH ×3 (09:27→21:20)
[2019-03-11] MEDS: LISINOPRIL 10 MG TAB PO SCH (09:27)
[2019-03-11] MEDS: ALLOPURINOL 100 MG TAB PO SCH (09:28)
[2019-03-11] MEDS: METOPROLOL SUCCINATE (ER) 25 MG TAB.ER.24H PO SCH (09:28)
[2019-03-11] MEDS: risperiDONE 1 MG TAB PO SCH (09:33)
--- NOTE | 2019-03-11 12:52 | P.PN ---
Subjective This is a pleasant 78 years old male with past medical history of coronary artery disease, congestive heart failure, atrial fibrillation, deafness, legally blind, hyperlipidemia, hypertension, osteoarthritis, pulmonary embolism, frequent epistaxis, falls. He presents because of falls which is thought is multifactorial, his doctor was stopped. He's been treated for delusional disorders from paranoid ideation which is looks calm now with no current symptoms. The suspicion is also legally blind. Patient has public guardian. Patient is medically stable for discharge pending placement. youth accommodation support worker is on the case. 03/10/2019 Patient clinically the same with no complaint of chest pain or dyspnea. Yesterday has some scrotal abscess that spontaneously drained, start him on Keflex. Vitals were stable and his blood pressure 129/66 however this morning was 106/50, currently skipped on metoprolol 25 mg plus lisinopril 10 mg daily. His creatinine is stable, potassium was 5.0. Case was discussed with the outreach and education social worker for placement issue 03/11/2019 Patient is awake and alert. No new complaints. He denies chest pain or dyspnea or abdominal pain. He is tolerating his diet well with no nausea vomiting 12. urologist evaluated him for small ups is in his scrotum which opened up spontaneously and he placed him on Keflex. Vitals are stable. His blood pressure is 122/61, we will going to increase his lisinopril to 20 mg daily s tarting form tomorrow. Patient is medically stable for discharge pending placement. Objective - Vital Signs Vital signs: Vital Signs Temp 97.6 F 03/11/19 07:00 Pulse 55 L 03/11/19 07:00 Resp 15 03/11/19 08:00 BP 122/61 03/11/19 07:00 Pulse Ox 99 03/11/19 07:00 Intake & Output 03/10/19 03/11/19 03/11/19 18:59 06:59 18:59 Intake Total 1370 Output Total 400 Balance 1370 -400 Weight 81 kg Intake: Oral 1370 Output: Urine 400 Other: Voiding Method Urinal Urinal - Exam GENERAL: The patient is alert and oriented x3, not in any acute distress. Well developed, well nourished. -HEENT: Pupils are round and equally reacting to light. EOMI. No scleral icterus. No conjunctival pallor. Normocephalic, atraumatic. No pharyngeal erythema. No thyromegaly. Patient is legally blind CARDIOVASCULAR: S1 and S2 present. No murmurs, rubs, or gallops. PULMONARY: Chest is clear to auscultation, no wheezing or crackles. ABDOMEN: Soft, nontender, nondistended, normoactive bowel sounds. No palpable organomegaly. MUSCULOSKELETAL: No joint swelling or deformity. EXTREMITIES: No cyanosis, clubbing, or pedal edema. NEUROLOGICAL: Gross neurological examination did not reveal any focal deficits. SKIN: No rashes. - Labs CBC & Chem 7: 03/07/19 11:53 03/10/19 07:15 Assessment and Plan Assessment: -Frequent falls that are multifactorial including poor equilibrium multifactorial from arthritis and could be neuropathy. Patient is also legally blind. All these at up to patient having frequent falls and being unsteady. 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 Plan: Patient is medically stable for discharge, spending placement. Hold Lasix and lisinopril for acute kidney injury.Keep monitoring BMP DVT and GI prophylaxis. Continue with same symptomatic treatment and monitor labs and vitals. Dr. Espinosa will resume the care of the patient tomorrow
[2019-03-11] MEDS: risperiDONE 2 MG TAB PO SCH (17:15)
[2019-03-11] MEDS: ISOSORBIDE MONONITRATE ER 60 MG TAB.ER.24H PO SCH (17:15)
[2019-03-11] MEDS: POLYETHYLENE GLYCOL 3350 17 GM POWD.PACK PO SCH (21:15)
[2019-03-11] MEDS: ACETAMINOPHEN TAB 325 MG TAB PO PRN (21:19)
[2019-03-11] MEDS: TAMSULOSIN 0.4 MG CAP.ER.24H PO SCH (21:20)
[2019-03-11] MEDS: ATORVASTATIN 40 MG TAB PO SCH (21:20)
[2019-03-11] MEDS: FINASTERIDE 5 MG TAB PO SCH (21:20)
[2019-03-11] MEDS: SERTRALINE 50 MG TAB PO SCH (21:20)
[2019-03-12] MEDS: CEPHALEXIN 500 MG CAP PO SCH ×3 (10:05→19:48)
[2019-03-12] MEDS: risperiDONE 1 MG TAB PO SCH (10:05)
[2019-03-12] MEDS: METOPROLOL SUCCINATE (ER) 25 MG TAB.ER.24H PO SCH (10:05)
[2019-03-12] MEDS: ALLOPURINOL 100 MG TAB PO SCH (10:06)
[2019-03-12] MEDS: LISINOPRIL 20 MG TAB PO SCH (10:06)
--- NOTE | 2019-03-12 12:15 | CDI ---
Documentation Clarification Form Date: 03/12/2019 11:59:39 AM From: Charo PopMARICARMEN, CCDS Admit Date: 02/10/2019 8:33:00 AM Patient Name: Blade Hooks Visit Number: [id number] Discharge Date: ATTENTION: The Clinical Documentation Specialists (CDI) and [facility] Coding Staff appreciate your assistance in clarifying documentation. Please respond to the clarification below the line at the bottom and electronically sign. The CDI & [facility] Coding staff will review the response and follow-up if needed. Please note: Queries are made part of the Legal Health Record. If you have any questions, please contact the author of this message via ITS. Dr. Cagle Sheet: A pressure ulcer is documented by nursing on the patient's bilateral buttocks: 02/10: pressure injury (noted to be "hospital acquired) by nursing, initially stage I, documented as stage II on 02/28. Not staged as of 03/08. History/Risk Factors: Dementia w/sundowner's. Macular degeneration & legally blind, on Xarelto for Atrial Fibrillation. CAD status post PCI w/stent & CABG, TEJON, Hypertension, GA, OA, PE. Clinical Indicators: Presented to ED after having multiple falls & being difficult to manage by his at home, possible blunt head trauma. Patient's son is interested in placement. Location of pressure injury/ulcer: Bilateral buttocks Wound description: Erythema, red & blanchable, stage I Treatment: Barrier cream. PO Aspirin, Lasix, Toprol, Imdur, Zestril, Xarelto, Zoloft, Seroquel. Required IM Haldol & IM Ativan on 02/17. Social Work working on placement. In your professional opinion, can you please clarify the diagnosis, location, laterality and whether present on admission (POA): Stage 1 Pressure/Decubitus Ulcer (intact skin, non-blanching redness of local area) Stage 2 Pressure/Decubitus Ulcer (Partial thickness, loss of dermis, pink wound bed) Unstageable Other condition, please specify Unable to determine Please indicate etiology of pressure ulcer (if known). (Last Revision: April 2017) Stage 2 Pressure/Decubitus Ulcer (Partial thickness, loss of dermis, pink wound bed) MTDD
[2019-03-12 13:32] VITALS: BMI 25.4
[2019-03-12] MEDS: risperiDONE 2 MG TAB PO SCH (17:28)
[2019-03-12] MEDS: ISOSORBIDE MONONITRATE ER 60 MG TAB.ER.24H PO SCH (17:28)
[2019-03-12] MEDS: ATORVASTATIN 40 MG TAB PO SCH (19:48)
[2019-03-12] MEDS: FINASTERIDE 5 MG TAB PO SCH (19:48)
[2019-03-12] MEDS: POLYETHYLENE GLYCOL 3350 17 GM POWD.PACK PO SCH (19:48)
[2019-03-12] MEDS: SERTRALINE 50 MG TAB PO SCH (19:48)
[2019-03-12] MEDS: TAMSULOSIN 0.4 MG CAP.ER.24H PO SCH (19:48)
[2019-03-13] MEDS: ACETAMINOPHEN TAB 325 MG TAB PO PRN (00:53)
[2019-03-13] MEDS: METOPROLOL SUCCINATE (ER) 25 MG TAB.ER.24H PO SCH (08:22)
[2019-03-13] MEDS: CEPHALEXIN 500 MG CAP PO SCH ×3 (08:23→20:15)
[2019-03-13] MEDS: risperiDONE 1 MG TAB PO SCH (08:23)
[2019-03-13] MEDS: ALLOPURINOL 100 MG TAB PO SCH (08:23)
[2019-03-13] MEDS: LISINOPRIL 20 MG TAB PO SCH (08:23)
--- NOTE | 2019-03-13 14:13 | P.PN ---
Subjective Progress Note Date: 03/13/19 Principal diagnosis: Acute renal injury Frequent falls; multifactorial Scrotal abscess 78 years old male with past medical history of coronary artery disease, congestive heart failure, atrial fibrillation, deafness, legally blind, hyperlipidemia, hypertension, osteoarthritis, pulmonary embolism, frequent epistaxis, falls. He presents because of falls which is thought is multifa ctorial, his doctor was stopped. He's been treated for delusional disorders from paranoid ideation which is looks calm now with no current symptoms. The suspicion is also legally blind. Patient has public guardian. Patient is medically stable for discharge pending placement. coffee plantation worker is on the case. Objective - Vital Signs Vital signs: Vital Signs Temp 97.8 F 03/13/19 07:00 Pulse 57 L 03/13/19 07:00 Resp 12 03/13/19 07:00 BP 128/61 03/13/19 07:00 Pulse Ox 97 03/13/19 07:00 Intake & Output 03/12/19 03/13/19 03/13/19 18:59 06:59 18:59 Intake Total 480 Output Total 250 250 Balance -250 230 Weight 83 kg Intake: Oral 480 Output: Urine 250 250 Other: Voiding Method Urinal Urinal # Voids 1 3 1 - Exam - Constitutional General appearance: Present: average body habitus, cooperative, no acute distress - EENT Eyes: Present: anicteric sclerae, EOMI, PERRLA, normal appearance ENT: Present: hearing grossly normal, normal oropharynx Ears: bilateral: normal - Neck Neck: Present: normal ROM. Absent: lymphadenopathy, rigidity, thyromegaly Carotids: negative: bruit present Thyroid: bilateral: normal size, negative: enlarged, nodule - Respiratory Respiratory: bilateral: CTA, negative: rales, rhonchi, wheezing - Cardiovascular Rhythm: regular Heart sounds: normal: S1, S2 Abnormal Heart Sounds: Absent: systolic murmur, diastolic murmur - Gastrointestinal General gastrointestinal: Present: normal bowel sounds, soft. Absent: distended, organomegaly, tenderness - Genitourinary Genitourinary Comment(s): deferred - Integumentary Integumentary: Present: normal turgor. Absent: jaundiced, rash, ulcer - Neurologic Neurologic: Present: CNII-XII intact. Absent: focal deficits - Musculoskeletal Musculoskeletal: Present: gait normal, strength equal bilaterally - Psychiatric Psychiatric: Present: A&O x's 3, appropriate affect, intact judgment & insight - Labs CBC & Chem 7: 03/07/19 11:53 03/10/19 07:15 Assessment and Plan Assessment: -Frequent falls that are multifactorial including poor equilibrium multifactorial from arthritis and could be neuropathy. Patient is also legally blind. All these at up to patient having frequent falls and being unsteady. 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 Plan: Patient is medically stable for discharge, spending placement. Hold Lasix and lisinopril for acute kidney injury.Keep monitoring BMP DVT and GI prophylaxis. Continue with same symptomatic treatment and monitor labs and vitals. Time with Patient: Greater than 30
[2019-03-13] MEDS: risperiDONE 2 MG TAB PO SCH (17:17)
[2019-03-13] MEDS: ISOSORBIDE MONONITRATE ER 60 MG TAB.ER.24H PO SCH (17:18)
[2019-03-13] MEDS: FINASTERIDE 5 MG TAB PO SCH (20:15)
[2019-03-13] MEDS: ATORVASTATIN 40 MG TAB PO SCH (20:15)
[2019-03-13] MEDS: SERTRALINE 50 MG TAB PO SCH (20:15)
[2019-03-13] MEDS: TAMSULOSIN 0.4 MG CAP.ER.24H PO SCH (20:15)
[2019-03-13] MEDS: POLYETHYLENE GLYCOL 3350 17 GM POWD.PACK PO SCH (20:16)
[2019-03-14] MEDS: ALLOPURINOL 100 MG TAB PO SCH (08:01)
[2019-03-14] MEDS: LISINOPRIL 20 MG TAB PO SCH (08:01)
[2019-03-14] MEDS: risperiDONE 1 MG TAB PO SCH (08:01)
[2019-03-14] MEDS: METOPROLOL SUCCINATE (ER) 25 MG TAB.ER.24H PO SCH (08:01)
[2019-03-14] MEDS: CEPHALEXIN 500 MG CAP PO SCH ×3 (08:01→20:37)
--- NOTE | 2019-03-14 12:06 | P.PN ---
Progress Note - Text Progress Note Date: 03/14/19 Mr. Hooks states that his right scrotal pain is improving. He states that he has paid special attention to clean it in the shower. He is currently receiving Keflex. On examination, the right posterior scrotal wound has closed. There is minimal surrounding induration, without fluctuance or erythema. I would recommend that he continue to receive Keflex for an additional week. He will follow up with me as an outpatient. Please notify me if I can be of any further assistance during this hospitalization.
--- NOTE | 2019-03-14 13:34 | P.PN ---
Subjective Progress Note Date: 03/14/19 Principal diagnosis: Acute renal injury Frequent falls; multifactorial Scrotal abscess 78 years old male with past medical history of coronary artery disease, congestive heart failure, atrial fibrillation, deafness, legally blind, hyperlipidemia, hypertension, osteoarthritis, pulmonary embolism, frequent epistaxis, falls. He presents because of falls which is thought is multifa ctorial, his doctor was stopped. He's been treated for delusional disorders from paranoid ideation which is looks calm now with no current symptoms. The suspicion is also legally blind. Patient has public guardian. Patient is medically stable for discharge pending placement. tail board worker is on the case. 24 hour interval change 03/14/2019 Patient is seen and evaluated in the room at bedside; states that his right scrotal pain is improving. He states that he has paid special attention to clean it in the shower. He is currently receiving Keflex. On examination, the right posterior scrotal wound has closed. There is minimal surrounding induration, without fluctuance or erythema; urology is following and recommends that he continue to receive Keflex for an additional week and follow up with urology an outpatient. Case management is following and placement arrangements are underway Objective - Vital Signs Vital signs: Vital Signs Temp 97.9 F 03/14/19 07:00 Pulse 62 03/14/19 08:00 Resp 12 03/14/19 08:00 BP 125/54 03/14/19 07:00 Pulse Ox 98 03/14/19 07:00 Intake & Output 03/13/19 03/14/19 03/14/19 18:59 06:59 18:59 Intake Total 480 880 Output Total 250 1100 Balance 230 -220 Weight 80.6 kg Intake: Oral 480 880 Output: Urine 250 1100 Other: Voiding Method Urinal Urinal Urinal # Voids 2 # Bowel Movements 1 - Exam - Constitutional General appearance: Present: average body habitus, cooperative, no acute distress - EENT Eyes: Present: anicteric sclerae, EOMI, PERRLA, normal appearance ENT: Present: hearing grossly normal, normal oropharynx Ears: bilateral: normal - Neck Neck: Present: normal ROM. Absent: lymphadenopathy, rigidity, thyromegaly Carotids: negative: bruit present Thyroid: bilateral: normal size, negative: enlarged, nodule - Respiratory Respiratory: bilateral: CTA, negative: rales, rhonchi, wheezing - Cardiovascular Rhythm: regular Heart sounds: normal: S1, S2 Abnormal Heart Sounds: Absent: systolic murmur, diastolic murmur - Gastrointestinal General gastrointestinal: Present: normal bowel sounds, soft. Absent: distended, organomegaly, tenderness - Genitourinary Genitourinary Comment(s): deferred - Integumentary Integumentary: Present: normal turgor. Absent: jaundiced, rash, ulcer - Neurologic Neurologic: Present: CNII-XII intact. Absent: focal deficits - Musculoskeletal Musculoskeletal: Present: gait normal, strength equal bilaterally - Psychiatric Psychiatric: Present: A&O x's 3, appropriate affect, intact judgment & insight - Labs CBC & Chem 7: 03/07/19 11:53 03/10/19 07:15 Assessment and Plan Assessment: -Frequent falls that are multifactorial including poor equilibrium multifactorial from arthritis and could be neuropathy. Patient is also legally blind. All these at up to patient having frequent falls and being unsteady. 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 Plan: Patient is medically stable for discharge, spending placement. Hold Lasix and lisinopril for acute kidney injury.Keep monitoring BMP DVT and GI prophylaxis. Continue with same symptomatic treatment and monitor labs and vitals.
[2019-03-14] MEDS: risperiDONE 2 MG TAB PO SCH (17:23)
[2019-03-14] MEDS: ISOSORBIDE MONONITRATE ER 60 MG TAB.ER.24H PO SCH (17:23)
[2019-03-14] MEDS: SERTRALINE 50 MG TAB PO SCH (20:37)
[2019-03-14] MEDS: POLYETHYLENE GLYCOL 3350 17 GM POWD.PACK PO SCH (20:37)
[2019-03-14] MEDS: FINASTERIDE 5 MG TAB PO SCH (20:37)
[2019-03-14] MEDS: TAMSULOSIN 0.4 MG CAP.ER.24H PO SCH (20:37)
[2019-03-14] MEDS: ATORVASTATIN 40 MG TAB PO SCH (20:37)
[2019-03-15] MEDS: METOPROLOL SUCCINATE (ER) 25 MG TAB.ER.24H PO SCH (08:22)
[2019-03-15] MEDS: CEPHALEXIN 500 MG CAP PO SCH ×3 (08:22→20:11)
[2019-03-15] MEDS: LISINOPRIL 20 MG TAB PO SCH (08:22)
[2019-03-15] MEDS: ALLOPURINOL 100 MG TAB PO SCH (08:23)
[2019-03-15] MEDS: risperiDONE 1 MG TAB PO SCH (08:23)
--- NOTE | 2019-03-15 15:54 | P.PN ---
Subjective Progress Note Date: 03/15/19 Principal diagnosis: Acute renal injury Frequent falls; multifactorial Scrotal abscess 78 years old male with past medical history of coronary artery disease, congestive heart failure, atrial fibrillation, deafness, legally blind, hyperlipidemia, hypertension, osteoarthritis, pulmonary embolism, frequent epistaxis, falls. He presents because of falls which is thought is multifa ctorial, his doctor was stopped. He's been treated for delusional disorders from paranoid ideation which is looks calm now with no current symptoms. The suspicion is also legally blind. Patient has public guardian. Patient is medically stable for discharge pending placement. area field worker is on the case. 24 hour interval change 03/15/2019 Patient is seen and evaluated in the room at bedside; states that his right scrotal pain is improving. He states that he has paid special attention to clean it in the shower. He is currently receiving Keflex. Vital signs remained stable with a temperature of 98.4, pulse 69, respiration 12 and blood pressure 129/66 SpO2 of 96% on room air On examination, the right posterior scrotal wound has closed. There is minimal surrounding induration, without fluctuance or erythema urology is following and recommends that he continue to receive Keflex for an additional week and follow up with urology an outpatient. Case management is following and placement arrangements are underway Objective - Vital Signs Vital signs: Vital Signs Temp 98.4 F 03/15/19 07:00 Pulse 69 03/15/19 08:00 Resp 12 03/15/19 08:00 BP 129/66 03/15/19 07:00 Pulse Ox 96 03/15/19 07:00 Intake & Output 03/14/19 03/15/19 03/15/19 18:59 06:59 18:59 Intake Total 100 Output Total 200 200 Balance -100 -200 Intake: Oral 100 Output: Urine 200 200 Other: Voiding Method Urinal Urinal # Voids 2 - Exam - Constitutional General appearance: Present: average body habitus, cooperative, no acute distress - EENT Eyes: Present: anicteric sclerae, EOMI, PERRLA, normal appearance ENT: Present: hearing grossly normal, normal oropharynx Ears: bilateral: normal - Neck Neck: Present: normal ROM. Absent: lymphadenopathy, rigidity, thyromegaly Carotids: negative: bruit present Thyroid: bilateral: normal size, negative: enlarged, nodule - Respiratory Respiratory: bilateral: CTA, negative: rales, rhonchi, wheezing - Cardiovascular Rhythm: regular Heart sounds: normal: S1, S2 Abnormal Heart Sounds: Absent: systolic murmur, diastolic murmur - Gastrointestinal General gastrointestinal: Present: normal bowel sounds, soft. Absent: distended, organomegaly, tenderness - Genitourinary Genitourinary Comment(s): deferred - Integumentary Integumentary: Present: normal turgor. Absent: jaundiced, rash, ulcer - Neurologic Neurologic: Present: CNII-XII intact. Absent: focal deficits - Musculoskeletal Musculoskeletal: Present: gait normal, strength equal bilaterally - Psychiatric Psychiatric: Present: A&O x's 3, appropriate affect, intact judgment & insight - Labs CBC & Chem 7: 03/07/19 11:53 03/10/19 07:15 Assessment and Plan Assessment: -Frequent falls that are multifactorial including poor equilibrium multifactorial from arthritis and could be neuropathy. Patient is also legally blind. All these at up to patient having frequent falls and being unsteady. 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 Plan: Patient is medically stable for discharge, spending placement. Hold Lasix and lisinopril for acute kidney injury.Keep monitoring BMP DVT and GI prophylaxis. Continue with same symptomatic treatment and monitor labs and vitals. Time with Patient: Greater than 30
[2019-03-15] MEDS: risperiDONE 2 MG TAB PO SCH (16:57)
[2019-03-15] MEDS: ACETAMINOPHEN TAB 325 MG TAB PO PRN (16:57)
[2019-03-15] MEDS: ISOSORBIDE MONONITRATE ER 60 MG TAB.ER.24H PO SCH (16:57)
[2019-03-15] MEDS: TAMSULOSIN 0.4 MG CAP.ER.24H PO SCH (20:11)
[2019-03-15] MEDS: POLYETHYLENE GLYCOL 3350 17 GM POWD.PACK PO SCH (20:11)
[2019-03-15] MEDS: ATORVASTATIN 40 MG TAB PO SCH (20:11)
[2019-03-15] MEDS: FINASTERIDE 5 MG TAB PO SCH (20:11)
[2019-03-15] MEDS: SERTRALINE 50 MG TAB PO SCH (20:11)
[2019-03-16 01:37] VITALS: RESP 16
[2019-03-16 07:46] VITALS: BP 135/67; PULSE 66; TEMP 97.8
[2019-03-16] MEDS: ALLOPURINOL 100 MG TAB PO SCH (08:04)
[2019-03-16] MEDS: LISINOPRIL 20 MG TAB PO SCH (08:04)
[2019-03-16] MEDS: CEPHALEXIN 500 MG CAP PO SCH (08:04)
[2019-03-16] MEDS: METOPROLOL SUCCINATE (ER) 25 MG TAB.ER.24H PO SCH (08:04)
[2019-03-16] MEDS: risperiDONE 1 MG TAB PO SCH (08:06)
--- NOTE | 2019-03-16 12:48 | P.DS ---
Providers Date of admission: 02/10/19 08:33 Expected date of discharge: 03/16/19 Attending physician: Marvin Smith Consults: 02/09/19 14:10 Consult Physician Routine Consulting Provider: Rick Givens Consult Reason/Comments: scheduled outpatient procedure 02/10 Do you want consulting provider notified?: Yes 02/11/19 10:45 Consult Physician Routine Consulting Provider: Bisi Bear Consult Reason/Comments: Possible PTSD holding psych med family cannot bring in and we donot have it Do you want consulting provider notified?: Already Contacted 03/16/19 10:28 Consult Physician Routine Consulting Provider: Neal Pruitt Consult Reason/Comments: toe nail clipping Do you want consulting provider notified?: Yes Primary care physician: Fuad Cornelius Hospital Course: On examination: VITAL SIGNS: 97.8, 66, 16, 135/67, 97% room air GENERAL APPEARANCE: Laying in bed, comfortable HEENT: Normal external appearance of nose and ear. Oral cavity normal EYES: Poor vision. Patient can see figures outline NECK: JVD not raised. Mass not palpable. RESPIRATORY: Respiratory effort normal. Lungs clear to auscultation. CARDIOVASCULAR: First and second sounds normal. No edema. ABDOMEN: Soft. Liver and spleen not palpable. No tenderness. No mass palpable. PSYCHIATRY: Answering questions appropriately. No hallucinations Investigations EKG tracing normal sinus rhythm, poor R-wave progression X-ray of the pelvis shows arthritis no fracture Computed tomography scan of the brain-parenchymal volume loss, no acute event reported Chest x-ray chronic changes including some pericardial calcification Labs: Potassium 5 bun 40 creatinine 1.02 Final diagnoses: -Frequent falls that are multifactorial including poor equilibrium multifactorial from arthritis and could be neuropathy. Patient is also legally blind. All these at up to patient having frequent falls and being unsteady. 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 Hospital course: Patient admitted with multiple falls. A component of that was because of his failed eyesight. And arthritis. The patient also found to be having paranoid ideation and delusional disorder. Pain medication was discontinued. Medication adjusted by psychiatry. Patient now is doing really well. Able to carry on normal conversation. No more delusions. Eating well. Pain is well controlled. Spoke at length to the social media marketing manager today. Patient's on accepting facility. Also spoke to the patient. Questions were answered. Patient is . Has a court-appointed guardian. Discussion and discharge planning more than 35 minutes Patient Condition at Discharge: Stable Plan - Discharge Summary Discharge Rx Participant: No New Discharge Prescriptions: New QUEtiapine [SEROquel] 100 mg PO 1900 #30 tab Naproxen [Naprosyn] 250 mg PO TID PRN tab PRN Reason: Breakthrough Pain risperiDONE [RisperDAL] 1 mg PO DAILY #3 tab risperiDONE [RisperDAL] 2 mg PO 1800 #3 tab Acetaminophen Tab [Tylenol] 650 mg PO Q6HR PRN tab PRN Reason: Fever And/ Or Pain Sertraline [Zoloft] 50 mg PO HS #3 tab Continue Allopurinol [Zyloprim] 100 mg PO DAILY Metoprolol Succinate 25 mg PO DAILY Folic Acid 1 mg PO DAILY Isosorbide Mononitrate ER [Imdur] 60 mg PO DAILY@1700 Vit A/Vit C/Vit E/Zinc/Copper [ICAPS SOFTGEL] 2 cap PO BID Tamsulosin HCl 0.4 mg PO HS Cholecalciferol [Vitamin D3 (25 Mcg = 1000 Iu)] 2,000 unit PO HS Ferrous Sulfate [Iron (65 MG Elemental)] 650 mg PO DAILY@1700 Finasteride [Proscar] 5 mg PO HS Aspirin [Adult Low Dose Aspirin EC] 81 mg PO HS Lisinopril 20 mg PO DAILY@1700 Atorvastatin [Lipitor] 40 mg PO HS Rivaroxaban [Xarelto] 2.5 mg PO DAILY@1700 Furosemide [Lasix] 20 mg PO DAILY Polyethylene Glycol 3350 [Miralax] 1 packet PO DAILY HYDROcodone/APAP 10-325MG [[place] 10-325] 1 tab PO DAILY #3 tab Discontinued Sertraline [Zoloft] 100 mg PO BID Cariprazine HCl [Vraylar] 1.5 mg PO BID Discharge Medication List Allopurinol [Zyloprim] 100 mg PO DAILY 05/19/14 [History] Metoprolol Succinate 25 mg PO DAILY 05/19/14 [History] Folic Acid 1 mg PO DAILY 11/07/14 [History] Isosorbide Mononitrate ER [Imdur] 60 mg PO DAILY@1700 11/07/14 [History] Vit A/Vit C/Vit E/Zinc/Copper [ICAPS SOFTGEL] 2 cap PO BID 11/27/14 [History] Tamsulosin HCl 0.4 mg PO HS 01/21/16 [History] Cholecalciferol [Vitamin D3 (25 Mcg = 1000 Iu)] 2,000 unit PO HS 01/24/17 [History] Ferrous Sulfate [Iron (65 MG Elemental)] 650 mg PO DAILY@1700 01/24/17 [History] Finasteride [Proscar] 5 mg PO HS 01/24/17 [History] Aspirin [Adult Low Dose Aspirin EC] 81 mg PO HS 06/11/17 [History] Atorvastatin [Lipitor] 40 mg PO HS 10/19/18 [History] Furosemide [Lasix] 20 mg PO DAILY 10/19/18 [History] Lisinopril 20 mg PO DAILY@17010/19/18 [History] Rivaroxaban [Xarelto] 2.5 mg PO DAILY@1700 10/19/18 [History] Polyethylene Glycol 3350 [Miralax] 1 packet PO DAILY 02/07/19 [History] HYDROcodone/APAP 10-325MG [[place] 10-325] 1 tab PO DAILY #3 tab 02/17/19 [Rx] QUEtiapine [SEROquel] 100 mg PO 1900 #30 tab 02/17/19 [Rx] Acetaminophen Tab [Tylenol] 650 mg PO Q6HR PRN tab 03/16/19 [Rx] Naproxen [Naprosyn] 250 mg PO TID PRN tab 03/16/19 [Rx] Sertraline [Zoloft] 50 mg PO HS #3 tab 03/16/19 [Rx] risperiDONE [RisperDAL] 1 mg PO DAILY #3 tab 03/16/19 [Rx] risperiDONE [RisperDAL] 2 mg PO 1800 #3 tab 03/16/19 [Rx] Follow up Appointment(s)/Referral(s): [facility], [NON-STAFF] - As Needed Rick Givens MD [STAFF PHYSICIAN] - 1 Week Fuad Cornelius MD [Primary Care Provider] - As Needed Activity/Diet/Wound Care/Special Instructions: patient to see Dr Givens in regards to outpatient UROLIFT procedure after discharge bmp/cbc-3 days
== END 2019-03-16 13:50 | DRG 74 ==
LOC: EC 16:35 → 3NMEDONC 22:52 → 4MS4W 02-08 15:46 → INTOOBSV 02-09 08:25 → OBSVTOIN 02-09 08:25 → EEVIPCON 02-10 08:33 → 4MS4W 02-18 16:57 → 4SSUR 02-19 16:14
PROVIDERS: ADMIT Hospitalist; ATTEND Hospitalist
DX: G62.9 Polyneuropathy, unspecified (principal); N17.9 Acute kidney failure, unspecified; D64.9 Anemia, unspecified; E78.5 Hyperlipidemia, unspecified; F03.90 Unspecified dementia, unspecified severity, without behavioral disturbance, psychotic disturbance, mood disturbance, and anxiety; F32.9 Major depressive disorder, single episode, unspecified; F41.9 Anxiety disorder, unspecified; F60.0 Paranoid personality disorder; H35.30 Unspecified macular degeneration; H54.8 Legal blindness, as defined in USA; H91.90 Unspecified hearing loss, unspecified ear; I11.0 Hypertensive heart disease with heart failure; I25.10 Atherosclerotic heart disease of native coronary artery without angina pectoris; I25.2 Old myocardial infarction; I48.0 Paroxysmal atrial fibrillation; I50.9 Heart failure, unspecified; M15.9 Polyosteoarthritis, unspecified; M48.02 Spinal stenosis, cervical region; M48.061 Spinal stenosis, lumbar region without neurogenic claudication; N40.0 Benign prostatic hyperplasia without lower urinary tract symptoms; N49.2 Inflammatory disorders of scrotum; R29.6 Repeated falls; T50.2X5A Adverse effect of carbonic-anhydrase inhibitors, benzothiadiazides and other diuretics, initial encounter; Z79.01 Long term (current) use of anticoagulants; Z79.82 Long term (current) use of aspirin; Z79.899 Other long term (current) drug therapy; Z80.6 Family history of leukemia; Z86.711 Personal history of pulmonary embolism; Z87.891 Personal history of nicotine dependence; Z91.81 History of falling; Z95.1 Presence of aortocoronary bypass graft; Z95.5 Presence of coronary angioplasty implant and graft; Z96.641 Presence of right artificial hip joint; F43.10 Post-traumatic stress disorder, unspecified; L89.322 Pressure ulcer of left buttock, stage 2; L89.312 Pressure ulcer of right buttock, stage 2; R26.81 Unsteadiness on feet
CPT/HCPCS: 36415; 70450; 71046; 72170; 80048; 80053; 81001; 83605; 84443; 85025; 85610; 85730; 99285